=== PATIENT | male | born 1965 | race African-American/Black ===

== ENCOUNTER 2016-09-08 22:04 | Inpatient (IN) | payer MEDICAID ==
[~2016-09-08] VITALS: Ht 180.3 cm; Wt 77.6 kg
[~2016-09-08 22:04] MED LIST: AMLODIPINE BES2.5 MG ORAL; ASPIR 8181 MG ORAL; DOCUSATE SODIU100 M2 ORAL; DOCUSATE SODIU100 MG ORAL; IBUPROFEN600 MG ORAL; NORCO 5-325 TA1 EACH ORAL; NORVASC10 MG ORAL; PANTOPRAZOLE SO20 MG ORAL
[2016-09-08 22:08] VITALS: BP 152/84
[2016-09-08] MEDS ORDERED: Heparin Sod 1000 units/ml 10ml INJ ONE (22:30)
[2016-09-08] MEDS ORDERED: HYDROmorphone 1mg/ml Carpuject IVP ONE ×2 (22:30→23:15)
[2016-09-08] MEDS ORDERED: Heparin 2000 units/Ns 1000ml IV ONE (22:30)
[2016-09-08] MEDS ORDERED: Heparin 5000 units/ml inj IV ONE (22:45)
[2016-09-08] MEDS ORDERED: Heparin 25,000u/D5W 500ml 500 ML IV SCH (22:45)
[2016-09-08 22:54] LABS: INR 1.1 (0.9-1.1); PROTHROMBIN TIME 11.1 SEC (9.30-11.50)
[2016-09-08 22:56] LABS: ANION GAP 19 (5-15); CALCIUM 9.4 mg/dL (8.6-10.2); CARBON DIOXIDE 21 mEQ/L (20-30); CHLORIDE 99 mEQ/L (98-107); CREATININE 1.1 mg/dL (0.7-1.2); GLOMERULAR FILTRATION RATE > 60 mL/min (>60); HEMOLYSIS 3; POTASSIUM 3.5 mEQ/L (3.4-4.9); SODIUM 139 mEQ/L (135-145)
[2016-09-08 22:57] LABS: BASOPHILS % (AUTO) 1.3 % (0.0-2.0); EOSINOPHILS % (AUTO) 1.4 % (0.0-3.0); MEAN CORPUSCULAR HEMOGLOBIN 26.7 PG (27.0-31.0); MEAN CORPUSCULAR HGB CONC 31.1 G/DL (32.0-36.0); MEAN CORPUSCULAR VOLUME 86 FL (80-99); MEAN PLATELET VOLUME 6.3 FL (6.5-10.1); NEUTROPHILS % (AUTO) 48.3 % (45.0-75.0); PLATELET COUNT 210 K/UL (150-450); RED BLOOD COUNT 4.94 M/UL (4.70-6.10); RED CELL DISTRIBUTION WIDTH 13.8 % (11.6-14.8); WHITE BLOOD COUNT 10.7 K/UL (4.8-10.8)
[2016-09-08 23:32] VITALS: BP 165/87
[2016-09-09] VITALS (36 sets, daily range): BP systolic 127–160; BP diastolic 84–120
[2016-09-09] MEDS ORDERED: HYDROmorphone 1mg/ml Carpuject IVP ONE (00:15)
[2016-09-09] MEDS ORDERED: Norco 5mg/325mg tab ORAL PRN (01:15)
[2016-09-09] MEDS ORDERED: Milk of Magnesia 30ml Ud ORAL PRN (01:15)
[2016-09-09] MEDS ORDERED: Mylanta II UD 30ml ORAL PRN (01:15)
[2016-09-09] MEDS ORDERED: HYDROmorphone 1mg/NS 50ml IVPB 50 ML IVPB PRN (01:15)
[2016-09-09] MEDS ORDERED: Miralax 17gm pkt ORAL PRN (01:15)
--- NOTE | 2016-09-09 01:48 | Emergency Room Report ---
History of Present Illness General Chief Complaint: Pain Source: Patient, EMS Present Illness HPI This is a 50-year-old male with a history of bilateral femoral popliteal bypass surgery. This was done in January and February of last year. This is done by Dr. Lincoln at [facility]. He presents with acute onset of left leg pain. This occurred about 30 minutes prior to arrival. He complaining of severe pain 10 out of 10. He felt his leg from the knee down going numb. Denies any trauma. Denies any fever or chills. Still able to walk. No other complaint. Pain is tracking up his thigh. Allergies: Coded Allergies: PENICILLIN G (Unverified Allergy, Unknown, 09/08/16) CODEINE (Unverified Adverse Reaction, Unknown, 05/14/16) MORPHINE (Unverified Adverse Reaction, Unknown, 05/14/16) PENICILLINS (Unverified Adverse Reaction, Unknown, 05/14/16) SHELLFISH DERIVED (Unverified Adverse Reaction, Unknown, Shortness of Breath, 05/14/16) Patient History Past Medical History: see triage record, old chart reviewed Past Surgical History: other Pertinent Family History: none Social History: Denies: drug use Immunizations: other Reviewed Nursing Documentation: PMH: Agreed, PSxH: Agreed Nursing Documentation-PMH Past Medical History: No History, Except For Hx Hypertension: Yes Hx Gastrointestinal Problems: Yes - gerd Review of Systems Eye: Denies: blurred vision, eye pain ENT: Denies: ear pain, nose congestion, throat swelling Respiratory: Denies: cough, shortness of breath Cardiovascular: Denies: chest pain, palpitations Gastrointestinal: Denies: abdominal pain, diarrhea, nausea, vomiting Musculoskeletal: Reports: joint pain, muscle pain, Denies: back pain Skin: Denies: rash Neurological: Denies: headache, numbness Endocrine: Denies: increased thirst, increased urine Hematologic/Lymphatic: Denies: easy bruising All Other Systems: negative except mentioned in HPI Physical Exam Vital Signs Date Time Temp Pulse Resp B/P Pulse Ox O2 Delivery O2 Flow Rate FiO2 09/08/16 21:58 97.7 93 14 148/87 100 Room Air vitals normal Sp02 EP Interpretation: reviewed, normal General Appearance: well appearing, alert, moderate distress Head: normocephalic, atraumatic Eyes: bilateral eye EOMI, bilateral eye PERRL ENT: hearing grossly normal, normal pharynx Neck: full range of motion, supple, no meningismus Respiratory: chest non-tender, lungs clear, normal breath sounds Cardiovascular #1: regular rate, rhythm, no murmur Gastrointestinal: normal bowel sounds, non tender, no mass, no organomegaly, no bruit, non-distended Musculoskeletal: back normal, normal range of motion, other - Left leg: He has normal sensation of the thigh. He has decreased sensation of the lower extremity from the knee to the ankle. He has minimal sensation of the foot. I could not palpate a dorsalis pedis or posterior tibialis pulse. There is slight decrease in warmth compared to the right. Is able to move his knee, ankle, and toes. Neurologic: alert, oriented x3 Psychiatric: mood/affect normal Skin: warm/dry Procedures Critical Care Time Critical Care Time Critical care is mandated in this patient who presented with acute arterial occlusion. Patient require my urgent intervention to attenuate the risks of loss of limb which may lead to cardiovascular collapse and . Critical care time is 35 minutes excluding any reportable procedure. Critical care time included evaluation, multiple reevaluation, looking at old charts, interpreting laboratory and diagnostic data, discussing case with patient and family and consultants, and charting. Medical Decision Making Diagnostic Impression: Primary Impression: Arterial occlusion, lower extremity ER Course Patient presents with acute arterial occlusion of his left leg. I order heparin after my examination. This was done before ultrasound. Ultrasound confirmed arterial occlusion. I tried to transfer the patient to [facility]. Unfortunately, there was no bed. Transfer center unable to contact the vascular surgeon. I tried to transfer the patient to [facility]. This was also unsuccessful. Fortunately, I was able to contact Dr. Rip Kumar, vascular surgeon. He agreed with the treatment plan. Will operate on the patient first thing in the morning. He wanted to get an Aortogram with left leg runoff prior to surgery. I will contact the radiologist at 6 AM. Lab Results Impression labs unremarkable Rhythm Strip Diag. Results EP Interpretation: yes Rate: 88 Rhythm: NSR, no PVC's, no ectopy CT/MRI/US Diagnostic Results CT/MRI/US Diagnostic Results : Imaging Test Ordered: Arterial vascular US of left leg. Impression Read by Video Tape Editor. Flow at CF artery and profundus. No flow past the knee. Last Vital Signs Date Time Temp Pulse Resp B/P Pulse Ox O2 Delivery O2 Flow Rate FiO2 09/09/16 01:16 97.8 66 14 129/92 100 Room Air Status: improved Disposition: ADMITTED INPATIENT Condition: Serious Referrals: NOT CHOSEN ALTAGRACIA/,REFERRING (PCP) MARY SALDIVAR M.D. Sep 09, 2016 01:48
[2016-09-09] MEDS ORDERED: D5 1/2NS 1,000 ML IV SCH (03:00)
[2016-09-09] MEDS: Heparin 25,000u/D5W 500ml 500 ML IV SCH (04:02)
[2016-09-09] MEDS: Norco 10mg/325mg tab ORAL PRN ×2 (04:18→08:26)
[2016-09-09] MEDS: Docusate 100mg cap ORAL SCH ×2 (08:26→21:00)
--- NOTE | 2016-09-09 10:24 | General Progress Note ---
Progress Note Progress Note 50 y/o male with hx bilat LE FPBPG (vein grafts) last year, now with acute onset LLE pain and numbness since last night. Had doppler study which shows occluded graft on the left, patent on the right + hx ND, HTN, smoking Denies DM Denies hx GIB, CVA, CA, hemoptysis Allergies: shellfish, PCN, codeine, morphine On exam has bilat 2+ groin pulses, no pop or distal pulses. LLE is cool to the knee. Decreased motor, equivocally decreased sensation. Diagnostic LLE angiogram requested by referring vascular surgeon Dr. Kumar. Procedure, benefits, alternatives, and risks, including but not limited to hemorrhage, infection, contrast reaction, renal failure discussed with patient and . Due to equipment limitations, we can only offer limited intervention, but possibility of such also discussed. They agree to proceed. ALEX SAINI M.D. Sep 09, 2016 10:24
[2016-09-09] MEDS ORDERED: Sodium Bicarbonate 8.4% 50ml Inj ONE (10:26)
[2016-09-09] MEDS ORDERED: Lidocaine 1% Plain 30 ml INJ ONE ×2 (10:26→13:13)
[2016-09-09] MEDS ORDERED: Heparin 2000 units/Ns 1000ml 2,000 ML ONE (10:26)
--- NOTE | 2016-09-09 10:27 | Pre-Procedure Note/Attestation ---
Pre-Procedure Note/Attestation Complete Prior to Procedure Planned Procedure: bilateral Procedure Narrative: Abd aortogram and LLE runoff arteriogram, possible intervention Indications for Procedure Pre-Operative Diagnosis: Acute LLE ischemia Attestation I attest that I discussed the nature of the procedure; its benefits; risks and complications; and alternatives (and the risks and benefits of such alternatives ), prior to the procedure, with the patient (or the patient's legal electronics parts sales representative). I attest that, if there was a reasonable possibility of needing a blood transfusion, the patient (or the patient's legal electronics parts sales representative) was given the [facility] standardized written summary, pursuant to the Asa Laureano Blood Safety Act ([place] Health and Safety Code # 1645, as amended). I attest that I re-evaluated the patient just prior to the surgery and that there has been no change in the patient's H&P, except as documented below: ALEX SAINI M.D. Sep 09, 2016 10:27
--- NOTE | 2016-09-09 10:28 | Moderate Sedation - Procedural ---
Moderate Sedation HPI Home Medication Active Scripts Hydrocodone Bit/Acetaminophen 5-325* (NORCO 5-325*) 1 Each Tablet, 1 TAB ORAL Q6H Y for For Pain, #10 TAB 0 Refills Prov:PALLAVI DAWN M.D. 05/14/16 Ibuprofen* (MOTRIN*) 600 Mg Tablet, 600 MG ORAL Q8H Y for For Pain, #30 TAB 0 Refills Prov:PALLAVI DAWN M.D. 05/14/16 Reported Medications Docusate Sodium* (DOCUSATE SODIUM*) 100 Mg Capsule, 200 MG ORAL DAILY, CAP 09/08/16 Aspirin* (ASPIR 81*) 81 Mg Tablet.dr, 81 MG ORAL DAILY, TAB 09/08/16 Amlodipine Besylate* (AMLODIPINE BESYLATE*) 2.5 Mg Tablet, 2.5 MG ORAL DAILY, TAB 09/08/16 Pantoprazole (PANTOPRAZOLE) 20 Mg Tablet.dr, 20 MG ORAL DAILY, #10 TAB 0 Refills 05/14/16 Docusate Sodium (DOCUSATE SODIUM) 100 Mg Tablet, 100 MG ORAL TWICE A DAY, #60 TAB 0 Refills 05/14/16 Aspirin* (ASPIR 81*) 81 Mg Tablet.dr, 81 MG ORAL DAILY, TAB 05/14/16 Amlodipine Besylate (Norvasc) 10 Mg Tablet, 10 MG ORAL DAILY, TAB 05/14/16 Patient History Allergies: Coded Allergies: PENICILLIN G (Unverified Allergy, Unknown, 09/08/16) CODEINE (Unverified Adverse Reaction, Unknown, 05/14/16) MORPHINE (Unverified Adverse Reaction, Unknown, 05/14/16) PENICILLINS (Unverified Adverse Reaction, Unknown, 05/14/16) SHELLFISH DERIVED (Unverified Adverse Reaction, Unknown, Shortness of Breath, 05/14/16) PAST MEDICAL HISTORY: Past Surgeries: Social History: Pre-Procedural Mod Sedation Pre-Assessment Time: 10:15 Pre-Sedation Assessment: Eval. Immed. Prior to Sed, Reviewed H&P, Patient Examined, Plan for Sedation Discuss Airway Assessment (Malampati): III Evaluation Hx of untoward rxns to mod sed: No Procedures/Plans: Radiology Plan for Moderate Sedation: Midazolam, Fentanyl ASA Score: II Informed Consent The nature of the procedure/sedation; its benefits; risks and complications; and alternatives (and the risks and benefits of such alternatives) were discussed with the patient (or their legal electroplating sales representative), prior to the procedure. All questions were answered to the patient's (or their legal electroplating sales representative's) satisfaction and the patient (or their legal electroplating sales representative) gave informed consent to the procedure. I attest that I re-evaluated the patient just prior to the surgery and that there has been no change in the patient's H&P, except as documented below: Post Procedure Assessment Communication: No Apparent Limitation Mental Status: Awake Respiration: Unlabored Skin Condition: WNL Adomen: WNL Nausea: NO Vomiting: NO ALEX SAINI M.D. Sep 09, 2016 10:28
[2016-09-09] MEDS ORDERED: DiphenhydrAMINE 50mg/ml Inj ONE (10:47)
[2016-09-09] MEDS ORDERED: fentaNYL 100 mcg/2 mL IV ONE (11:00)
[2016-09-09] MEDS ORDERED: Midazolam 2mg/2ml Inj ONE ×2 (11:00→15:00)
[2016-09-09] MEDS ORDERED: DiphenhydrAMINE 50mg/ml Inj IVP PRN ×2 (11:00→16:00)
[2016-09-09] MEDS ORDERED: Heparin 2000 units/Ns 1000ml 1,000 ML ONE (11:32)
[2016-09-09] MEDS ORDERED: Heparin 5000 units/ml inj ONE (13:12)
[2016-09-09] MEDS ORDERED: Isovue-M 300 INJ ONE (13:12)
[2016-09-09] MEDS ORDERED: Bupivacaine 0.5% Inj 30 ml vial INJ ONE (13:13)
--- NOTE | 2016-09-09 13:55 | History and Physical ---
History of Present Illness General Date patient seen: Sep 09, 2016 Time patient seen: 13:54 Reason for Hospitalization: Pain Present Illness HPI 50-year-old male with a history of bilateral femoral popliteal bypass surgery done in January and February of last year by Dr. Lincoln at [facility]. He presents with acute onset of left leg pain. This occurred about 30 minutes prior to arrival. He was complaining of severe pain 10 out of 10. He felt his leg from the knee down going numb. Denies any trauma. Denies any fever or chills. Still able to walk. No other complaint. Pain is tracking up his thigh. Allergies: Coded Allergies: PENICILLIN G (Unverified Allergy, Unknown, 09/08/16) CODEINE (Unverified Adverse Reaction, Unknown, 05/14/16) MORPHINE (Unverified Adverse Reaction, Unknown, 05/14/16) PENICILLINS (Unverified Adverse Reaction, Unknown, 05/14/16) SHELLFISH DERIVED (Unverified Adverse Reaction, Unknown, Shortness of Breath, 05/14/16) Medication History Scheduled Amlodipine Besylate (Norvasc), 10 MG ORAL DAILY, (Reported) Amlodipine Besylate* (Amlodipine Besylate*), 2.5 MG ORAL DAILY, (Reported) Aspirin* (Aspir 81*), 81 MG ORAL DAILY, (Reported) Aspirin* (Aspir 81*), 81 MG ORAL DAILY, (Reported) Docusate Sodium (Docusate Sodium), 100 MG ORAL TWICE A DAY, (Reported) Docusate Sodium* (Docusate Sodium*), 200 MG ORAL DAILY, (Reported) Pantoprazole (Pantoprazole), 20 MG ORAL DAILY, (Reported) Scheduled PRN Hydrocodone Bit/Acetaminophen 5-325* ([place] 5-325*), 1 TAB ORAL Q6H PRN for For Pain Ibuprofen* (Motrin*), 600 MG ORAL Q8H PRN for For Pain Patient History Healthcare decision maker Resuscitation status Full Code Advanced Directive on File Past Medical/Surgical History Past Medical/Surgical History: (1) PVD (peripheral vascular disease) Family History Family History: Patient reports no known family medical history. Social History Social History: (1) No significant social history Review of Systems All Other Systems: negative except mentioned in HPI Physical Exam General Appearance: no apparent distress, alert HEENT: normocephalic, atraumatic, anicteric, mucous membranes moist, PERRL, EOMI, pharynx normal, no JVD Neck: non-tender, supple Respiratory/Chest: lungs clear, normal breath sounds, no respiratory distress, no accessory muscle use Cardiovascular/Chest: normal peripheral pulses, normal rate, regular rhythm Abdomen: normal bowel sounds, non tender, soft, no mass Extremities: non-tender, normal inspection Skin Exam: warm/dry Neurologic: calender let off operator II-XII grossly normal, no motor/sensory deficits, alert Musculoskeletal: normal muscle bulk Physical Exam Narrative General Appearance: well appearing, alert, moderate distress Head: normocephalic, atraumatic Eyes: bilateral eye EOMI, bilateral eye PERRL ENT: hearing grossly normal, normal pharynx Neck: full range of motion, supple, no meningismus Respiratory: chest non-tender, lungs clear, normal breath sounds Cardiovascular #1: regular rate, rhythm, no murmur Gastrointestinal: normal bowel sounds, non tender, no mass, no organomegaly, no bruit, non-distended Musculoskeletal: back normal, normal range of motion, other - Left leg: He has normal sensation of the thigh. He has decreased sensation of the lower extremity from the knee to the ankle. He has minimal sensation of the foot. I could not palpate a dorsalis pedis or posterior tibialis pulse. There is slight decrease in warmth compared to the right. Is able to move his knee, ankle, and toes. Neurologic: alert, oriented x3 Psychiatric: mood/affect normal Skin: warm/dry Last 24 Hour Vital Signs Date Time Temp Pulse Resp B/P Pulse Ox O2 Delivery O2 Flow Rate FiO2 09/09/16 13:10 65 22 148/94 99 Room Air 09/09/16 13:05 68 20 146/102 100 Room Air 09/09/16 13:00 67 11 148/101 100 Room Air 09/09/16 12:55 71 14 150/101 100 Room Air 09/09/16 12:50 62 14 151/103 100 Simple Mask 4.0 09/09/16 12:45 68 14 152/99 100 Simple Mask 4.0 09/09/16 12:40 65 12 146/101 100 Simple Mask 4.0 09/09/16 12:35 65 12 136/100 100 Simple Mask 4.0 09/09/16 12:30 99.4 69 12 145/103 100 Simple Mask 4.0 09/09/16 12:25 67 17 160/102 100 Simple Mask 4.0 09/09/16 12:20 66 10 152/100 100 Simple Mask 4.0 09/09/16 12:15 98.5 66 10 147/106 100 Simple Mask 09/09/16 12:10 69 10 151/103 100 Simple Mask 09/09/16 12:05 66 19 151/101 100 Simple Mask 4.0 09/09/16 12:00 67 10 143/101 100 Simple Mask 4.0 09/09/16 11:55 69 10 146/97 100 Simple Mask 4.0 09/09/16 11:50 71 16 153/100 100 Simple Mask 4.0 09/09/16 11:45 69 18 157/104 100 Simple Mask 4.0 09/09/16 11:40 57 12 148/99 100 Simple Mask 4.0 09/09/16 11:35 69 11 144/99 100 Simple Mask 4.0 09/09/16 11:30 67 12 141/106 100 Simple Mask 4.0 09/09/16 11:25 68 20 141/102 100 Simple Mask 4.0 09/09/16 11:20 99.0 67 12 135/92 100 Simple Mask 4.0 09/09/16 11:15 64 16 144/100 100 Simple Mask 4.0 09/09/16 11:10 67 16 135/99 100 Room Air 09/09/16 11:05 68 14 144/96 100 Room Air 09/09/16 11:04 99.0 67 16 100 Simple Mask 4.0 70 100 68 100 09/09/16 11:00 69 14 149/111 99 Room Air 09/09/16 10:55 82 17 148/120 100 Room Air 09/09/16 10:50 63 23 149/100 100 Room Air 09/09/16 10:45 62 12 144/101 100 Room Air 09/09/16 10:40 63 22 148/101 100 Room Air 09/09/16 08:00 96.9 61 20 127/87 100 Room Air 09/09/16 04:12 97.7 67 21 147/97 98 Room Air 09/09/16 04:00 75 09/09/16 03:05 97.8 64 13 131/84 100 Room Air 09/09/16 02:22 97.8 64 13 131/84 100 Room Air 09/09/16 01:16 97.8 66 14 129/92 100 Room Air 09/09/16 00:45 97.8 09/08/16 23:32 97.8 72 16 165/87 100 Room Air 09/08/16 23:20 97.8 09/08/16 23:20 97.8 09/08/16 22:08 97.8 95 15 152/84 100 Room Air 09/08/16 21:58 97.7 93 14 148/87 100 Room Air Intake and Output 09/08/16 09/09/16 19:00 07:00 Intake Total 205.8 ml Balance 205.8 ml Intake IV Total 205.8 ml # Voids 2 Laboratory Tests Test 09/08/16 22:24 09/09/16 05:20 White Blood Count 10.7 K/UL (4.8-10.8) Red Blood Count 4.94 M/UL (4.70-6.10) Hemoglobin 13.2 G/DL (14.2-18.0) L Hematocrit 42.4 % (42.0-52.0) Mean Corpuscular Volume 86 FL (80-99) Mean Corpuscular Hemoglobin 26.7 PG (27.0-31.0) L Mean Corpuscular Hemoglobin Concent 31.1 G/DL (32.0-36.0) L Red Cell Distribution Width 13.8 % (11.6-14.8) Platelet Count 210 K/UL (150-450) Mean Platelet Volume 6.3 FL (6.5-10.1) L Neutrophils (%) (Auto) 48.3 % (45.0-75.0) Lymphocytes (%) (Auto) 41.0 % (20.0-45.0) Monocytes (%) (Auto) 8.0 % (1.0-10.0) Eosinophils (%) (Auto) 1.4 % (0.0-3.0) Basophils (%) (Auto) 1.3 % (0.0-2.0) Prothrombin Time 11.1 SEC (9.30-11.50) Prothromb Time International Ratio 1.1 (0.9-1.1) Activated Partial Thromboplast Time 28 SEC (23-33) 78 SEC (23-33) H Sodium Level 139 mEQ/L (135-145) Potassium Level 3.5 mEQ/L (3.4-4.9) Chloride Level 99 mEQ/L (98-107) Carbon Dioxide Level 21 mEQ/L (20-30) Anion Gap 19 (5-15) H Blood Urea Nitrogen 14 mg/dL (7-23) Creatinine 1.1 mg/dL (0.7-1.2) Estimat Glomerular Filtration Rate > 60 mL/min (>60) Glucose Level 123 mg/dL (74-106) H Calcium Level 9.4 mg/dL (8.6-10.2) Height (Feet): 5 Height (Inches): 11.00 Weight (Pounds): 171 Medications Current Medications Medications (Trade) Dose Ordered Sig/Leidy Route PRN Reason Start Time Stop Time Status Last Admin Dose Admin Acetaminophen (Tylenol) 650 mg Q4H PRN ORAL Mild Pain (Pain Scale 1-3) 09/09/16 01:15 10/09/16 01:14 Acetaminophen/ Hydrocodone Bitart 1 tab 1 tab Q4H PRN ORAL mod pain 09/09/16 01:15 09/16/16 01:14 Acetaminophen/ Hydrocodone Bitart ([place] 10/325) 1 ea Q4H PRN ORAL Severe Pain (Pain Scale 7-10) 09/09/16 01:15 09/16/16 01:14 09/09/16 08:26 Al Hydroxide/Mg Hydroxide (Mylanta II) 30 ml Q6H PRN ORAL dyspepsia 09/09/16 01:15 10/09/16 01:14 Bisacodyl (Dulcolax) 10 mg DAILYPRN PRN RECTAL Constipation 09/09/16 01:15 10/09/16 01:14 Dextrose (Dextrose 50%) STAT PRN IV Hypoglycemia 09/09/16 01:15 10/09/16 01:14 Dextrose/Sodium Chloride (D5 0.45% NS) 1,000 ml @ 75 mls/hr [id number] IV 09/09/16 03:00 10/09/16 02:59 09/09/16 04:02 Diphenhydramine HCl (Benadryl) 25 mg Q6H PRN ORAL Itching/Pruritis 09/09/16 01:15 10/09/16 01:14 Diphenhydramine HCl (Benadryl) 50 mg ONCE PRN IVP PRIOR TO PROCEDURE FOR ITCHING 09/09/16 11:00 09/10/16 23:59 Docusate Sodium (Colace) 100 mg EVERY 12 HOURS ORAL 09/09/16 09:00 10/09/16 08:59 09/09/16 08:26 Heparin Sodium/ Dextrose (Heparin) 500 ml @ 27.923 mls/ hr adjust per protocol IV 09/09/16 03:45 10/09/16 03:44 09/09/16 04:02 Hydromorphone HCl 50 ml @ 200 mls/hr Q4H PRN IVPB Pain Scale (6-10) 09/09/16 01:15 10/09/16 01:14 Magnesium Hydroxide (Mom) 30 ml HSPRN PRN ORAL Constipation 09/09/16 01:15 10/09/16 01:14 Ondansetron HCl (Zofran) 4 mg Q6H PRN IVP Nausea & Vomiting 09/09/16 01:15 10/09/16 01:14 Polyethylene Glycol (Miralax) 17 gm DAILYPRN PRN ORAL Constipation 09/09/16 01:15 10/09/16 01:14 Assessment/Plan Problem List: (1) Arterial occlusion, lower extremity ICD Codes: I74.3 - Embolism and thrombosis of arteries of the lower extremities SNOMED: 982477191 (2) PVD (peripheral vascular disease) ICD Codes: I73.9 - Peripheral vascular disease, unspecified SNOMED: 449582548 Status: progressing Assessment/Plan angiogram reveals occlusion of L leg graft f/u with Vascular surgery; plan for procedure today BP control pain control Daron Hassan M.D. Sep 09, 2016 13:55
[2016-09-09] MEDS ORDERED: Clindamycin 600mg 50 ML IV ONE (14:46)
[2016-09-09] MEDS ORDERED: Clindamycin 2 ML ONE (14:46)
--- NOTE | 2016-09-09 14:52 | Brief Operative Note ---
Immediate Post Operative Note Operative Note Pre-op Diagnosis: Acute LLE ischemia Procedure: LLE angiogram Post-op Diagnosis: same Post-op Diagnosis: same as pre-op Findings: other - Occluded L FPBPG. Minimal distal reconstitution Surgeon: Joseph Leal Anesthesia: moderate sedation Specimen: none Complications: none Estimated Blood Loss: minimal Drains: none Implant(s) used?: No ALEX LEAL M.D. Sep 09, 2016 14:52
[2016-09-09] MEDS ORDERED: NS Irrig 1000ml ONE (15:00)
[2016-09-09] MEDS ORDERED: Lidocaine 1% MPF 10mg/ml 5ml ONE (15:00)
[2016-09-09] MEDS ORDERED: LR 1000ml ONE (15:00)
[2016-09-09] MEDS ORDERED: Dexamethasone 4mg/ml vial ONE (15:00)
[2016-09-09] MEDS ORDERED: Etomidate 40mg/20ml Inj IV ONE (15:00)
[2016-09-09] MEDS ORDERED: fentaNYL 250mcg/5ml ONE (15:00)
[2016-09-09] MEDS ORDERED: Metoclopramide 10mg/2ml Inj ONE (15:00)
[2016-09-09] MEDS ORDERED: Zemuron 50mg/5ml Inj IV ONE (15:00)
[2016-09-09] MEDS ORDERED: Sterile Water Irrig 1000ml IRRIG ONE (15:00)
--- NOTE | 2016-09-09 15:35 | Cardiology Report ---
APPROVED REPORT EKG Measurement Heart [id number] Normal sinus rhythm Normal ECG
[2016-09-09] MEDS ORDERED: NS Irrig 1000ml IRRIG ONE (15:50)
[2016-09-09] MEDS ORDERED: Lidocaine 2% MPF 5ml Vial INJ ONE (15:56)
--- NOTE | 2016-09-09 15:56 | Anethesia Preoperative Eval ---
Anesthesia Pre-op PMH/ROS General Date of Evaluation: Sep 09, 2016 Anesthesiologist: Keith ASA Score: ASA 3 Mallampati Score Class I : Soft palate, uvula, fauces, pillars visible Class II: Soft palate, uvula, fauces visible Class III: Soft palate, base of uvula visible Class IV: Only hard plate visible Mallampati Classification: Class II Surgeon: José Diagnosis: Left leg graft occlusion Surgical Procedure: Left leg femoral-tibial bypass Anesthesia History: none Family History: no anesthesia problems Allergies: Coded Allergies: PENICILLIN G (Unverified Allergy, Unknown, 09/08/16) CODEINE (Unverified Adverse Reaction, Unknown, 05/14/16) MORPHINE (Unverified Adverse Reaction, Unknown, 05/14/16) PENICILLINS (Unverified Adverse Reaction, Unknown, 05/14/16) SHELLFISH DERIVED (Unverified Adverse Reaction, Unknown, Shortness of Breath, 05/14/16) Medications: see eMAR Past Medical History Cardiovascular: Reports: HTN, other - PVD-severe, uncontrolled. S/p bialteral fem-pop bypasses, HLD, Denies: CAD, VA, arrhythmia, valve dz Pulmonary: Denies: COPD, DIANE, asthma, other Gastrointestinal/Genitourinary: Reports: GERD, Denies: CRI, ESRD, other Neurologic/Psychiatric: Denies: CVA, TIA, dementia, depression/anxiety, other Endocrine: Denies: DM, hypothyroidism, other, steroids HEENT: Denies: CHICKEN RANCH (L), CHICK[place] RANCH (R), cataract (L), cataract (R), glaucoma, other Hematology/Immune: Denies: DVT, anemia, bleeding disorder, other Musculoskeletal/Integumentary: Denies: DDD, DJD, OA, RA, edema, other PSxH Narrative: bilateral lower extremity, fem-pop bypasses Anesthesia Pre-op Phys. Exam Physician Exam Last Vital Signs Date Time Temp Pulse Resp B/P Pulse Ox O2 Delivery O2 Flow Rate FiO2 09/09/16 13:10 65 22 148/94 99 Room Air 09/09/16 12:50 4.0 09/09/16 12:30 99.4 Constitutional: NAD Cardiovascular: RRR Respiratory: CTA Airway Exam Mallampati Score: Class II MO: full ROM: full Teeth: missing, broken Anesthesia Pre-op A/P Labs Hematology Test 09/08/16 22:24 White Blood Count 10.7 K/UL (4.8-10.8) Red Blood Count 4.94 M/UL (4.70-6.10) Hemoglobin 13.2 G/DL (14.2-18.0) L Hematocrit 42.4 % (42.0-52.0) Mean Corpuscular Volume 86 FL (80-99) Mean Corpuscular Hemoglobin 26.7 PG (27.0-31.0) L Mean Corpuscular Hemoglobin Concent 31.1 G/DL (32.0-36.0) L Red Cell Distribution Width 13.8 % (11.6-14.8) Platelet Count 210 K/UL (150-450) Mean Platelet Volume 6.3 FL (6.5-10.1) L Neutrophils (%) (Auto) 48.3 % (45.0-75.0) Lymphocytes (%) (Auto) 41.0 % (20.0-45.0) Monocytes (%) (Auto) 8.0 % (1.0-10.0) Eosinophils (%) (Auto) 1.4 % (0.0-3.0) Basophils (%) (Auto) 1.3 % (0.0-2.0) Coagulation Test 09/08/16 22:24 09/09/16 05:20 Prothrombin Time 11.1 SEC (9.30-11.50) Prothromb Time International Ratio 1.1 (0.9-1.1) Activated Partial Thromboplast Time 28 SEC (23-33) 78 SEC (23-33) H Chemistry Test 09/08/16 22:24 Sodium Level 139 mEQ/L (135-145) Potassium Level 3.5 mEQ/L (3.4-4.9) Chloride Level 99 mEQ/L (98-107) Carbon Dioxide Level 21 mEQ/L (20-30) Anion Gap 19 (5-15) H Blood Urea Nitrogen 14 mg/dL (7-23) Creatinine 1.1 mg/dL (0.7-1.2) Estimat Glomerular Filtration Rate > 60 mL/min (>60) Glucose Level 123 mg/dL (74-106) H Calcium Level 9.4 mg/dL (8.6-10.2) Studies Pre-op Studies: EKG - ST Risk Assessment & Plan Assessment: ASA IIIE Plan: GA-ETT, a-line Status Change Before Surgery: No Pre-Antibiotics Drug: Clindamycin 900mg Given Within 1 Hr of Incision: Yes Time Given: 15:30 NIK CALLEJAS M.D. Sep 09, 2016 15:55
[2016-09-09] MEDS ORDERED: Bacitracin 50000 Units Vial ONE (15:58)
[2016-09-09] MEDS ORDERED: Metoclopramide 10mg/2ml Inj IVP PRN (16:00)
[2016-09-09] MEDS ORDERED: fentaNYL 100 mcg/2 mL IV PRN (16:00)
[2016-09-09] MEDS ORDERED: Labetalol 5mg/ml 20ml vial IV PRN (16:00)
[2016-09-09] MEDS ORDERED: Midazolam 2mg/2ml Inj IVP PRN (16:00)
[2016-09-09] MEDS ORDERED: LORazepam Inj 2mg/ml 1ml IV PRN (16:00)
--- NOTE | 2016-09-09 16:07 | Immediate Post-Op Evaluation ---
Immediate Post-Op Evalulation Immediate Post-Op Evalulation Procedure: Left femoral-tibial bypass Date of Evaluation: Sep 09, 2016 Time of Evaluation: 12:13 IV Fluids: 3.9L Blood Products: 0 Estimated Blood Loss: 150 Urinary Output: 600 Blood Pressure Systolic: 163 Blood Pressure Diastolic: 108 Pulse Rate: 74 Respiratory Rate: 12 O2 Sat by Pulse Oximetry: 100 Temperature (Fahrenheit): 98.1 Pain Score (1-10): 0 Nausea: No Vomiting: No Complications 0 Patient Status: awake, reacts, patent, none Hydration Status: adequate Drug: Clindamycin 900mg Given Within 1 Hr of Incision: Yes Time Given: 15:30 NIK CALLEJAS M.D. Sep 09, 2016 16:07
[2016-09-09] MEDS ORDERED: D5 1/2NS 1000ml IV ONE (16:58)
[2016-09-10] VITALS (29 sets, daily range): BP systolic 117–170; BP diastolic 69–108
[2016-09-10] MEDS ORDERED: Heparin 2000 units/Ns 1000ml 1,000 ML ONE (00:25)
--- NOTE | 2016-09-10 00:46 | Brief Operative Note ---
Immediate Post Operative Note Operative Note Chief Complaint: graft occlusion Pre-op Diagnosis: graft occlusion Procedure: attempted thrombectomy of fem tib PTFE bypass Profunda common peroneal bypass with composite saphenous vein graft thrombectomy of common peroneal and posterior tibial artery veno-venostomy saphenous Post-op Diagnosis: same Post-op Diagnosis: same as pre-op Surgeon: shiloh Dealer Account Manager: none Anesthesiologist: berta Anesthesia: general Specimen: yes Complications: none Condition: stable Estimated Blood Loss: volume - 250 Drains: FRACISCO Implant(s) used?: No ELIAS VILLEGAS Sep 10, 2016 00:46
[2016-09-10] MEDS: D5 1/2NS 1,000 ML IV SCH ×2 (01:54→10:33)
[2016-09-10] MEDS ORDERED: LR 1000ml 1,000 ML IVLG SCH ×2 (02:00→18:05)
[2016-09-10] MEDS: Heparin 25,000u/D5W 500ml 500 ML IV SCH (02:03)
[2016-09-10] MEDS: Hydromorphone 0.5mg/0.5ml inj IVP PRN ×3 (04:00→09:03)
[2016-09-10] MEDS ORDERED: Cathflo Alteplase 2mg Inj ONE (06:00)
[2016-09-10 08:36] LABS: BASOPHILS % (AUTO) 0.6 % (0.0-2.0); EOSINOPHILS % (AUTO) 0.1 % (0.0-3.0); LYMPHOCYTES % (AUTO) 22.3 % (20.0-45.0); MEAN CORPUSCULAR HEMOGLOBIN 27.4 PG (27.0-31.0); MEAN CORPUSCULAR HGB CONC 32.9 G/DL (32.0-36.0); MEAN CORPUSCULAR VOLUME 83 FL (80-99); MEAN PLATELET VOLUME 7.5 FL (6.5-10.1); MONOCYTES % (AUTO) 9.8 % (1.0-10.0); NEUTROPHILS % (AUTO) 67.3 % (45.0-75.0); PLATELET COUNT 159 K/UL (150-450); RED BLOOD COUNT 3.95 M/UL (4.70-6.10); RED CELL DISTRIBUTION WIDTH 13.8 % (11.6-14.8); WHITE BLOOD COUNT 9.9 K/UL (4.8-10.8)
[2016-09-10 08:42] LABS: INR 1.2 (0.9-1.1); PROTHROMBIN TIME 12.6 SEC (9.30-11.50)
[2016-09-10 08:48] LABS: ANION GAP 15 (5-15); CALCIUM 7.7 mg/dL (8.6-10.2); CARBON DIOXIDE 24 mEQ/L (20-30); CHLORIDE 97 mEQ/L (98-107); CREATININE 1.1 mg/dL (0.7-1.2); GLOMERULAR FILTRATION RATE > 60 mL/min (>60); HEMOLYSIS 2; MAGNESIUM 1.6 mg/dL (1.7-2.5); POTASSIUM 3.8 mEQ/L (3.4-4.9); SODIUM 136 mEQ/L (135-145)
[2016-09-10] MEDS ORDERED: Hydromorphone 0.5mg/0.5ml inj IVP ONE (09:45)
[2016-09-10] MEDS ORDERED: Heparin 5000 units/ml inj IV ONE ×2 (10:00)
[2016-09-10] MEDS ORDERED: Heparin 25,000u/D5W 500ml 500 ML IV SCH (10:00)
[2016-09-10] MEDS ORDERED: HYDROmorphone 1mg/NS 50ml IVPB 50 ML IVPB PRN (13:15)
--- NOTE | 2016-09-10 14:49 | General Progress Note ---
Assessment/Plan Problem List: (1) Arterial occlusion, lower extremity ICD Codes: I74.3 - Embolism and thrombosis of arteries of the lower extremities SNOMED: 129387873 (2) PVD (peripheral vascular disease) ICD Codes: I73.9 - Peripheral vascular disease, unspecified SNOMED: 261732358 Status: progressing Assessment/Plan s/p attempted thrombectomy of fem tib PTFE bypass Profunda common peroneal bypass with composite saphenous vein graft thrombectomy of common peroneal and posterior tibial artery veno-venostomy saphenous; 09/09/16 with vascular surgery BP control resume amlodipine increase pain control with Dil, 2 mg IV q4h breakthrough severe pain Subjective Date patient seen: Sep 10, 2016 Time patient seen: 14:47 Allergies: Coded Allergies: PENICILLIN G (Unverified Allergy, Unknown, 09/08/16) CODEINE (Unverified Adverse Reaction, Unknown, 05/14/16) MORPHINE (Unverified Adverse Reaction, Unknown, 05/14/16) PENICILLINS (Unverified Adverse Reaction, Unknown, 05/14/16) SHELLFISH DERIVED (Unverified Adverse Reaction, Unknown, Shortness of Breath, 05/14/16) Subjective pt c/o uncontrolled pain and LLE numbness Objective Last 24 Hour Vital Signs Date Time Temp Pulse Resp B/P Pulse Ox O2 Delivery O2 Flow Rate FiO2 09/10/16 14:00 66 14 143/83 100 Room Air 09/10/16 13:00 78 14 130/78 100 Room Air 09/10/16 12:00 99.8 80 16 133/93 100 Room Air 09/10/16 12:00 80 09/10/16 11:00 82 16 125/79 99 Nasal Cannula 3.0 09/10/16 10:00 76 20 118/76 99 Nasal Cannula 3.0 09/10/16 09:00 70 14 117/69 100 Nasal Cannula 3.0 09/10/16 08:00 98.7 67 14 156/98 100 Nasal Cannula 3.0 09/10/16 08:00 78 09/10/16 07:00 70 14 129/91 100 Nasal Cannula 3.0 09/10/16 06:00 67 21 136/87 100 Nasal Cannula 3.0 09/10/16 05:00 97.8 67 21 136/87 100 Nasal Cannula 3.0 09/10/16 04:30 97.8 09/10/16 04:01 100 Nasal Cannula 2.0 28 09/10/16 04:01 Nasal Cannula 2.0 28 09/10/16 04:00 70 17 136/84 100 Nasal Cannula 3.0 09/10/16 04:00 70 09/10/16 03:00 69 11 142/97 100 Nasal Cannula 3.0 09/10/16 02:00 69 11 151/87 100 Nasal Cannula 3.0 09/10/16 01:40 65 09/10/16 01:30 97.2 67 12 138/92 100 Nasal Cannula 3.0 09/10/16 01:00 65 15 141/100 100 Nasal Cannula 3.0 09/10/16 00:50 66 16 150/94 100 Nasal Cannula 3.0 09/10/16 00:45 64 14 140/91 100 Simple Mask 6.0 09/10/16 00:40 64 13 144/95 100 Simple Mask 6.0 09/10/16 00:30 63 15 147/92 100 Simple Mask 6.0 09/10/16 00:24 61 18 163/103 100 09/10/16 00:17 65 18 159/105 100 09/10/16 00:12 68 18 163/108 100 09/10/16 00:11 74 12 100 09/10/16 00:07 98.1 73 18 170/107 100 Intake and Output 09/09/16 09/10/16 19:00 07:00 Intake Total 385.7 ml 4666.2 ml Output Total 1550 ml Balance 385.7 ml 3116.2 ml Intake IV Total 385.7 ml 4666.2 ml Output Urine Total 1400 ml Estimated Blood Loss 150 ml Laboratory Tests 09/09/16 17:10: Activated Partial Thromboplast Time 87H 09/09/16 18:40: Activated Partial Thromboplast Time 125H 09/10/16 08:00: Activated Partial Thromboplast Time 53H, White Blood Count 9.9, Red Blood Count 3.95L, Hemoglobin 10.8L, Hematocrit 32.9L, Mean Corpuscular Volume 83, Mean Corpuscular Hemoglobin 27.4, Mean Corpuscular Hemoglobin Concent 32.9, Red Cell Distribution Width 13.8, Platelet Count 159, Mean Platelet Volume 7.5, Neutrophils (%) (Auto) 67.3, Lymphocytes (%) (Auto) 22.3, Monocytes (%) (Auto) 9.8, Eosinophils (%) (Auto) 0.1, Basophils (%) (Auto) 0.6, Prothrombin Time 12.6H, Prothromb Time International Ratio 1.2H, Sodium Level 136, Potassium Level 3.8, Chloride Level 97L, Carbon Dioxide Level 24, Anion Gap 15, Blood Urea Nitrogen 10, Creatinine 1.1, Estimat Glomerular Filtration Rate > 60, Glucose Level 132H, Calcium Level 7.7L, Magnesium Level 1.6L Height (Feet): 5 Height (Inches): 11.00 Weight (Pounds): 171 Objective General Appearance: well appearing, alert, mild distress Head: normocephalic, atraumatic Eyes: bilateral eye EOMI, bilateral eye PERRL ENT: hearing grossly normal, normal pharynx Neck: full range of motion, supple, no meningismus Respiratory: chest non-tender, lungs clear, normal breath sounds Cardiovascular #1: regular rate, rhythm, no murmur Gastrointestinal: normal bowel sounds, non tender, no mass, no organomegaly, no bruit, non-distended Musculoskeletal: back normal, normal range of motion, other - Left leg: He has normal sensation of the thigh. He has decreased sensation of the lower extremity from the knee to the ankle. He has minimal sensation of the foot. pulses equal. Is able to move his knee, ankle, and toes. Neurologic: alert, oriented x3 Psychiatric: mood/affect normal Skin: warm/dry; incision intact Daron Hassan M.D. Sep 10, 2016 14:49
--- NOTE | 2016-09-10 16:17 | 48 Hour Post Anesthesia Eval ---
Post Anesthesia Evaluation Procedure: Left femoral-tibial bypass Date of Evaluation: Sep 10, 2016 Time of Evaluation: 16:15 Blood Pressure Systolic: 148 0: 72 Pulse Rate: 72 Respiratory Rate: 20 Temperature (Fahrenheit): 97.6 O2 Sat by Pulse Oximetry: 98 Airway: patent Nausea: No Vomiting: No Pain Intensity: 2 Hydration Status: adequate Cardiopulmonary Status: stable Mental Status/LOC: patient returned to baseline Follow-up Care/Observations: n/a Post-Anesthesia Complications: none Follow-up care needed: N/A CAMI VILLARREAL M.D. Sep 10, 2016 16:17
[2016-09-10] MEDS ORDERED: Bacitracin 50000 Units Vial ONE (16:34)
[2016-09-10] MEDS ORDERED: Bupivacaine 0.5% Inj 30 ml vial INJ ONE (16:40)
[2016-09-10] MEDS ORDERED: Lidocaine 2% MPF 5ml Vial INJ ONE (16:40)
[2016-09-10] MEDS ORDERED: NS Irrig 1000ml ONE (16:50)
[2016-09-10] MEDS ORDERED: LR 1000ml ONE (16:50)
[2016-09-10] MEDS ORDERED: fentaNYL 100 mcg/2 mL IV ONE (16:50)
[2016-09-10] MEDS ORDERED: Midazolam 2mg/2ml Inj ONE (16:50)
[2016-09-10] MEDS ORDERED: Propofol 10mg/ml 20ml IV ONE (16:50)
[2016-09-10] MEDS ORDERED: Sterile Water Irrig 1000ml IRRIG ONE (16:50)
[2016-09-10] MEDS ORDERED: Lidocaine 1% MPF 10mg/ml 5ml ONE (16:50)
--- NOTE | 2016-09-10 17:57 | Anethesia Preoperative Eval ---
Anesthesia Pre-op PMH/ROS General Date of Evaluation: Sep 10, 2016 Time of Evaluation: 16:49 Anesthesiologist: Elvis ASA Score: ASA 3 - Emergency Mallampati Score Class I : Soft palate, uvula, fauces, pillars visible Class II: Soft palate, uvula, fauces visible Class III: Soft palate, base of uvula visible Class IV: Only hard plate visible Mallampati Classification: Class II Surgeon: José Diagnosis: L Femoral Occlusion Surgical Procedure: Redo L Femoral Tibial Bypass Anesthesia History: none Family History: no anesthesia problems Allergies: Coded Allergies: PENICILLIN G (Unverified Allergy, Unknown, 09/08/16) CODEINE (Unverified Adverse Reaction, Unknown, 05/14/16) MORPHINE (Unverified Adverse Reaction, Unknown, 05/14/16) PENICILLINS (Unverified Adverse Reaction, Unknown, 05/14/16) SHELLFISH DERIVED (Unverified Adverse Reaction, Unknown, Shortness of Breath, 05/14/16) Medications: see eMAR Past Medical History Cardiovascular: Reports: HTN, other - PVD Gastrointestinal/Genitourinary: Reports: GERD Hematology/Immune: Reports: anemia PSxH Narrative: bilateral lower extremity, fem-pop bypasses Anesthesia Pre-op Phys. Exam Physician Exam Last Vital Signs Date Time Temp Pulse Resp B/P Pulse Ox O2 Delivery O2 Flow Rate FiO2 09/10/16 16:17 72 20 98 09/10/16 16:00 97.8 134/76 Room Air 09/10/16 11:00 3.0 09/10/16 04:01 28 Constitutional: NAD Neurologic: CN 2-12 intact Cardiovascular: RRR Respiratory: CTA Gastrointestinal: S/NT/ND Airway Exam Mallampati Score: Class II MO: full ROM: full Teeth: intact Anesthesia Pre-op A/P Labs Hematology Test 09/10/16 08:00 White Blood Count 9.9 K/UL (4.8-10.8) Red Blood Count 3.95 M/UL (4.70-6.10) L Hemoglobin 10.8 G/DL (14.2-18.0) L Hematocrit 32.9 % (42.0-52.0) L Mean Corpuscular Volume 83 FL (80-99) Mean Corpuscular Hemoglobin 27.4 PG (27.0-31.0) Mean Corpuscular Hemoglobin Concent 32.9 G/DL (32.0-36.0) Red Cell Distribution Width 13.8 % (11.6-14.8) Platelet Count 159 K/UL (150-450) Mean Platelet Volume 7.5 FL (6.5-10.1) Neutrophils (%) (Auto) 67.3 % (45.0-75.0) Lymphocytes (%) (Auto) 22.3 % (20.0-45.0) Monocytes (%) (Auto) 9.8 % (1.0-10.0) Eosinophils (%) (Auto) 0.1 % (0.0-3.0) Basophils (%) (Auto) 0.6 % (0.0-2.0) Coagulation Test 09/09/16 18:40 09/10/16 08:00 09/10/16 16:10 Activated Partial Thromboplast Time 125 SEC (23-33) H 53 SEC (23-33) H 95 SEC (23-33) H Prothrombin Time 12.6 SEC (9.30-11.50) H Prothromb Time International Ratio 1.2 (0.9-1.1) H Chemistry Test 09/10/16 08:00 Sodium Level 136 mEQ/L (135-145) Potassium Level 3.8 mEQ/L (3.4-4.9) Chloride Level 97 mEQ/L (98-107) L Carbon Dioxide Level 24 mEQ/L (20-30) Anion Gap 15 (5-15) Blood Urea Nitrogen 10 mg/dL (7-23) Creatinine 1.1 mg/dL (0.7-1.2) Estimat Glomerular Filtration Rate > 60 mL/min (>60) Glucose Level 132 mg/dL (74-106) H Calcium Level 7.7 mg/dL (8.6-10.2) L Magnesium Level 1.6 mg/dL (1.7-2.5) L Risk Assessment & Plan Assessment: ASA 3E Plan: GA, BIS Status Change Before Surgery: No Pre-Antibiotics Dru Gram Ancef IV Given Within 1 Hr of Incision: Yes Time Given: 17:16 Herber Leal MD Sep 10, 2016 17:56
--- NOTE | 2016-09-10 18:07 | 48 Hour Post Anesthesia Eval ---
Post Anesthesia Evaluation Procedure: Left femoral-tibial bypass Date of Evaluation: Sep 10, 2016 Time of Evaluation: 23:47 Blood Pressure Systolic: 131 0: 82 Pulse Rate: 79 Respiratory Rate: 18 Temperature (Fahrenheit): 97.4 O2 Sat by Pulse Oximetry: 100 Airway: patent Nausea: No Vomiting: No Pain Intensity: 2 Hydration Status: adequate Cardiopulmonary Status: Stable Mental Status/LOC: patient returned to baseline Follow-up Care/Observations: 0 Post-Anesthesia Complications: 0 Follow-up care needed: N/A Herber Leal MD Sep 10, 2016 18:07
--- NOTE | 2016-09-10 18:07 | Immediate Post-Op Evaluation ---
Immediate Post-Op Evalulation Immediate Post-Op Evalulation Procedure: Left femoral-tibial bypass Date of Evaluation: Sep 10, 2016 Time of Evaluation: 23:23 IV Fluids: 1200 LR Blood Products: 2 u PRBC, 500 Alb Estimated Blood Loss: 1 liter Urinary Output: 300 Blood Pressure Systolic: 123 Blood Pressure Diastolic: 78 Pulse Rate: 77 Respiratory Rate: 18 O2 Sat by Pulse Oximetry: 100 Temperature (Fahrenheit): 97.3 Pain Score (1-10): 2 Nausea: No Vomiting: No Complications 0 Patient Status: awake, reacts, patent, extubated, none Hydration Status: adequate Dru Gram Ancef IV Given Within 1 Hr of Incision: Yes Time Given: 17:16 Herber Leal MD Sep 10, 2016 18:07
[2016-09-10] MEDS ORDERED: Labetalol 5mg/ml 20ml vial IV PRN (18:15)
[2016-09-10] MEDS ORDERED: Midazolam 2mg/2ml Inj IVP PRN (18:15)
[2016-09-10] MEDS ORDERED: Meperidine 25mg/ml Inj IV PRN (18:15)
[2016-09-10] MEDS ORDERED: Norco 7.5mg/325mg tab ORAL PRN (18:15)
[2016-09-10] MEDS ORDERED: Ketorolac 30mg Inj IV PRN (18:15)
[2016-09-10] MEDS ORDERED: Hydromorphone 0.5mg/0.5ml inj IVP PRN (18:15)
[2016-09-10] MEDS ORDERED: Metoclopramide 10mg/2ml Inj IVP PRN (18:15)
[2016-09-10] MEDS ORDERED: Norco 5mg/325mg tab ORAL PRN (18:15)
[2016-09-10] MEDS ORDERED: Atropine Inj 1mg/10ml Syr IV PRN (18:15)
[2016-09-10] MEDS ORDERED: Ketorolac 60mg Inj IV PRN (18:15)
[2016-09-10] MEDS ORDERED: LORazepam Inj 2mg/ml 1ml IV PRN (18:15)
[2016-09-10] MEDS ORDERED: DiphenhydrAMINE 50mg/ml Inj IVP PRN (18:15)
[2016-09-10] MEDS ORDERED: Oxycodone/Acetaminophen 5-325 ORAL PRN (18:15)
[2016-09-10] MEDS ORDERED: fentaNYL 100 mcg/2 mL IV PRN (18:15)
[2016-09-10] MEDS ORDERED: Cathflo Alteplase 2mg Inj INJ ONE ×2 (18:45→20:30)
[2016-09-10] MEDS ORDERED: NS 275ml IRRIG ONE (19:34)
[2016-09-10] MEDS ORDERED: NS Irrig 1000ml IRRIG ONE (19:34)
[2016-09-10] MEDS ORDERED: Surgicel 4in x 8in TOPIC ONE ×2 (19:46→23:26)
[2016-09-10] MEDS ORDERED: Thrombin 5000 units TOPIC ONE (21:30)
[2016-09-10] MEDS ORDERED: Bacitracin Oint 15gm Tube TOPIC ONE (23:26)
--- NOTE | 2016-09-10 23:48 | Brief Operative Note ---
Immediate Post Operative Note Operative Note Pre-op Diagnosis: graft occlusion Procedure: attempted thrombectomy of fem tib PTFE bypass Profunda common peroneal bypass with composite saphenous vein graft thrombectomy of common peroneal and posterior tibial artery veno-venostomy saphenous Post-op Diagnosis: same Post-op Diagnosis: same as pre-op Surgeon: shiloh Anesthesiologist: berta Anesthesia: general Specimen: yes Complications: none Condition: stable Estimated Blood Loss: volume Drains: FRACISCO Implant(s) used?: No ELIAS VILLEGAS Sep 10, 2016 23:48
--- NOTE | 2016-09-10 23:59 | Brief Operative Note ---
Immediate Post Operative Note Operative Note Pre-op Diagnosis: graft occlusion Procedure: brief op note 09/10 procedure left femoral popliteal by pass with greater saphenous vein popliteal and tibial thrombectomy Post-op Diagnosis: same Anesthesia: general Specimen: yes Complications: none Condition: stable Drains: none ELIAS VILLEGAS Sep 10, 2016 23:59
[2016-09-11] VITALS (24 sets, daily range): BP systolic 81–137; BP diastolic 67–87
[2016-09-11] MEDS: D5 1/2NS 1,000 ML IV SCH ×4 (00:23→21:46)
[2016-09-11] MEDS ORDERED: Norco 5mg/325mg tab ORAL PRN (01:35)
[2016-09-11] MEDS ORDERED: HYDROmorphone 1mg/NS 50ml IVPB 50 ML IVPB PRN (01:36)
[2016-09-11 05:32] LABS: BASOPHILS % (AUTO) 0.5 % (0.0-2.0); LYMPHOCYTES % (AUTO) 9.3 % (20.0-45.0); MEAN CORPUSCULAR HGB CONC 34.2 G/DL (32.0-36.0); MEAN CORPUSCULAR VOLUME 85 FL (80-99); MONOCYTES % (AUTO) 10.2 % (1.0-10.0); PLATELET COUNT 116 K/UL (150-450); RED BLOOD COUNT 3.25 M/UL (4.70-6.10); RED CELL DISTRIBUTION WIDTH 13.7 % (11.6-14.8); WHITE BLOOD COUNT 15.2 K/UL (4.8-10.8)
[2016-09-11 05:47] LABS: INR 1.2 (0.9-1.1); PROTHROMBIN TIME 12.3 SEC (9.30-11.50)
[2016-09-11 06:00] LABS: ALANINE AMINOTRANSFERASE 39 U/L (3-41); ALBUMIN/GLOBULIN RATIO 1.3 (1.0-2.7); ANION GAP 9 (5-15); ASPARTATE AMINO TRANSFERASE 109 U/L (5-40); CALCIUM 7.1 mg/dL (8.6-10.2); CARBON DIOXIDE 25 mEQ/L (20-30); CHLORIDE 103 mEQ/L (98-107); CREATININE 0.9 mg/dL (0.7-1.2); GLOMERULAR FILTRATION RATE > 60 mL/min (>60); HEMOLYSIS 4; POTASSIUM 4.3 mEQ/L (3.4-4.9); SODIUM 137 mEQ/L (135-145); TOTAL PROTEIN 5.2 g/dL (6.6-8.7)
[2016-09-11 06:44] LABS: BILIRUBIN,DIRECT 0.2 mg/dL (0.1-0.3)
[2016-09-11] MEDS ORDERED: Heparin 25,000u/D5W 500ml 500 ML IV SCH ×4 (09:08→21:30)
[2016-09-11] MEDS: Pantoprazole Inj IVP SCH (09:35)
[2016-09-11] MEDS: Clindamycin 600mg 50 ML IV SCH ×2 (10:00→18:36)
[2016-09-11] MEDS: Norco 10mg/325mg tab ORAL PRN ×2 (10:18→16:18)
[2016-09-11] MEDS ORDERED: D5 1/2NS 1000ml IV ONE ×3 (13:34→17:22)
[2016-09-11] MEDS ORDERED: D5NS 1000ml IV ONE (13:34)
[2016-09-11] MEDS ORDERED: Tubing IV Secondary IV ONE ×2 (13:46→17:22)
[2016-09-12] VITALS (17 sets, daily range): BP systolic 101–148; BP diastolic 61–85
[2016-09-12] MEDS: Clindamycin 600mg 50 ML IV SCH ×3 (01:46→18:00)
[2016-09-12 05:29] LABS: BASOPHILS % (AUTO) 0.4 % (0.0-2.0); LYMPHOCYTES % (AUTO) 16.1 % (20.0-45.0); MEAN CORPUSCULAR HGB CONC 34.1 G/DL (32.0-36.0); MEAN CORPUSCULAR VOLUME 85 FL (80-99); MEAN PLATELET VOLUME 8.6 FL (6.5-10.1); MONOCYTES % (AUTO) 12.9 % (1.0-10.0); NEUTROPHILS % (AUTO) 70.6 % (45.0-75.0); PLATELET COUNT 110 K/UL (150-450); RED BLOOD COUNT 2.89 M/UL (4.70-6.10); RED CELL DISTRIBUTION WIDTH 14.2 % (11.6-14.8); WHITE BLOOD COUNT 12.3 K/UL (4.8-10.8)
[2016-09-12 06:12] LABS: ALANINE AMINOTRANSFERASE 55 U/L (3-41); ALBUMIN/GLOBULIN RATIO 1.3 (1.0-2.7); ANION GAP 9 (5-15); ASPARTATE AMINO TRANSFERASE 105 U/L (5-40); CALCIUM 7.8 mg/dL (8.6-10.2); CARBON DIOXIDE 26 mEQ/L (20-30); CHLORIDE 100 mEQ/L (98-107); CREATININE 0.9 mg/dL (0.7-1.2); GLOMERULAR FILTRATION RATE > 60 mL/min (>60); HEMOLYSIS 2; SODIUM 135 mEQ/L (135-145); TOTAL PROTEIN 5.3 g/dL (6.6-8.7)
[2016-09-12] MEDS: D5 1/2NS 1,000 ML IV SCH (08:10)
[2016-09-12] MEDS: Pantoprazole Inj IVP SCH (08:11)
[2016-09-12] MEDS ORDERED: Heparin 25,000u/D5W 500ml 500 ML IV SCH ×2 (10:00→14:00)
--- NOTE | 2016-09-12 12:00 | General Surgery Progress Note ---
General Surgery-Progress Note Subjective Procedure Performed brief op note 09/10 procedure left femoral popliteal by pass with greater saphenous vein popliteal and tibial thrombectomy Symptoms: improved Objective Last 24 Hour Vital Signs Date Time Temp Pulse Resp B/P Pulse Ox O2 Delivery O2 Flow Rate FiO2 09/12/16 11:00 92 15 119/63 100 Room Air 09/12/16 10:00 95 15 120/64 100 Room Air 09/12/16 09:00 98.8 91 16 130/71 100 Room Air 09/12/16 08:11 89 127/85 09/12/16 08:00 85 15 127/85 100 Room Air 09/12/16 08:00 88 09/12/16 07:00 85 15 118/72 100 Room Air 09/12/16 06:00 88 15 126/78 100 Room Air 09/12/16 05:00 88 15 125/78 100 Room Air 09/12/16 04:00 83 09/12/16 04:00 98.8 89 15 109/66 100 Room Air 09/12/16 03:00 90 15 130/77 100 Room Air 09/12/16 02:00 82 15 131/77 100 Room Air 09/12/16 01:00 79 15 101/61 100 Room Air 09/12/16 00:00 81 09/12/16 00:00 97.6 81 15 112/70 100 Room Air 09/11/16 23:00 90 15 120/67 100 Room Air 09/11/16 22:00 100 15 132/79 100 Room Air 09/11/16 21:00 83 15 128/81 100 Room Air 09/11/16 20:00 86 09/11/16 20:00 97.5 80 15 128/73 100 Room Air 09/11/16 19:05 Room Air 09/11/16 19:05 100 Room Air 09/11/16 19:00 73 15 128/73 100 Room Air 09/11/16 18:36 97.7 09/11/16 18:00 89 18 132/74 100 Room Air 09/11/16 17:30 97.7 09/11/16 17:00 88 18 125/74 100 Room Air 09/11/16 16:00 85 09/11/16 16:00 97.6 85 15 126/70 100 Room Air 09/11/16 15:00 74 13 124/77 100 Room Air 09/11/16 14:00 82 15 122/76 100 Room Air 09/11/16 13:00 98.0 76 12 127/71 100 Room Air 09/11/16 12:00 82 09/11/16 12:00 82 12 115/85 100 Room Air I&O Intake and Output 09/11/16 09/12/16 19:00 07:00 Intake Total 2284 ml 1966 ml Output Total 980 ml 1420 ml Balance 1304 ml 546 ml Intake Oral 960 ml 500 ml IV Total 1324 ml 1466 ml Output Urine Total 980 ml 1420 ml Dressing: dry Wound: clean Drains: none Cardiovascular: RSR Respiratory: clear Abdomen: soft Extremities: no edema, no tenderness, no cyanosis, pulses Laboratory Tests Test 09/11/16 20:05 09/12/16 04:35 Activated Partial Thromboplast Time 43 SEC (23-33) H 50 SEC (23-33) H White Blood Count 12.3 K/UL (4.8-10.8) H Red Blood Count 2.89 M/UL (4.70-6.10) L Hemoglobin 8.4 G/DL (14.2-18.0) L Hematocrit 24.6 % (42.0-52.0) L Mean Corpuscular Volume 85 FL (80-99) Mean Corpuscular Hemoglobin 29.0 PG (27.0-31.0) Mean Corpuscular Hemoglobin Concent 34.1 G/DL (32.0-36.0) Red Cell Distribution Width 14.2 % (11.6-14.8) Platelet Count 110 K/UL (150-450) L Mean Platelet Volume 8.6 FL (6.5-10.1) Neutrophils (%) (Auto) 70.6 % (45.0-75.0) Lymphocytes (%) (Auto) 16.1 % (20.0-45.0) L Monocytes (%) (Auto) 12.9 % (1.0-10.0) H Eosinophils (%) (Auto) 0.0 % (0.0-3.0) Basophils (%) (Auto) 0.4 % (0.0-2.0) Sodium Level 135 mEQ/L (135-145) Potassium Level 4.0 mEQ/L (3.4-4.9) Chloride Level 100 mEQ/L (98-107) Carbon Dioxide Level 26 mEQ/L (20-30) Anion Gap 9 (5-15) Blood Urea Nitrogen 8 mg/dL (7-23) Creatinine 0.9 mg/dL (0.7-1.2) Estimat Glomerular Filtration Rate > 60 mL/min (>60) Glucose Level 130 mg/dL (74-106) H Calcium Level 7.8 mg/dL (8.6-10.2) L Total Bilirubin 0.5 mg/dL (0.0-1.2) Aspartate Amino Transf (AST/SGOT) 105 U/L (5-40) H Alanine Aminotransferase (ALT/SGPT) 55 U/L (3-41) H Alkaline Phosphatase 50 U/L (40-129) Total Protein 5.3 g/dL (6.6-8.7) L Albumin 3.0 g/dL (3.5-5.2) L Globulin 2.3 g/dL Albumin/Globulin Ratio 1.3 (1.0-2.7) Imaging pt has platelet count of 110. I think is is commensurate with blood loss will get hematology consult. Additional Comments pt has platelet count of 110K. I think this is commensurate with blood loss Assessment Post-op Diagnosis same ELIAS VILLEGAS Sep 12, 2016 12:00
--- NOTE | 2016-09-12 12:36 | General Progress Note ---
Assessment/Plan Problem List: (1) Arterial occlusion, lower extremity ICD Codes: I74.3 - Embolism and thrombosis of arteries of the lower extremities SNOMED: 168181944 (2) PVD (peripheral vascular disease) ICD Codes: I73.9 - Peripheral vascular disease, unspecified SNOMED: 361576245 (3) Acute blood loss anemia ICD Codes: D62 - Acute posthemorrhagic anemia SNOMED: 324322828 Assessment/Plan s/p thrombectomy of fem tib PTFE bypass Profunda common peroneal bypass with composite saphenous vein graft thrombectomy of common peroneal and posterior tibial artery veno-venostomy saphenous; 09/09/16 with vascular surgery BP control--stable and controlled with resumed amlodipine increased pain control with Dil, 2 mg IV q4h breakthrough severe pain--now controlled ctm h and h Subjective Date patient seen: Sep 11, 2016 Time patient seen: 12:34 Allergies: Coded Allergies: PENICILLIN G (Unverified Allergy, Unknown, 09/08/16) CODEINE (Unverified Adverse Reaction, Unknown, 05/14/16) MORPHINE (Unverified Adverse Reaction, Unknown, 05/14/16) PENICILLINS (Unverified Adverse Reaction, Unknown, 05/14/16) SHELLFISH DERIVED (Unverified Adverse Reaction, Unknown, Shortness of Breath, 05/14/16) Subjective pain now controlled; numbness improved Objective Last 24 Hour Vital Signs Date Time Temp Pulse Resp B/P Pulse Ox O2 Delivery O2 Flow Rate FiO2 09/12/16 12:00 98.6 89 16 124/80 100 Room Air 09/12/16 12:00 92 09/12/16 11:00 92 15 119/63 100 Room Air 09/12/16 10:00 95 15 120/64 100 Room Air 09/12/16 09:00 98.8 91 16 130/71 100 Room Air 09/12/16 08:11 89 127/85 09/12/16 08:00 85 15 127/85 100 Room Air 09/12/16 08:00 88 09/12/16 07:00 85 15 118/72 100 Room Air 09/12/16 06:00 88 15 126/78 100 Room Air 09/12/16 05:00 88 15 125/78 100 Room Air 09/12/16 04:00 83 09/12/16 04:00 98.8 89 15 109/66 100 Room Air 09/12/16 03:00 90 15 130/77 100 Room Air 09/12/16 02:00 82 15 131/77 100 Room Air 09/12/16 01:00 79 15 101/61 100 Room Air 09/12/16 00:00 81 09/12/16 00:00 97.6 81 15 112/70 100 Room Air 09/11/16 23:00 90 15 120/67 100 Room Air 09/11/16 22:00 100 15 132/79 100 Room Air 09/11/16 21:00 83 15 128/81 100 Room Air 09/11/16 20:00 86 09/11/16 20:00 97.5 80 15 128/73 100 Room Air 09/11/16 19:05 Room Air 09/11/16 19:05 100 Room Air 09/11/16 19:00 73 15 128/73 100 Room Air 09/11/16 18:36 97.7 09/11/16 18:00 89 18 132/74 100 Room Air 09/11/16 17:30 97.7 09/11/16 17:00 88 18 125/74 100 Room Air 09/11/16 16:00 85 09/11/16 16:00 97.6 85 15 126/70 100 Room Air 09/11/16 15:00 74 13 124/77 100 Room Air 09/11/16 14:00 82 15 122/76 100 Room Air 09/11/16 13:00 98.0 76 12 127/71 100 Room Air Intake and Output 09/11/16 09/12/16 19:00 07:00 Intake Total 2284 ml 1966 ml Output Total 980 ml 1420 ml Balance 1304 ml 546 ml Intake Oral 960 ml 500 ml IV Total 1324 ml 1466 ml Output Urine Total 980 ml 1420 ml Laboratory Tests 09/11/16 20:05: Activated Partial Thromboplast Time 43H 09/12/16 04:35: Activated Partial Thromboplast Time 50H, White Blood Count 12.3H, Red Blood Count 2.89L, Hemoglobin 8.4L, Hematocrit 24.6L, Mean Corpuscular Volume 85, Mean Corpuscular Hemoglobin 29.0, Mean Corpuscular Hemoglobin Concent 34.1, Red Cell Distribution Width 14.2, Platelet Count 110L, Mean Platelet Volume 8.6, Neutrophils (%) (Auto) 70.6, Lymphocytes (%) (Auto) 16.1L, Monocytes (%) (Auto) 12.9H, Eosinophils (%) (Auto) 0.0, Basophils (%) (Auto) 0.4, Sodium Level 135, Potassium Level 4.0, Chloride Level 100, Carbon Dioxide Level 26, Anion Gap 9, Blood Urea Nitrogen 8, Creatinine 0.9, Estimat Glomerular Filtration Rate > 60, Glucose Level 130H, Calcium Level 7.8L, Total Bilirubin 0.5, Aspartate Amino Transf (AST/SGOT) 105H, Alanine Aminotransferase (ALT/SGPT) 55H, Alkaline Phosphatase 50, Total Protein 5.3L, Albumin 3.0L, Globulin 2.3, Albumin/ Globulin Ratio 1.3 09/12/16 12:00: Activated Partial Thromboplast Time [Pending] Height (Feet): 5 Height (Inches): 11.00 Weight (Pounds): 171 Objective General Appearance: well appearing, alert, mild distress Head: normocephalic, atraumatic Eyes: bilateral eye EOMI, bilateral eye PERRL ENT: hearing grossly normal, normal pharynx Neck: full range of motion, supple, no meningismus Respiratory: chest non-tender, lungs clear, normal breath sounds Cardiovascular #1: regular rate, rhythm, no murmur Gastrointestinal: normal bowel sounds, non tender, no mass, no organomegaly, no bruit, non-distended Musculoskeletal: back normal, normal range of motion, other - Left leg: He has normal sensation of the thigh. He has decreased sensation of the lower extremity from the knee to the ankle. He has minimal sensation of the foot. pulses equal. Is able to move his knee, ankle, and toes. Neurologic: alert, oriented x3 Psychiatric: mood/affect normal Skin: warm/dry; incision intact Daron Hassan M.D. Sep 12, 2016 12:36
--- NOTE | 2016-09-12 12:37 | General Progress Note ---
Assessment/Plan Problem List: (1) Arterial occlusion, lower extremity ICD Codes: I74.3 - Embolism and thrombosis of arteries of the lower extremities SNOMED: 510409361 (2) PVD (peripheral vascular disease) ICD Codes: I73.9 - Peripheral vascular disease, unspecified SNOMED: 030556469 (3) Acute blood loss anemia ICD Codes: D62 - Acute posthemorrhagic anemia SNOMED: 358679285 Assessment/Plan s/p thrombectomy of fem tib PTFE bypass Profunda common peroneal bypass with composite saphenous vein graft thrombectomy of common peroneal and posterior tibial artery veno-venostomy saphenous; 09/09/16 with vascular surgery BP control--stable and controlled with resumed amlodipine increased pain control with Dil, 2 mg IV q4h breakthrough severe pain--now controlled ctm h and h Subjective Date patient seen: Sep 12, 2016 Time patient seen: 12:37 Allergies: Coded Allergies: PENICILLIN G (Unverified Allergy, Unknown, 09/08/16) CODEINE (Unverified Adverse Reaction, Unknown, 05/14/16) MORPHINE (Unverified Adverse Reaction, Unknown, 05/14/16) PENICILLINS (Unverified Adverse Reaction, Unknown, 05/14/16) SHELLFISH DERIVED (Unverified Adverse Reaction, Unknown, Shortness of Breath, 05/14/16) Subjective pain now controlled; numbness improved Objective Last 24 Hour Vital Signs Date Time Temp Pulse Resp B/P Pulse Ox O2 Delivery O2 Flow Rate FiO2 09/12/16 12:00 98.6 89 16 124/80 100 Room Air 09/12/16 12:00 92 09/12/16 11:00 92 15 119/63 100 Room Air 09/12/16 10:00 95 15 120/64 100 Room Air 09/12/16 09:00 98.8 91 16 130/71 100 Room Air 09/12/16 08:11 89 127/85 09/12/16 08:00 85 15 127/85 100 Room Air 09/12/16 08:00 88 09/12/16 07:00 85 15 118/72 100 Room Air 09/12/16 06:00 88 15 126/78 100 Room Air 09/12/16 05:00 88 15 125/78 100 Room Air 09/12/16 04:00 83 09/12/16 04:00 98.8 89 15 109/66 100 Room Air 09/12/16 03:00 90 15 130/77 100 Room Air 09/12/16 02:00 82 15 131/77 100 Room Air 09/12/16 01:00 79 15 101/61 100 Room Air 09/12/16 00:00 81 09/12/16 00:00 97.6 81 15 112/70 100 Room Air 09/11/16 23:00 90 15 120/67 100 Room Air 09/11/16 22:00 100 15 132/79 100 Room Air 09/11/16 21:00 83 15 128/81 100 Room Air 09/11/16 20:00 86 09/11/16 20:00 97.5 80 15 128/73 100 Room Air 09/11/16 19:05 Room Air 09/11/16 19:05 100 Room Air 09/11/16 19:00 73 15 128/73 100 Room Air 09/11/16 18:36 97.7 09/11/16 18:00 89 18 132/74 100 Room Air 09/11/16 17:30 97.7 09/11/16 17:00 88 18 125/74 100 Room Air 09/11/16 16:00 85 09/11/16 16:00 97.6 85 15 126/70 100 Room Air 09/11/16 15:00 74 13 124/77 100 Room Air 09/11/16 14:00 82 15 122/76 100 Room Air 09/11/16 13:00 98.0 76 12 127/71 100 Room Air Intake and Output 09/11/16 09/12/16 19:00 07:00 Intake Total 2284 ml 1966 ml Output Total 980 ml 1420 ml Balance 1304 ml 546 ml Intake Oral 960 ml 500 ml IV Total 1324 ml 1466 ml Output Urine Total 980 ml 1420 ml Laboratory Tests 09/11/16 20:05: Activated Partial Thromboplast Time 43H 09/12/16 04:35: Activated Partial Thromboplast Time 50H, White Blood Count 12.3H, Red Blood Count 2.89L, Hemoglobin 8.4L, Hematocrit 24.6L, Mean Corpuscular Volume 85, Mean Corpuscular Hemoglobin 29.0, Mean Corpuscular Hemoglobin Concent 34.1, Red Cell Distribution Width 14.2, Platelet Count 110L, Mean Platelet Volume 8.6, Neutrophils (%) (Auto) 70.6, Lymphocytes (%) (Auto) 16.1L, Monocytes (%) (Auto) 12.9H, Eosinophils (%) (Auto) 0.0, Basophils (%) (Auto) 0.4, Sodium Level 135, Potassium Level 4.0, Chloride Level 100, Carbon Dioxide Level 26, Anion Gap 9, Blood Urea Nitrogen 8, Creatinine 0.9, Estimat Glomerular Filtration Rate > 60, Glucose Level 130H, Calcium Level 7.8L, Total Bilirubin 0.5, Aspartate Amino Transf (AST/SGOT) 105H, Alanine Aminotransferase (ALT/SGPT) 55H, Alkaline Phosphatase 50, Total Protein 5.3L, Albumin 3.0L, Globulin 2.3, Albumin/ Globulin Ratio 1.3 09/12/16 12:00: Activated Partial Thromboplast Time [Pending] Height (Feet): 5 Height (Inches): 11.00 Weight (Pounds): 171 Objective General Appearance: well appearing, alert, mild distress Head: normocephalic, atraumatic Eyes: bilateral eye EOMI, bilateral eye PERRL ENT: hearing grossly normal, normal pharynx Neck: full range of motion, supple, no meningismus Respiratory: chest non-tender, lungs clear, normal breath sounds Cardiovascular #1: regular rate, rhythm, no murmur Gastrointestinal: normal bowel sounds, non tender, no mass, no organomegaly, no bruit, non-distended Musculoskeletal: back normal, normal range of motion, other - Left leg: He has normal sensation of the thigh. He has decreased sensation of the lower extremity from the knee to the ankle. He has minimal sensation of the foot. pulses equal. Is able to move his knee, ankle, and toes. Neurologic: alert, oriented x3 Psychiatric: mood/affect normal Skin: warm/dry; incision intact Daron Hassan M.D. Sep 12, 2016 12:37
[2016-09-12] MEDS: Norco 10mg/325mg tab ORAL PRN (13:18)
[2016-09-12] MEDS ORDERED: Norco 5mg/325mg tab ORAL PRN (13:45)
[2016-09-12] MEDS ORDERED: HYDROmorphone 1mg/NS 50ml IVPB 50 ML IVPB PRN (13:45)
[2016-09-12] MEDS ORDERED: Norco 10mg/325mg tab ORAL PRN (13:45)
[2016-09-12 23:03] LABS: MEAN CORPUSCULAR HEMOGLOBIN 28.6 PG (27.0-31.0); MEAN CORPUSCULAR VOLUME 87 FL (80-99); MEAN PLATELET VOLUME 6.7 FL (6.5-10.1); PLATELET COUNT 133 K/UL (150-450); RED BLOOD COUNT 2.63 M/UL (4.70-6.10); RED CELL DISTRIBUTION WIDTH 13.8 % (11.6-14.8); WHITE BLOOD COUNT 10.6 K/UL (4.8-10.8)
[2016-09-12 23:04] LABS: BASOPHILS % (AUTO) 0.8 % (0.0-2.0); EOSINOPHILS % (AUTO) 0.1 % (0.0-3.0); LYMPHOCYTES % (AUTO) 18.6 % (20.0-45.0); MONOCYTES % (AUTO) 13.7 % (1.0-10.0); NEUTROPHILS % (AUTO) 66.8 % (45.0-75.0)
[2016-09-12] MEDS: Heparin 25,000u/D5W 500ml 500 ML IV SCH (23:36)
[2016-09-13] VITALS: BP 134/81
[2016-09-13] MEDS: Clindamycin 600mg 50 ML IV SCH (00:59)
[2016-09-13 04:00] VITALS: BP 116/66
[2016-09-13 04:31] LABS: MEAN CORPUSCULAR HEMOGLOBIN 28.7 PG (27.0-31.0); MEAN CORPUSCULAR HGB CONC 33.8 G/DL (32.0-36.0); MEAN CORPUSCULAR VOLUME 85 FL (80-99); MEAN PLATELET VOLUME 8.3 FL (6.5-10.1); PLATELET COUNT 147 K/UL (150-450); RED BLOOD COUNT 2.68 M/UL (4.70-6.10); WHITE BLOOD COUNT 10.9 K/UL (4.8-10.8)
[2016-09-13 08:20] LABS: BAND NEUTROPHILS % (MANUAL) 0 % (0-8); BASOPHILS % (MANUAL) 0 % (0-2); EOSINOPHILS % (MANUAL) 0 % (0-3); LYMPHOCYTES % (MANUAL) 17 % (20-45); NEUTROPHILS % (MANUAL) 68 % (45-75); PLATELET ESTIMATE ADEQUATE; PLATELET MORPHOLOGY NORMAL; TOTAL CELLS COUNTED 100
[2016-09-13 08:21] LABS: ANISOCYTOSIS 1+; HYPOCHROMASIA 1+
[2016-09-13 08:23] VITALS: BP 143/96
[2016-09-13] MEDS: Pantoprazole Inj IVP SCH (09:10)
[2016-09-13] MEDS: Heparin 25,000u/D5W 500ml 500 ML IV SCH (10:03)
--- NOTE | 2016-09-13 11:04 | General Progress Note ---
Assessment/Plan Problem List: (1) Arterial occlusion, lower extremity ICD Codes: I74.3 - Embolism and thrombosis of arteries of the lower extremities SNOMED: 542018654 (2) PVD (peripheral vascular disease) ICD Codes: I73.9 - Peripheral vascular disease, unspecified SNOMED: 053424632 (3) Acute blood loss anemia ICD Codes: D62 - Acute posthemorrhagic anemia SNOMED: 191107491 Assessment/Plan s/p thrombectomy of fem tib PTFE bypass Profunda common peroneal bypass with composite saphenous vein graft thrombectomy of common peroneal and posterior tibial artery veno-venostomy saphenous; 09/09/16 with vascular surgery BP control--stable and controlled with resumed amlodipine increased pain control with Dil, 2 mg IV q4h breakthrough severe pain--now controlled ctm h and h Subjective Date patient seen: Sep 13, 2016 Time patient seen: 11:04 Allergies: Coded Allergies: PENICILLIN G (Unverified Allergy, Unknown, 09/08/16) CODEINE (Unverified Adverse Reaction, Unknown, 05/14/16) MORPHINE (Unverified Adverse Reaction, Unknown, 05/14/16) PENICILLINS (Unverified Adverse Reaction, Unknown, 05/14/16) SHELLFISH DERIVED (Unverified Adverse Reaction, Unknown, Shortness of Breath, 05/14/16) Subjective pain now controlled; numbness improved Objective Last 24 Hour Vital Signs Date Time Temp Pulse Resp B/P Pulse Ox O2 Delivery O2 Flow Rate FiO2 09/13/16 08:23 99.7 91 20 143/96 100 Room Air 09/13/16 08:10 92 143/96 09/13/16 04:00 98.6 78 18 116/66 99 Room Air 09/13/16 03:43 98.2 09/13/16 00:00 98.2 81 18 134/81 100 Room Air 09/12/16 20:35 97.9 69 19 148/85 100 Room Air 09/12/16 16:08 98.8 91 18 116/75 99 Room Air 09/12/16 14:47 98.2 91 18 121/79 100 Room Air 09/12/16 13:00 92 15 126/82 100 Room Air 09/12/16 12:00 98.6 89 16 124/80 100 Room Air 09/12/16 12:00 92 Intake and Output 1/29/17 1/30/17 19:00 07:00 Intake Total 1408 ml 677 ml Output Total 750 ml 1275 ml Balance 658 ml -598 ml Intake Oral 500 ml 360 ml IV Total 908 ml 317 ml Output Urine Total 750 ml 1275 ml # Voids 4 Laboratory Tests 09/12/16 12:00: Activated Partial Thromboplast Time 48H, Heparin-PF4 Antibody Screen [Pending] 09/12/16 21:50: Activated Partial Thromboplast Time 48H 09/12/16 22:45: White Blood Count 10.6, Red Blood Count 2.63L, Hemoglobin 7.5L, Hematocrit 22.8L , Mean Corpuscular Volume 87, Mean Corpuscular Hemoglobin 28.6, Mean Corpuscular Hemoglobin Concent 33.0, Red Cell Distribution Width 13.8, Platelet Count 133L, Mean Platelet Volume 6.7, Neutrophils (%) (Auto) 66.8, Lymphocytes ( %) (Auto) 18.6L, Monocytes (%) (Auto) 13.7H, Eosinophils (%) (Auto) 0.1, Basophils (%) (Auto) 0.8 09/13/16 03:55: Activated Partial Thromboplast Time 50H, White Blood Count 10.9H, Red Blood Count 2.68L, Hemoglobin 7.7L, Hematocrit 22.8L, Mean Corpuscular Volume 85, Mean Corpuscular Hemoglobin 28.7, Mean Corpuscular Hemoglobin Concent 33.8, Red Cell Distribution Width 14.0, Platelet Count 147L, Mean Platelet Volume 8.3, Neutrophils (%) (Auto) , Lymphocytes (%) (Auto) , Monocytes (%) (Auto) , Eosinophils (%) (Auto) , Basophils (%) (Auto) , Differential Total Cells Counted 100, Neutrophils % (Manual) 68, Lymphocytes % (Manual) 17L, Monocytes % (Manual) 15H, Eosinophils % (Manual) 0, Basophils % (Manual) 0, Band Neutrophils 0, Platelet Estimate Adequate, Platelet Morphology Normal, Hypochromasia 1+, Anisocytosis 1+ Height (Feet): 5 Height (Inches): 11.00 Weight (Pounds): 171 Objective General Appearance: well appearing, alert, mild distress Head: normocephalic, atraumatic Eyes: bilateral eye EOMI, bilateral eye PERRL ENT: hearing grossly normal, normal pharynx Neck: full range of motion, supple, no meningismus Respiratory: chest non-tender, lungs clear, normal breath sounds Cardiovascular #1: regular rate, rhythm, no murmur Gastrointestinal: normal bowel sounds, non tender, no mass, no organomegaly, no bruit, non-distended Musculoskeletal: back normal, normal range of motion, other - Left leg: He has normal sensation of the thigh. He has decreased sensation of the lower extremity from the knee to the ankle. He has minimal sensation of the foot. pulses equal. Is able to move his knee, ankle, and toes. Neurologic: alert, oriented x3 Psychiatric: mood/affect normal Skin: warm/dry; incision intact Daron Hassan M.D. Sep 13, 2016 11:04
[2016-09-13 12:00] VITALS: BP 125/69
[2016-09-13 16:05] VITALS: BP 142/82
[2016-09-13 20:00] VITALS: BP 144/87
--- NOTE | 2016-09-13 20:47 | Operative Note - Dictated ---
DATE OF OPERATION: 09/09/2016 PROCEDURE: Attempted thrombectomy of left femoral to popliteal bypass, which was done with [place]-Bharathi graft, which was unsuccessful. SURGEON: Rip Kumar M.D. DESCRIPTION OF PROCEDURE: A vertical incision was made in the left groin and extended to the junction of the middle and proximal thirds of the thigh. By means of careful blunt and sharp dissection, the deep femoral artery was identified and isolated from the surrounding tissues. It was doubly encircled with vessel loops. It was of large size. A vertical incision was made in the medial aspect of the leg just below the knee by means of blunt and sharp dissection, which was quite difficult because of previous surgery. The common peroneal artery was identified. It was isolated from the surrounding tissues and dissected in a distal fashion for a distance of 1 inch. That was doubly encircled with vessel loops. A tunnel was created from the profunda to the common peroneal beneath the deep fascia. It was kept patent with Burci[place] catheters. The greater saphenous vein was satisfactory to the knee level, but not beyond that point. Therefore, a smaller piece of accessory saphenous was isolated from the surrounding tissues. A venovenostomy was created so as to elongate the saphenous vein graft. The reverse saphenous vein was anastomosed to the profunda using a running suture of 6-0 Prolene. It was then passed down through the tunnel and the small caliber saphenous was anastomosed to the common peroneal with a running suture of 6-0 Prolene. Prior to doing that, it was obvious that there was thrombus in the lumen. A #3 Megha catheter was passed proximally and then distally to a point near the ankle. A good deal of thrombus was removed and sent to pathology. Prior to completing the anastomosis of the smaller segment of vein, the vessels were flushed in the usual fashion. The line was completed and flow was initiated in the graft. Satisfactory biphasic Doppler signals were noted in the graft and in the posterior tibial artery. The wounds were closed in layers using #3 Vicryl for subcutaneous and connie for the skin. With dressing in place, he left the operating room in satisfactory condition. iRp Kumar M.D. DR: VICKIE JOB#: [id number] CC: GURJIT
--- NOTE | 2016-09-13 23:25 | General Surgery Progress Note ---
General Surgery-Progress Note Subjective Procedure Performed brief op note 09/10 procedure left femoral popliteal by pass with greater saphenous vein popliteal and tibial thrombectomy Symptoms: improved, tolerating diet Objective Last 24 Hour Vital Signs Date Time Temp Pulse Resp B/P Pulse Ox O2 Delivery O2 Flow Rate FiO2 09/13/16 20:00 98.2 83 19 144/87 100 Room Air 09/13/16 16:05 98.6 80 19 142/82 100 Room Air 09/13/16 12:00 98.6 83 20 125/69 100 Room Air 09/13/16 08:23 99.7 91 20 143/96 100 Room Air 09/13/16 08:10 92 143/96 09/13/16 04:00 98.6 78 18 116/66 99 Room Air 09/13/16 03:43 98.2 09/13/16 00:00 98.2 81 18 134/81 100 Room Air I&O Intake and Output 09/12/16 09/13/16 19:00 07:00 Intake Total 1408 ml 677 ml Output Total 750 ml 1275 ml Balance 658 ml -598 ml Intake Oral 500 ml 360 ml IV Total 908 ml 317 ml Output Urine Total 750 ml 1275 ml # Voids 4 Dressing: dry Wound: clean, intact Drains: none Cardiovascular: RSR Respiratory: clear Abdomen: soft, flat Extremities: no edema, no tenderness Laboratory Tests Test 09/13/16 03:55 09/13/16 12:10 09/13/16 20:55 White Blood Count 10.9 K/UL (4.8-10.8) H Red Blood Count 2.68 M/UL (4.70-6.10) L Hemoglobin 7.7 G/DL (14.2-18.0) L Hematocrit 22.8 % (42.0-52.0) L Mean Corpuscular Volume 85 FL (80-99) Mean Corpuscular Hemoglobin 28.7 PG (27.0-31.0) Mean Corpuscular Hemoglobin Concent 33.8 G/DL (32.0-36.0) Red Cell Distribution Width 14.0 % (11.6-14.8) Platelet Count 147 K/UL (150-450) L Mean Platelet Volume 8.3 FL (6.5-10.1) Neutrophils (%) (Auto) % (45.0-75.0) Lymphocytes (%) (Auto) % (20.0-45.0) Monocytes (%) (Auto) % (1.0-10.0) Eosinophils (%) (Auto) % (0.0-3.0) Basophils (%) (Auto) % (0.0-2.0) Differential Total Cells Counted 100 Neutrophils % (Manual) 68 % (45-75) Lymphocytes % (Manual) 17 % (20-45) L Monocytes % (Manual) 15 % (1-10) H Eosinophils % (Manual) 0 % (0-3) Basophils % (Manual) 0 % (0-2) Band Neutrophils 0 % (0-8) Platelet Estimate Adequate Platelet Morphology Normal Hypochromasia 1+ Anisocytosis 1+ Activated Partial Thromboplast Time 50 SEC (23-33) H 42 SEC (23-33) H 41 SEC (23-33) H Assessment Post-op Diagnosis same Additional Comments ELIAS Oscar Sep 13, 2016 23:25
[2016-09-14] VITALS: BP 137/70
[2016-09-14] MEDS: Heparin 25,000u/D5W 500ml 500 ML IV SCH ×3 (01:50→20:28)
[2016-09-14 04:00] VITALS: BP 127/83
[2016-09-14 07:09] LABS: OTHERS PATHOLOGIST COMMENT
[2016-09-14 08:00] VITALS: BP 126/79
[2016-09-14] MEDS: Pantoprazole Inj IVP SCH (08:45)
[2016-09-14 09:08] LABS: BASOPHILS % (AUTO) 1.2 % (0.0-2.0); LYMPHOCYTES % (AUTO) 16.9 % (20.0-45.0); MEAN CORPUSCULAR HEMOGLOBIN 29.8 PG (27.0-31.0); MEAN CORPUSCULAR HGB CONC 34.5 G/DL (32.0-36.0); MEAN CORPUSCULAR VOLUME 86 FL (80-99); MEAN PLATELET VOLUME 7.4 FL (6.5-10.1); MONOCYTES % (AUTO) 13.1 % (1.0-10.0); NEUTROPHILS % (AUTO) 68.8 % (45.0-75.0); PLATELET COUNT 220 K/UL (150-450); RED BLOOD COUNT 3.42 M/UL (4.70-6.10); RED CELL DISTRIBUTION WIDTH 13.7 % (11.6-14.8); WHITE BLOOD COUNT 9.3 K/UL (4.8-10.8)
[2016-09-14 09:37] LABS: ANION GAP 13 (5-15); CALCIUM 8.5 mg/dL (8.6-10.2); CARBON DIOXIDE 25 mEQ/L (20-30); CHLORIDE 99 mEQ/L (98-107); CREATININE 0.7 mg/dL (0.7-1.2); GLOMERULAR FILTRATION RATE > 60 mL/min (>60); HEMOLYSIS 0; POTASSIUM 3.8 mEQ/L (3.4-4.9); SODIUM 137 mEQ/L (135-145)
[2016-09-14] MEDS ORDERED: Milk of Magnesia 30ml Ud ORAL PRN (10:45)
[2016-09-14] MEDS ORDERED: Fleet's Mineral Oil Enema RECTAL ONE (11:00)
[2016-09-14] MEDS ORDERED: Milk of Magnesia 30ml Ud ORAL ONE (11:00)
[2016-09-14] MEDS: Pericolace tab ORAL SCH ×2 (11:02→17:39)
[2016-09-14 12:40] VITALS: BP 132/93
--- NOTE | 2016-09-14 14:09 | General Progress Note ---
Assessment/Plan Problem List: (1) Arterial occlusion, lower extremity ICD Codes: I74.3 - Embolism and thrombosis of arteries of the lower extremities SNOMED: 570257504 (2) PVD (peripheral vascular disease) ICD Codes: I73.9 - Peripheral vascular disease, unspecified SNOMED: 970842266 (3) Acute blood loss anemia ICD Codes: D62 - Acute posthemorrhagic anemia SNOMED: 697589382 Assessment/Plan s/p thrombectomy of fem tib PTFE bypass Profunda common peroneal bypass with composite saphenous vein graft thrombectomy of common peroneal and posterior tibial artery veno-venostomy saphenous; 09/09/16 with vascular surgery BP control--stable and controlled with resumed amlodipine increased pain control with Dil, 2 mg IV q4h breakthrough severe pain--now controlled ctm h and h; Hg improved bowel regimen Subjective Allergies: Coded Allergies: PENICILLIN G (Unverified Allergy, Unknown, 09/08/16) CODEINE (Unverified Adverse Reaction, Unknown, 05/14/16) MORPHINE (Unverified Adverse Reaction, Unknown, 05/14/16) PENICILLINS (Unverified Adverse Reaction, Unknown, 05/14/16) SHELLFISH DERIVED (Unverified Adverse Reaction, Unknown, Shortness of Breath, 05/14/16) Subjective pain now controlled; numbness improved Objective Last 24 Hour Vital Signs Date Time Temp Pulse Resp B/P Pulse Ox O2 Delivery O2 Flow Rate FiO2 09/14/16 13:44 98.0 09/14/16 12:40 98.0 81 18 132/93 100 Room Air 09/14/16 08:45 75 136/79 09/14/16 08:00 98.2 75 18 126/79 99 Room Air 09/14/16 04:00 98.2 76 18 127/83 99 Room Air 09/14/16 00:00 100.0 94 18 137/70 100 Room Air 09/13/16 20:00 98.2 83 19 144/87 100 Room Air 09/13/16 16:05 98.6 80 19 142/82 100 Room Air Intake and Output 09/13/16 09/14/16 19:00 07:00 Intake Total 938 ml 503 ml Output Total 420 ml 600 ml Balance 518 ml -97 ml Intake Oral 600 ml 360 ml IV Total 338 ml 143 ml Output Urine Total 420 ml 600 ml # Voids 2 Laboratory Tests 09/13/16 20:55: Activated Partial Thromboplast Time 41H 09/14/16 08:45: Activated Partial Thromboplast Time 38H, White Blood Count 9.3, Red Blood Count 3.42L, Hemoglobin 10.2#L, Hematocrit 29.6L, Mean Corpuscular Volume 86, Mean Corpuscular Hemoglobin 29.8, Mean Corpuscular Hemoglobin Concent 34.5, Red Cell Distribution Width 13.7, Platelet Count 220, Mean Platelet Volume 7.4, Neutrophils (%) (Auto) 68.8, Lymphocytes (%) (Auto) 16.9L, Monocytes (%) (Auto) 13.1H, Eosinophils (%) (Auto) 0.0, Basophils (%) (Auto) 1.2, Sodium Level 137, Potassium Level 3.8, Chloride Level 99, Carbon Dioxide Level 25, Anion Gap 13, Blood Urea Nitrogen 11, Creatinine 0.7, Estimat Glomerular Filtration Rate > 60 , Glucose Level 128H, Calcium Level 8.5L Height (Feet): 5 Height (Inches): 11.00 Weight (Pounds): 171 Objective General Appearance: well appearing, alert, mild distress Head: normocephalic, atraumatic Eyes: bilateral eye EOMI, bilateral eye PERRL ENT: hearing grossly normal, normal pharynx Neck: full range of motion, supple, no meningismus Respiratory: chest non-tender, lungs clear, normal breath sounds Cardiovascular #1: regular rate, rhythm, no murmur Gastrointestinal: normal bowel sounds, non tender, no mass, no organomegaly, no bruit, non-distended Musculoskeletal: back normal, normal range of motion, other - Left leg: He has normal sensation of the thigh. He has decreased sensation of the lower extremity from the knee to the ankle. He has minimal sensation of the foot. pulses equal. Is able to move his knee, ankle, and toes. Neurologic: alert, oriented x3; 5/5 in RLE; 4/5 in LLE Psychiatric: mood/affect normal Skin: warm/dry; incision intact Daron Hassan M.D. Sep 14, 2016 14:09
--- NOTE | 2016-09-14 14:22 | Diagnostic Imaging Report ---
APPROVED REPORT CPT Code: 35620 Symptoms Comments: Left leg pain Comments Hx of left FPBPG (GRAFT) LEFT LEG: Common femoral artery waveform analysis is abnormal, suggestive of iliac arterial occlusive disease. Color flow duplex sonography reveals occlusion in the superficial femoral to the posterior tibial artery (graft). The color and doppler flow were absent within these segments.
[2016-09-14 16:10] VITALS: BP 140/65
--- NOTE | 2016-09-14 17:07 | Operative Note - Dictated ---
DATE OF OPERATION: 09/10/2016 PROCEDURES: 1. Left femoral-popliteal bypass using reverse saphenous vein. 2. Thrombectomy of saphenous vein bypass. This is a redo surgery, which was quite difficult. 3. Thrombectomy of posterior tibial and peroneal vessels and popliteal artery. 4. Infusion of tPA 6 mg. 5. Anterior and posterior compartment fasciotomies. PREOPERATIVE DIAGNOSIS: Femoral-popliteal graft occlusion due to diminutive segment of saphenous vein. POSTOPERATIVE DIAGNOSIS: Femoral-popliteal graft occlusion due to diminutive segment of saphenous vein. SURGEON: Rip Kumar M.D. DESCRIPTION OF PROCEDURE: In supine position, under general anesthesia, the patient was prepped and draped in the usual fashion. The wound was completely open. The greater saphenous vein was visible and was divided in its small segment below the knee. It was easily thrombectomized of this clot. About 5 mL of tPA was infused using a _#5 pediatric feeding tube. The tPA was allowed to sit in the saphenous vein, which had a very good pulse when the bulldog clamps were removed. The medial incision in the leg was enlarged by means of blunt and sharp dissection which was quite difficult because of previous surgery; the infrageniculate popliteal artery was isolated from the surrounding tissues. It was patent and appeared to be suitable for bypass. The popliteal artery proximally was doubly encircled with a vessel loop. The dissection proceeded distally and encompassed the peroneal artery as well as a more generous segment of posterior tibial artery. These were doubly encircled with vessel loops. He was heparinized with adequate amounts of heparin as it was recorded in the anesthesia record. More dissection was created so as to provide a satisfactory tunnel to the popliteal artery. The popliteal artery was opened vertically for a distance of 125 cm. A #3 Megha catheter was passed down the peroneal and the posterior tibial artery, and thrombus was removed. The thrombus was also removed from the popliteal artery. The tPA was infused down the posterior tibial and the peroneal arteries. An anastomosis was created between the saphenous vein and the arteriotomy in the popliteal with a running suture of 6-0 Prolene. Prior to completing the anastomosis, vessels were flushed in the usual fashion; very satisfactory flow was noted both in the graft and in the runoff arteries. Proof of the effectiveness of the bypass was that the anterior compartment and posterior compartment syndromes appeared very critical. Fasciotomies were performed of the anterior compartment and posterior compartment in the usual fashion using a scalpel. The wounds were irrigated with antibiotic solution and closed in layers using Vicryl for subcutaneous and connie for the skin. The wounds in the leg below the knee were left open and dressed with Xeroform dressing. With dressing in place, he left the operating room in satisfactory condition with good Doppler signals at the posterior tibial and peroneal arteries. Rip Kumar M.D. DR: MAREK JOB#: [id number] CC: GURJIT
[2016-09-14 20:34] VITALS: BP 128/79
[2016-09-15 00:35] VITALS: BP 132/78
[2016-09-15 04:00] VITALS: BP 113/72
[2016-09-15] MEDS: Heparin 25,000u/D5W 500ml 500 ML IV SCH (06:42)
[2016-09-15 08:00] VITALS: BP 133/83
[2016-09-15] MEDS: Pericolace tab ORAL SCH ×2 (08:16→17:35)
[2016-09-15] MEDS: Pantoprazole Inj IVP SCH (08:16)
[2016-09-15 12:00] VITALS: BP 128/77
--- NOTE | 2016-09-15 13:21 | Anethesia Preoperative Eval ---
Anesthesia Pre-op PMH/ROS General Date of Evaluation: Sep 15, 2016 Time of Evaluation: 13:51 Anesthesiologist: Elvis ASA Score: ASA 3 Mallampati Score Class I : Soft palate, uvula, fauces, pillars visible Class II: Soft palate, uvula, fauces visible Class III: Soft palate, base of uvula visible Class IV: Only hard plate visible Mallampati Classification: Class II Surgeon: José Diagnosis: L Leg Compartment Syndrome Surgical Procedure: Split Thickness Skin Graft, L Thigh to Leg Anesthesia History: none Family History: no anesthesia problems Allergies: Coded Allergies: PENICILLIN G (Unverified Allergy, Unknown, 09/08/16) CODEINE (Unverified Adverse Reaction, Unknown, 05/14/16) MORPHINE (Unverified Adverse Reaction, Unknown, 05/14/16) PENICILLINS (Unverified Adverse Reaction, Unknown, 05/14/16) SHELLFISH DERIVED (Unverified Adverse Reaction, Unknown, Shortness of Breath, 05/14/16) Medications: see eMAR Past Medical History Cardiovascular: Reports: HTN, other - PVD Gastrointestinal/Genitourinary: Reports: GERD Hematology/Immune: Reports: anemia PSxH Narrative: bilateral lower extremity, fem-pop bypasses Anesthesia Pre-op Phys. Exam Physician Exam Last Vital Signs Date Time Temp Pulse Resp B/P Pulse Ox O2 Delivery O2 Flow Rate FiO2 09/15/16 12:00 97.7 79 20 128/77 100 Room Air 09/11/16 07:00 6.0 09/10/16 04:01 28 Constitutional: NAD Neurologic: CN 2-12 intact Cardiovascular: RRR Respiratory: CTA Gastrointestinal: S/NT/ND Airway Exam Mallampati Score: Class II MO: full ROM: full Teeth: intact Anesthesia Pre-op A/P Labs Coagulation Test 09/14/16 16:15 09/14/16 23:59 09/15/16 08:15 Activated Partial Thromboplast Time 37 SEC (23-33) H 58 SEC (23-33) H 57 SEC (23-33) H Risk Assessment & Plan Assessment: ASA 3 Plan: GA Status Change Before Surgery: No Pre-Antibiotics Drug: Herber Pool MD Sep 15, 2016 13:21
--- NOTE | 2016-09-15 15:42 | General Progress Note ---
Assessment/Plan Problem List: (1) Arterial occlusion, lower extremity ICD Codes: I74.3 - Embolism and thrombosis of arteries of the lower extremities SNOMED: 994666086 (2) PVD (peripheral vascular disease) ICD Codes: I73.9 - Peripheral vascular disease, unspecified SNOMED: 910370478 (3) Acute blood loss anemia ICD Codes: D62 - Acute posthemorrhagic anemia SNOMED: 107641744 Assessment/Plan s/p thrombectomy of fem tib PTFE bypass Profunda common peroneal bypass with composite saphenous vein graft thrombectomy of common peroneal and posterior tibial artery veno-venostomy saphenous; 09/09/16 with vascular surgery BP control--stable and controlled with resumed amlodipine increased pain control with Dil, 2 mg IV q4h breakthrough severe pain--now controlled ctm h and h; Hg improved bowel regimen Subjective Date patient seen: Sep 15, 2016 Time patient seen: 15:40 Allergies: Coded Allergies: PENICILLIN G (Unverified Allergy, Unknown, 09/08/16) CODEINE (Unverified Adverse Reaction, Unknown, 05/14/16) MORPHINE (Unverified Adverse Reaction, Unknown, 05/14/16) PENICILLINS (Unverified Adverse Reaction, Unknown, 05/14/16) SHELLFISH DERIVED (Unverified Adverse Reaction, Unknown, Shortness of Breath, 05/14/16) Subjective pain now controlled; numbness continues to improve; had bM yesterday Objective Last 24 Hour Vital Signs Date Time Temp Pulse Resp B/P Pulse Ox O2 Delivery O2 Flow Rate FiO2 09/15/16 12:00 97.7 79 20 128/77 100 Room Air 09/15/16 08:14 87 133/83 09/15/16 08:00 97.9 87 20 133/83 100 Room Air 09/15/16 04:00 97.5 69 19 113/72 97 Room Air 09/15/16 03:35 98.2 09/15/16 00:35 98.2 74 21 132/78 94 Room Air 09/14/16 20:34 97.9 82 18 128/79 97 Room Air 09/14/16 16:10 98.8 83 19 140/65 100 Room Air Intake and Output 09/14/16 09/15/16 19:00 07:00 Intake Total 528 ml 632 ml Output Total 1700 ml Balance 528 ml -1068 ml Intake Oral 360 ml 360 ml IV Total 168 ml 272 ml Output Urine Total 1700 ml # Voids 3 2 # Bowel Movements 1 Laboratory Tests 09/14/16 16:15: Activated Partial Thromboplast Time 37H 09/14/16 23:59: Activated Partial Thromboplast Time 58H 09/15/16 08:15: Activated Partial Thromboplast Time 57H Height (Feet): 5 Height (Inches): 11.00 Weight (Pounds): 171 Objective General Appearance: well appearing, alert, mild distress Head: normocephalic, atraumatic Eyes: bilateral eye EOMI, bilateral eye PERRL ENT: hearing grossly normal, normal pharynx Neck: full range of motion, supple, no meningismus Respiratory: chest non-tender, lungs clear, normal breath sounds Cardiovascular #1: regular rate, rhythm, no murmur Gastrointestinal: normal bowel sounds, non tender, no mass, no organomegaly, no bruit, non-distended Musculoskeletal: back normal, normal range of motion, other - Left leg: He has normal sensation of the thigh. He has decreased sensation of the lower extremity from the knee to the ankle. He has minimal sensation of the foot. pulses equal. Is able to move his knee, ankle, and toes. Neurologic: alert, oriented x3; 5/5 in RLE; 4+/5 in LLE Psychiatric: mood/affect normal Skin: warm/dry; incision intact Daron Hassan M.D. Sep 15, 2016 15:42
[2016-09-15 16:26] VITALS: BP 133/84
[2016-09-15 20:32] VITALS: BP 126/62
--- NOTE | 2016-09-15 22:48 | Operative Note - Dictated ---
DATE OF OPERATION: 09/09/2016 This dictation is to replace a previous dictation for surgery, 09/09/2016. PROCEDURE: Attempted thrombectomy of left femoral to popliteal bypass which was done with [place]-Bharathi graft one year ago. This was unsuccessful. Femoral common perineal-posterior tibial bypass with composite vein graft and thrombectomy of popliteal common femoral common peroneal and posterior tibial arteries. PREOPERATIVE DIAGNOSIS: Ischemia left leg secondary to femoral popliteal graft occlusion. POSTOPERATIVE DIAGNOSIS: Ischemia left leg secondary to femoral popliteal graft occlusion with thrombosis of tibial vessels. SURGEON: Rip Kumar M.D. DESCRIPTION OF PROCEDURE: In the supine position, under general anesthesia, a vertical incision was made in the left groin and extended to the junction of the middle and proximal thirds of the thing. By means of careful blunt and sharp dissection, which was made much more difficult by previous surgery, the deep femoral artery was identified and isolated from the surrounding tissues. It was doubly encircled with vessel loops. It was of unusually large size. A vertical incision was made in the medial aspect of the leg just below the knee. By means of blunt and sharp dissection, which was quite difficult because of previous surgery, the common peroneal artery was identified. It was isolated from the surrounding tissues, dissecting the posterior tibial artery for a distance of 1 inch. The artery was doubly encircled with vessel loops. A tunnel was created from the profunda to the common femoral and common peroneal artery beneath the deep fascia. It was kept patent with Burciaga catheters. The greater saphenous vein was satisfactory to the knee level. It was dissected and was isolated through a long vertical incision in the medial thigh. Beyond that point, it was too small for use. Therefore, a smaller piece of the accessory saphenous vein was isolated from the surrounding tissues. A venovenostomy was created so as to elongate the saphenous vein graft. He was heparinized with 5000 units of aqueous heparin and management of heparin levels is recorded by the anesthesiologist. Reverse saphenous vein was anastomosed to the profunda using a running suture of 6-0 Prolene. It was then passed down through the tunnel and the small caliber saphenous vein was anastomosed to the common peroneal artery with a running suture of 6-0 Prolene. Prior to doing that, it was obvious that there was thrombus in the artery. The #3 Megha catheter was passed proximally and then distally to a point near the ankle. A good deal of thrombus was removed and sent to pathology. Because of the dense scar tissue, it was decided not to separately isolates the peroneal artery. The tourniquet technique was used. Prior to completing the anastomosis of the smaller segment of vein, the vessels were flushed in the usual fashion. The line was completed and flow was initiated in the graft. Satisfactory biphasic Doppler signals were noted in the graft and in the posterior tibial artery. The wounds were closed in layers using Vicryl for subcutaneous and connie for the skin. With dressing in place, he left the operating room in satisfactory condition. The #19 Ishan drain had been placed in the thigh wound and brought out through a separate stab wound. Rip Kumar M.D. DR: FREDI JOB#: [id number] CC: GURJIT
[2016-09-16] VITALS (14 sets, daily range): BP systolic 112–146; BP diastolic 72–91
[2016-09-16] MEDS: Heparin 25,000u/D5W 500ml 500 ML IV SCH (01:29)
[2016-09-16 07:10] LABS: BASOPHILS % (AUTO) 0.8 % (0.0-2.0); LYMPHOCYTES % (AUTO) 27.3 % (20.0-45.0); MEAN CORPUSCULAR HEMOGLOBIN 29.2 PG (27.0-31.0); MEAN CORPUSCULAR HGB CONC 34.1 G/DL (32.0-36.0); MEAN CORPUSCULAR VOLUME 86 FL (80-99); MEAN PLATELET VOLUME 5.4 FL (6.5-10.1); MONOCYTES % (AUTO) 9.3 % (1.0-10.0); NEUTROPHILS % (AUTO) 62.6 % (45.0-75.0); PLATELET COUNT 312 K/UL (150-450); RED BLOOD COUNT 3.32 M/UL (4.70-6.10); RED CELL DISTRIBUTION WIDTH 14.1 % (11.6-14.8); WHITE BLOOD COUNT 8.7 K/UL (4.8-10.8)
[2016-09-16 07:35] LABS: INR 1.1 (0.9-1.1); PROTHROMBIN TIME 10.8 SEC (9.30-11.50)
[2016-09-16 07:37] LABS: ANION GAP 15 (5-15); CALCIUM 8.8 mg/dL (8.6-10.2); CARBON DIOXIDE 25 mEQ/L (20-30); CHLORIDE 98 mEQ/L (98-107); CREATININE 0.9 mg/dL (0.7-1.2); GLOMERULAR FILTRATION RATE > 60 mL/min (>60); HEMOLYSIS 1; POTASSIUM 4.2 mEQ/L (3.4-4.9); SODIUM 138 mEQ/L (135-145)
[2016-09-16] MEDS: Pantoprazole Inj IVP SCH (09:00)
[2016-09-16] MEDS: Pericolace tab ORAL SCH ×2 (09:00→17:15)
[2016-09-16] MEDS ORDERED: Muri-Lube ONE (09:17)
[2016-09-16] MEDS ORDERED: Bacitracin 50000 Units Vial ONE (09:17)
[2016-09-16] MEDS ORDERED: Lidocaine 1% 10mg/ml/Epi 0.005mg/ml 30ml vial INJ ONE (09:17)
--- NOTE | 2016-09-16 10:23 | General Progress Note ---
Assessment/Plan Problem List: (1) Arterial occlusion, lower extremity ICD Codes: I74.3 - Embolism and thrombosis of arteries of the lower extremities SNOMED: 906425251 (2) PVD (peripheral vascular disease) ICD Codes: I73.9 - Peripheral vascular disease, unspecified SNOMED: 925572434 (3) Acute blood loss anemia ICD Codes: D62 - Acute posthemorrhagic anemia SNOMED: 734266867 Assessment/Plan s/p thrombectomy of fem tib PTFE bypass Profunda common peroneal bypass with composite saphenous vein graft thrombectomy of common peroneal and posterior tibial artery veno-venostomy saphenous; 09/09/16 with vascular surgery BP control--stable and controlled with resumed amlodipine increased pain control with Dil, 2 mg IV q4h breakthrough severe pain--now controlled ctm h and h; Hg improved bowel regimen PT/OT Subjective Date patient seen: Sep 16, 2016 Time patient seen: 10:22 Allergies: Coded Allergies: PENICILLIN G (Unverified Allergy, Unknown, 09/08/16) CODEINE (Unverified Adverse Reaction, Unknown, 05/14/16) MORPHINE (Unverified Adverse Reaction, Unknown, 05/14/16) PENICILLINS (Unverified Adverse Reaction, Unknown, 05/14/16) SHELLFISH DERIVED (Unverified Adverse Reaction, Unknown, Shortness of Breath, 05/14/16) Subjective pain now controlled; numbness continues to improve; had bM Objective Last 24 Hour Vital Signs Date Time Temp Pulse Resp B/P Pulse Ox O2 Delivery O2 Flow Rate FiO2 09/16/16 09:00 83 124/72 09/16/16 08:44 98.2 83 20 124/72 100 Room Air 09/16/16 04:00 99.0 73 16 127/78 100 Room Air 09/16/16 00:00 98.4 84 16 121/86 100 Room Air 09/15/16 20:32 98.2 77 19 126/62 99 Room Air 09/15/16 16:26 98.6 77 19 133/84 Room Air 09/15/16 12:00 97.7 79 20 128/77 100 Room Air Intake and Output 09/15/16 09/16/16 19:00 07:00 Intake Total 822 ml 240 ml Output Total 500 ml 600 ml Balance 322 ml -360 ml Intake Oral 550 ml 240 ml IV Total 272 ml Output Urine Total 500 ml 600 ml # Voids 2 # Bowel Movements 1 Laboratory Tests 09/16/16 05:10: White Blood Count 8.7, Red Blood Count 3.32L, Hemoglobin 9.7L, Hematocrit 28.4L , Mean Corpuscular Volume 86, Mean Corpuscular Hemoglobin 29.2, Mean Corpuscular Hemoglobin Concent 34.1, Red Cell Distribution Width 14.1, Platelet Count 312, Mean Platelet Volume 5.4L, Neutrophils (%) (Auto) 62.6, Lymphocytes ( %) (Auto) 27.3, Monocytes (%) (Auto) 9.3, Eosinophils (%) (Auto) 0.0, Basophils (%) (Auto) 0.8, Prothrombin Time 10.8, Prothromb Time International Ratio 1.1, Activated Partial Thromboplast Time 53H, Sodium Level 138, Potassium Level 4.2, Chloride Level 98, Carbon Dioxide Level 25, Anion Gap 15, Blood Urea Nitrogen 10 , Creatinine 0.9, Estimat Glomerular Filtration Rate > 60, Glucose Level 101, Calcium Level 8.8 Height (Feet): 5 Height (Inches): 11.00 Weight (Pounds): 171 Objective General Appearance: well appearing, alert, mild distress Head: normocephalic, atraumatic Eyes: bilateral eye EOMI, bilateral eye PERRL ENT: hearing grossly normal, normal pharynx Neck: full range of motion, supple, no meningismus Respiratory: chest non-tender, lungs clear, normal breath sounds Cardiovascular #1: regular rate, rhythm, no murmur Gastrointestinal: normal bowel sounds, non tender, no mass, no organomegaly, no bruit, non-distended Musculoskeletal: back normal, normal range of motion, other - Left leg: He has normal sensation of the thigh. He has decreased sensation of the lower extremity from the knee to the ankle. He has minimal sensation of the foot. pulses equal. Is able to move his knee, ankle, and toes. Neurologic: alert, oriented x3; 5/5 in RLE; 4+/5 in LLE Psychiatric: mood/affect normal Skin: warm/dry; incision intact Daron Hassan M.D. Sep 16, 2016 10:23
[2016-09-16] MEDS ORDERED: LR 1000ml ONE (10:46)
[2016-09-16] MEDS ORDERED: NS Irrig 1000ml ONE (10:46)
[2016-09-16] MEDS ORDERED: Midazolam 2mg/2ml Inj ONE (10:46)
[2016-09-16] MEDS ORDERED: Propofol 10mg/ml 20ml IV ONE (10:46)
[2016-09-16] MEDS ORDERED: Sterile Water Irrig 1000ml IRRIG ONE (10:46)
[2016-09-16] MEDS ORDERED: fentaNYL 100 mcg/2 mL IV ONE (10:46)
[2016-09-16] MEDS ORDERED: Lidocaine 1% MPF 10mg/ml 5ml ONE (10:46)
--- NOTE | 2016-09-16 10:53 | Pre-Procedure Note/Attestation ---
Pre-Procedure Note/Attestation Complete Prior to Procedure Planned Procedure: left Procedure Narrative: split thickness skin graft left and right thigh to left leg fasciotomy sites Indications for Procedure Pre-Operative Diagnosis: granulating fasciotomy sites Attestation I attest that I discussed the nature of the procedure; its benefits; risks and complications; and alternatives (and the risks and benefits of such alternatives ), prior to the procedure, with the patient (or the patient's legal provider service representative). I attest that, if there was a reasonable possibility of needing a blood transfusion, the patient (or the patient's legal provider service representative) was given the [facility] standardized written summary, pursuant to the [place] Blood Safety Act ([place] Health and Safety Code # 1645, as amended). I attest that I re-evaluated the patient just prior to the surgery and that there has been no change in the patient's H&P, except as documented below:none ELIAS VILLEGAS Sep 16, 2016 10:53
[2016-09-16] MEDS ORDERED: LR 1000ml 1,000 ML IVLG SCH (11:32)
--- NOTE | 2016-09-16 11:32 | Immediate Post-Op Evaluation ---
Immediate Post-Op Evalulation Immediate Post-Op Evalulation Procedure: Left femoral-tibial bypass Date of Evaluation: Sep 16, 2016 Time of Evaluation: 13:36 IV Fluids: 1.1L Blood Products: 0 Estimated Blood Loss: min Urinary Output: 0 Blood Pressure Systolic: 112 Blood Pressure Diastolic: 88 Pulse Rate: 77 Respiratory Rate: 18 O2 Sat by Pulse Oximetry: 100 Temperature (Fahrenheit): 97.6 Pain Score (1-10): 0 Nausea: No Vomiting: No Complications 0 Patient Status: awake, reacts, patent, none Hydration Status: adequate Drug: Clindamycin 900mg Given Within 1 Hr of Incision: Yes Time Given: 11:00 NIK CALLEJAS M.D. Sep 16, 2016 11:32
[2016-09-16] MEDS ORDERED: Labetalol 5mg/ml 20ml vial IV PRN (11:45)
[2016-09-16] MEDS ORDERED: DiphenhydrAMINE 50mg/ml Inj IVP PRN (11:45)
[2016-09-16] MEDS ORDERED: fentaNYL 100 mcg/2 mL IV PRN (11:45)
[2016-09-16] MEDS ORDERED: Clindamycin 6 ML ONE (11:58)
[2016-09-16] MEDS ORDERED: Surgicel 4in x 8in TOPIC ONE (12:25)
--- NOTE | 2016-09-16 14:42 | Brief Operative Note ---
Immediate Post Operative Note Operative Note Pre-op Diagnosis: granulating fasciotomy sites Procedure: brief op note 09/10 procedure left femoral popliteal by pass with greater saphenous vein popliteal and tibial thrombectomy Post-op Diagnosis: same Post-op Diagnosis: same as pre-op Surgeon: shiloh Anesthesia: general Specimen: none Complications: none Condition: stable Estimated Blood Loss: none Drains: none Implant(s) used?: No ELIAS VILLEGAS Sep 16, 2016 14:42
[2016-09-16] MEDS ORDERED: Heparin 25,000u/D5W 500ml 500 ML IV SCH ×2 (15:30→18:15)
[2016-09-16] MEDS ORDERED: Heparin 2000 units/Ns 1000ml IV SCH (16:00)
[2016-09-16] MEDS ORDERED: Warfarin Sodium 5mg ORAL ONE (22:00)
[2016-09-17] VITALS: BP 116/73
[2016-09-17] MEDS ORDERED: Heparin 25,000u/D5W 500ml 500 ML IV SCH (02:00)
[2016-09-17] MEDS: Heparin 25,000u/D5W 500ml 500 ML IV SCH ×4 (02:03→23:59)
[2016-09-17 04:00] VITALS: BP 123/73
--- NOTE | 2016-09-17 05:57 | Consultation ---
DATE OF CONSULTATION: 09/16/2016 HEMATOLOGY/ONCOLOGY CONSULTATION CONSULTING PHYSICIAN: Omar Alford M.D. REQUESTING PHYSICIAN: Rip Kumar M.D. REASON FOR CONSULTATION: Evaluation of hypercoagulable disorder. IDENTIFICATION DATA: Dear Dr. Rip Kumar, The patient is a pleasant 50-year-old male with a past medical history, which is significant for bilateral femoral bypass surgery completed in January and February of [address] Warren at [facility]. He, at this time, presents with left leg weakness as well as acute pain occurred 30 minutes prior to evaluation in the ER. He had an angiogram completed, which showed occlusion with tracking of pain up to the thigh. Dr. Rip Kumar evaluated the patient and the patient currently is status post thrombectomy with femoral tibial bypass with composite saphenous vein graft and common peroneal bypass with Vascular Surgery. Blood pressure is currently controlled. The patient's pain is controlled as well on p.r.n. doses of Dilaudid. Hematology service was consulted given the recurrence of skin occlusion for evaluation of hypercoagulable disorder and anticoagulation. PAST MEDICAL HISTORY: As noted above. Peripheral vascular disease. PAST SURGICAL HISTORY: Femoropopliteal bypass. MEDICATIONS: Amlodipine, aspirin, Colace, . ALLERGIES: Penicillin, Codeine, morphine, and shell fish. SOCIAL HISTORY: No alcohol, tobacco, or illicit drug use. FAMILY HISTORY: . REVIEW OF SYSTEMS: Constitutional: No fever, chills, or night sweats. Skin: No rashes, lumps, or itching. HEENT: No headache, hearing or vision changes. Breasts: No lumps, pain, or discharge. Pulmonary: No cough, sputum, or shortness of breath. Cardiovascular: No chest pain, tightness, or palpitations. Gastrointestinal: No nausea, vomiting, or diarrhea. Genitourinary: No dysuria, frequency, or urgency. Musculoskeletal: No joint swelling, muscle pain, or trauma. Extremities: Left leg, decreased sensation at the knees and ankles. PHYSICAL EXAMINATION: GENERAL: The patient is in no acute distress. VITAL SIGNS: Temperature is 98.3 degrees Fahrenheit, pulse 96, respiratory rate 18, blood pressure 126/72, and pulse oximetry 100% on room air. PULMONARY: Decreased breath sounds. CARDIOVASCULAR: Regular rate and rhythm. No S3 or S4. GASTROINTESTINAL: Abdomen is soft, nontender, and nondistended. EXTREMITIES: A 1+ edema. LABORATORY DATA: WBC 8.7, hemoglobin 9.7, hematocrit 28, and platelet count 312,000. Chemistry shows a BUN of 10, creatinine 0.1, INR of 1.1, and has HIV antibody test pending. ASSESSMENT: 1. Status post thrombectomy and femorotibial and femoropopliteal bypass with composite saphenous vein graft. Agree with the use of heparin drip in this patient as well as potentially aspirin once he stabilizes. I have reviewed the literature in regards to use of anticoagulation versus no anticoagulation. The patient received anticoagulation per a [place] database review. He did better, trending better vein bypass graft compared to no anticoagulation and to aspirin alone. On the other hand, aspirin is better with anticoagulation for some better graphs. So, in another words, this patient would benefit from the use of Coumadin anticoagulation with INR above 2 and less than 3. Compliance is crucial importance. 2. Hypercoagulable disorder with recurrence of arterial clots. Currently, he is on heparin drip. 3. Anemia secondary to chronic disease. 4. Decreased hemoglobin and hematocrit, rule out gastrointestinal bleed. 5. Leukocytosis, potentially secondary to underlying infection. 6. Thrombocytopenia, potentially secondary to medications versus infection that is now improved. 7. Weakness and pain status post surgery, better controlled. 8. Blood pressure elevation, now is on amlodipine. RECOMMENDATIONS: 1. Continue heparin drip. 2. Reviewed the literature per [place] database review and the patient will benefit from Coumadin, which has been started. 3. Maintain INR between 2 and 3. 4. Continue supportive care. 5. GI prophylaxis with PPI. 6. Pain control with Dilaudid. 7. ischemia. 8. Maintain hemoglobin above 7. 9. Maintain platelets above 10,000. 10. PT/OT as an outpatient. 11. Potential placement 12. Discussed with staff. Thank you, Dr. Rip Kumar, for this kind referral. Please do not hesitate to contact me with any further questions. Omar Alford M.D. DR: SARINA JOB#: [id number] CC:
[2016-09-17 08:00] VITALS: BP 112/69
[2016-09-17 08:03] LABS: INR 1.1 (0.9-1.1); PROTHROMBIN TIME 11.4 SEC (9.30-11.50)
[2016-09-17] MEDS: Pericolace tab ORAL SCH ×2 (08:54→17:30)
[2016-09-17] MEDS: Pantoprazole Inj IVP SCH (08:54)
--- NOTE | 2016-09-17 09:09 | 48 Hour Post Anesthesia Eval ---
Post Anesthesia Evaluation Procedure: Left femoral-tibial bypass Date of Evaluation: Sep 17, 2016 Time of Evaluation: 07:00 Blood Pressure Systolic: 123 0: 73 Pulse Rate: 73 Respiratory Rate: 18 Temperature (Fahrenheit): 98.8 O2 Sat by Pulse Oximetry: 100 Airway: patent Nausea: No Vomiting: No Pain Intensity: 1 Hydration Status: adequate Cardiopulmonary Status: at baseline Mental Status/LOC: patient returned to baseline Post-Anesthesia Complications: 0 Follow-up care needed: N/A - further care as per primary team NIK CALLEJAS M.D. Sep 17, 2016 09:09
--- NOTE | 2016-09-17 10:12 | General Progress Note ---
Assessment/Plan Problem List: (1) Arterial occlusion, lower extremity ICD Codes: I74.3 - Embolism and thrombosis of arteries of the lower extremities SNOMED: 203426431 (2) PVD (peripheral vascular disease) ICD Codes: I73.9 - Peripheral vascular disease, unspecified SNOMED: 119788103 (3) Acute blood loss anemia ICD Codes: D62 - Acute posthemorrhagic anemia SNOMED: 925995205 Assessment/Plan s/p thrombectomy of fem tib PTFE bypass Profunda common peroneal bypass with composite saphenous vein graft thrombectomy of common peroneal and posterior tibial artery veno-venostomy saphenous; 09/09/16 with vascular surgery left femoral popliteal by pass with greater saphenous vein popliteal and tibial thrombectomy BP control--stable and controlled with resumed amlodipine increased pain control with Dil, 2 mg IV q4h breakthrough severe pain--now controlled ctm h and h; Hg improved heparin gtt started on coumadin per heme bowel regimen PT/OT Subjective Date patient seen: Sep 17, 2016 Time patient seen: 10:10 Allergies: Coded Allergies: PENICILLIN G (Unverified Allergy, Unknown, 09/08/16) CODEINE (Unverified Adverse Reaction, Unknown, 05/14/16) MORPHINE (Unverified Adverse Reaction, Unknown, 05/14/16) PENICILLINS (Unverified Adverse Reaction, Unknown, 05/14/16) SHELLFISH DERIVED (Unverified Adverse Reaction, Unknown, Shortness of Breath, 05/14/16) Subjective pain now controlled; numbness continues to improve; had bM Objective Last 24 Hour Vital Signs Date Time Temp Pulse Resp B/P Pulse Ox O2 Delivery O2 Flow Rate FiO2 09/17/16 09:09 73 18 100 09/17/16 08:54 71 112/69 09/17/16 08:00 99.1 71 20 112/69 100 Room Air 09/17/16 04:00 98.8 73 18 123/73 100 Room Air 09/17/16 00:00 99.5 87 18 116/73 100 Room Air 09/16/16 19:30 98.2 96 18 126/72 100 Room Air 09/16/16 17:30 98.6 86 19 126/87 100 Room Air 09/16/16 15:30 97.7 70 18 130/74 96 Room Air 09/16/16 14:30 97.9 73 18 138/85 100 Room Air 09/16/16 14:25 97.8 72 23 141/90 100 Room Air 09/16/16 14:10 69 16 146/82 100 Room Air 09/16/16 13:55 82 13 144/86 100 Room Air 09/16/16 13:40 78 13 138/80 99 Room Air 09/16/16 13:36 97.6 86 18 135/91 99 Simple Mask 6.0 09/16/16 13:35 77 18 100 09/16/16 13:31 97.6 79 13 112/80 100 Simple Mask 6.0 Intake and Output 09/16/16 09/17/16 19:00 07:00 Intake Total 1156 ml 1100 ml Output Total 20 ml 1600 ml Balance 1136 ml -500 ml Intake Oral 740 ml IV Total 1156 ml 360 ml Output Urine Total 1600 ml Estimated Blood Loss 20 ml # Bowel Movements 4 Laboratory Tests 09/16/16 16:05: Activated Partial Thromboplast Time 37H 09/17/16 00:25: Activated Partial Thromboplast Time 41H 09/17/16 07:45: Activated Partial Thromboplast Time 52H, Prothrombin Time 11.4, Prothromb Time International Ratio 1.1 Height (Feet): 5 Height (Inches): 11.00 Weight (Pounds): 171 Objective General Appearance: well appearing, alert, mild distress Head: normocephalic, atraumatic Eyes: bilateral eye EOMI, bilateral eye PERRL ENT: hearing grossly normal, normal pharynx Neck: full range of motion, supple, no meningismus Respiratory: chest non-tender, lungs clear, normal breath sounds Cardiovascular #1: regular rate, rhythm, no murmur Gastrointestinal: normal bowel sounds, non tender, no mass, no organomegaly, no bruit, non-distended Musculoskeletal: back normal, normal range of motion, other - Left leg: He has normal sensation of the thigh. He has decreased sensation of the lower extremity from the knee to the ankle. He has minimal sensation of the foot. pulses equal. Is able to move his knee, ankle, and toes. Neurologic: alert, oriented x3; 5/5 in RLE; 4+/5 in LLE Psychiatric: mood/affect normal Skin: warm/dry; incision intact Daron Hassan M.D. Sep 17, 2016 10:12
[2016-09-17 12:00] VITALS: BP 122/76
--- NOTE | 2016-09-17 15:23 | General Progress Note ---
Assessment/Plan Assessment/Plan ASSESSMENT: 1. Status post thrombectomy and femorotibial and femoropopliteal bypass with composite saphenous vein graft. Agree with the use of heparin drip in this patient as well as potentially aspirin once he stabilizes. Would benefit from the use of Coumadin anticoagulation with INR above 2 and less than 3. Compliance is crucial importance. 2. Hypercoagulable disorder with recurrence of arterial clots. Currently, he is on heparin drip. 3. Anemia secondary to chronic disease. 4. Decreased hemoglobin and hematocrit, rule out gastrointestinal bleed. 5. Leukocytosis, potentially secondary to underlying infection. 6. Thrombocytopenia, potentially secondary to medications versus infection, now better 7. Weakness and pain status post surgery, better controlled. 8. Blood pressure elevation, now is on amlodipine. RECOMMENDATIONS: 1. Continue heparin drip. 2. Continue coumadin 3. Maintain INR between 2 and 3. 4. Continue ASA 81mg po daily 5. GI prophylaxis with PPI. 6. Pain control with Dilaudid. 7. Maintain hemoglobin above 7. 8. Maintain platelets above 10,000. 9. PT/OT as an outpatient. 10. Potential placement 11. Discussed with staff. Thank you, Omar Alford MD Subjective Constitutional: Reports: no symptoms HEENT: Reports: no symptoms Cardiovascular: Reports: no symptoms Respiratory: Reports: cough Gastrointestinal/Abdominal: Reports: no symptoms Genitourinary: Reports: no symptoms Neurologic/Psychiatric: Reports: anxiety Endocrine: Reports: no symptoms Hematologic/Lymphatic: Reports: anemia Allergies: Coded Allergies: PENICILLIN G (Unverified Allergy, Unknown, 09/08/16) CODEINE (Unverified Adverse Reaction, Unknown, 05/14/16) MORPHINE (Unverified Adverse Reaction, Unknown, 05/14/16) PENICILLINS (Unverified Adverse Reaction, Unknown, 05/14/16) SHELLFISH DERIVED (Unverified Adverse Reaction, Unknown, Shortness of Breath, 05/14/16) Subjective stable, no fevers or chills, no night sweats, no bleeding Objective Last 24 Hour Vital Signs Date Time Temp Pulse Resp B/P Pulse Ox O2 Delivery O2 Flow Rate FiO2 09/17/16 12:00 98.8 83 20 122/76 99 Room Air 09/17/16 09:09 73 18 100 09/17/16 08:54 71 112/69 09/17/16 08:00 99.1 71 20 112/69 100 Room Air 09/17/16 04:00 98.8 73 18 123/73 100 Room Air 09/17/16 00:00 99.5 87 18 116/73 100 Room Air 09/16/16 19:30 98.2 96 18 126/72 100 Room Air 09/16/16 17:30 98.6 86 19 126/87 100 Room Air 09/16/16 15:30 97.7 70 18 130/74 96 Room Air Intake and Output 09/16/16 09/17/16 19:00 07:00 Intake Total 1156 ml 1100 ml Output Total 20 ml 1600 ml Balance 1136 ml -500 ml Intake Oral 740 ml IV Total 1156 ml 360 ml Output Urine Total 1600 ml Estimated Blood Loss 20 ml # Bowel Movements 4 Laboratory Tests 09/16/16 16:05: Activated Partial Thromboplast Time 37H 09/17/16 00:25: Activated Partial Thromboplast Time 41H 09/17/16 07:45: Activated Partial Thromboplast Time 52H, Prothrombin Time 11.4, Prothromb Time International Ratio 1.1 Height (Feet): 5 Height (Inches): 11.00 Weight (Pounds): 171 General Appearance: alert EENT: normal ENT inspection Neck: normal inspection Cardiovascular: normal rate Respiratory/Chest: normal breath sounds Abdomen: no organomegaly Extremities: non-tender Edema: 1+ Leg (L), 1+ Leg (R) Edema: trace edema Neurologic: alert Skin: normal pigmentation Omar Alford Sep 17, 2016 15:23
[2016-09-17 16:00] VITALS: BP 129/82
[2016-09-17] MEDS ORDERED: Warfarin Sodium 5mg ORAL ONE (17:00)
[2016-09-17 20:00] VITALS: BP 123/77
[2016-09-18] VITALS: BP 113/69
[2016-09-18 04:00] VITALS: BP 107/50
[2016-09-18] MEDS: Pericolace tab ORAL SCH ×2 (07:56→17:31)
[2016-09-18] MEDS: Pantoprazole Inj IVP SCH (07:56)
[2016-09-18 08:08] VITALS: BP 137/75
--- NOTE | 2016-09-18 08:26 | General Surgery Progress Note ---
General Surgery-Progress Note Subjective Procedure Performed brief op note 09/10 procedure left femoral popliteal by pass with greater saphenous vein popliteal and tibial thrombectomy Symptoms: improved, pain same, tolerating diet Objective Last 24 Hour Vital Signs Date Time Temp Pulse Resp B/P Pulse Ox O2 Delivery O2 Flow Rate FiO2 09/18/16 08:08 98.1 76 19 137/75 100 Room Air 09/18/16 07:57 76 137/75 09/18/16 04:00 98.1 67 20 107/50 100 Room Air 09/18/16 00:00 98.4 66 19 113/69 99 Room Air 09/17/16 20:00 99.3 74 18 123/77 Room Air 99.0 09/17/16 16:00 98.2 85 22 129/82 97 Room Air 09/17/16 12:00 98.8 83 20 122/76 99 Room Air 09/17/16 09:09 73 18 100 09/17/16 08:54 71 112/69 I&O Intake and Output 09/17/16 09/18/16 19:00 07:00 Intake Total 804 ml 216 ml Output Total 725 ml 800 ml Balance 79 ml -584 ml Intake Oral 600 ml IV Total 204 ml 216 ml Output Urine Total 725 ml 800 ml # Voids 3 # Bowel Movements 1 Dressing: dry Wound: clean, dry, intact Drains: none Abdomen: soft Extremities: no edema, no tenderness, pulses Laboratory Tests Test 09/17/16 19:34 Activated Partial Thromboplast Time 48 SEC (23-33) H Assessment Post-op Diagnosis same ELIAS VILLEGAS Sep 18, 2016 08:26
[2016-09-18 09:08] LABS: INR 1.2 (0.9-1.1); PROTHROMBIN TIME 11.8 SEC (9.30-11.50)
--- NOTE | 2016-09-18 10:23 | General Progress Note ---
Assessment/Plan Problem List: (1) Arterial occlusion, lower extremity ICD Codes: I74.3 - Embolism and thrombosis of arteries of the lower extremities SNOMED: 637840552 (2) PVD (peripheral vascular disease) ICD Codes: I73.9 - Peripheral vascular disease, unspecified SNOMED: 098456505 (3) Acute blood loss anemia ICD Codes: D62 - Acute posthemorrhagic anemia SNOMED: 069285266 Assessment/Plan s/p thrombectomy of fem tib PTFE bypass Profunda common peroneal bypass with composite saphenous vein graft thrombectomy of common peroneal and posterior tibial artery veno-venostomy saphenous; 09/09/16 with vascular surgery left femoral popliteal by pass with greater saphenous vein popliteal and tibial thrombectomy s/p skin grafting 09/16/16 BP control--stable and controlled with resumed amlodipine increased pain control with Dil, 2 mg IV q4h breakthrough severe pain--now controlled ctm h and h; Hg improved heparin gtt started on coumadin per heme bowel regimen PT/OT Subjective Allergies: Coded Allergies: PENICILLIN G (Unverified Allergy, Unknown, 09/08/16) CODEINE (Unverified Adverse Reaction, Unknown, 05/14/16) MORPHINE (Unverified Adverse Reaction, Unknown, 05/14/16) PENICILLINS (Unverified Adverse Reaction, Unknown, 05/14/16) SHELLFISH DERIVED (Unverified Adverse Reaction, Unknown, Shortness of Breath, 05/14/16) Subjective pain now controlled; numbness continues to improve; had bM Objective Last 24 Hour Vital Signs Date Time Temp Pulse Resp B/P Pulse Ox O2 Delivery O2 Flow Rate FiO2 09/18/16 08:27 98.1 09/18/16 08:08 98.1 76 19 137/75 100 Room Air 09/18/16 07:57 76 137/75 09/18/16 04:00 98.1 67 20 107/50 100 Room Air 09/18/16 00:00 98.4 66 19 113/69 99 Room Air 09/17/16 20:00 99.3 74 18 123/77 Room Air 99.0 09/17/16 16:00 98.2 85 22 129/82 97 Room Air 09/17/16 12:00 98.8 83 20 122/76 99 Room Air Intake and Output 09/17/16 09/18/16 19:00 07:00 Intake Total 804 ml 252 ml Output Total 725 ml 800 ml Balance 79 ml -548 ml Intake Oral 600 ml IV Total 204 ml 252 ml Output Urine Total 725 ml 800 ml # Voids 3 # Bowel Movements 1 Laboratory Tests 09/17/16 19:34: Activated Partial Thromboplast Time 48H 09/18/16 08:15: Activated Partial Thromboplast Time 70H, Prothrombin Time 11.8H, Prothromb Time International Ratio 1.2H Height (Feet): 5 Height (Inches): 11.00 Weight (Pounds): 171 Objective General Appearance: well appearing, alert, mild distress Head: normocephalic, atraumatic Eyes: bilateral eye EOMI, bilateral eye PERRL ENT: hearing grossly normal, normal pharynx Neck: full range of motion, supple, no meningismus Respiratory: chest non-tender, lungs clear, normal breath sounds Cardiovascular #1: regular rate, rhythm, no murmur Gastrointestinal: normal bowel sounds, non tender, no mass, no organomegaly, no bruit, non-distended Musculoskeletal: back normal, normal range of motion, other - Left leg: He has normal sensation of the thigh. He has decreased sensation of the lower extremity from the knee to the ankle. He has minimal sensation of the foot. pulses equal. Is able to move his knee, ankle, and toes. Neurologic: alert, oriented x3; 5/5 in RLE; 4+/5 in LLE Psychiatric: mood/affect normal Skin: warm/dry; incision intact Daron Hassan M.D. Sep 18, 2016 10:23
[2016-09-18] MEDS ORDERED: [UNRECOGNIZED DRUG - OTHER] IVPB ONE ×2 (11:00)
[2016-09-18] MEDS: Heparin 25,000u/D5W 500ml 500 ML IV SCH ×2 (11:08→15:39)
[2016-09-18 12:05] LABS: BASOPHILS % (AUTO) 1.5 % (0.0-2.0); EOSINOPHILS % (AUTO) 0.1 % (0.0-3.0); LYMPHOCYTES % (AUTO) 24.9 % (20.0-45.0); MEAN CORPUSCULAR HEMOGLOBIN 28.6 PG (27.0-31.0); MEAN CORPUSCULAR HGB CONC 32.8 G/DL (32.0-36.0); MEAN CORPUSCULAR VOLUME 87 FL (80-99); MONOCYTES % (AUTO) 13.3 % (1.0-10.0); NEUTROPHILS % (AUTO) 60.3 % (45.0-75.0); PLATELET COUNT 418 K/UL (150-450); RED BLOOD COUNT 3.35 M/UL (4.70-6.10); RED CELL DISTRIBUTION WIDTH 13.6 % (11.6-14.8); WHITE BLOOD COUNT 8.8 K/UL (4.8-10.8)
[2016-09-18 12:09] VITALS: BP 124/72
[2016-09-18 16:00] VITALS: BP 129/74
[2016-09-18] MEDS ORDERED: Warfarin Sodium 5mg ORAL ONE (17:00)
--- NOTE | 2016-09-18 17:21 | Infectious Diseases Prog Note ---
Assessment/Plan Problems: (1) MDR Acinetobacter baumannii infection Assessment & Plan: of the left leg , will start tigecycline pending further sensitivity results for now, will treat for two weeks average, depending on his clinical improvement, patient understand that with this kind of infection due to MDR Acinetobacter he is at high risk for graft failure. all side effects for tigecycline were explained in details to him and he agreed to proceed. (2) Femoral-popliteal bypass graft occlusion, left Assessment & Plan: s/p thrombectomy of fem tib PTFE bypass , Profunda common peroneal bypass with composite saphenous vein graft , thrombectomy of common peroneal and posterior tibial artery veno-venostomy saphenous by vascular surgery (3) Skin graft infection Assessment & Plan: possibly due to MDR Acinetobacter Baumannii , continue tigecycline , with close monitoring of his graft by surgery , he is at high risk for graft failure due to his current infection. Subjective Allergies: Coded Allergies: PENICILLIN G (Unverified Allergy, Unknown, 09/08/16) CODEINE (Unverified Adverse Reaction, Unknown, 05/14/16) MORPHINE (Unverified Adverse Reaction, Unknown, 05/14/16) PENICILLINS (Unverified Adverse Reaction, Unknown, 05/14/16) SHELLFISH DERIVED (Unverified Adverse Reaction, Unknown, Shortness of Breath, 05/14/16) Objective Vital Signs Last 24 Hour Vital Signs Date Time Temp Pulse Resp B/P Pulse Ox O2 Delivery O2 Flow Rate FiO2 09/18/16 16:00 98.1 67 20 129/74 100 Room Air 09/18/16 14:20 97.9 09/18/16 12:09 97.9 66 18 124/72 100 Room Air 09/18/16 08:08 98.1 76 19 137/75 100 Room Air 09/18/16 07:57 76 137/75 09/18/16 04:00 98.1 67 20 107/50 100 Room Air 09/18/16 00:00 98.4 66 19 113/69 99 Room Air 09/17/16 20:00 99.3 74 18 123/77 Room Air 99.0 Height (Feet): 5 Height (Inches): 11.00 Weight (Pounds): 171 Microbiology Date/Time Source Procedure Growth Status 09/16/16 12:00 Leg Left Gram Stain - Final Resulted 09/16/16 12:00 Aerobic Culture - Preliminary A.baumanii Complx - Mdr Resulted 09/16/16 12:00 Leg Left Anaerobic Culture - Preliminary NO GROWTH AFTER 48 HOURS Resulted Laboratory Tests Test 09/17/16 19:34 09/18/16 08:15 09/18/16 11:15 Activated Partial Thromboplast Time 48 SEC (23-33) H 70 SEC (23-33) H Prothrombin Time 11.8 SEC (9.30-11.50) H Prothromb Time International Ratio 1.2 (0.9-1.1) H White Blood Count 8.8 K/UL (4.8-10.8) Red Blood Count 3.35 M/UL (4.70-6.10) L Hemoglobin 9.6 G/DL (14.2-18.0) L Hematocrit 29.3 % (42.0-52.0) L Mean Corpuscular Volume 87 FL (80-99) Mean Corpuscular Hemoglobin 28.6 PG (27.0-31.0) Mean Corpuscular Hemoglobin Concent 32.8 G/DL (32.0-36.0) Red Cell Distribution Width 13.6 % (11.6-14.8) Platelet Count 418 K/UL (150-450) Mean Platelet Volume 6.0 FL (6.5-10.1) L Neutrophils (%) (Auto) 60.3 % (45.0-75.0) Lymphocytes (%) (Auto) 24.9 % (20.0-45.0) Monocytes (%) (Auto) 13.3 % (1.0-10.0) H Eosinophils (%) (Auto) 0.1 % (0.0-3.0) Basophils (%) (Auto) 1.5 % (0.0-2.0) Current Medications Medications (Trade) Dose Ordered Sig/Leidy Route PRN Reason Start Time Stop Time Status Last Admin Dose Admin Acetaminophen/ Hydrocodone Bitart ([place] 10/325) 1 ea Q4H PRN ORAL Severe Pain (Pain Scale 7-10) 09/12/16 13:45 09/19/16 13:44 Acetaminophen/ Hydrocodone Bitart ([place] 5/325) 1 tab Q4H PRN ORAL mod pain 09/12/16 13:45 09/19/16 13:44 Al Hydroxide/Mg Hydroxide (Mylanta) 30 ml Q6H PRN ORAL for heartburn 09/12/16 14:15 10/12/16 14:14 Amlodipine Besylate (Norvasc) 10 mg DAILY ORAL 09/13/16 09:00 10/13/16 08:59 09/18/16 07:57 Bisacodyl (Dulcolax) 10 mg DAILYPRN PRN RECTAL Constipation 09/14/16 10:45 10/14/16 10:44 Heparin Sodium/ Dextrose 500 ml @ 32 mls/hr [id number] IV 09/18/16 11:00 10/18/16 10:59 09/18/16 15:39 Hydromorphone HCl (Dilaudid Premix 1mg/50ml) 50 ml @ 200 mls/hr Q4H PRN IVPB Moderate Pain (Pain Scale 4-6) 09/12/16 13:45 10/12/16 13:44 Hydromorphone HCl (Dilaudid) 2 mg Q4H PRN IVP Severe Pain (Pain Scale 7-10) 09/12/16 13:45 09/19/16 13:44 09/18/16 13:26 Magnesium Hydroxide (Mom) 30 ml DAILYPRN PRN ORAL Constipation 09/14/16 10:45 10/14/16 10:44 Ondansetron HCl (Zofran) 4 mg Q6H PRN IVP Nausea & Vomiting 09/12/16 13:45 10/12/16 13:44 Pantoprazole (Protonix) 40 mg DAILY IVP 09/13/16 09:00 10/13/16 08:59 09/18/16 07:56 Senna/Docusate Sodium (Tosha-Colace) 1 ea TWICE A DAY ORAL 09/14/16 11:00 10/14/16 10:59 09/18/16 07:56 Tigecycline/ Dextrose (Tygacil/D5W) 110 ml @ 220 mls/hr EVERY 12 HOURS IVPB 09/18/16 21:00 09/25/16 20:59 Warfarin Sodium (Coumadin per pharmacy) 1 ea DAILY PRN MISC Per rx protocol 09/16/16 20:45 10/16/16 20:44 Warfarin Sodium 5 mg 5 mg COUMADIN ONCE ORAL 09/18/16 17:00 2/4/17 17:01 Giles Dumas M.D. Sep 18, 2016 17:21
[2016-09-18 20:00] VITALS: BP 121/74
--- NOTE | 2016-09-18 20:10 | General Progress Note ---
Assessment/Plan Assessment/Plan 1. Status post thrombectomy and femorotibial and femoropopliteal bypass with composite saphenous vein graft. Agree with the use of heparin drip in this patient as well as potentially aspirin once he stabilizes. Would benefit from the use of Coumadin anticoagulation with INR above 2 and less than 3. Compliance is crucial importance. 2. Hypercoagulable disorder with recurrence of arterial clots. Currently, he is on heparin drip. 3. Anemia secondary to chronic disease. 4. Decreased hemoglobin and hematocrit, rule out gastrointestinal bleed. 5. Leukocytosis, potentially secondary to underlying infection. 6. Thrombocytopenia, potentially secondary to medications versus infection, now better 7. Weakness and pain status post surgery, better controlled. 8. Blood pressure elevation, now is on amlodipine. RECOMMENDATIONS: 1. Continue heparin drip. 2. Continue coumadin 3. Maintain INR between 2 and 3. 4. Continue ASA 81mg po daily 5. GI prophylaxis with PPI. 6. Pain control with Dilaudid. 7. Maintain hemoglobin above 7. 8. Maintain platelets above 10,000. 9. PT/OT as an outpatient. 10. Potential placement 11. Discussed with staff. Thank you, True Alford MD Subjective Constitutional: Reports: no symptoms HEENT: Reports: no symptoms Cardiovascular: Reports: no symptoms Respiratory: Reports: no symptoms Gastrointestinal/Abdominal: Reports: no symptoms Genitourinary: Reports: no symptoms Neurologic/Psychiatric: Reports: no symptoms Endocrine: Reports: no symptoms Hematologic/Lymphatic: Reports: no symptoms Allergies: Coded Allergies: PENICILLIN G (Unverified Allergy, Unknown, 09/08/16) CODEINE (Unverified Adverse Reaction, Unknown, 05/14/16) MORPHINE (Unverified Adverse Reaction, Unknown, 05/14/16) PENICILLINS (Unverified Adverse Reaction, Unknown, 05/14/16) SHELLFISH DERIVED (Unverified Adverse Reaction, Unknown, Shortness of Breath, 05/14/16) Objective Last 24 Hour Vital Signs Date Time Temp Pulse Resp B/P Pulse Ox O2 Delivery O2 Flow Rate FiO2 09/18/16 18:01 98.1 09/18/16 16:00 98.1 67 20 129/74 100 Room Air 09/18/16 12:09 97.9 66 18 124/72 100 Room Air 09/18/16 08:08 98.1 76 19 137/75 100 Room Air 09/18/16 07:57 76 137/75 09/18/16 04:00 98.1 67 20 107/50 100 Room Air 09/18/16 00:00 98.4 66 19 113/69 99 Room Air Intake and Output 09/17/16 09/18/16 19:00 07:00 Intake Total 804 ml 252 ml Output Total 725 ml 800 ml Balance 79 ml -548 ml Intake Oral 600 ml IV Total 204 ml 252 ml Output Urine Total 725 ml 800 ml # Voids 3 # Bowel Movements 1 Laboratory Tests 09/18/16 08:15: Prothrombin Time 11.8H, Prothromb Time International Ratio 1.2H, Activated Partial Thromboplast Time 70H 09/18/16 11:15: White Blood Count 8.8, Red Blood Count 3.35L, Hemoglobin 9.6L, Hematocrit 29.3L , Mean Corpuscular Volume 87, Mean Corpuscular Hemoglobin 28.6, Mean Corpuscular Hemoglobin Concent 32.8, Red Cell Distribution Width 13.6, Platelet Count 418, Mean Platelet Volume 6.0L, Neutrophils (%) (Auto) 60.3, Lymphocytes ( %) (Auto) 24.9, Monocytes (%) (Auto) 13.3H, Eosinophils (%) (Auto) 0.1, Basophils (%) (Auto) 1.5 Height (Feet): 5 Height (Inches): 11.00 Weight (Pounds): 171 General Appearance: no apparent distress EENT: normal ENT inspection Neck: supple Cardiovascular: regular rhythm Respiratory/Chest: lungs clear Abdomen: soft Pelvis: normal external exam Extremities: normal inspection Edema: no edema noted Arm (L), no edema noted Arm (R), no edema noted Leg (L), no edema noted Leg (R), no edema noted Pedal (L), no edema noted Pedal (R), no edema noted Generalized Edema: mild edema Neurologic: alert Skin: warm/dry Lymphatic: normal anterior cervical (L), normal anterior cervical (R), normal axillary (L), normal axillary (R), normal inguinal (L), normal inguinal (R), normal other, normal posterior cervical (L), normal posterior cervical (R), normal submandibular (L), normal submandibular (R), normal supraclavicular (L), normal supraclavicular (R) TRUE ALFORD Sep 18, 2016 20:10
[2016-09-18] MEDS: Tigecycline 50 MG in D5W 110 ML IVPB SCH (20:41)
[2016-09-18] MEDS ORDERED: Tigecycline 50 MG in D5W 110 ML IVPB SCH (21:00)
[2016-09-19] VITALS: BP 116/64
--- NOTE | 2016-09-19 00:17 | Consultation ---
DATE OF CONSULTATION: 09/18/2016 REASON FOR CONSULTATION: Left leg soft tissue infection with multidrug-resistant Acinetobacter baumannii, recommendation for antibiotic therapy. REQUESTING PHYSICIAN: Rip Kumar M.D. from Vascular Surgery. CONSULTING PHYSICIAN: Giles Dumas M.D. HISTORY OF PRESENT ILLNESS: The patient is a 50-year-old man with extensive vascular history, including bilateral femoral-popliteal bypass surgery that was done last year in January by Dr. Warren at [facility], presented to [facility] on 09/08/2016 with sudden onset of left [id number] leg pain. His pain was 10/10, dull, sharp, no radiation, associated with numbness below the knee. No trauma or wounds in the left leg. No fever or chills. No other associated symptoms. His pain sometimes radiates all the way to his thigh. The patient was seen and evaluated by Dr. Rip Kumar in the emergency room after he had an arterial Doppler that showed no blood flow below the left knee. So, he was taken to the OR and had thrombectomy of the femoral-popliteal bypass. He also had thrombectomy of the common peroneal and posterior tibial arteries and venovenostomy, saphenous, by Dr. Kumar. Later on, on 09/16/2016, the patient had split full-thickness left leg graft was taken from the right thigh due to granulomatous fasciectomy. Culture was obtained from the fascia on 09/16/2016, which grew multidrug-resistant Acinetobacter baumannii, sensitive only to tigecycline, so I was consulted by the vascular surgeon for antibiotic recommendation and management. The patient denied any leg pain or swelling. No fever or chills. No nausea or vomiting. No diarrhea. No blood in the stool. REVIEW OF SYSTEMS: Fourteen point of systems reviewed were all negative apart from the one I mentioned above in my history and physical. PAST MEDICAL HISTORY: Significant for peripheral vascular disease, status post bypass graft in both lower extremities; hypertension; and GERD. PAST SURGICAL HISTORY: He had bilateral femoral-popliteal bypass surgery in January last year. ALLERGIES: Allergic to penicillin, codeine, morphine, and shellfish. FAMILY HISTORY: Negative for recurrent infection or immunocompromised condition. SOCIAL HISTORY: He is unemployed. Denies using any drugs, tobacco, or alcohol. MEDICATIONS: The patient was given one dose of tigecycline by the vascular surgeon. For rest of his meds, please refer to [facility]. LABORATORY DATA: Labs today showed white count of 8.8, hemoglobin of 5.6, and platelet count of 418,000. BUN of 10, and creatinine of 0.9. MICROBIOLOGY: Wound culture on 09/09/2015 of the left leg showed no growth. On 09/14/2015, wound culture was negative for any growth. Left leg wound on 09/16/2016 grew multidrug-resistant Acinetobacter baumannii complex. IMAGING: He had abdominal angiogram, which showed occluded left femoral-popliteal bypass graft and superficial femoral artery, poor distal runoff with only short segment of the popliteal artery reconstituting as well as a short segment of the posterior tibial artery origin. Apparent origin occlusion of right femoral-popliteal bypass graft and right superficial femoral artery despite absence of ischemic symptoms in the right leg. PHYSICAL EXAMINATION: VITAL SIGNS: Temperature 98.1, pulse 67, respirations 20, blood pressure 129/74, and saturation 100% on room air. GENERAL: A middle aged man, lying in bed awake, alert, not in distress. HEENT: Normocephalic and atraumatic. Pupils are reactive to light equally. Moist oral mucosa. No exudate or thrush. NECK: Supple. No lymphadenopathy. CARDIOVASCULAR: Regular rate and rhythm. No murmur. LUNGS: Clear bilaterally. No wheezing or rhonchi. Normal breathing effort. ABDOMEN: Soft, nontender, and nondistended. Positive bowel sounds. No hepatosplenomegaly. EXTREMITIES: He had decreased sensation in the left extremity below the knee. Surgical incision seems to be intact with no dehiscence or bleeding or drainage. Full pulse in both distal pedal areas. SKIN: No rash or hives. ASSESSMENT AND PLAN: 1. Multidrug-resistant Acinetobacter baumannii soft tissue infection of the left leg. We will start tigecycline pending further sensitivity results. For now, we will treat him for two weeks average depending on his clinical improvement. The patient understands with this kind of infection due to multidrug-resistant Acinetobacter, he is at high risk for graft failure. All side effects from tigecycline were explained to the patient in detail. He agreed to proceed with the treatment. 2. Femoral-popliteal bypass graft occlusion on the left, status post thrombectomy of femoral-tibial PTFE bypass, profunda to common peroneal bypass with composite saphenous vein graft, thrombectomy of common peroneal and posterior tibial artery, and venovenostomy of saphenous by Vascular Surgery. They are following. 3. Skin graft possible infection due to multidrug-resistant Acinetobacter baumannii. We will continue tigecycline with close monitor of his graft by surgery. The patient is at high risk for graft failure due to multidrug-resistant Acinetobacter baumannii infection. Infectious Disease will continue to follow with you. Thank you for letting us to participate in the care of this patient. Please feel free to call with any question. Giles Dumas M.D. DR: CARRIE JOB#: [id number] CC:
[2016-09-19 04:00] VITALS: BP 112/64
[2016-09-19 08:00] VITALS: BP 135/78
[2016-09-19 08:09] LABS: INR 1.3 (0.9-1.1)
[2016-09-19] MEDS: Pericolace tab ORAL SCH ×2 (08:22→18:03)
[2016-09-19] MEDS: Pantoprazole Inj IVP SCH (08:23)
[2016-09-19] MEDS: Tigecycline 50 MG in D5W 110 ML IVPB SCH (08:23)
--- NOTE | 2016-09-19 09:27 | Diagnostic Imaging Report ---
History: Pain. Technique: Frontal and lateral views of the left tibia and fibula. Comparison: No prior study is available for comparison. Findings: Numerous cutaneous connie are noted along the visualized left leg. Nonspecific hypertrophy, widening and sclerosis of the proximal and mid left fibula with surrounding soft tissue prominence is identified. No radiographic evidence of cortical disruption. Malignancy is not excluded. Further evaluation with contrast-enhanced MRI is recommended, as clinically warranted. Impression: Nonspecific hypertrophy and sclerosis of the proximal and mid fibula with surrounding soft tissue prominence. Malignancy is not excluded. Further evaluation with contrast-enhanced MRI is recommended, as clinically warranted. Cutaneous connie noted.
[2016-09-19] MEDS ORDERED: Heparin 25,000u/D5W 500ml 500 ML IV SCH (09:45)
[2016-09-19 12:00] VITALS: BP 126/72
--- NOTE | 2016-09-19 12:13 | General Progress Note ---
Assessment/Plan Problem List: (1) Arterial occlusion, lower extremity ICD Codes: I74.3 - Embolism and thrombosis of arteries of the lower extremities SNOMED: 726754151 (2) PVD (peripheral vascular disease) ICD Codes: I73.9 - Peripheral vascular disease, unspecified SNOMED: 075118523 (3) Acute blood loss anemia ICD Codes: D62 - Acute posthemorrhagic anemia SNOMED: 646751373 Assessment/Plan s/p thrombectomy of fem tib PTFE bypass Profunda common peroneal bypass with composite saphenous vein graft thrombectomy of common peroneal and posterior tibial artery veno-venostomy saphenous; 09/09/16 with vascular surgery left femoral popliteal by pass with greater saphenous vein popliteal and tibial thrombectomy s/p skin grafting 09/16/16 BP control--stable and controlled with resumed amlodipine increased pain control with Dil, 2 mg IV q4h breakthrough severe pain--now controlled ctm h and h; Hg improved heparin gtt started on coumadin per heme bowel regimen PT/OT Pt wound cx with MDR Acinetobacter started on Tigecycline per ID (2 w course anticipated) Dispo: eric garber [facility] Subjective Date patient seen: Sep 19, 2016 Time patient seen: 12:12 Allergies: Coded Allergies: PENICILLIN G (Unverified Allergy, Unknown, 09/08/16) CODEINE (Unverified Adverse Reaction, Unknown, 05/14/16) MORPHINE (Unverified Adverse Reaction, Unknown, 05/14/16) PENICILLINS (Unverified Adverse Reaction, Unknown, 05/14/16) SHELLFISH DERIVED (Unverified Adverse Reaction, Unknown, Shortness of Breath, 05/14/16) Subjective pain now controlled; numbness continues to improve; had bM Objective Last 24 Hour Vital Signs Date Time Temp Pulse Resp B/P Pulse Ox O2 Delivery O2 Flow Rate FiO2 09/19/16 08:51 98.1 09/19/16 08:20 76 135/78 09/19/16 08:00 98.2 76 18 135/78 98 Room Air 09/19/16 04:00 98.1 68 20 112/64 98 Room Air 09/19/16 00:00 98.0 68 20 116/64 98 Room Air 09/18/16 20:00 98.1 69 20 121/74 100 Room Air 09/18/16 16:00 98.1 67 20 129/74 100 Room Air Intake and Output 09/18/16 09/19/16 19:00 07:00 Intake Total 1800 ml 430 ml Output Total 400 ml Balance 1800 ml 30 ml Intake Oral 1440 ml IV Total 360 ml 430 ml Output Urine Total 400 ml # Voids 3 Laboratory Tests 09/18/16 20:15: Activated Partial Thromboplast Time 55H 09/19/16 07:45: Activated Partial Thromboplast Time 51H, Prothrombin Time 13.0H, Prothromb Time International Ratio 1.3H Height (Feet): 5 Height (Inches): 11.00 Weight (Pounds): 171 Objective General Appearance: well appearing, alert, mild distress Head: normocephalic, atraumatic Eyes: bilateral eye EOMI, bilateral eye PERRL ENT: hearing grossly normal, normal pharynx Neck: full range of motion, supple, no meningismus Respiratory: chest non-tender, lungs clear, normal breath sounds Cardiovascular #1: regular rate, rhythm, no murmur Gastrointestinal: normal bowel sounds, non tender, no mass, no organomegaly, no bruit, non-distended Musculoskeletal: back normal, normal range of motion, other - Left leg: He has normal sensation of the thigh. He has decreased sensation of the lower extremity from the knee to the ankle. He has minimal sensation of the foot. pulses equal. Is able to move his knee, ankle, and toes. Neurologic: alert, oriented x3; 5/5 in RLE; 4+/5 in LLE Psychiatric: mood/affect normal Skin: warm/dry; incision intact Daron Hassan M.D. Sep 19, 2016 12:13
--- NOTE | 2016-09-19 13:47 | General Progress Note ---
Assessment/Plan Assessment/Plan ASSESSMENT: 1. Status post thrombectomy and femorotibial and femoropopliteal bypass with composite saphenous vein graft. Agree with the use of heparin drip in this patient as well as potentially aspirin once he stabilizes. Would benefit from the use of Coumadin anticoagulation with INR above 2 and less than 3. Compliance is crucial importance. 2. Hypercoagulable disorder with recurrence of arterial clots. Currently, he is on heparin drip. 3. Anemia secondary to chronic disease. 4. Decreased hemoglobin and hematocrit, rule out gastrointestinal bleed. 5. Leukocytosis, potentially secondary to underlying infection. 6. Thrombocytopenia, potentially secondary to medications versus infection, now better 7. Weakness and pain status post surgery, better controlled. 8. Blood pressure elevation, now on amlodipine. RECOMMENDATIONS: 1. Continue heparin drip. 2. Continue coumadin 3. Maintain INR between 2 and 3. 4. Continue ASA 81mg po daily 5. GI prophylaxis with PPI. 6. Pain control with Dilaudid. 7. Maintain hemoglobin > 7. 8. Maintain platelets above 10,000. 9. PT/OT as an outpatient. 10. Potential placement 11. Discussed with staff. Thank you, Omar Alford MD Subjective Constitutional: Reports: no symptoms HEENT: Reports: no symptoms Cardiovascular: Reports: no symptoms Respiratory: Reports: no symptoms Gastrointestinal/Abdominal: Reports: poor appetite Genitourinary: Reports: no symptoms Neurologic/Psychiatric: Reports: no symptoms Endocrine: Reports: no symptoms Hematologic/Lymphatic: Reports: anemia Allergies: Coded Allergies: PENICILLIN G (Unverified Allergy, Unknown, 09/08/16) CODEINE (Unverified Adverse Reaction, Unknown, 05/14/16) MORPHINE (Unverified Adverse Reaction, Unknown, 05/14/16) PENICILLINS (Unverified Adverse Reaction, Unknown, 05/14/16) SHELLFISH DERIVED (Unverified Adverse Reaction, Unknown, Shortness of Breath, 05/14/16) Subjective stable, no fevers or chills, no night sweats, no bleeding reported Objective Last 24 Hour Vital Signs Date Time Temp Pulse Resp B/P Pulse Ox O2 Delivery O2 Flow Rate FiO2 09/19/16 08:51 98.1 09/19/16 08:20 76 135/78 09/19/16 08:00 98.2 76 18 135/78 98 Room Air 09/19/16 04:00 98.1 68 20 112/64 98 Room Air 09/19/16 00:00 98.0 68 20 116/64 98 Room Air 09/18/16 20:00 98.1 69 20 121/74 100 Room Air 09/18/16 16:00 98.1 67 20 129/74 100 Room Air Intake and Output 09/18/16 09/19/16 19:00 07:00 Intake Total 1800 ml 430 ml Output Total 400 ml Balance 1800 ml 30 ml Intake Oral 1440 ml IV Total 360 ml 430 ml Output Urine Total 400 ml # Voids 3 Laboratory Tests 09/18/16 20:15: Activated Partial Thromboplast Time 55H 09/19/16 07:45: Activated Partial Thromboplast Time 51H, Prothrombin Time 13.0H, Prothromb Time International Ratio 1.3H Height (Feet): 5 Height (Inches): 11.00 Weight (Pounds): 171 General Appearance: alert EENT: TMs normal Neck: supple Cardiovascular: regular rhythm Respiratory/Chest: lungs clear Abdomen: normal bowel sounds Extremities: non-tender Edema: mild edema Omar Alford Sep 19, 2016 13:47
[2016-09-19 16:00] VITALS: BP 127/87
[2016-09-19] MEDS ORDERED: Warfarin Sodium 5mg ORAL ONE (17:00)
[2016-09-19 20:00] VITALS: BP 133/80
--- NOTE | 2016-09-19 20:13 | Infectious Diseases Prog Note ---
Assessment/Plan Problems: (1) MDR Acinetobacter baumannii infection Assessment & Plan: of the left leg , will switch tigecycline to colistin since it is sensitive too , will treat for two weeks average, depending on his clinical improvement, patient understand that with this kind of infection due to MDR Acinetobacter he is at high risk for graft failure. (2) Femoral-popliteal bypass graft occlusion, left Assessment & Plan: s/p thrombectomy of fem tib PTFE bypass , Profunda common peroneal bypass with composite saphenous vein graft , thrombectomy of common peroneal and posterior tibial artery veno-venostomy saphenous by vascular surgery (3) Skin graft infection Assessment & Plan: due to MDR Acinetobacter Baumannii and coag negative staph , will switch tigecycline to colistin and add vancomycin to cover for coag negative staph, will treat for two weeks total Subjective Constitutional: Denies: anorexia, chills, drenching sweats, fatigue, fever, no symptoms, other HEENT: Denies: congestion, coryza, dysphagia, hearing change, no symptoms, other, visual change Respiratory: Denies: dry cough, no symptoms, other, productive cough, shortness of breath Cardiovascular: Denies: chest pain, dyspnea on exertion, no symptoms, other, palpitations Gastrointestinal/Abdominal: Denies: bloating, blood in stool, constipation, diarrhea, nausea, no symptoms, other, vomiting Genitourinary: Denies: dysuria, frequency, hematuria, no symptoms, nocturia, other Neurologic: Denies: confusion, headache, no symptoms, numbness, other, weakness Psychiatric: Denies: anxiety, depression, no symptoms, other Skin: Denies: no symptoms, other, rash, ulcer Endocrine: Denies: feels cold, feels warm, no symptoms, other Hematologic: Denies: bleeding, no symptoms, other, swollen lymph nodes Musculoskeletal: Denies: no symptoms, other, pain, stiffness, swelling Allergies: Coded Allergies: PENICILLIN G (Unverified Allergy, Unknown, 09/08/16) CODEINE (Unverified Adverse Reaction, Unknown, 05/14/16) MORPHINE (Unverified Adverse Reaction, Unknown, 05/14/16) PENICILLINS (Unverified Adverse Reaction, Unknown, 05/14/16) SHELLFISH DERIVED (Unverified Adverse Reaction, Unknown, Shortness of Breath, 05/14/16) Objective Vital Signs Last 24 Hour Vital Signs Date Time Temp Pulse Resp B/P Pulse Ox O2 Delivery O2 Flow Rate FiO2 09/19/16 16:00 98.1 74 20 127/87 100 Room Air 09/19/16 15:06 97.8 09/19/16 12:00 97.8 18 126/72 98 Room Air 09/19/16 08:51 98.1 09/19/16 08:20 76 135/78 09/19/16 08:00 98.2 76 18 135/78 98 Room Air 09/19/16 04:00 98.1 68 20 112/64 98 Room Air 09/19/16 00:00 98.0 68 20 116/64 98 Room Air Height (Feet): 5 Height (Inches): 11.00 Weight (Pounds): 171 General Appearance: WD/WN, no acute distress HEENT: normocephalic, atraumatic, anicteric, mucous membranes moist Respiratory/Chest: chest wall non-tender, lungs clear, normal breath sounds, no respiratory distress, no accessory muscle use Cardiovascular: normal peripheral pulses, normal rate, regular rhythm, no gallop/murmur Abdomen: normal bowel sounds, soft, non tender, no organomegaly, non distended , no mass, no scars Extremities: no cyanosis, no clubbing, other - left thigh surgical incision with stables, clean and intact, left leg wound covered with dressing Skin: no rash, no lesions Laboratory Tests Test 09/18/16 20:15 09/19/16 07:45 Activated Partial Thromboplast Time 55 SEC (23-33) H 51 SEC (23-33) H Prothrombin Time 13.0 SEC (9.30-11.50) H Prothromb Time International Ratio 1.3 (0.9-1.1) H Current Medications Medications (Trade) Dose Ordered Sig/Leidy Route PRN Reason Start Time Stop Time Status Last Admin Dose Admin Al Hydroxide/Mg Hydroxide (Mylanta) 30 ml Q6H PRN ORAL for heartburn 09/12/16 14:15 10/12/16 14:14 Amlodipine Besylate (Norvasc) 10 mg DAILY ORAL 09/13/16 09:00 10/13/16 08:59 09/19/16 08:20 Bisacodyl (Dulcolax) 10 mg DAILYPRN PRN RECTAL Constipation 09/14/16 10:45 10/14/16 10:44 Heparin Sodium/ Dextrose (Heparin) 500 ml @ 34 mls/hr [id number] IV 09/19/16 09:45 10/19/16 09:44 09/19/16 10:06 Hydromorphone HCl (Dilaudid Premix 1mg/50ml) 50 ml @ 200 mls/hr Q4H PRN IVPB Moderate Pain (Pain Scale 4-6) 09/12/16 13:45 10/12/16 13:44 Hydromorphone HCl (Dilaudid) 2 mg Q4H PRN IVP Severe Pain (Pain Scale 7-10) 09/19/16 14:30 09/26/16 14:29 09/19/16 14:36 Magnesium Hydroxide (Mom) 30 ml DAILYPRN PRN ORAL Constipation 09/14/16 10:45 10/14/16 10:44 Ondansetron HCl (Zofran) 4 mg Q6H PRN IVP Nausea & Vomiting 09/12/16 13:45 10/12/16 13:44 Pantoprazole (Protonix) 40 mg DAILY IVP 09/13/16 09:00 10/13/16 08:59 09/19/16 08:23 Senna/Docusate Sodium (Tosha-Colace) 1 ea TWICE A DAY ORAL 09/14/16 11:00 10/14/16 10:59 09/19/16 18:03 Tigecycline 50 mg/ Dextrose 110 ml @ 220 mls/hr EVERY 12 HOURS IVPB 09/18/16 21:00 09/25/16 20:59 09/19/16 08:23 Warfarin Sodium 1 ea 1 ea DAILY PRN MISC Per rx protocol 09/16/16 20:45 10/16/16 20:44 Giles Dumas M.D. Sep 19, 2016 20:13
[2016-09-19] MEDS: Heparin 25,000u/D5W 500ml 500 ML IV SCH (21:41)
[2016-09-19] MEDS: Colistin 150mg vial IVP SCH (21:41)
[2016-09-19] MEDS ORDERED: Vancomycin 1.5 GM in D5W 325 ML IVPB ONE (22:00)
[2016-09-20] MEDS: Heparin 25,000u/D5W 500ml 500 ML IV SCH ×2 (01:52→18:11)
[2016-09-20 04:00] VITALS: BP 112/72
[2016-09-20 08:00] VITALS: BP 122/80
[2016-09-20 10:05] LABS: INR 1.6 (0.9-1.1); PROTHROMBIN TIME 16.2 SEC (9.30-11.50)
[2016-09-20] MEDS: Pericolace tab ORAL SCH ×2 (10:30→18:06)
[2016-09-20] MEDS: Pantoprazole Inj IVP SCH (10:31)
[2016-09-20] MEDS: Colistin 150mg vial IVP SCH ×2 (10:36→21:13)
[2016-09-20] MEDS: Vancomycin 1250mg/D5W 275ml IVPB SCH ×4 (10:37→21:13)
[2016-09-20 11:48] VITALS: BP 122/75
[2016-09-20] MEDS ORDERED: Heparin 25,000u/D5W 500ml 500 ML IV SCH (12:30)
--- NOTE | 2016-09-20 12:37 | General Progress Note ---
Assessment/Plan Assessment/Plan ASSESSMENT: 1. Status post thrombectomy and femorotibial and femoropopliteal bypass with composite saphenous vein graft. Continue coumadin 2. Hypercoagulable disorder with recurrence of arterial clots. Currently, he is on heparin drip. 3. Anemia secondary to chronic disease. 4. Decreased hemoglobin and hematocrit, rule out gastrointestinal bleed. 5. Leukocytosis, potentially secondary to underlying infection. 6. Thrombocytopenia, potentially secondary to medications versus infection, now better 7. Weakness and pain status post surgery, better controlled. 8. Blood pressure elevation, now on amlodipine. RECOMMENDATIONS: 1. Continue heparin gtt 2. Continue coumadin 3. Maintain INR between 2 and 3. 4. Continue ASA 81mg po daily 5. GI prophylaxis with PPI. 6. Pain control with Dilaudid. 7. Maintain hemoglobin > 7. 8. Maintain platelets > 10,000. 9. PT/OT as an outpatient. 10. Potential placement 11. Discussed with staff. Thank you, Omar Alford MD Subjective Constitutional: Reports: no symptoms HEENT: Reports: no symptoms Cardiovascular: Reports: no symptoms Respiratory: Reports: no symptoms Gastrointestinal/Abdominal: Reports: no symptoms Genitourinary: Reports: no symptoms Neurologic/Psychiatric: Reports: no symptoms Endocrine: Reports: no symptoms Hematologic/Lymphatic: Reports: anemia Allergies: Coded Allergies: PENICILLIN G (Unverified Allergy, Unknown, 09/08/16) CODEINE (Unverified Adverse Reaction, Unknown, 05/14/16) MORPHINE (Unverified Adverse Reaction, Unknown, 05/14/16) PENICILLINS (Unverified Adverse Reaction, Unknown, 05/14/16) SHELLFISH DERIVED (Unverified Adverse Reaction, Unknown, Shortness of Breath, 05/14/16) Subjective stable, no fevers or chills, no night sweats, no bleeding was noted Objective Last 24 Hour Vital Signs Date Time Temp Pulse Resp B/P Pulse Ox O2 Delivery O2 Flow Rate FiO2 09/20/16 11:48 98.1 65 17 122/75 100 Room Air 09/20/16 10:31 71 120/70 09/20/16 08:00 97.7 69 18 122/80 99 Room Air 09/20/16 06:24 98.2 09/20/16 04:00 98.4 79 18 112/72 100 Room Air 09/19/16 20:00 99.4 85 20 133/80 100 Room Air 09/19/16 16:00 98.1 74 20 127/87 100 Room Air Intake and Output 09/19/16 09/20/16 19:00 07:00 Intake Total 852 ml 1050 ml Output Total 500 ml 2000 ml Balance 352 ml -950 ml Intake Oral 470 ml 640 ml IV Total 382 ml 410 ml Output Urine Total 500 ml 2000 ml # Voids 2 Laboratory Tests 09/19/16 20:15: Activated Partial Thromboplast Time 37H 09/20/16 08:00: Activated Partial Thromboplast Time 120H, Prothrombin Time 16.2H, Prothromb Time International Ratio 1.6H Height (Feet): 5 Height (Inches): 11.00 Weight (Pounds): 171 General Appearance: no apparent distress EENT: TMs normal Neck: supple Cardiovascular: regular rhythm Respiratory/Chest: normal breath sounds Abdomen: soft Extremities: non-tender Edema: 1+ Leg (L), 1+ Leg (R) Edema: mild edema Neurologic: no motor/sensory deficits Skin: warm/dry Omar Alford Sep 20, 2016 12:37
[2016-09-20] MEDS ORDERED: Dakin's 0.5% (Full Strength) 16oz TOPIC SCH ×2 (12:45→14:45)
[2016-09-20 16:00] VITALS: BP 115/71
[2016-09-20] MEDS ORDERED: Tubing IV Secondary IV ONE (16:42)
[2016-09-20] MEDS ORDERED: Warfarin Sodium 5mg ORAL ONE (17:00)
--- NOTE | 2016-09-20 17:36 | General Progress Note ---
Assessment/Plan Problem List: (1) PVD (peripheral vascular disease) ICD Codes: I73.9 - Peripheral vascular disease, unspecified SNOMED: 771230925 (2) Arterial occlusion, lower extremity ICD Codes: I74.3 - Embolism and thrombosis of arteries of the lower extremities SNOMED: 177895023 (3) Acute blood loss anemia ICD Codes: D62 - Acute posthemorrhagic anemia SNOMED: 525010820 (4) Femoral-popliteal bypass graft occlusion, left ICD Codes: T82.392A - Other mechanical complication of femoral arterial graft ( bypass), initial encounter SNOMED: 891583094 (5) MDR Acinetobacter baumannii infection ICD Codes: A49.9 - Bacterial infection, unspecified; Z16.24 - Resistance to multiple antibiotics SNOMED: 476721105 (6) Skin graft infection ICD Codes: T86.822 - Skin graft (allograft) (autograft) infection SNOMED: 439035416 Assessment/Plan s/p thrombectomy of fem tib PTFE bypass Profunda common peroneal bypass with composite saphenous vein graft thrombectomy of common peroneal and posterior tibial artery veno-venostomy saphenous; 09/09/16 with vascular surgery left femoral popliteal by pass with greater saphenous vein popliteal and tibial thrombectomy s/p skin grafting 09/16/16 BP control--stable and controlled with resumed amlodipine increased pain control with Dil, 2 mg IV q4h breakthrough severe pain--now controlled ctm h and h; Hg improved heparin gtt started on coumadin per heme bowel regimen PT/OT Pt wound cx with MDR Acinetobacter started on Tigecycline per ID (2 w course anticipated) Dispo: eric garber [facility] Subjective Date patient seen: Sep 20, 2016 Time patient seen: 17:34 ROS Limited/Unobtainable: No Constitutional: Denies: chills, diaphoresis, fever, malaise, no symptoms, other , weakness HEENT: Denies: blurred vision, double vision, ear discharge, ear pain, eye pain , mouth pain, mouth swelling, no symptoms, nose congestion, nose pain, other, tearing, throat pain, throat swelling Cardiovascular: Denies: chest pain, edema, irregular heart rate, lightheadedness, no symptoms, other, palpitations, syncope Respiratory: Denies: SOB at rest, SOB with excertion, cough, no symptoms, orthopnea, other, shortness of breath, sputum, stridor, wheezing Gastrointestinal/Abdominal: Denies: abdomen distended, abdominal pain, black stools, blood in stool, constipated, diarrhea, difficulty swallowing, nausea, no symptoms, other, poor appetite, poor fluid intake, rectal bleeding, tarry stools, vomiting Genitourinary: Denies: burning, discharge, flank pain, frequency, hematuria, incontinence, no symptoms, other, pain, urgency Neurologic/Psychiatric: Denies: anxiety, depressed, emotional problems, headache, no symptoms, numbness, other, paresthesia, pre-existing deficit, seizure, tingling, tremors, weakness Endocrine: Denies: excessive sweating, flushing, increased hunger, increased thirst, increased urine, intolerance to cold, intolerance to heat, no symptoms, other, unexplained weight gain, unexplained weight loss Hematologic/Lymphatic: Denies: anemia, easy bleeding, easy bruising, no symptoms, other Allergies: Coded Allergies: PENICILLIN G (Unverified Allergy, Unknown, 09/08/16) CODEINE (Unverified Adverse Reaction, Unknown, 05/14/16) MORPHINE (Unverified Adverse Reaction, Unknown, 05/14/16) PENICILLINS (Unverified Adverse Reaction, Unknown, 05/14/16) SHELLFISH DERIVED (Unverified Adverse Reaction, Unknown, Shortness of Breath, 05/14/16) Subjective No acute overnight events, no new complaints today, denied any chest pain or dyspnea. Objective Last 24 Hour Vital Signs Date Time Temp Pulse Resp B/P Pulse Ox O2 Delivery O2 Flow Rate FiO2 09/20/16 11:48 98.1 65 17 122/75 100 Room Air 09/20/16 10:31 71 120/70 09/20/16 08:00 97.7 69 18 122/80 99 Room Air 09/20/16 06:24 98.2 09/20/16 04:00 98.4 79 18 112/72 100 Room Air 09/19/16 20:00 99.4 85 20 133/80 100 Room Air Intake and Output 09/19/16 09/20/16 19:00 07:00 Intake Total 852 ml 1050 ml Output Total 500 ml 2000 ml Balance 352 ml -950 ml Intake Oral 470 ml 640 ml IV Total 382 ml 410 ml Output Urine Total 500 ml 2000 ml # Voids 2 Laboratory Tests 09/19/16 20:15: Activated Partial Thromboplast Time 37H 09/20/16 08:00: Activated Partial Thromboplast Time 120H, Prothrombin Time 16.2H, Prothromb Time International Ratio 1.6H Height (Feet): 5 Height (Inches): 11.00 Weight (Pounds): 171 General Appearance: WD/WN, no apparent distress, alert EENT: PERRL/EOMI, normal ENT inspection Neck: non-tender, normal alignment, supple Cardiovascular: normal peripheral pulses, normal rate, regular rhythm Respiratory/Chest: chest wall non-tender, lungs clear, normal breath sounds, no respiratory distress Abdomen: normal bowel sounds, non tender, soft Extremities: normal range of motion, non-tender, no calf tenderness, other - LLe dressing c/d/i Neurologic: alert, oriented x 3, responsive, normal mood/affect Skin: normal pigmentation, warm/dry JARRELL RIVER Sep 20, 2016 17:36
--- NOTE | 2016-09-20 17:57 | Infectious Diseases Prog Note ---
Assessment/Plan Problems: (1) MDR Acinetobacter baumannii infection Assessment & Plan: of the left leg , on colistin since it is sensitive to , will treat for two weeks average, depending on his clinical improvement, patient understand that with this kind of infection due to MDR Acinetobacter he is at high risk for graft failure. (2) Femoral-popliteal bypass graft occlusion, left Assessment & Plan: s/p thrombectomy of fem tib PTFE bypass , Profunda common peroneal bypass with composite saphenous vein graft , thrombectomy of common peroneal and posterior tibial artery veno-venostomy saphenous by vascular surgery (3) Skin graft infection Assessment & Plan: due to MDR Acinetobacter Baumannii and coag negative staph , will continue colistin and vancomycin to cover for coag negative staph, will treat for two weeks total starting from 09/16/16 Subjective Constitutional: Denies: anorexia, chills, drenching sweats, fatigue, fever, no symptoms, other HEENT: Denies: congestion, coryza, dysphagia, hearing change, no symptoms, other, visual change Respiratory: Denies: dry cough, no symptoms, other, productive cough, shortness of breath Breasts: Denies: discharge, no symptoms, other, swelling, tenderness Cardiovascular: Denies: chest pain, dyspnea on exertion, no symptoms, other, palpitations Gastrointestinal/Abdominal: Denies: bloating, blood in stool, constipation, diarrhea, nausea, no symptoms, other, vomiting Genitourinary: Denies: dysuria, frequency, hematuria, no symptoms, nocturia, other Neurologic: Denies: confusion, headache, no symptoms, numbness, other, weakness Psychiatric: Denies: anxiety, depression, no symptoms, other Skin: Denies: no symptoms, other, rash, ulcer Endocrine: Denies: feels cold, feels warm, no symptoms, other Hematologic: Denies: bleeding, no symptoms, other, swollen lymph nodes Allergies: Coded Allergies: PENICILLIN G (Unverified Allergy, Unknown, 09/08/16) CODEINE (Unverified Adverse Reaction, Unknown, 05/14/16) MORPHINE (Unverified Adverse Reaction, Unknown, 05/14/16) PENICILLINS (Unverified Adverse Reaction, Unknown, 05/14/16) SHELLFISH DERIVED (Unverified Adverse Reaction, Unknown, Shortness of Breath, 05/14/16) Objective Vital Signs Last 24 Hour Vital Signs Date Time Temp Pulse Resp B/P Pulse Ox O2 Delivery O2 Flow Rate FiO2 09/20/16 11:48 98.1 65 17 122/75 100 Room Air 09/20/16 10:31 71 120/70 09/20/16 08:00 97.7 69 18 122/80 99 Room Air 09/20/16 06:24 98.2 09/20/16 04:00 98.4 79 18 112/72 100 Room Air 09/19/16 20:00 99.4 85 20 133/80 100 Room Air Height (Feet): 5 Height (Inches): 11.00 Weight (Pounds): 171 General Appearance: WD/WN, no acute distress HEENT: normocephalic, atraumatic, anicteric, mucous membranes moist Respiratory/Chest: chest wall non-tender, lungs clear, normal breath sounds, no respiratory distress, no accessory muscle use Cardiovascular: normal peripheral pulses, normal rate, regular rhythm, no gallop/murmur, no JVD Abdomen: normal bowel sounds, soft, non tender, no organomegaly, non distended , no mass, no scars Extremities: no cyanosis, no clubbing, other - leg surgical wound covered with dressing , unable to assess well Skin: no rash, no lesions Microbiology Date/Time Source Procedure Growth Status 09/18/16 11:30 Blood Blood Culture - Preliminary NO GROWTH AFTER 24 HOURS Resulted 09/18/16 11:15 Blood Blood Culture - Preliminary NO GROWTH AFTER 24 HOURS Resulted Laboratory Tests Test 09/19/16 20:15 09/20/16 08:00 Activated Partial Thromboplast Time 37 SEC (23-33) H 120 SEC (23-33) H Prothrombin Time 16.2 SEC (9.30-11.50) H Prothromb Time International Ratio 1.6 (0.9-1.1) H Current Medications Medications (Trade) Dose Ordered Sig/Leidy Route PRN Reason Start Time Stop Time Status Last Admin Dose Admin Al Hydroxide/Mg Hydroxide (Mylanta) 30 ml Q6H PRN ORAL for heartburn 09/12/16 14:15 10/12/16 14:14 Amlodipine Besylate (Norvasc) 10 mg DAILY ORAL 09/13/16 09:00 10/13/16 08:59 09/20/16 10:31 Bisacodyl (Dulcolax) 10 mg DAILYPRN PRN RECTAL Constipation 09/14/16 10:45 10/14/16 10:44 Colistimethate Sodium (Colistin) 150 mg EVERY 12 HOURS IVP 09/19/16 21:00 10/03/16 20:59 09/20/16 10:36 Heparin Sodium/ Dextrose (Heparin) 500 ml @ 30 mls/hr [id number] IV 09/21/16 15:30 10/21/16 15:29 Hydromorphone HCl (Dilaudid Premix 1mg/50ml) 50 ml @ 200 mls/hr Q4H PRN IVPB Moderate Pain (Pain Scale 4-6) 09/12/16 13:45 10/12/16 13:44 Hydromorphone HCl (Dilaudid) 2 mg Q4H PRN IVP Severe Pain (Pain Scale 7-10) 09/19/16 14:30 09/26/16 14:29 09/20/16 16:39 Magnesium Hydroxide (Mom) 30 ml DAILYPRN PRN ORAL Constipation 09/14/16 10:45 10/14/16 10:44 Ondansetron HCl (Zofran) 4 mg Q6H PRN IVP Nausea & Vomiting 09/12/16 13:45 10/12/16 13:44 Pantoprazole (Protonix) 40 mg DAILY IVP 09/13/16 09:00 10/13/16 08:59 09/20/16 10:31 Senna/Docusate Sodium (Tosha-Colace) 1 ea TWICE A DAY ORAL 09/14/16 11:00 10/14/16 10:59 09/20/16 10:30 Vancomycin HCl 1.25 gm/Dextrose 275 ml @ 183.333 mls/hr Q12HR@1000,2200 IVPB 09/20/16 10:00 09/25/16 09:59 09/20/16 10:37 Vancomycin HCl 1 ea 1 ea DAILY PRN MISC Per rx protocol 09/19/16 20:15 10/19/16 20:14 Warfarin Sodium (Coumadin per pharmacy) 1 ea DAILY PRN MISC Per rx protocol 09/16/16 20:45 10/16/16 20:44 Giles Dumas M.D. Sep 20, 2016 17:57
[2016-09-20 20:00] VITALS: BP 123/82
[2016-09-20 20:43] LABS: BASOPHILS % (AUTO) 2.6 % (0.0-2.0); EOSINOPHILS % (AUTO) 0.1 % (0.0-3.0); LYMPHOCYTES % (AUTO) 33.3 % (20.0-45.0); MEAN CORPUSCULAR HEMOGLOBIN 29.6 PG (27.0-31.0); MEAN CORPUSCULAR HGB CONC 33.5 G/DL (32.0-36.0); MEAN CORPUSCULAR VOLUME 89 FL (80-99); MEAN PLATELET VOLUME 5.2 FL (6.5-10.1); MONOCYTES % (AUTO) 7.4 % (1.0-10.0); NEUTROPHILS % (AUTO) 56.7 % (45.0-75.0); PLATELET COUNT 480 K/UL (150-450); RED BLOOD COUNT 3.63 M/UL (4.70-6.10); RED CELL DISTRIBUTION WIDTH 13.5 % (11.6-14.8)
[2016-09-20 21:18] LABS: ANION GAP 14 (5-15); CALCIUM 8.1 mg/dL (8.6-10.2); CARBON DIOXIDE 25 mEQ/L (20-30); CHLORIDE 94 mEQ/L (98-107); CREATININE 1.1 mg/dL (0.7-1.2); GLOMERULAR FILTRATION RATE > 60 mL/min (>60); HEMOLYSIS 6; POTASSIUM 4.7 mEQ/L (3.4-4.9); SODIUM 133 mEQ/L (135-145)
[2016-09-21] VITALS: BP 117/65
[2016-09-21 04:00] VITALS: BP 119/73
[2016-09-21] MEDS: Pericolace tab ORAL SCH ×2 (08:16→18:08)
[2016-09-21] MEDS: Pantoprazole Inj IVP SCH (08:16)
[2016-09-21] MEDS: Colistin 150mg vial IVP SCH ×2 (08:17→20:59)
[2016-09-21 08:30] VITALS: BP 121/70
[2016-09-21 09:27] LABS: INR 1.5 (0.9-1.1); PROTHROMBIN TIME 15.4 SEC (9.30-11.50)
--- NOTE | 2016-09-21 10:53 | General Progress Note ---
Assessment/Plan Status: stable Assessment/Plan s/p thrombectomy of fem tib PTFE bypass Profunda common peroneal bypass with composite saphenous vein graft thrombectomy of common peroneal and posterior tibial artery veno-venostomy saphenous; 09/09/16 with vascular surgery left femoral popliteal by pass with greater saphenous vein popliteal and tibial thrombectomy s/p skin grafting 09/16/16 BP control--stable and controlled with resumed amlodipine increased pain control with Dil, 2 mg IV q4h breakthrough severe pain--now controlled ctm h and h; Hg improved heparin gtt cont heparin gtt until INR therapeutic Cont ASA 81mg qd cont on coumadin per heme; INR goal 2-3 bowel regimen PT/OT Time spent: 35min D/w pt, RN, CM Subjective Date patient seen: Sep 21, 2016 Time patient seen: 10:52 ROS Limited/Unobtainable: No Constitutional: Reports: no symptoms HEENT: Reports: no symptoms Cardiovascular: Reports: no symptoms Respiratory: Reports: no symptoms Gastrointestinal/Abdominal: Reports: no symptoms Genitourinary: Reports: no symptoms Neurologic/Psychiatric: Reports: no symptoms Endocrine: Reports: no symptoms Hematologic/Lymphatic: Reports: no symptoms Allergies: Coded Allergies: PENICILLIN G (Unverified Allergy, Unknown, 09/08/16) CODEINE (Unverified Adverse Reaction, Unknown, 05/14/16) MORPHINE (Unverified Adverse Reaction, Unknown, 05/14/16) PENICILLINS (Unverified Adverse Reaction, Unknown, 05/14/16) SHELLFISH DERIVED (Unverified Adverse Reaction, Unknown, Shortness of Breath, 05/14/16) All Systems: reviewed and negative except above Subjective Pt doing well Denies f/c, n/v, d/c, chest pain, SOB Able to ambulate Does not want to go to SNF. States will go home w/ who will help him Per ID, needs 2 weeks of antibiotics, so PICC line ordered Objective Last 24 Hour Vital Signs Date Time Temp Pulse Resp B/P Pulse Ox O2 Delivery O2 Flow Rate FiO2 09/21/16 08:30 98.1 69 20 121/70 98 Room Air 09/21/16 08:06 85 124/76 09/21/16 04:00 98.4 76 18 119/73 96 Room Air 09/21/16 02:26 98.6 09/21/16 00:00 98.6 78 18 117/65 97 Room Air 09/20/16 20:00 98.6 81 18 123/82 100 Room Air 09/20/16 16:00 98.1 76 19 115/71 100 Room Air 09/20/16 11:48 98.1 65 17 122/75 100 Room Air Intake and Output 09/20/16 09/21/16 19:00 07:00 Intake Total 1174.000 ml 1565.000 ml Output Total 1675 ml Balance 1174.000 ml -110.000 ml Intake Oral 600 ml 900 ml IV Total 574.000 ml 665.000 ml Output Urine Total 1675 ml # Voids 4 2 # Bowel Movements 1 Laboratory Tests 09/20/16 20:10: White Blood Count 10.0, Red Blood Count 3.63L, Hemoglobin 10.8L, Hematocrit 32.2L, Mean Corpuscular Volume 89, Mean Corpuscular Hemoglobin 29.6, Mean Corpuscular Hemoglobin Concent 33.5, Red Cell Distribution Width 13.5, Platelet Count 480H, Mean Platelet Volume 5.2L, Neutrophils (%) (Auto) 56.7, Lymphocytes (%) (Auto) 33.3, Monocytes (%) (Auto) 7.4, Eosinophils (%) (Auto) 0.1, Basophils (%) (Auto) 2.6H, Activated Partial Thromboplast Time 86H, Sodium Level 133L, Potassium Level 4.7, Chloride Level 94L, Carbon Dioxide Level 25, Anion Gap 14, Blood Urea Nitrogen 18, Creatinine 1.1, Estimat Glomerular Filtration Rate > 60, Glucose Level 100, Calcium Level 8.1L 09/21/16 08:55: Activated Partial Thromboplast Time 119H, Prothrombin Time 15.4H, Prothromb Time International Ratio 1.5H, Vancomycin Level Trough 11.8 Height (Feet): 5 Height (Inches): 11.00 Weight (Pounds): 171 Objective General Appearance: well appearing, alert, mild distress Head: normocephalic, atraumatic Eyes: bilateral eye EOMI, bilateral eye PERRL ENT: hearing grossly normal, normal pharynx Neck: full range of motion, supple, no meningismus Respiratory: chest non-tender, lungs clear, normal breath sounds Cardiovascular #1: regular rate, rhythm, no murmur Gastrointestinal: normal bowel sounds, non tender, no mass, no organomegaly, no bruit, non-distended Musculoskeletal: back normal, normal range of motion, other - Left leg: He has normal sensation of the thigh. He has decreased sensation of the lower extremity from the knee to the ankle. He has minimal sensation of the foot. pulses equal. Is able to move his knee, ankle, and toes. Neurologic: alert, oriented x3; 5/5 in RLE; 4+/5 in LLE Psychiatric: mood/affect normal Skin: warm/dry; incision intact Jose Alejandro Fisher M.D. Sep 21, 2016 10:53
[2016-09-21] MEDS: Vancomycin 1250mg/D5W 275ml IVPB SCH ×4 (11:36→22:02)
[2016-09-21] MEDS: Heparin 25,000u/D5W 500ml 500 ML IV SCH ×2 (11:47→13:41)
[2016-09-21 12:00] VITALS: BP 116/69
--- NOTE | 2016-09-21 13:53 | General Progress Note ---
Assessment/Plan Assessment/Plan ASSESSMENT: 1. Status post thrombectomy and femorotibial and femoropopliteal bypass with composite saphenous vein graft. Continue coumadin 2. Hypercoagulable disorder with recurrence of arterial clots. Currently, he is on heparin drip. 3. Anemia secondary to chronic disease. 4. Decreased hemoglobin and hematocrit, rule out gastrointestinal bleed. 5. Leukocytosis, potentially secondary to underlying infection. 6. Thrombocytopenia, potentially secondary to medications versus infection, now better 7. Weakness and pain status post surgery, better controlled. 8. Blood pressure elevation, now on amlodipine. RECOMMENDATIONS: 1. Continue heparin gtt 2. Continue coumadin 3. Maintain INR between 2 and 3. 4. Continue ASA 81mg po daily 5. GI prophylaxis with PPI. 6. Pain control with Dilaudid. 7. Maintain hemoglobin > 7. 8. Maintain platelets > 10k 9. PT/OT as an outpatient. 10. Potential placement 11. staff. Thank you, Omar Alford MD Subjective Constitutional: Reports: no symptoms HEENT: Reports: no symptoms Cardiovascular: Reports: no symptoms Respiratory: Reports: no symptoms Gastrointestinal/Abdominal: Reports: poor appetite Genitourinary: Reports: no symptoms Neurologic/Psychiatric: Reports: no symptoms Endocrine: Reports: no symptoms Hematologic/Lymphatic: Reports: anemia Allergies: Coded Allergies: PENICILLIN G (Unverified Allergy, Unknown, 09/08/16) CODEINE (Unverified Adverse Reaction, Unknown, 05/14/16) MORPHINE (Unverified Adverse Reaction, Unknown, 05/14/16) PENICILLINS (Unverified Adverse Reaction, Unknown, 05/14/16) SHELLFISH DERIVED (Unverified Adverse Reaction, Unknown, Shortness of Breath, 05/14/16) Subjective stable, no fevers or chills, no night sweats, on coumadin Objective Last 24 Hour Vital Signs Date Time Temp Pulse Resp B/P Pulse Ox O2 Delivery O2 Flow Rate FiO2 09/21/16 12:00 97.9 66 20 116/69 99 Room Air 09/21/16 08:30 98.1 69 20 121/70 98 Room Air 09/21/16 08:06 85 124/76 09/21/16 04:00 98.4 76 18 119/73 96 Room Air 09/21/16 02:26 98.6 09/21/16 00:00 98.6 78 18 117/65 97 Room Air 09/20/16 20:00 98.6 81 18 123/82 100 Room Air 09/20/16 16:00 98.1 76 19 115/71 100 Room Air Intake and Output 09/20/16 09/21/16 19:00 07:00 Intake Total 1174.000 ml 1565.000 ml Output Total 1675 ml Balance 1174.000 ml -110.000 ml Intake Oral 600 ml 900 ml IV Total 574.000 ml 665.000 ml Output Urine Total 1675 ml # Voids 4 2 # Bowel Movements 1 Laboratory Tests 09/20/16 20:10: White Blood Count 10.0, Red Blood Count 3.63L, Hemoglobin 10.8L, Hematocrit 32.2L, Mean Corpuscular Volume 89, Mean Corpuscular Hemoglobin 29.6, Mean Corpuscular Hemoglobin Concent 33.5, Red Cell Distribution Width 13.5, Platelet Count 480H, Mean Platelet Volume 5.2L, Neutrophils (%) (Auto) 56.7, Lymphocytes (%) (Auto) 33.3, Monocytes (%) (Auto) 7.4, Eosinophils (%) (Auto) 0.1, Basophils (%) (Auto) 2.6H, Activated Partial Thromboplast Time 86H, Sodium Level 133L, Potassium Level 4.7, Chloride Level 94L, Carbon Dioxide Level 25, Anion Gap 14, Blood Urea Nitrogen 18, Creatinine 1.1, Estimat Glomerular Filtration Rate > 60, Glucose Level 100, Calcium Level 8.1L 09/21/16 08:55: Activated Partial Thromboplast Time 119H, Prothrombin Time 15.4H, Prothromb Time International Ratio 1.5H, Vancomycin Level Trough 11.8 Height (Feet): 5 Height (Inches): 11.00 Weight (Pounds): 171 General Appearance: alert EENT: TMs normal Neck: supple Cardiovascular: regular rhythm Respiratory/Chest: lungs clear Abdomen: soft Extremities: non-tender Edema: 1+ Leg (L), 1+ Leg (R) Edema: mild edema Neurologic: oriented x 3 Skin: warm/dry Omar Alford Sep 21, 2016 13:52
[2016-09-21] MEDS: Aspirin Baby 81mg ORAL SCH (14:44)
[2016-09-21 16:00] VITALS: BP 135/87
[2016-09-21] MEDS ORDERED: WARFARIN SOD ORAL ONE ×2 (17:00)
--- NOTE | 2016-09-21 17:18 | Infectious Diseases Prog Note ---
Assessment/Plan Problems: (1) MDR Acinetobacter baumannii infection Assessment & Plan: of the left leg , on iv colistin , will treat for two weeks starting from 09/16/16 , depending on his clinical improvement, patient understand that with this kind of infection due to MDR Acinetobacter he is at high risk for graft failure. EOT 09/30/16 (2) Femoral-popliteal bypass graft occlusion, left Assessment & Plan: s/p thrombectomy of fem tib PTFE bypass , Profunda common peroneal bypass with composite saphenous vein graft , thrombectomy of common peroneal and posterior tibial artery veno-venostomy saphenous by vascular surgery (3) Skin graft infection Assessment & Plan: due to MDR Acinetobacter Baumannii and coag negative staph , will continue colistin and vancomycin to cover for coag negative staph, will treat for two weeks total starting from 09/16/16 Subjective Constitutional: Reports: no symptoms HEENT: Reports: no symptoms Respiratory: Reports: no symptoms Cardiovascular: Reports: no symptoms Gastrointestinal/Abdominal: Reports: no symptoms Neurologic: Reports: numbness, weakness Skin: Reports: other - left leg wound Hematologic: Reports: no symptoms Musculoskeletal: Reports: no symptoms Allergies: Coded Allergies: PENICILLIN G (Unverified Allergy, Unknown, 09/08/16) CODEINE (Unverified Adverse Reaction, Unknown, 05/14/16) MORPHINE (Unverified Adverse Reaction, Unknown, 05/14/16) PENICILLINS (Unverified Adverse Reaction, Unknown, 05/14/16) SHELLFISH DERIVED (Unverified Adverse Reaction, Unknown, Shortness of Breath, 05/14/16) Objective Vital Signs Last 24 Hour Vital Signs Date Time Temp Pulse Resp B/P Pulse Ox O2 Delivery O2 Flow Rate FiO2 09/21/16 12:00 97.9 66 20 116/69 99 Room Air 09/21/16 08:30 98.1 69 20 121/70 98 Room Air 09/21/16 08:06 85 124/76 09/21/16 04:00 98.4 76 18 119/73 96 Room Air 09/21/16 02:26 98.6 09/21/16 00:00 98.6 78 18 117/65 97 Room Air 09/20/16 20:00 98.6 81 18 123/82 100 Room Air Height (Feet): 5 Height (Inches): 11.00 Weight (Pounds): 171 General Appearance: WD/WN, no acute distress HEENT: normocephalic, atraumatic, anicteric, mucous membranes moist Respiratory/Chest: chest wall non-tender, lungs clear, normal breath sounds, no respiratory distress, no accessory muscle use Cardiovascular: normal peripheral pulses, normal rate, regular rhythm, no gallop/murmur, no JVD Abdomen: normal bowel sounds, soft, non tender, no organomegaly, non distended , no mass, no scars Extremities: no cyanosis, no clubbing Skin: no rash, no lesions, other - large left leg wsurgical wound, covered with dressing Laboratory Tests Test 09/20/16 20:10 09/21/16 08:55 White Blood Count 10.0 K/UL (4.8-10.8) Red Blood Count 3.63 M/UL (4.70-6.10) L Hemoglobin 10.8 G/DL (14.2-18.0) L Hematocrit 32.2 % (42.0-52.0) L Mean Corpuscular Volume 89 FL (80-99) Mean Corpuscular Hemoglobin 29.6 PG (27.0-31.0) Mean Corpuscular Hemoglobin Concent 33.5 G/DL (32.0-36.0) Red Cell Distribution Width 13.5 % (11.6-14.8) Platelet Count 480 K/UL (150-450) H Mean Platelet Volume 5.2 FL (6.5-10.1) L Neutrophils (%) (Auto) 56.7 % (45.0-75.0) Lymphocytes (%) (Auto) 33.3 % (20.0-45.0) Monocytes (%) (Auto) 7.4 % (1.0-10.0) Eosinophils (%) (Auto) 0.1 % (0.0-3.0) Basophils (%) (Auto) 2.6 % (0.0-2.0) H Activated Partial Thromboplast Time 86 SEC (23-33) H 119 SEC (23-33) H Sodium Level 133 mEQ/L (135-145) L Potassium Level 4.7 mEQ/L (3.4-4.9) Chloride Level 94 mEQ/L (98-107) L Carbon Dioxide Level 25 mEQ/L (20-30) Anion Gap 14 (5-15) Blood Urea Nitrogen 18 mg/dL (7-23) Creatinine 1.1 mg/dL (0.7-1.2) Estimat Glomerular Filtration Rate > 60 mL/min (>60) Glucose Level 100 mg/dL (74-106) Calcium Level 8.1 mg/dL (8.6-10.2) L Prothrombin Time 15.4 SEC (9.30-11.50) H Prothromb Time International Ratio 1.5 (0.9-1.1) H Vancomycin Level Trough 11.8 ug/mL (5.0-12.0) Current Medications Medications (Trade) Dose Ordered Sig/Leidy Route PRN Reason Start Time Stop Time Status Last Admin Dose Admin Al Hydroxide/Mg Hydroxide (Mylanta) 30 ml Q6H PRN ORAL for heartburn 09/12/16 14:15 10/12/16 14:14 Amlodipine Besylate (Norvasc) 10 mg DAILY ORAL 09/13/16 09:00 10/13/16 08:59 09/21/16 08:06 Aspirin (ASA) 81 mg DAILY ORAL 09/21/16 14:00 10/21/16 13:59 09/21/16 14:44 Bisacodyl (Dulcolax) 10 mg DAILYPRN PRN RECTAL Constipation 09/14/16 10:45 10/14/16 10:44 Colistimethate Sodium (Colistin) 150 mg EVERY 12 HOURS IVP 09/19/16 21:00 10/03/16 20:59 09/21/16 08:17 Heparin Sodium/ Dextrose (Heparin) 500 ml @ 15 mls/hr Q24H IV 09/21/16 13:30 10/21/16 13:29 09/21/16 13:41 Hydromorphone HCl (Dilaudid Premix 1mg/50ml) 50 ml @ 200 mls/hr Q4H PRN IVPB Moderate Pain (Pain Scale 4-6) 09/12/16 13:45 10/12/16 13:44 Hydromorphone HCl (Dilaudid) 2 mg Q4H PRN IVP Severe Pain (Pain Scale 7-10) 09/19/16 14:30 09/26/16 14:29 09/21/16 14:46 Magnesium Hydroxide (Mom) 30 ml DAILYPRN PRN ORAL Constipation 09/14/16 10:45 10/14/16 10:44 Ondansetron HCl (Zofran) 4 mg Q6H PRN IVP Nausea & Vomiting 09/12/16 13:45 10/12/16 13:44 Pantoprazole (Protonix) 40 mg DAILY IVP 09/13/16 09:00 10/13/16 08:59 09/21/16 08:16 Senna/Docusate Sodium (Tosha-Colace) 1 ea TWICE A DAY ORAL 09/14/16 11:00 10/14/16 10:59 09/21/16 08:16 Vancomycin HCl 1.25 gm/Dextrose 275 ml @ 183.333 mls/hr Q12HR@1000,2200 IVPB 09/20/16 10:00 09/25/16 09:59 09/21/16 11:36 Vancomycin HCl 1 ea 1 ea DAILY PRN MISC Per rx protocol 09/19/16 20:15 10/19/16 20:14 Warfarin Sodium (Coumadin per pharmacy) 1 ea DAILY PRN MISC Per rx protocol 09/16/16 20:45 10/16/16 20:44 Giles Dumas M.D. Sep 21, 2016 17:18
[2016-09-21 20:00] VITALS: BP 132/75
[2016-09-22] VITALS (7 sets, daily range): BP systolic 115–132; BP diastolic 66–85
[2016-09-22 08:42] LABS: INR 1.5 (0.9-1.1); PROTHROMBIN TIME 15.8 SEC (9.30-11.50)
--- NOTE | 2016-09-22 09:12 | General Progress Note ---
Assessment/Plan Assessment/Plan ASSESSMENT: 1. Status post thrombectomy and femorotibial and femoropopliteal bypass with composite saphenous vein graft. Continue coumadin 2. Hypercoagulable disorder with recurrence of arterial clots. Currently, he is on heparin drip. 3. Anemia secondary to chronic disease. 4. Decreased hemoglobin and hematocrit, rule out gastrointestinal bleed. 5. Leukocytosis, potentially secondary to underlying infection. 6. Thrombocytopenia, potentially secondary to medications versus infection, now better 7. Weakness and pain status post surgery, better controlled. 8. Blood pressure elevation, now on amlodipine. RECOMMENDATIONS: 1. Continue heparin gtt 2. Continue coumadin 3. Maintain INR between 2 and 3. 4. Continue ASA 81mg po daily 5. GI prophylaxis with PPI. 6. Pain control with Dilaudid. 7. Maintain hemoglobin > 7. 8. Maintain platelets > 10k 9. Potential placement 10. staff. Thank you, Omar Alford MD Subjective Constitutional: Reports: no symptoms HEENT: Reports: no symptoms Cardiovascular: Reports: no symptoms Respiratory: Reports: no symptoms Gastrointestinal/Abdominal: Reports: no symptoms Genitourinary: Reports: no symptoms Neurologic/Psychiatric: Reports: no symptoms Endocrine: Reports: no symptoms Hematologic/Lymphatic: Reports: anemia Allergies: Coded Allergies: PENICILLIN G (Unverified Allergy, Unknown, 09/08/16) CODEINE (Unverified Adverse Reaction, Unknown, 05/14/16) MORPHINE (Unverified Adverse Reaction, Unknown, 05/14/16) PENICILLINS (Unverified Adverse Reaction, Unknown, 05/14/16) SHELLFISH DERIVED (Unverified Adverse Reaction, Unknown, Shortness of Breath, 05/14/16) Subjective stable, no fevers or chills, no night sweats, remains on coumadin Objective Last 24 Hour Vital Signs Date Time Temp Pulse Resp B/P Pulse Ox O2 Delivery O2 Flow Rate FiO2 09/22/16 08:32 97.9 78 20 127/78 100 Room Air 09/22/16 06:08 98.4 09/22/16 04:00 98.4 80 18 124/76 100 Room Air 09/22/16 00:00 100.0 87 18 132/85 100 Room Air 09/21/16 20:00 98.2 67 20 132/75 99 Room Air 09/21/16 16:00 98.2 68 20 135/87 100 Room Air 09/21/16 12:00 97.9 66 20 116/69 99 Room Air Intake and Output 09/21/16 09/22/16 19:00 07:00 Intake Total 1195 ml 1230.000 ml Output Total 800 ml 1300 ml Balance 395 ml -70.000 ml Intake Oral 940 ml 760 ml IV Total 255 ml 470.000 ml Output Urine Total 800 ml 1300 ml # Voids 5 Laboratory Tests 09/21/16 20:15: Activated Partial Thromboplast Time 56H 09/22/16 07:50: Activated Partial Thromboplast Time 47H, Prothrombin Time 15.8H, Prothromb Time International Ratio 1.5H Height (Feet): 5 Height (Inches): 11.00 Weight (Pounds): 171 General Appearance: no apparent distress EENT: TMs normal Neck: supple Cardiovascular: regular rhythm Respiratory/Chest: lungs clear Abdomen: non tender Extremities: non-tender Edema: 1+ Leg (L), 1+ Leg (R) Edema: mild edema Neurologic: alert Skin: warm/dry Omar Alford Sep 22, 2016 09:12
[2016-09-22] MEDS: Vancomycin 1250mg/D5W 275ml IVPB SCH ×4 (10:00→13:40)
[2016-09-22] MEDS: Aspirin Baby 81mg ORAL SCH (10:42)
[2016-09-22] MEDS: Pericolace tab ORAL SCH ×2 (10:44→17:58)
[2016-09-22] MEDS ORDERED: NS 550ML IV ONE (11:15)
--- NOTE | 2016-09-22 11:25 | General Progress Note ---
Assessment/Plan Status: stable Assessment/Plan s/p thrombectomy of fem tib PTFE bypass Profunda common peroneal bypass with composite saphenous vein graft thrombectomy of common peroneal and posterior tibial artery veno-venostomy saphenous; 09/09/16 with vascular surgery left femoral popliteal by pass with greater saphenous vein popliteal and tibial thrombectomy s/p skin grafting 09/16/16 w/ infection due to MDR Acinetobacter Baumannii and coag negative staph , will continue colistin and vancomycin to cover for coag negative staph, will treat for two weeks total starting from 09/16/16 BP control--stable and controlled with resumed amlodipine increased pain control with Dil, 2 mg IV q4h breakthrough severe pain--now controlled ctm h and h; Hg improved heparin gtt cont heparin gtt until INR therapeutic Cont ASA 81mg qd cont on coumadin per heme; INR goal 2-3 bowel regimen PT/OT PICC line ordered as pt will need 2 weeks of antibiotics starting from 09/16/16 Time spent: 35min D/w pt, RN, CM Subjective Date patient seen: Sep 22, 2016 Time patient seen: 11:22 ROS Limited/Unobtainable: No Constitutional: Reports: no symptoms HEENT: Reports: no symptoms Cardiovascular: Reports: no symptoms Respiratory: Reports: no symptoms Gastrointestinal/Abdominal: Reports: no symptoms Genitourinary: Reports: no symptoms Neurologic/Psychiatric: Reports: no symptoms Endocrine: Reports: no symptoms Hematologic/Lymphatic: Reports: no symptoms Allergies: Coded Allergies: PENICILLIN G (Unverified Allergy, Unknown, 09/08/16) CODEINE (Unverified Adverse Reaction, Unknown, 05/14/16) MORPHINE (Unverified Adverse Reaction, Unknown, 05/14/16) PENICILLINS (Unverified Adverse Reaction, Unknown, 05/14/16) SHELLFISH DERIVED (Unverified Adverse Reaction, Unknown, Shortness of Breath, 05/14/16) All Systems: reviewed and negative except above Subjective Pt doing well Denies f/c, n/v, d/c, chest pain, SOB Able to ambulate Does not want to go to SNF. States will go home w/ who will help him Per ID, needs 2 weeks of antibiotics, so PICC line ordered Objective Last 24 Hour Vital Signs Date Time Temp Pulse Resp B/P Pulse Ox O2 Delivery O2 Flow Rate FiO2 09/22/16 10:34 72 118/72 09/22/16 09:00 72 118/76 09/22/16 08:32 97.9 78 20 127/78 100 Room Air 09/22/16 06:08 98.4 09/22/16 04:00 98.4 80 18 124/76 100 Room Air 09/22/16 00:00 100.0 87 18 132/85 100 Room Air 09/21/16 20:00 98.2 67 20 132/75 99 Room Air 09/21/16 16:00 98.2 68 20 135/87 100 Room Air 09/21/16 12:00 97.9 66 20 116/69 99 Room Air Intake and Output 09/21/16 09/22/16 19:00 07:00 Intake Total 1195 ml 1230.000 ml Output Total 800 ml 1300 ml Balance 395 ml -70.000 ml Intake Oral 940 ml 760 ml IV Total 255 ml 470.000 ml Output Urine Total 800 ml 1300 ml # Voids 5 Laboratory Tests 09/21/16 20:15: Activated Partial Thromboplast Time 56H 09/22/16 07:50: Activated Partial Thromboplast Time 47H, Prothrombin Time 15.8H, Prothromb Time International Ratio 1.5H Height (Feet): 5 Height (Inches): 11.00 Weight (Pounds): 171 Objective General Appearance: well appearing, alert, mild distress Head: normocephalic, atraumatic Eyes: bilateral eye EOMI, bilateral eye PERRL ENT: hearing grossly normal, normal pharynx Neck: full range of motion, supple, no meningismus Respiratory: chest non-tender, lungs clear, normal breath sounds Cardiovascular #1: regular rate, rhythm, no murmur Gastrointestinal: normal bowel sounds, non tender, no mass, no organomegaly, no bruit, non-distended Musculoskeletal: back normal, normal range of motion, other - Left leg: He has normal sensation of the thigh. He has decreased sensation of the lower extremity from the knee to the ankle. He has minimal sensation of the foot. pulses equal. Is able to move his knee, ankle, and toes. Neurologic: alert, oriented x3; 5/5 in RLE; 4+/5 in LLE Psychiatric: mood/affect normal Skin: warm/dry; incision intact Jose Alejandro Fisher M.D. Sep 22, 2016 11:25
[2016-09-22] MEDS: Colistin 150mg vial IVP SCH ×2 (13:12→21:50)
[2016-09-22] MEDS: Pantoprazole Inj IVP SCH (13:20)
[2016-09-22] MEDS ORDERED: Sodium Bicarbonate 8.4% 50ml Inj IV ONE (14:00)
[2016-09-22 15:47] LABS: ANION GAP 13 (5-15); CARBON DIOXIDE 26 mEQ/L (20-30); CHLORIDE 97 mEQ/L (98-107); GLOMERULAR FILTRATION RATE > 60 mL/min (>60); HEMOLYSIS 1; POTASSIUM 4.5 mEQ/L (3.4-4.9); SODIUM 136 mEQ/L (135-145)
[2016-09-22] MEDS ORDERED: Lidocaine 1% Plain 30 ml INJ ONE (16:00)
[2016-09-22] MEDS ORDERED: Heparin 2000 units/Ns 1000ml INJ ONE (16:00)
[2016-09-22] MEDS ORDERED: WARFARIN SOD ORAL ONE ×2 (17:00)
--- NOTE | 2016-09-22 17:57 | Infectious Diseases Prog Note ---
Assessment/Plan Problems: (1) MDR Acinetobacter baumannii infection Assessment & Plan: of the left leg , on iv colistin , will treat for two weeks starting from 09/16/16 , depending on his clinical improvement, patient understand that with this kind of infection due to MDR Acinetobacter he is at high risk for graft failure. EOT 09/30/16 (2) Femoral-popliteal bypass graft occlusion, left Assessment & Plan: s/p thrombectomy of fem tib PTFE bypass , Profunda common peroneal bypass with composite saphenous vein graft , thrombectomy of common peroneal and posterior tibial artery veno-venostomy saphenous by vascular surgery (3) Skin graft infection Assessment & Plan: due to MDR Acinetobacter Baumannii and coag negative staph , will continue colistin and vancomycin to cover for coag negative staph, will treat for two weeks total starting from 09/16/16. continue to monitor trough for vancomycin as per pharmacy Subjective Constitutional: Denies: anorexia, chills, drenching sweats, fatigue, fever, no symptoms, other HEENT: Denies: congestion, coryza, dysphagia, hearing change, no symptoms, other, visual change Respiratory: Denies: dry cough, no symptoms, other, productive cough, shortness of breath Breasts: Denies: discharge, no symptoms, other, swelling, tenderness Cardiovascular: Denies: chest pain, dyspnea on exertion, no symptoms, other, palpitations Gastrointestinal/Abdominal: Denies: bloating, blood in stool, constipation, diarrhea, nausea, no symptoms, other, vomiting Genitourinary: Denies: dysuria, frequency, hematuria, no symptoms, nocturia, other Neurologic: Reports: numbness Skin: Reports: other - wound, with no draiange Endocrine: Denies: feels cold, feels warm, no symptoms, other Hematologic: Denies: bleeding, no symptoms, other, swollen lymph nodes Musculoskeletal: Reports: pain, swelling Allergies: Coded Allergies: PENICILLIN G (Unverified Allergy, Unknown, 09/08/16) CODEINE (Unverified Adverse Reaction, Unknown, 05/14/16) MORPHINE (Unverified Adverse Reaction, Unknown, 05/14/16) PENICILLINS (Unverified Adverse Reaction, Unknown, 05/14/16) SHELLFISH DERIVED (Unverified Adverse Reaction, Unknown, Shortness of Breath, 05/14/16) Objective Vital Signs Last 24 Hour Vital Signs Date Time Temp Pulse Resp B/P Pulse Ox O2 Delivery O2 Flow Rate FiO2 09/22/16 16:00 97.0 80 19 121/68 100 Room Air 09/22/16 12:13 98.2 75 20 115/66 100 Room Air 09/22/16 10:34 72 118/72 09/22/16 09:00 72 118/76 09/22/16 08:32 97.9 78 20 127/78 100 Room Air 09/22/16 06:08 98.4 09/22/16 04:00 98.4 80 18 124/76 100 Room Air 09/22/16 00:00 100.0 87 18 132/85 100 Room Air 09/21/16 20:00 98.2 67 20 132/75 99 Room Air Height (Feet): 5 Height (Inches): 11.00 Weight (Pounds): 171 General Appearance: WD/WN, no acute distress HEENT: normocephalic, atraumatic, anicteric, mucous membranes moist Respiratory/Chest: chest wall non-tender, lungs clear, normal breath sounds, no respiratory distress, no accessory muscle use Cardiovascular: normal peripheral pulses, normal rate, regular rhythm, no gallop/murmur Abdomen: normal bowel sounds, soft, non tender, no organomegaly, non distended , no mass Extremities: no cyanosis, no clubbing Skin: no rash, no lesions, other - left leg surgical wound covered with dressing, unable to assess Laboratory Tests Test 09/21/16 20:15 09/22/16 07:50 09/22/16 07:55 Activated Partial Thromboplast Time 56 SEC (23-33) H 47 SEC (23-33) H Prothrombin Time 15.8 SEC (9.30-11.50) H Prothromb Time International Ratio 1.5 (0.9-1.1) H Sodium Level 136 mEQ/L (135-145) Potassium Level 4.5 mEQ/L (3.4-4.9) Chloride Level 97 mEQ/L (98-107) L Carbon Dioxide Level 26 mEQ/L (20-30) Anion Gap 13 (5-15) Blood Urea Nitrogen 10 mg/dL (7-23) Creatinine 1.0 mg/dL (0.7-1.2) Estimat Glomerular Filtration Rate > 60 mL/min (>60) Glucose Level 107 mg/dL (74-106) H Calcium Level 9.0 mg/dL (8.6-10.2) Current Medications Medications (Trade) Dose Ordered Sig/Leidy Route PRN Reason Start Time Stop Time Status Last Admin Dose Admin Al Hydroxide/Mg Hydroxide (Mylanta) 30 ml Q6H PRN ORAL for heartburn 09/12/16 14:15 10/12/16 14:14 Amlodipine Besylate (Norvasc) 10 mg DAILY ORAL 09/13/16 09:00 10/13/16 08:59 09/21/16 08:06 Aspirin 81 mg 81 mg DAILY ORAL 09/21/16 14:00 10/21/16 13:59 09/22/16 10:42 Bisacodyl (Dulcolax) 10 mg DAILYPRN PRN RECTAL Constipation 09/14/16 10:45 10/14/16 10:44 Colistimethate Sodium (Colistin) 150 mg EVERY 12 HOURS IVP 09/19/16 21:00 10/03/16 20:59 09/22/16 13:12 Heparin Sodium/ Dextrose (Heparin) 500 ml @ 15 mls/hr Q24H IV 09/21/16 13:30 10/21/16 13:29 09/21/16 13:41 Hydromorphone HCl (Dilaudid Premix 1mg/50ml) 50 ml @ 200 mls/hr Q4H PRN IVPB Moderate Pain (Pain Scale 4-6) 09/12/16 13:45 10/12/16 13:44 Hydromorphone HCl (Dilaudid) 2 mg Q4H PRN IVP Severe Pain (Pain Scale 7-10) 09/19/16 14:30 09/26/16 14:29 09/22/16 12:50 Magnesium Hydroxide (Mom) 30 ml DAILYPRN PRN ORAL Constipation 09/14/16 10:45 10/14/16 10:44 Ondansetron HCl (Zofran) 4 mg Q6H PRN IVP Nausea & Vomiting 09/12/16 13:45 10/12/16 13:44 Pantoprazole (Protonix) 40 mg DAILY IVP 09/13/16 09:00 10/13/16 08:59 09/22/16 13:20 Senna/Docusate Sodium (Tosha-Colace) 1 ea TWICE A DAY ORAL 09/14/16 11:00 10/14/16 10:59 09/22/16 10:44 Vancomycin HCl 1 ea 1 ea DAILY PRN MISC Per rx protocol 09/19/16 20:15 10/19/16 20:14 Vancomycin HCl/ Dextrose (Vancomycin/D5W) 275 ml @ 183.333 mls/hr Q12HR@0100,1300 IVPB 09/22/16 13:00 09/27/16 12:59 09/22/16 13:40 Warfarin Sodium (Coumadin per pharmacy) 1 ea DAILY PRN MISC Per rx protocol 09/16/16 20:45 10/16/16 20:44 Giles Dumas M.D. Sep 22, 2016 17:57
[2016-09-22] MEDS: Heparin 25,000u/D5W 500ml 500 ML IV SCH (21:52)
[2016-09-23] VITALS: BP 118/70
[2016-09-23] MEDS: Vancomycin 1250mg/D5W 275ml IVPB SCH ×4 (00:52→13:51)
[2016-09-23 03:49] VITALS: BP 118/70
[2016-09-23 06:22] LABS: INR 1.7 (0.9-1.1); PROTHROMBIN TIME 17.9 SEC (9.30-11.50)
[2016-09-23 08:00] VITALS: BP 136/88
[2016-09-23] MEDS: Aspirin Baby 81mg ORAL SCH (09:01)
[2016-09-23] MEDS: Colistin 150mg vial IVP SCH ×2 (09:01→21:39)
[2016-09-23] MEDS: Pericolace tab ORAL SCH ×2 (09:12→19:13)
[2016-09-23] MEDS: Pantoprazole Inj IVP SCH (09:17)
--- NOTE | 2016-09-23 11:54 | General Progress Note ---
Assessment/Plan Status: stable Assessment/Plan s/p thrombectomy of fem tib PTFE bypass Profunda common peroneal bypass with composite saphenous vein graft thrombectomy of common peroneal and posterior tibial artery veno-venostomy saphenous; 09/09/16 with vascular surgery left femoral popliteal by pass with greater saphenous vein popliteal and tibial thrombectomy s/p skin grafting 09/16/16 w/ infection due to MDR Acinetobacter Baumannii and coag negative staph , will continue colistin and vancomycin to cover for coag negative staph, will treat for two weeks total starting from 09/16/16 BP control--stable and controlled with resumed amlodipine increased pain control with Dil, 2 mg IV q4h breakthrough severe pain--now controlled ctm h and h; Hg improved heparin gtt cont heparin gtt until INR therapeutic Cont ASA 81mg qd cont on coumadin per heme; INR goal 2-3 bowel regimen PT/OT PICC line ordered as pt will need 2 weeks of antibiotics starting from 09/16/16 Awaiting surgery re-evaluation Time spent: 35min D/w pt, RN, CM Subjective Date patient seen: Sep 23, 2016 Time patient seen: 11:54 ROS Limited/Unobtainable: No Constitutional: Reports: no symptoms HEENT: Reports: no symptoms Respiratory: Reports: no symptoms Gastrointestinal/Abdominal: Reports: no symptoms Genitourinary: Reports: no symptoms Neurologic/Psychiatric: Reports: no symptoms Endocrine: Reports: no symptoms Hematologic/Lymphatic: Reports: no symptoms Allergies: Coded Allergies: PENICILLIN G (Unverified Allergy, Unknown, 09/08/16) CODEINE (Unverified Adverse Reaction, Unknown, 05/14/16) MORPHINE (Unverified Adverse Reaction, Unknown, 05/14/16) PENICILLINS (Unverified Adverse Reaction, Unknown, 05/14/16) SHELLFISH DERIVED (Unverified Adverse Reaction, Unknown, Shortness of Breath, 05/14/16) Subjective Pt doing well Denies f/c, n/v, d/c, chest pain, SOB Able to ambulate Does not want to go to SNF. States will go home w/ who will help him Per ID, needs 2 weeks of antibiotics, so PICC line ordered Objective Last 24 Hour Vital Signs Date Time Temp Pulse Resp B/P Pulse Ox O2 Delivery O2 Flow Rate FiO2 09/23/16 09:13 85 128/83 09/23/16 08:00 97.7 96 20 136/88 98 Room Air 09/23/16 03:49 98.1 72 18 118/70 100 Room Air 09/23/16 03:21 98.2 09/23/16 00:00 98.2 75 20 118/70 99 Room Air 09/22/16 20:00 97.9 69 19 126/83 100 Room Air 09/22/16 16:00 97.0 80 19 121/68 100 Room Air 09/22/16 12:13 98.2 75 20 115/66 100 Room Air Intake and Output 09/22/16 09/23/16 19:00 07:00 Intake Total 540 ml 1251.666 ml Output Total 1100 ml 1500 ml Balance -560 ml -248.334 ml Intake Oral 360 ml 720 ml IV Total 180 ml 531.666 ml Output Urine Total 1100 ml 1500 ml # Voids 3 # Bowel Movements 1 Laboratory Tests 09/23/16 05:00: Prothrombin Time 17.9H, Prothromb Time International Ratio 1.7H, Activated Partial Thromboplast Time 41H Height (Feet): 5 Height (Inches): 11.00 Weight (Pounds): 171 Objective General Appearance: well appearing, alert, mild distress Head: normocephalic, atraumatic Eyes: bilateral eye EOMI, bilateral eye PERRL ENT: hearing grossly normal, normal pharynx Neck: full range of motion, supple, no meningismus Respiratory: chest non-tender, lungs clear, normal breath sounds Cardiovascular #1: regular rate, rhythm, no murmur Gastrointestinal: normal bowel sounds, non tender, no mass, no organomegaly, no bruit, non-distended Musculoskeletal: back normal, normal range of motion, other - Left leg: He has normal sensation of the thigh. He has decreased sensation of the lower extremity from the knee to the ankle. He has minimal sensation of the foot. pulses equal. Is able to move his knee, ankle, and toes. Neurologic: alert, oriented x3; 5/5 in RLE; 4+/5 in LLE Psychiatric: mood/affect normal Skin: warm/dry; incision intact Jose Alejandro Fisher M.D. Sep 23, 2016 11:54
[2016-09-23 12:02] VITALS: BP 116/68
[2016-09-23 12:05] LABS: BASOPHILS % (AUTO) 1.4 % (0.0-2.0); LYMPHOCYTES % (AUTO) 34.7 % (20.0-45.0); MEAN CORPUSCULAR HEMOGLOBIN 27.8 PG (27.0-31.0); MEAN CORPUSCULAR HGB CONC 31.7 G/DL (32.0-36.0); MEAN CORPUSCULAR VOLUME 88 FL (80-99); MEAN PLATELET VOLUME 4.5 FL (6.5-10.1); MONOCYTES % (AUTO) 7.7 % (1.0-10.0); NEUTROPHILS % (AUTO) 56.1 % (45.0-75.0); PLATELET COUNT 480 K/UL (150-450); WHITE BLOOD COUNT 8.4 K/UL (4.8-10.8)
[2016-09-23 12:12] LABS: ANION GAP 12 (5-15); CALCIUM 8.5 mg/dL (8.6-10.2); CARBON DIOXIDE 25 mEQ/L (20-30); CHLORIDE 100 mEQ/L (98-107); GLOMERULAR FILTRATION RATE > 60 mL/min (>60); HEMOLYSIS 2; POTASSIUM 4.9 mEQ/L (3.4-4.9); SODIUM 137 mEQ/L (135-145)
[2016-09-23] MEDS: Heparin 25,000u/D5W 500ml 500 ML IV SCH (14:08)
--- NOTE | 2016-09-23 15:28 | General Progress Note ---
Assessment/Plan Assessment/Plan ASSESSMENT: 1. Status post thrombectomy and femorotibial and femoropopliteal bypass with composite saphenous vein graft. Continue coumadin 2. Hypercoagulable disorder with recurrence of arterial clots. Currently, he is on heparin drip. 3. Anemia secondary to chronic disease. 4. Decreased hemoglobin and hematocrit, rule out gastrointestinal bleed. 5. Leukocytosis, potentially secondary to underlying infection. 6. Thrombocytopenia, potentially secondary to medications versus infection, now better 7. Weakness and pain status post surgery, better controlled. 8. Blood pressure elevation, now on amlodipine. RECOMMENDATIONS: 1. Continue heparin gtt 2. Continue coumadin 3. Maintain INR between 2 - 3. 4. Continue ASA 81mg po daily 5. GI prophylaxis with PPI. 6. Pain control with Dilaudid. 7. Maintain hemoglobin > 7. 8. Maintain platelets > 10k 9. Potential placement 10. staff. Thank you, Omar Alford MD Subjective Constitutional: Reports: no symptoms HEENT: Reports: no symptoms Cardiovascular: Reports: no symptoms Respiratory: Reports: no symptoms Gastrointestinal/Abdominal: Reports: poor appetite, poor fluid intake Genitourinary: Reports: no symptoms Neurologic/Psychiatric: Reports: no symptoms Endocrine: Reports: no symptoms Hematologic/Lymphatic: Reports: anemia Allergies: Coded Allergies: PENICILLIN G (Unverified Allergy, Unknown, 09/08/16) CODEINE (Unverified Adverse Reaction, Unknown, 05/14/16) MORPHINE (Unverified Adverse Reaction, Unknown, 05/14/16) PENICILLINS (Unverified Adverse Reaction, Unknown, 05/14/16) SHELLFISH DERIVED (Unverified Adverse Reaction, Unknown, Shortness of Breath, 05/14/16) Subjective stable, no fevers or chills, no night sweats, is on coumadin Objective Last 24 Hour Vital Signs Date Time Temp Pulse Resp B/P Pulse Ox O2 Delivery O2 Flow Rate FiO2 09/23/16 12:02 97.7 68 20 116/68 100 Room Air 09/23/16 09:13 85 128/83 09/23/16 08:00 97.7 96 20 136/88 98 Room Air 09/23/16 03:49 98.1 72 18 118/70 100 Room Air 09/23/16 03:21 98.2 09/23/16 00:00 98.2 75 20 118/70 99 Room Air 09/22/16 20:00 97.9 69 19 126/83 100 Room Air 09/22/16 16:00 97.0 80 19 121/68 100 Room Air Intake and Output 09/22/16 09/23/16 19:00 07:00 Intake Total 540 ml 1251.666 ml Output Total 1100 ml 1500 ml Balance -560 ml -248.334 ml Intake Oral 360 ml 720 ml IV Total 180 ml 531.666 ml Output Urine Total 1100 ml 1500 ml # Voids 3 # Bowel Movements 1 Laboratory Tests 09/23/16 05:00: Prothrombin Time 17.9H, Prothromb Time International Ratio 1.7H, Activated Partial Thromboplast Time 41H 09/23/16 08:35: White Blood Count 8.4, Red Blood Count 3.70L, Hemoglobin 10.3L, Hematocrit 32.4L , Mean Corpuscular Volume 88, Mean Corpuscular Hemoglobin 27.8, Mean Corpuscular Hemoglobin Concent 31.7L, Red Cell Distribution Width 14.0, Platelet Count 480H, Mean Platelet Volume 4.5L, Neutrophils (%) (Auto) 56.1, Lymphocytes (%) (Auto) 34.7, Monocytes (%) (Auto) 7.7, Eosinophils (%) (Auto) 0.0, Basophils (%) (Auto) 1.4, Sodium Level 137, Potassium Level 4.9, Chloride Level 100, Carbon Dioxide Level 25, Anion Gap 12, Blood Urea Nitrogen 10, Creatinine 1.0, Estimat Glomerular Filtration Rate > 60, Glucose Level 102, Calcium Level 8.5L Height (Feet): 5 Height (Inches): 11.00 Weight (Pounds): 171 General Appearance: no apparent distress EENT: TMs normal Neck: supple Cardiovascular: regular rhythm Respiratory/Chest: no respiratory distress Abdomen: no organomegaly Extremities: non-tender Edema: 1+ Leg (L), 1+ Leg (R) Edema: mild edema Neurologic: alert Skin: warm/dry Omar Alford Sep 23, 2016 15:28
[2016-09-23 16:00] VITALS: BP 117/64
[2016-09-23] MEDS ORDERED: Warfarin Sodium 7.5mg ORAL ONE (17:00)
--- NOTE | 2016-09-23 17:17 | Infectious Diseases Prog Note ---
Assessment/Plan Problems: (1) MDR Acinetobacter baumannii infection Assessment & Plan: of the left leg , on iv colistin , will treat for two weeks starting from 09/16/16 , depending on his clinical improvement, patient understand that with this kind of infection due to MDR Acinetobacter he is at high risk for graft failure. EOT 09/30/16 (2) Femoral-popliteal bypass graft occlusion, left Assessment & Plan: s/p thrombectomy of fem tib PTFE bypass , Profunda common peroneal bypass with composite saphenous vein graft , thrombectomy of common peroneal and posterior tibial artery veno-venostomy saphenous by vascular surgery (3) Skin graft infection Assessment & Plan: due to MDR Acinetobacter Baumannii and coag negative staph , will continue colistin and vancomycin to cover for coag negative staph, will treat for two weeks total starting from 09/16/16. continue to monitor trough for vancomycin as per pharmacy Subjective Skin: Reports: other - WOUNDS Musculoskeletal: Reports: pain, stiffness Allergies: Coded Allergies: PENICILLIN G (Unverified Allergy, Unknown, 09/08/16) CODEINE (Unverified Adverse Reaction, Unknown, 05/14/16) MORPHINE (Unverified Adverse Reaction, Unknown, 05/14/16) PENICILLINS (Unverified Adverse Reaction, Unknown, 05/14/16) SHELLFISH DERIVED (Unverified Adverse Reaction, Unknown, Shortness of Breath, 05/14/16) All Systems: reviewed and negative except above Objective Vital Signs Last 24 Hour Vital Signs Date Time Temp Pulse Resp B/P Pulse Ox O2 Delivery O2 Flow Rate FiO2 09/23/16 16:00 97.5 67 18 117/64 100 Room Air 09/23/16 12:02 97.7 68 20 116/68 100 Room Air 09/23/16 09:13 85 128/83 09/23/16 08:00 97.7 96 20 136/88 98 Room Air 09/23/16 03:49 98.1 72 18 118/70 100 Room Air 09/23/16 03:21 98.2 09/23/16 00:00 98.2 75 20 118/70 99 Room Air 09/22/16 20:00 97.9 69 19 126/83 100 Room Air Height (Feet): 5 Height (Inches): 11.00 Weight (Pounds): 171 General Appearance: WD/WN, no acute distress HEENT: normocephalic, atraumatic, anicteric, mucous membranes moist Respiratory/Chest: chest wall non-tender, lungs clear, normal breath sounds, no respiratory distress Cardiovascular: normal peripheral pulses, normal rate, regular rhythm, no gallop/murmur Abdomen: normal bowel sounds, soft, non tender, no organomegaly, non distended , no mass Extremities: no cyanosis, no clubbing, other - left leg surgical wound covered with dressing. Skin: no rash, no lesions Laboratory Tests Test 09/23/16 05:00 09/23/16 08:35 Prothrombin Time 17.9 SEC (9.30-11.50) H Prothromb Time International Ratio 1.7 (0.9-1.1) H Activated Partial Thromboplast Time 41 SEC (23-33) H White Blood Count 8.4 K/UL (4.8-10.8) Red Blood Count 3.70 M/UL (4.70-6.10) L Hemoglobin 10.3 G/DL (14.2-18.0) L Hematocrit 32.4 % (42.0-52.0) L Mean Corpuscular Volume 88 FL (80-99) Mean Corpuscular Hemoglobin 27.8 PG (27.0-31.0) Mean Corpuscular Hemoglobin Concent 31.7 G/DL (32.0-36.0) L Red Cell Distribution Width 14.0 % (11.6-14.8) Platelet Count 480 K/UL (150-450) H Mean Platelet Volume 4.5 FL (6.5-10.1) L Neutrophils (%) (Auto) 56.1 % (45.0-75.0) Lymphocytes (%) (Auto) 34.7 % (20.0-45.0) Monocytes (%) (Auto) 7.7 % (1.0-10.0) Eosinophils (%) (Auto) 0.0 % (0.0-3.0) Basophils (%) (Auto) 1.4 % (0.0-2.0) Sodium Level 137 mEQ/L (135-145) Potassium Level 4.9 mEQ/L (3.4-4.9) Chloride Level 100 mEQ/L (98-107) Carbon Dioxide Level 25 mEQ/L (20-30) Anion Gap 12 (5-15) Blood Urea Nitrogen 10 mg/dL (7-23) Creatinine 1.0 mg/dL (0.7-1.2) Estimat Glomerular Filtration Rate > 60 mL/min (>60) Glucose Level 102 mg/dL (74-106) Calcium Level 8.5 mg/dL (8.6-10.2) L Current Medications Medications (Trade) Dose Ordered Sig/Leidy Route PRN Reason Start Time Stop Time Status Last Admin Dose Admin Al Hydroxide/Mg Hydroxide (Mylanta) 30 ml Q6H PRN ORAL for heartburn 09/12/16 14:15 10/12/16 14:14 Amlodipine Besylate (Norvasc) 10 mg DAILY ORAL 09/13/16 09:00 10/13/16 08:59 09/23/16 09:13 Aspirin 81 mg 81 mg DAILY ORAL 09/21/16 14:00 10/21/16 13:59 09/23/16 09:01 Bisacodyl (Dulcolax) 10 mg DAILYPRN PRN RECTAL Constipation 09/14/16 10:45 10/14/16 10:44 Colistimethate Sodium (Colistin) 150 mg EVERY 12 HOURS IVP 09/19/16 21:00 10/03/16 20:59 09/23/16 09:01 Heparin Sodium/ Dextrose (Heparin) 500 ml @ 16 mls/hr Q24H IV 09/21/16 13:30 10/21/16 13:29 09/23/16 14:08 Hydromorphone HCl (Dilaudid Premix 1mg/50ml) 50 ml @ 200 mls/hr Q4H PRN IVPB Moderate Pain (Pain Scale 4-6) 09/12/16 13:45 10/12/16 13:44 Hydromorphone HCl (Dilaudid) 2 mg Q4H PRN IVP Severe Pain (Pain Scale 7-10) 09/19/16 14:30 09/26/16 14:29 09/23/16 13:56 Magnesium Hydroxide (Mom) 30 ml DAILYPRN PRN ORAL Constipation 09/14/16 10:45 10/14/16 10:44 Ondansetron HCl (Zofran) 4 mg Q6H PRN IVP Nausea & Vomiting 09/12/16 13:45 10/12/16 13:44 Pantoprazole (Protonix) 40 mg DAILY IVP 09/13/16 09:00 10/13/16 08:59 09/23/16 09:17 Senna/Docusate Sodium (Tosha-Colace) 1 ea TWICE A DAY ORAL 09/14/16 11:00 10/14/16 10:59 09/23/16 09:12 Vancomycin HCl 1 ea 1 ea DAILY PRN MISC Per rx protocol 09/19/16 20:15 10/19/16 20:14 Vancomycin HCl/ Dextrose (Vancomycin/D5W) 275 ml @ 183.333 mls/hr Q12HR@0100,1300 IVPB 09/22/16 13:00 09/27/16 12:59 09/23/16 13:51 Warfarin Sodium (Coumadin per pharmacy) 1 ea DAILY PRN MISC Per rx protocol 09/16/16 20:45 10/16/16 20:44 Giles Dumas M.D. Sep 23, 2016 17:17
--- NOTE | 2016-09-23 18:40 | General Surgery Progress Note ---
General Surgery-Progress Note Subjective Procedure Performed brief op note 09/10 procedure left femoral popliteal by pass with greater saphenous vein popliteal and tibial thrombectomy Symptoms: improved, tolerating diet, voiding well Objective Last 24 Hour Vital Signs Date Time Temp Pulse Resp B/P Pulse Ox O2 Delivery O2 Flow Rate FiO2 09/23/16 16:00 97.5 67 18 117/64 100 Room Air 09/23/16 12:02 97.7 68 20 116/68 100 Room Air 09/23/16 09:13 85 128/83 09/23/16 08:00 97.7 96 20 136/88 98 Room Air 09/23/16 03:49 98.1 72 18 118/70 100 Room Air 09/23/16 03:21 98.2 09/23/16 00:00 98.2 75 20 118/70 99 Room Air 09/22/16 20:00 97.9 69 19 126/83 100 Room Air I&O Intake and Output 09/22/16 09/23/16 19:00 07:00 Intake Total 540 ml 1251.666 ml Output Total 1100 ml 1500 ml Balance -560 ml -248.334 ml Intake Oral 360 ml 720 ml IV Total 180 ml 531.666 ml Output Urine Total 1100 ml 1500 ml # Voids 3 # Bowel Movements 1 Dressing: dry Drains: none Cardiovascular: RSR Abdomen: soft Extremities: no edema, no tenderness, no cyanosis, pulses Laboratory Tests Test 09/23/16 05:00 09/23/16 08:35 Prothrombin Time 17.9 SEC (9.30-11.50) H Prothromb Time International Ratio 1.7 (0.9-1.1) H Activated Partial Thromboplast Time 41 SEC (23-33) H White Blood Count 8.4 K/UL (4.8-10.8) Red Blood Count 3.70 M/UL (4.70-6.10) L Hemoglobin 10.3 G/DL (14.2-18.0) L Hematocrit 32.4 % (42.0-52.0) L Mean Corpuscular Volume 88 FL (80-99) Mean Corpuscular Hemoglobin 27.8 PG (27.0-31.0) Mean Corpuscular Hemoglobin Concent 31.7 G/DL (32.0-36.0) L Red Cell Distribution Width 14.0 % (11.6-14.8) Platelet Count 480 K/UL (150-450) H Mean Platelet Volume 4.5 FL (6.5-10.1) L Neutrophils (%) (Auto) 56.1 % (45.0-75.0) Lymphocytes (%) (Auto) 34.7 % (20.0-45.0) Monocytes (%) (Auto) 7.7 % (1.0-10.0) Eosinophils (%) (Auto) 0.0 % (0.0-3.0) Basophils (%) (Auto) 1.4 % (0.0-2.0) Sodium Level 137 mEQ/L (135-145) Potassium Level 4.9 mEQ/L (3.4-4.9) Chloride Level 100 mEQ/L (98-107) Carbon Dioxide Level 25 mEQ/L (20-30) Anion Gap 12 (5-15) Blood Urea Nitrogen 10 mg/dL (7-23) Creatinine 1.0 mg/dL (0.7-1.2) Estimat Glomerular Filtration Rate > 60 mL/min (>60) Glucose Level 102 mg/dL (74-106) Calcium Level 8.5 mg/dL (8.6-10.2) L Assessment Post-op Diagnosis same Plan Additional Comments home tomorrow ELIAS VILLEGAS Sep 23, 2016 18:40
[2016-09-23 20:10] VITALS: BP 139/75
[2016-09-24] VITALS: BP 130/67
[2016-09-24] MEDS: Vancomycin 1250mg/D5W 275ml IVPB SCH ×4 (00:21→13:21)
[2016-09-24] MEDS: Heparin 25,000u/D5W 500ml 500 ML IV SCH (00:32)
[2016-09-24 04:00] VITALS: BP 116/77
[2016-09-24 08:00] VITALS: BP 135/86
[2016-09-24 08:59] LABS: INR 1.6 (0.9-1.1); PROTHROMBIN TIME 16.3 SEC (9.30-11.50)
[2016-09-24] MEDS: Colistin 150mg vial IVP SCH ×2 (09:47→22:27)
[2016-09-24] MEDS: Aspirin Baby 81mg ORAL SCH (09:48)
[2016-09-24] MEDS: Pericolace tab ORAL SCH ×2 (09:48→18:21)
[2016-09-24] MEDS: Pantoprazole Inj IVP SCH (09:48)
[2016-09-24] MEDS ORDERED: Enoxaparin 120 mg inj SUBQ SCH (11:00)
--- NOTE | 2016-09-24 11:15 | General Progress Note ---
Assessment/Plan Assessment/Plan ASSESSMENT: 1. Status post thrombectomy and femorotibial and femoropopliteal bypass with composite saphenous vein graft. Continue coumadin 2. Hypercoagulable disorder with recurrence of arterial clots. Currently, he is on heparin drip. 3. Anemia secondary to chronic disease. 4. Decreased hemoglobin and hematocrit, rule out gastrointestinal bleed. 5. Leukocytosis, potentially secondary to underlying infection. 6. Thrombocytopenia, potentially secondary to medications versus infection, now better 7. Weakness and pain status post surgery, better controlled. 8. Blood pressure elevation, now on amlodipine. RECOMMENDATIONS: 1. Stable for discharge 2. Continue coumadin 3. Maintain INR between 2 - 3. 4. Continue ASA 81mg po daily 5. GI prophylaxis with PPI. 6. Pain control with Dilaudid. 7. Maintain hemoglobin > 7. 8. Maintain platelets > 10k 9. Potential placement 10. staff. Thank you, Omar Alford MD Subjective Constitutional: Reports: no symptoms HEENT: Reports: no symptoms Cardiovascular: Reports: no symptoms Respiratory: Reports: no symptoms Gastrointestinal/Abdominal: Reports: no symptoms Genitourinary: Reports: no symptoms Neurologic/Psychiatric: Reports: anxiety Endocrine: Reports: no symptoms Hematologic/Lymphatic: Reports: anemia Allergies: Coded Allergies: PENICILLIN G (Unverified Allergy, Unknown, 09/08/16) CODEINE (Unverified Adverse Reaction, Unknown, 05/14/16) MORPHINE (Unverified Adverse Reaction, Unknown, 05/14/16) PENICILLINS (Unverified Adverse Reaction, Unknown, 05/14/16) SHELLFISH DERIVED (Unverified Adverse Reaction, Unknown, Shortness of Breath, 05/14/16) Subjective stable, no fevers or chills, no night sweats, is on coumadin and may be discharged soon (script given) Objective Last 24 Hour Vital Signs Date Time Temp Pulse Resp B/P Pulse Ox O2 Delivery O2 Flow Rate FiO2 09/24/16 10:27 97.3 09/24/16 09:48 77 135/86 09/24/16 08:00 97.3 77 20 135/86 99 Room Air 09/24/16 04:00 98.1 80 18 116/77 99 Room Air 09/24/16 00:00 98.4 84 18 130/67 100 Room Air 09/23/16 20:10 98.1 75 18 139/75 100 Room Air 09/23/16 16:00 97.5 67 18 117/64 100 Room Air 09/23/16 12:02 97.7 68 20 116/68 100 Room Air Intake and Output 09/23/16 09/24/16 19:00 07:00 Intake Total 1030.003 ml 1367 ml Output Total 300 ml 2000 ml Balance 730.003 ml -633 ml Intake Oral 600 ml 900 ml IV Total 430.003 ml 467 ml Output Urine Total 300 ml 2000 ml # Bowel Movements 1 Laboratory Tests 09/24/16 07:50: Prothrombin Time 16.3H, Prothromb Time International Ratio 1.6H, Activated Partial Thromboplast Time 46H Height (Feet): 5 Height (Inches): 11.00 Weight (Pounds): 171 General Appearance: alert EENT: normal ENT inspection, TMs normal Neck: supple Cardiovascular: normal rate Respiratory/Chest: normal breath sounds Abdomen: non tender Extremities: normal range of motion Edema: 1+ Leg (L), 1+ Leg (R) Edema: mild edema Neurologic: alert Skin: warm/dry Omar Alford Sep 24, 2016 11:15
[2016-09-24 12:00] VITALS: BP 115/71
--- NOTE | 2016-09-24 12:01 | General Progress Note ---
Assessment/Plan Status: stable Assessment/Plan s/p thrombectomy of fem tib PTFE bypass Profunda common peroneal bypass with composite saphenous vein graft thrombectomy of common peroneal and posterior tibial artery veno-venostomy saphenous; 09/09/16 with vascular surgery left femoral popliteal by pass with greater saphenous vein popliteal and tibial thrombectomy s/p skin grafting 09/16/16 w/ infection due to MDR Acinetobacter Baumannii and coag negative staph , will continue colistin and vancomycin to cover for coag negative staph, will treat for two weeks total starting from 09/16/16 BP control--stable and controlled with resumed amlodipine increased pain control with Dil, 2 mg IV q4h breakthrough severe pain--now controlled ctm h and h; Hg improved heparin gtt cont heparin gtt until INR therapeutic Cont ASA 81mg qd cont on coumadin per heme; INR goal 2-3 bowel regimen PT/OT PICC line ordered as pt will need 2 weeks of antibiotics starting from 09/16/16 Awaiting surgery re-eval Needs INR>2 prior to d/c Time spent: 35min D/w pt, RN, CM Subjective Date patient seen: Sep 24, 2016 Time patient seen: 11:57 ROS Limited/Unobtainable: No Constitutional: Reports: no symptoms HEENT: Reports: no symptoms Cardiovascular: Reports: no symptoms Respiratory: Reports: no symptoms Gastrointestinal/Abdominal: Reports: no symptoms Genitourinary: Reports: no symptoms Neurologic/Psychiatric: Reports: no symptoms Endocrine: Reports: no symptoms Hematologic/Lymphatic: Reports: no symptoms Allergies: Coded Allergies: PENICILLIN G (Unverified Allergy, Unknown, 09/08/16) CODEINE (Unverified Adverse Reaction, Unknown, 05/14/16) MORPHINE (Unverified Adverse Reaction, Unknown, 05/14/16) PENICILLINS (Unverified Adverse Reaction, Unknown, 05/14/16) SHELLFISH DERIVED (Unverified Adverse Reaction, Unknown, Shortness of Breath, 05/14/16) Subjective Pt doing well Denies f/c, n/v, d/c, chest pain, SOB Able to ambulate Does not want to go to SNF. States will go home w/ who will help him Per ID, needs 2 weeks of antibiotics, so PICC line ordered Objective Last 24 Hour Vital Signs Date Time Temp Pulse Resp B/P Pulse Ox O2 Delivery O2 Flow Rate FiO2 09/24/16 10:27 97.3 09/24/16 09:48 77 135/86 09/24/16 08:00 97.3 77 20 135/86 99 Room Air 09/24/16 04:00 98.1 80 18 116/77 99 Room Air 09/24/16 00:00 98.4 84 18 130/67 100 Room Air 09/23/16 20:10 98.1 75 18 139/75 100 Room Air 09/23/16 16:00 97.5 67 18 117/64 100 Room Air 09/23/16 12:02 97.7 68 20 116/68 100 Room Air Intake and Output 09/23/16 09/24/16 19:00 07:00 Intake Total 1030.003 ml 1367 ml Output Total 300 ml 2000 ml Balance 730.003 ml -633 ml Intake Oral 600 ml 900 ml IV Total 430.003 ml 467 ml Output Urine Total 300 ml 2000 ml # Bowel Movements 1 Laboratory Tests 09/24/16 07:50: Prothrombin Time 16.3H, Prothromb Time International Ratio 1.6H, Activated Partial Thromboplast Time 46H Height (Feet): 5 Height (Inches): 11.00 Weight (Pounds): 171 Objective General Appearance: well appearing, alert, mild distress Head: normocephalic, atraumatic Eyes: bilateral eye EOMI, bilateral eye PERRL ENT: hearing grossly normal, normal pharynx Neck: full range of motion, supple, no meningismus Respiratory: chest non-tender, lungs clear, normal breath sounds Cardiovascular #1: regular rate, rhythm, no murmur Gastrointestinal: normal bowel sounds, non tender, no mass, no organomegaly, no bruit, non-distended Musculoskeletal: back normal, normal range of motion, other - Left leg: He has normal sensation of the thigh. He has decreased sensation of the lower extremity from the knee to the ankle. He has minimal sensation of the foot. pulses equal. Is able to move his knee, ankle, and toes. Neurologic: alert, oriented x3; 5/5 in RLE; 4+/5 in LLE Psychiatric: mood/affect normal Skin: warm/dry; incision intact Jose Alejandro Fisher M.D. Sep 24, 2016 12:01
[2016-09-24] MEDS ORDERED: Heparin 25,000u/D5W 500ml 500 ML IV SCH ×2 (14:00)
[2016-09-24] MEDS ORDERED: Warfarin Sodium 10mg ORAL ONE (15:00)
[2016-09-24 16:00] VITALS: BP 129/81
[2016-09-24] MEDS ORDERED: Warfarin Sod 4 MG, Warfarin Sod 5 MG PO ONE ×2 (17:00)
--- NOTE | 2016-09-24 17:57 | Infectious Diseases Prog Note ---
Assessment/Plan Problems: (1) MDR Acinetobacter baumannii infection Assessment & Plan: of the left leg , surgical wound looked ok as per Dr Kumar, continue iv colistin , will treat for two weeks , continue local wound care and dressing changes as per vascular. EOT 09/30/16 (2) Femoral-popliteal bypass graft occlusion, left Assessment & Plan: s/p thrombectomy of fem tib PTFE bypass , Profunda common peroneal bypass with composite saphenous vein graft , thrombectomy of common peroneal and posterior tibial artery veno-venostomy saphenous by vascular surgery (3) Skin graft infection Assessment & Plan: due to MDR Acinetobacter Baumannii and coag negative staph , improving on colistin and vancomycin , will treat for two weeks total starting from 09/16/16. continue to monitor trough for vancomycin as per pharmacy Subjective Neurologic: Reports: numbness Skin: Reports: other - wound Musculoskeletal: Reports: pain Allergies: Coded Allergies: PENICILLIN G (Unverified Allergy, Unknown, 09/08/16) CODEINE (Unverified Adverse Reaction, Unknown, 05/14/16) MORPHINE (Unverified Adverse Reaction, Unknown, 05/14/16) PENICILLINS (Unverified Adverse Reaction, Unknown, 05/14/16) SHELLFISH DERIVED (Unverified Adverse Reaction, Unknown, Shortness of Breath, 05/14/16) All Systems: reviewed and negative except above Objective Vital Signs Last 24 Hour Vital Signs Date Time Temp Pulse Resp B/P Pulse Ox O2 Delivery O2 Flow Rate FiO2 09/24/16 16:00 97.7 65 20 129/81 100 Room Air 09/24/16 14:24 97.5 09/24/16 12:00 97.5 72 19 115/71 100 Room Air 09/24/16 09:48 77 135/86 09/24/16 08:00 97.3 77 20 135/86 99 Room Air 09/24/16 04:00 98.1 80 18 116/77 99 Room Air 09/24/16 00:00 98.4 84 18 130/67 100 Room Air 09/23/16 20:10 98.1 75 18 139/75 100 Room Air Height (Feet): 5 Height (Inches): 11.00 Weight (Pounds): 171 General Appearance: WD/WN, no acute distress HEENT: normocephalic, atraumatic, anicteric, mucous membranes moist Respiratory/Chest: chest wall non-tender, lungs clear, normal breath sounds, no respiratory distress Cardiovascular: normal peripheral pulses, normal rate, regular rhythm, no gallop/murmur, no JVD Abdomen: normal bowel sounds, soft, non tender, no organomegaly, non distended , no mass, no scars Extremities: no cyanosis, no clubbing Skin: no rash, no lesions, no ulcers Neurologic/Psychiatric: alert, oriented x 3 Microbiology Date/Time Source Procedure Growth Status 09/23/16 20:55 Wound Gram Stain - Final Resulted 09/23/16 20:55 Wound Wound Culture Pending Resulted Laboratory Tests Test 09/24/16 07:50 Prothrombin Time 16.3 SEC (9.30-11.50) H Prothromb Time International Ratio 1.6 (0.9-1.1) H Activated Partial Thromboplast Time 46 SEC (23-33) H Current Medications Medications (Trade) Dose Ordered Sig/Leidy Route PRN Reason Start Time Stop Time Status Last Admin Dose Admin Al Hydroxide/Mg Hydroxide (Mylanta) 30 ml Q6H PRN ORAL for heartburn 09/12/16 14:15 10/12/16 14:14 Amlodipine Besylate (Norvasc) 10 mg DAILY ORAL 09/13/16 09:00 10/13/16 08:59 09/24/16 09:48 Aspirin 81 mg 81 mg DAILY ORAL 09/21/16 14:00 10/21/16 13:59 09/24/16 09:48 Bisacodyl (Dulcolax) 10 mg DAILYPRN PRN RECTAL Constipation 09/14/16 10:45 10/14/16 10:44 Colistimethate Sodium (Colistin) 150 mg EVERY 12 HOURS IVP 09/19/16 21:00 10/03/16 20:59 09/24/16 09:47 Heparin Sodium/ Dextrose (Heparin) 500 ml @ 16 mls/hr Q24H IV 09/24/16 14:00 10/24/16 13:59 09/24/16 13:57 Hydromorphone HCl (Dilaudid Premix 1mg/50ml) 50 ml @ 200 mls/hr Q4H PRN IVPB Moderate Pain (Pain Scale 4-6) 09/12/16 13:45 10/12/16 13:44 Hydromorphone HCl (Dilaudid) 2 mg Q4H PRN IVP Severe Pain (Pain Scale 7-10) 09/19/16 14:30 09/26/16 14:29 09/24/16 13:54 Magnesium Hydroxide (Mom) 30 ml DAILYPRN PRN ORAL Constipation 09/14/16 10:45 10/14/16 10:44 Ondansetron HCl (Zofran) 4 mg Q6H PRN IVP Nausea & Vomiting 09/12/16 13:45 10/12/16 13:44 Pantoprazole (Protonix) 40 mg DAILY IVP 09/13/16 09:00 10/13/16 08:59 09/24/16 09:48 Senna/Docusate Sodium (Tosha-Colace) 1 ea TWICE A DAY ORAL 09/14/16 11:00 10/14/16 10:59 09/24/16 09:48 Vancomycin HCl (Vanco rx to dose) 1 ea DAILY PRN MISC Per rx protocol 09/19/16 20:15 10/19/16 20:14 Vancomycin HCl 1.25 gm/Dextrose 275 ml @ 183.333 mls/hr Q12HR@0100,1300 IVPB 09/22/16 13:00 09/27/16 12:59 09/24/16 13:21 Warfarin Sodium (Coumadin per pharmacy) 1 ea DAILY PRN MISC Per rx protocol 09/16/16 20:45 10/16/16 20:44 Giles Dumas M.D. Sep 24, 2016 17:57
[2016-09-24 19:00] VITALS: BP 112/66
[2016-09-24] MEDS ORDERED: NS 275ml ONE (19:34)
[2016-09-25 00:19] VITALS: BP 146/93
[2016-09-25] MEDS: Vancomycin 1250mg/D5W 275ml IVPB SCH ×4 (00:31→13:40)
[2016-09-25] MEDS: Heparin 25,000u/D5W 500ml 500 ML IV SCH ×2 (00:53→07:36)
[2016-09-25 04:10] VITALS: BP 121/74
[2016-09-25 07:56] LABS: INR 1.9 (0.9-1.1); PROTHROMBIN TIME 19.3 SEC (9.30-11.50)
[2016-09-25 08:08] VITALS: BP 141/85
[2016-09-25] MEDS: Aspirin Baby 81mg ORAL SCH (10:09)
[2016-09-25] MEDS: Pericolace tab ORAL SCH ×2 (10:09→18:13)
[2016-09-25] MEDS: Colistin 150mg vial IVP SCH ×2 (10:10→20:36)
[2016-09-25] MEDS: Pantoprazole Inj IVP SCH (10:18)
[2016-09-25 11:23] VITALS: BP 123/76
--- NOTE | 2016-09-25 15:59 | Infectious Diseases Prog Note ---
Assessment/Plan Problems: (1) MDR Acinetobacter baumannii infection Assessment & Plan: of the left leg , surgical wound looked ok as per Dr Kumar, continue iv colistin , will treat for two weeks , continue local wound care and dressing changes as per vascular. EOT 09/30/16 (2) Femoral-popliteal bypass graft occlusion, left Assessment & Plan: s/p thrombectomy of fem tib PTFE bypass , Profunda common peroneal bypass with composite saphenous vein graft , thrombectomy of common peroneal and posterior tibial artery veno-venostomy saphenous by vascular surgery (3) Skin graft infection Assessment & Plan: due to MDR Acinetobacter Baumannii and coag negative staph , improving on colistin and vancomycin , will treat for two weeks total starting from 09/16/16. continue to monitor trough for vancomycin as per pharmacy Subjective Constitutional: Denies: anorexia, chills, drenching sweats, fatigue, fever, no symptoms, other HEENT: Denies: congestion, coryza, dysphagia, hearing change, no symptoms, other, visual change Respiratory: Denies: dry cough, no symptoms, other, productive cough, shortness of breath Breasts: Denies: discharge, no symptoms, other, swelling, tenderness Cardiovascular: Denies: chest pain, dyspnea on exertion, no symptoms, other, palpitations Gastrointestinal/Abdominal: Denies: bloating, blood in stool, constipation, diarrhea, nausea, no symptoms, other, vomiting Genitourinary: Denies: dysuria, frequency, hematuria, no symptoms, nocturia, other Neurologic: Denies: confusion, headache, no symptoms, numbness, other, weakness Psychiatric: Denies: anxiety, depression, no symptoms, other Skin: Denies: no symptoms, other, rash, ulcer Endocrine: Denies: feels cold, feels warm, no symptoms, other Musculoskeletal: Reports: pain, stiffness Allergies: Coded Allergies: PENICILLIN G (Unverified Allergy, Unknown, 09/08/16) CODEINE (Unverified Adverse Reaction, Unknown, 05/14/16) MORPHINE (Unverified Adverse Reaction, Unknown, 05/14/16) PENICILLINS (Unverified Adverse Reaction, Unknown, 05/14/16) SHELLFISH DERIVED (Unverified Adverse Reaction, Unknown, Shortness of Breath, 05/14/16) Objective Vital Signs Last 24 Hour Vital Signs Date Time Temp Pulse Resp B/P Pulse Ox O2 Delivery O2 Flow Rate FiO2 09/25/16 11:23 97.9 76 20 123/76 99 Room Air 09/25/16 10:08 81 121/86 09/25/16 08:08 98.2 75 20 141/85 100 Room Air 09/25/16 04:10 98.1 58 20 121/74 94 Room Air 09/25/16 00:19 97.3 75 20 146/93 99 Room Air 09/24/16 23:02 98.1 09/24/16 19:00 98.1 75 20 112/66 100 Room Air 09/24/16 16:00 97.7 65 20 129/81 100 Room Air Height (Feet): 5 Height (Inches): 11.00 Weight (Pounds): 171 General Appearance: WD/WN, no acute distress HEENT: normocephalic, atraumatic, anicteric, mucous membranes moist Respiratory/Chest: chest wall non-tender, lungs clear, normal breath sounds, no respiratory distress Cardiovascular: normal peripheral pulses, normal rate, regular rhythm Abdomen: normal bowel sounds, soft, non tender, no organomegaly, non distended Extremities: no cyanosis, no clubbing Skin: no rash, no lesions, other - left leg wound Microbiology Date/Time Source Procedure Growth Status 09/23/16 20:55 Wound Gram Stain - Final Resulted 09/23/16 20:55 Wound Culture - Preliminary Gram Negative Bacillus 1 Resulted Laboratory Tests Test 09/24/16 18:30 09/25/16 07:00 Activated Partial Thromboplast Time 42 SEC (23-33) H 91 SEC (23-33) H Prothrombin Time 19.3 SEC (9.30-11.50) H Prothromb Time International Ratio 1.9 (0.9-1.1) H Current Medications Medications (Trade) Dose Ordered Sig/Leidy Route PRN Reason Start Time Stop Time Status Last Admin Dose Admin Al Hydroxide/Mg Hydroxide (Mylanta) 30 ml Q6H PRN ORAL for heartburn 09/12/16 14:15 10/12/16 14:14 Amlodipine Besylate (Norvasc) 10 mg DAILY ORAL 09/13/16 09:00 10/13/16 08:59 09/25/16 10:08 Aspirin 81 mg 81 mg DAILY ORAL 09/21/16 14:00 10/21/16 13:59 09/25/16 10:09 Bisacodyl (Dulcolax) 10 mg DAILYPRN PRN RECTAL Constipation 09/14/16 10:45 10/14/16 10:44 Colistimethate Sodium (Colistin) 150 mg EVERY 12 HOURS IVP 09/19/16 21:00 10/03/16 20:59 09/25/16 10:10 Heparin Sodium/ Dextrose (Heparin) 500 ml @ 27.923 mls/ hr adjust per protocol IV 09/25/16 00:00 10/25/16 00:00 09/25/16 07:36 Hydromorphone HCl (Dilaudid Premix 1mg/50ml) 50 ml @ 200 mls/hr Q4H PRN IVPB Moderate Pain (Pain Scale 4-6) 09/12/16 13:45 10/12/16 13:44 Hydromorphone HCl (Dilaudid) 2 mg Q4H PRN IVP Severe Pain (Pain Scale 7-10) 09/19/16 14:30 09/26/16 14:29 09/25/16 14:59 Magnesium Hydroxide (Mom) 30 ml DAILYPRN PRN ORAL Constipation 09/14/16 10:45 10/14/16 10:44 Ondansetron HCl (Zofran) 4 mg Q6H PRN IVP Nausea & Vomiting 09/12/16 13:45 10/12/16 13:44 Pantoprazole (Protonix) 40 mg DAILY IVP 09/13/16 09:00 10/13/16 08:59 09/25/16 10:18 Senna/Docusate Sodium (Tosha-Colace) 1 ea TWICE A DAY ORAL 09/14/16 11:00 10/14/16 10:59 09/25/16 10:09 Vancomycin HCl (Vanco rx to dose) 1 ea DAILY PRN MISC Per rx protocol 09/19/16 20:15 10/19/16 20:14 Vancomycin HCl 1.25 gm/Dextrose 275 ml @ 183.333 mls/hr Q12HR@0100,1300 IVPB 09/22/16 13:00 09/27/16 12:59 09/25/16 13:40 Warfarin Sodium (Coumadin per pharmacy) 1 ea DAILY PRN MISC Per rx protocol 09/16/16 20:45 10/16/16 20:44 Warfarin Sodium (Coumadin) 4 mg COUMADIN PO 09/25/16 17:00 09/25/16 17:01 Warfarin Sodium (Coumadin) 5 mg COUMADIN ORAL 09/25/16 17:00 09/25/16 17:01 Giles Dumas M.D. Sep 25, 2016 15:59
[2016-09-25 16:00] VITALS: BP 129/86
--- NOTE | 2016-09-25 16:40 | General Progress Note ---
Assessment/Plan Assessment/Plan 1. Status post thrombectomy and femorotibial and femoropopliteal bypass with composite saphenous vein graft. Agree with the use of heparin drip in this patient as well as potentially aspirin once he stabilizes. Would benefit from the use of Coumadin anticoagulation with INR above 2 and less than 3. Compliance is crucial importance. 2. Hypercoagulable disorder with recurrence of arterial clots. Currently, he is on heparin drip. 3. Anemia secondary to chronic disease. 4. Decreased hemoglobin and hematocrit, rule out gastrointestinal bleed. 5. Leukocytosis, potentially secondary to underlying infection. 6. Thrombocytopenia, potentially secondary to medications versus infection, now better 7. Weakness and pain status post surgery, better controlled. 8. Blood pressure elevation, now is on amlodipine. RECOMMENDATIONS: 1. Continue heparin drip. 2. Continue coumadin 3. Maintain INR between 2 and 3. 4. Continue ASA 81mg po daily 5. GI prophylaxis with PPI. 6. Pain control with Dilaudid. 7. Maintain hemoglobin above 7. 8. Maintain platelets above 10,000. 9. PT/OT as an outpatient. 10. Potential placement 11. Discussed with staff. Thank you, True Alford MD Subjective Constitutional: Reports: no symptoms HEENT: Reports: no symptoms Cardiovascular: Reports: no symptoms Respiratory: Reports: no symptoms Gastrointestinal/Abdominal: Reports: no symptoms Genitourinary: Reports: no symptoms Neurologic/Psychiatric: Reports: no symptoms Endocrine: Reports: no symptoms Hematologic/Lymphatic: Reports: no symptoms Allergies: Coded Allergies: PENICILLIN G (Unverified Allergy, Unknown, 09/08/16) CODEINE (Unverified Adverse Reaction, Unknown, 05/14/16) MORPHINE (Unverified Adverse Reaction, Unknown, 05/14/16) PENICILLINS (Unverified Adverse Reaction, Unknown, 05/14/16) SHELLFISH DERIVED (Unverified Adverse Reaction, Unknown, Shortness of Breath, 05/14/16) Objective Last 24 Hour Vital Signs Date Time Temp Pulse Resp B/P Pulse Ox O2 Delivery O2 Flow Rate FiO2 09/25/16 11:23 97.9 76 20 123/76 99 Room Air 09/25/16 10:08 81 121/86 09/25/16 08:08 98.2 75 20 141/85 100 Room Air 09/25/16 04:10 98.1 58 20 121/74 94 Room Air 09/25/16 00:19 97.3 75 20 146/93 99 Room Air 09/24/16 23:02 98.1 09/24/16 19:00 98.1 75 20 112/66 100 Room Air Intake and Output 09/24/16 09/25/16 19:00 07:00 Intake Total 700 ml 829.538 ml Output Total 700 ml Balance 700 ml 129.538 ml Intake Oral 700 ml 340 ml IV Total 489.538 ml Output Urine Total 700 ml # Voids 4 5 Laboratory Tests 09/24/16 18:30: Activated Partial Thromboplast Time 42H 09/25/16 07:00: Activated Partial Thromboplast Time 91H, Prothrombin Time 19.3H, Prothromb Time International Ratio 1.9H Height (Feet): 5 Height (Inches): 11.00 Weight (Pounds): 171 General Appearance: no apparent distress EENT: TMs normal Neck: supple Cardiovascular: normal rate Respiratory/Chest: lungs clear Abdomen: soft Extremities: non-tender Edema: no edema noted Arm (L), no edema noted Arm (R), no edema noted Leg (L), no edema noted Leg (R), no edema noted Pedal (L), no edema noted Pedal (R), no edema noted Generalized Edema: mild edema Neurologic: alert Skin: warm/dry Lymphatic: normal anterior cervical (L), normal anterior cervical (R), normal axillary (L), normal axillary (R), normal inguinal (L), normal inguinal (R), normal other, normal posterior cervical (L), normal posterior cervical (R), normal submandibular (L), normal submandibular (R), normal supraclavicular (L), normal supraclavicular (R) TRUE ALFORD Sep 25, 2016 16:40
[2016-09-25] MEDS ORDERED: Warfarin Sodium 4mg PO SCH (17:00)
[2016-09-25] MEDS ORDERED: Warfarin Sodium 5mg ORAL SCH (17:00)
--- NOTE | 2016-09-25 18:33 | General Progress Note ---
Assessment/Plan Status: stable Assessment/Plan s/p thrombectomy of fem tib PTFE bypass Profunda common peroneal bypass with composite saphenous vein graft thrombectomy of common peroneal and posterior tibial artery veno-venostomy saphenous; 09/09/16 with vascular surgery left femoral popliteal by pass with greater saphenous vein popliteal and tibial thrombectomy s/p skin grafting 09/16/16 w/ infection due to MDR Acinetobacter Baumannii and coag negative staph , will continue colistin and vancomycin to cover for coag negative staph, will treat for two weeks total starting from 09/16/16 BP control--stable and controlled with resumed amlodipine increased pain control with Dil, 2 mg IV q4h breakthrough severe pain--now controlled ctm h and h; Hg improved heparin gtt cont heparin gtt until INR therapeutic Cont ASA 81mg qd cont on coumadin per heme; INR goal 2-3 bowel regimen PT/OT PICC line placed for IV abx Needs INR>2 prior to d/c per heme/onc Time spent: 35min D/w pt, RN, CM Subjective Date patient seen: Sep 25, 2016 Time patient seen: 18:33 ROS Limited/Unobtainable: No Allergies: Coded Allergies: PENICILLIN G (Unverified Allergy, Unknown, 09/08/16) CODEINE (Unverified Adverse Reaction, Unknown, 05/14/16) MORPHINE (Unverified Adverse Reaction, Unknown, 05/14/16) PENICILLINS (Unverified Adverse Reaction, Unknown, 05/14/16) SHELLFISH DERIVED (Unverified Adverse Reaction, Unknown, Shortness of Breath, 05/14/16) Subjective Pt doing well Denies f/c, n/v, d/c, chest pain, SOB Able to ambulate Does not want to go to SNF. States will go home w/ who will help him PICC line placed Seen by surgery and cleared for discharge D/w heme/onc--need INR>2 prior to discharge Objective Last 24 Hour Vital Signs Date Time Temp Pulse Resp B/P Pulse Ox O2 Delivery O2 Flow Rate FiO2 09/25/16 16:00 97.7 70 20 129/86 100 Room Air 09/25/16 11:23 97.9 76 20 123/76 99 Room Air 09/25/16 10:08 81 121/86 09/25/16 08:08 98.2 75 20 141/85 100 Room Air 09/25/16 04:10 98.1 58 20 121/74 94 Room Air 09/25/16 00:19 97.3 75 20 146/93 99 Room Air 09/24/16 23:02 98.1 09/24/16 19:00 98.1 75 20 112/66 100 Room Air Intake and Output 09/24/16 09/25/16 19:00 07:00 Intake Total 700 ml 829.538 ml Output Total 700 ml Balance 700 ml 129.538 ml Intake Oral 700 ml 340 ml IV Total 489.538 ml Output Urine Total 700 ml # Voids 4 5 Laboratory Tests 09/25/16 07:00: Prothrombin Time 19.3H, Prothromb Time International Ratio 1.9H, Activated Partial Thromboplast Time 91H Height (Feet): 5 Height (Inches): 11.00 Weight (Pounds): 171 Objective General Appearance: well appearing, alert, mild distress Head: normocephalic, atraumatic Eyes: bilateral eye EOMI, bilateral eye PERRL ENT: hearing grossly normal, normal pharynx Neck: full range of motion, supple, no meningismus Respiratory: chest non-tender, lungs clear, normal breath sounds Cardiovascular #1: regular rate, rhythm, no murmur Gastrointestinal: normal bowel sounds, non tender, no mass, no organomegaly, no bruit, non-distended Musculoskeletal: back normal, normal range of motion, other - Left leg: He has normal sensation of the thigh. He has decreased sensation of the lower extremity from the knee to the ankle. He has minimal sensation of the foot. pulses equal. Is able to move his knee, ankle, and toes. Neurologic: alert, oriented x3; 5/5 in RLE; 4+/5 in LLE Psychiatric: mood/affect normal Skin: warm/dry; incision intact Jose Alejandro Fisher M.D. Sep 25, 2016 18:33
[2016-09-25 20:13] VITALS: BP 123/78
[2016-09-26 00:12] VITALS: BP 127/75
[2016-09-26] MEDS: Vancomycin 1250mg/D5W 275ml IVPB SCH ×4 (01:01→13:06)
[2016-09-26] MEDS: Heparin 25,000u/D5W 500ml 500 ML IV SCH (01:02)
[2016-09-26 04:07] VITALS: BP 122/76
[2016-09-26 06:32] LABS: BASOPHILS % (AUTO) 0.9 % (0.0-2.0); EOSINOPHILS % (AUTO) 0.1 % (0.0-3.0); LYMPHOCYTES % (AUTO) 42.3 % (20.0-45.0); MEAN CORPUSCULAR HGB CONC 32.6 G/DL (32.0-36.0); MEAN CORPUSCULAR VOLUME 86 FL (80-99); MONOCYTES % (AUTO) 5.8 % (1.0-10.0); PLATELET COUNT 429 K/UL (150-450); RED BLOOD COUNT 3.37 M/UL (4.70-6.10); RED CELL DISTRIBUTION WIDTH 14.2 % (11.6-14.8); WHITE BLOOD COUNT 6.8 K/UL (4.8-10.8)
[2016-09-26 06:50] LABS: ANION GAP 13 (5-15); CALCIUM 9.2 mg/dL (8.6-10.2); CARBON DIOXIDE 28 mEQ/L (20-30); CHLORIDE 96 mEQ/L (98-107); CREATININE 1.3 mg/dL (0.7-1.2); GLOMERULAR FILTRATION RATE > 60 mL/min (>60); HEMOLYSIS 1; POTASSIUM 4.3 mEQ/L (3.4-4.9); SODIUM 137 mEQ/L (135-145)
[2016-09-26 07:04] LABS: INR 2.3 (0.9-1.1); PROTHROMBIN TIME 23.8 SEC (9.30-11.50)
[2016-09-26] MEDS ORDERED: Heparin 25,000u/D5W 500ml 500 ML IV SCH (07:43)
[2016-09-26 08:00] VITALS: BP 130/80
[2016-09-26] MEDS: Pericolace tab ORAL SCH ×2 (09:43→18:08)
[2016-09-26] MEDS: Aspirin Baby 81mg ORAL SCH (09:43)
[2016-09-26] MEDS: Pantoprazole Inj IVP SCH (09:43)
[2016-09-26] MEDS: Colistin 150mg vial IVP SCH ×2 (09:44→22:03)
--- NOTE | 2016-09-26 11:50 | General Progress Note ---
Assessment/Plan Problem List: (1) DANIEL (acute kidney injury) ICD Codes: N17.9 - Acute kidney failure, unspecified SNOMED: 58493067 (2) MDR Acinetobacter baumannii infection ICD Codes: A49.9 - Bacterial infection, unspecified; Z16.24 - Resistance to multiple antibiotics SNOMED: 821523180 (3) Skin graft infection ICD Codes: T86.822 - Skin graft (allograft) (autograft) infection SNOMED: 493978696 (4) Femoral-popliteal bypass graft occlusion, left ICD Codes: T82.392A - Other mechanical complication of femoral arterial graft ( bypass), initial encounter SNOMED: 236038562 (5) Acute blood loss anemia ICD Codes: D62 - Acute posthemorrhagic anemia SNOMED: 706023443 (6) Arterial occlusion, lower extremity ICD Codes: I74.3 - Embolism and thrombosis of arteries of the lower extremities SNOMED: 261432730 (7) PVD (peripheral vascular disease) ICD Codes: I73.9 - Peripheral vascular disease, unspecified SNOMED: 610214862 Status: stable Assessment/Plan s/p thrombectomy of fem tib PTFE bypass Profunda common peroneal bypass with composite saphenous vein graft thrombectomy of common peroneal and posterior tibial artery veno-venostomy saphenous; 09/09/16 with vascular surgery left femoral popliteal by pass with greater saphenous vein popliteal and tibial thrombectomy s/p skin grafting 09/16/16 w/ infection due to MDR Acinetobacter Baumannii and coag negative staph , will continue colistin and vancomycin to cover for coag negative staph, will treat for two weeks total starting from 09/16/16 BP control--stable and controlled with resumed amlodipine increased pain control with Dil, 2 mg IV q4h breakthrough severe pain--now controlled ctm h and h; Hg improved heparin gtt cont heparin gtt until INR therapeutic Cont ASA 81mg qd cont on coumadin per heme; INR goal 2-3 bowel regimen PT/OT PICC placed Given SCr incr to 1.3, wll repeat BMP in AM Check vacno level per pharmacy givenAKI Time spent: 35min D/w pt, RN, CM Subjective Date patient seen: Sep 26, 2016 Time patient seen: 11:49 ROS Limited/Unobtainable: No Constitutional: Reports: no symptoms HEENT: Reports: no symptoms Cardiovascular: Reports: no symptoms Respiratory: Reports: no symptoms Gastrointestinal/Abdominal: Reports: no symptoms Genitourinary: Reports: no symptoms Neurologic/Psychiatric: Reports: no symptoms Endocrine: Reports: no symptoms Hematologic/Lymphatic: Reports: no symptoms Allergies: Coded Allergies: PENICILLIN G (Unverified Allergy, Unknown, 09/08/16) CODEINE (Unverified Adverse Reaction, Unknown, 05/14/16) MORPHINE (Unverified Adverse Reaction, Unknown, 05/14/16) PENICILLINS (Unverified Adverse Reaction, Unknown, 05/14/16) SHELLFISH DERIVED (Unverified Adverse Reaction, Unknown, Shortness of Breath, 05/14/16) Subjective Pt doing well Denies f/c, n/v, d/c, chest pain, SOB Able to ambulate Does not want to go to SNF. States will go home w/ who will help him PICC lne placed INR 2.3 SCr increased to 1.3 Objective Last 24 Hour Vital Signs Date Time Temp Pulse Resp B/P Pulse Ox O2 Delivery O2 Flow Rate FiO2 09/26/16 09:48 65 129/70 09/26/16 08:00 97.7 59 18 130/80 100 Room Air 59 09/26/16 05:39 97.9 09/26/16 04:07 97.9 63 21 122/76 100 Room Air 09/26/16 00:12 98.2 69 20 127/75 98 Room Air 09/25/16 20:13 98.2 72 22 123/78 97 Room Air 09/25/16 16:00 97.7 70 20 129/86 100 Room Air Intake and Output 09/25/16 09/26/16 19:00 07:00 Intake Total 1275.076 ml 1610.076 ml Output Total 1200 ml 2500 ml Balance 75.076 ml -889.924 ml Intake Oral 960 ml 1000 ml IV Total 315.076 ml 610.076 ml Output Urine Total 1200 ml 2500 ml # Voids 3 # Bowel Movements 2 Laboratory Tests 09/26/16 05:00: White Blood Count 6.8, Red Blood Count 3.37L, Hemoglobin 9.4L, Hematocrit 28.9L , Mean Corpuscular Volume 86, Mean Corpuscular Hemoglobin 28.0, Mean Corpuscular Hemoglobin Concent 32.6, Red Cell Distribution Width 14.2, Platelet Count 429, Mean Platelet Volume 5.0L, Neutrophils (%) (Auto) 51.0, Lymphocytes ( %) (Auto) 42.3, Monocytes (%) (Auto) 5.8, Eosinophils (%) (Auto) 0.1, Basophils (%) (Auto) 0.9, Prothrombin Time 23.8H, Prothromb Time International Ratio 2.3H , Activated Partial Thromboplast Time 112H, Sodium Level 137, Potassium Level 4.3, Chloride Level 96L, Carbon Dioxide Level 28, Anion Gap 13, Blood Urea Nitrogen 14, Creatinine 1.3H, Estimat Glomerular Filtration Rate > 60, Glucose Level 113H, Calcium Level 9.2 Height (Feet): 5 Height (Inches): 11.00 Weight (Pounds): 171 Objective General Appearance: well appearing, alert, mild distress Head: normocephalic, atraumatic Eyes: bilateral eye EOMI, bilateral eye PERRL ENT: hearing grossly normal, normal pharynx Neck: full range of motion, supple, no meningismus Respiratory: chest non-tender, lungs clear, normal breath sounds Cardiovascular #1: regular rate, rhythm, no murmur Gastrointestinal: normal bowel sounds, non tender, no mass, no organomegaly, no bruit, non-distended Musculoskeletal: back normal, normal range of motion, other - Left leg: He has normal sensation of the thigh. He has decreased sensation of the lower extremity from the knee to the ankle. He has minimal sensation of the foot. pulses equal. Is able to move his knee, ankle, and toes. Neurologic: alert, oriented x3; 5/5 in RLE; 4+/5 in LLE Psychiatric: mood/affect normal Skin: warm/dry; incision intact Jose Alejandro Fisher M.D. Sep 26, 2016 11:49
[2016-09-26 12:00] VITALS: BP 121/75
--- NOTE | 2016-09-26 13:25 | General Progress Note ---
Assessment/Plan Assessment/Plan ASSESSMENT: 1. Status post thrombectomy and femorotibial and femoropopliteal bypass with composite saphenous vein graft. Continue coumadin 2. Hypercoagulable disorder with recurrence of arterial clots. On coumadin. 3. Anemia secondary to chronic disease. 4. Decreased hemoglobin and hematocrit, rule out gastrointestinal bleed. 5. Leukocytosis, potentially secondary to underlying infection. 6. Thrombocytopenia, potentially secondary to medications versus infection, now better 7. Weakness and pain status post surgery, better controlled. 8. Blood pressure elevation, now on amlodipine. RECOMMENDATIONS: 1. Will dicontinue heparin gtt, since therapeutic INR 2. Continue coumadin 3. Maintain INR between 2 - 3. 4. Continue ASA 81mg po daily 5. GI prophylaxis with PPI. 6. Pain control with Dilaudid. 7. Maintain hemoglobin > 7. 8. Maintain platelets > 10k 9. Potential placement 10. staff. Thank you, Omar Alford MD Subjective Constitutional: Reports: no symptoms HEENT: Reports: no symptoms Cardiovascular: Reports: no symptoms Respiratory: Reports: no symptoms Gastrointestinal/Abdominal: Reports: poor appetite Genitourinary: Reports: no symptoms Neurologic/Psychiatric: Reports: no symptoms Endocrine: Reports: no symptoms Hematologic/Lymphatic: Reports: anemia Allergies: Coded Allergies: PENICILLIN G (Unverified Allergy, Unknown, 09/08/16) CODEINE (Unverified Adverse Reaction, Unknown, 05/14/16) MORPHINE (Unverified Adverse Reaction, Unknown, 05/14/16) PENICILLINS (Unverified Adverse Reaction, Unknown, 05/14/16) SHELLFISH DERIVED (Unverified Adverse Reaction, Unknown, Shortness of Breath, 05/14/16) Subjective stable, no fevers or chills, no night sweats, on coumadin Objective Last 24 Hour Vital Signs Date Time Temp Pulse Resp B/P Pulse Ox O2 Delivery O2 Flow Rate FiO2 09/26/16 09:48 65 129/70 09/26/16 08:00 97.7 59 18 130/80 100 Room Air 59 09/26/16 05:39 97.9 09/26/16 04:07 97.9 63 21 122/76 100 Room Air 09/26/16 00:12 98.2 69 20 127/75 98 Room Air 09/25/16 20:13 98.2 72 22 123/78 97 Room Air 09/25/16 16:00 97.7 70 20 129/86 100 Room Air Intake and Output 09/25/16 09/26/16 19:00 07:00 Intake Total 1275.076 ml 1610.076 ml Output Total 1200 ml 2500 ml Balance 75.076 ml -889.924 ml Intake Oral 960 ml 1000 ml IV Total 315.076 ml 610.076 ml Output Urine Total 1200 ml 2500 ml # Voids 3 # Bowel Movements 2 Laboratory Tests 09/26/16 05:00: White Blood Count 6.8, Red Blood Count 3.37L, Hemoglobin 9.4L, Hematocrit 28.9L , Mean Corpuscular Volume 86, Mean Corpuscular Hemoglobin 28.0, Mean Corpuscular Hemoglobin Concent 32.6, Red Cell Distribution Width 14.2, Platelet Count 429, Mean Platelet Volume 5.0L, Neutrophils (%) (Auto) 51.0, Lymphocytes ( %) (Auto) 42.3, Monocytes (%) (Auto) 5.8, Eosinophils (%) (Auto) 0.1, Basophils (%) (Auto) 0.9, Prothrombin Time 23.8H, Prothromb Time International Ratio 2.3H , Activated Partial Thromboplast Time 112H, Sodium Level 137, Potassium Level 4.3, Chloride Level 96L, Carbon Dioxide Level 28, Anion Gap 13, Blood Urea Nitrogen 14, Creatinine 1.3H, Estimat Glomerular Filtration Rate > 60, Glucose Level 113H, Calcium Level 9.2 Height (Feet): 5 Height (Inches): 11.00 Weight (Pounds): 171 General Appearance: no apparent distress EENT: TMs normal Neck: normal alignment Cardiovascular: regular rhythm Respiratory/Chest: no respiratory distress Abdomen: no mass Extremities: non-tender Edema: 1+ Leg (L), 1+ Leg (R), 1+ Pedal (L), 1+ Pedal (R) Edema: mild edema Neurologic: oriented x 3 Skin: warm/dry Omar Alford Sep 26, 2016 13:25
[2016-09-26 16:00] VITALS: BP 131/79
[2016-09-26] MEDS ORDERED: Warfarin Sodium 4mg PO SCH (17:00)
[2016-09-26] MEDS ORDERED: Warfarin Sodium 3mg ORAL SCH (17:00)
[2016-09-26] MEDS ORDERED: VANCOMYCIN1 GM/2502 IVPB ×2 (17:54→19:10)
[2016-09-26] MEDS ORDERED: COLISTIMETHATE150 M1 IJ (19:11)
[2016-09-26 20:00] VITALS: BP 118/74
[2016-09-27] VITALS: BP 124/75
[2016-09-27] MEDS: Vancomycin 1250mg/D5W 275ml IVPB SCH ×4 (02:04→13:22)
[2016-09-27 04:00] VITALS: BP 118/71
[2016-09-27 08:41] LABS: ANION GAP 15 (5-15); CALCIUM 8.8 mg/dL (8.6-10.2); CARBON DIOXIDE 25 mEQ/L (20-30); CHLORIDE 98 mEQ/L (98-107); CREATININE 1.3 mg/dL (0.7-1.2); GLOMERULAR FILTRATION RATE > 60 mL/min (>60); HEMOLYSIS 2; MAGNESIUM 1.6 mg/dL (1.7-2.5); PHOSPHORUS 4.9 mg/dL (2.5-4.8); POTASSIUM 3.9 mEQ/L (3.4-4.9); SODIUM 138 mEQ/L (135-145)
[2016-09-27 08:48] VITALS: BP 130/75
[2016-09-27] MEDS: Aspirin Baby 81mg ORAL SCH (09:09)
[2016-09-27] MEDS: Pericolace tab ORAL SCH ×2 (09:09→17:59)
[2016-09-27] MEDS: Colistin 150mg vial IVP SCH (09:17)
[2016-09-27 10:34] LABS: INR 2.6 (0.9-1.1); PROTHROMBIN TIME 27.7 SEC (9.30-11.50)
--- NOTE | 2016-09-27 11:31 | General Progress Note ---
Assessment/Plan Assessment/Plan ASSESSMENT: 1. Status post thrombectomy and femorotibial and femoropopliteal bypass with composite saphenous vein graft. Continue coumadin 2. Hypercoagulable disorder with recurrence of arterial clots. On coumadin. 3. Anemia secondary to chronic disease. 4. Decreased hemoglobin and hematocrit, rule out gastrointestinal bleed. 5. Leukocytosis, potentially secondary to underlying infection. 6. Thrombocytopenia, potentially secondary to medications versus infection, now better 7. Weakness and pain status post surgery, better controlled. 8. Blood pressure elevation, now on amlodipine. RECOMMENDATIONS: 1. Off heparin gtt, stable for d/c for heme 2. Continue coumadin 3. Maintain INR between 2 - 3. 4. Continue ASA 81mg po daily 5. GI prophylaxis with PPI. 6. Pain control with Dilaudid. 7. Maintain hemoglobin > 7. 8. Maintain platelets > 10k 9. Potential placement 10. staff. Thank you, Omar Alford MD Subjective Constitutional: Reports: no symptoms HEENT: Reports: no symptoms Cardiovascular: Reports: no symptoms Respiratory: Reports: no symptoms Gastrointestinal/Abdominal: Reports: no symptoms Genitourinary: Reports: burning Neurologic/Psychiatric: Reports: no symptoms Endocrine: Reports: no symptoms Hematologic/Lymphatic: Reports: anemia Allergies: Coded Allergies: PENICILLIN G (Unverified Allergy, Unknown, 09/08/16) CODEINE (Unverified Adverse Reaction, Unknown, 05/14/16) MORPHINE (Unverified Adverse Reaction, Unknown, 05/14/16) PENICILLINS (Unverified Adverse Reaction, Unknown, 05/14/16) SHELLFISH DERIVED (Unverified Adverse Reaction, Unknown, Shortness of Breath, 05/14/16) Subjective stable, no fevers or chills, no night sweats, is on coumadin Objective Last 24 Hour Vital Signs Date Time Temp Pulse Resp B/P Pulse Ox O2 Delivery O2 Flow Rate FiO2 09/27/16 09:39 97.8 09/27/16 09:08 77 130/75 09/27/16 08:48 97.8 77 20 130/75 98 Room Air 09/27/16 04:00 98.2 18 118/71 100 Room Air 09/27/16 00:00 97.9 69 18 124/75 99 Room Air 09/26/16 20:00 98.9 98 22 118/74 99 Room Air 09/26/16 16:00 98.0 60 19 131/79 100 Room Air 09/26/16 12:00 96.7 65 20 121/75 99 Room Air Intake and Output 09/26/16 09/27/16 19:00 07:00 Intake Total 1614.614 ml 1860.000 ml Output Total 1100 ml 2550 ml Balance 514.614 ml -690.000 ml Intake Oral 1200 ml 1585 ml IV Total 414.614 ml 275.000 ml Output Urine Total 1100 ml 2550 ml # Voids 2 Laboratory Tests 09/26/16 14:45: Activated Partial Thromboplast Time 62H 09/27/16 00:00: Vancomycin Level Trough 19.4H 09/27/16 07:30: Sodium Level 138, Potassium Level 3.9, Chloride Level 98, Carbon Dioxide Level 25, Anion Gap 15, Blood Urea Nitrogen 11, Creatinine 1.3H, Estimat Glomerular Filtration Rate > 60, Glucose Level 113H, Calcium Level 8.8, Phosphorus Level 4.9H, Magnesium Level 1.6L 09/27/16 10:00: Prothrombin Time 27.7H, Prothromb Time International Ratio 2.6H Height (Feet): 5 Height (Inches): 11.00 Weight (Pounds): 171 General Appearance: no apparent distress EENT: TMs normal Neck: normal inspection Cardiovascular: normal rate Respiratory/Chest: normal breath sounds Abdomen: non tender Extremities: non-tender Edema: 1+ Leg (L), 1+ Leg (R) Edema: mild edema Neurologic: alert Skin: warm/dry Omar Alford Sep 27, 2016 11:31
[2016-09-27] MEDS ORDERED: COUMADIN5 MG ORAL (12:42)
[2016-09-27] MEDS ORDERED: PROTONIX40 MG ORAL (12:42)
[2016-09-27 12:58] VITALS: BP 115/70
--- NOTE | 2016-09-27 13:06 | Discharge Instructions ---
Discharge Instructions Discharge Instructions Follow up with: F/u with hematology Dr. Alford in 1-2 days--call Call MD/Return to Hospital if: increasing swelling, pain, redness of leg; fevers/chills, chest pain, SOB Services at Discharge: home health services Diet: cardiac 2 GM Na, low fat Resume Normal Activity?: Yes Activity: resume normal activities Follow Up Orders Follow up with surgery Dr. Kumar in 1 week For Surgical Patients Clean and Dry: surgical site Dressing Care: keep dry and clean Contact your physician for: bleeding, pain, tenderness, redness, swelling, yellowish discharge in the op. site For Congestive Heart Failure Reminder Report to your physician any weight gain of 5 pounds or more in one week. Jose Alejandro Fisher M.D. Sep 27, 2016 13:06
--- NOTE | 2016-09-27 13:09 | Discharge Summary ---
Discharge Summary Hospital Course Date of Admission Sep 09, 2016 at 00:51 Date of Discharge 09/27/16 Admitting Diagnosis ARTERIAL OCCLUSION HPI Kristian Eden Page Jr is a 50 year old male who was admitted on Sep 09, 2016 at 00:51 for Arterial Occlusion Discharge Condition Upon Discharge: stable Discharge Disposition Patient was discharged to Discharge Diagnoses: Discharge Instructions Discharge Instructions Follow up with: F/u with hematology Dr. Alford in 1-2 days--call Call MD/Return to Hospital if: increasing swelling, pain, redness of leg; fevers/chills, chest pain, SOB Services Upon Discharge: home health services Activity: resume normal activities For Surgical Patients Clean and Dry: surgical site Dressing Care: keep dry and clean Contact your physician for: bleeding, pain, tenderness, redness, swelling, yellowish discharge in the op. site Jose Alejandro Fisher M.D. Sep 27, 2016 13:09
[2016-09-27 16:11] VITALS: BP 106/72
[2016-09-27] MEDS ORDERED: Warfarin Sod 3 MG, Warfarin Sod 4 MG ORAL ONE ×2 (17:00)
--- NOTE | 2016-09-27 17:14 | Infectious Diseases Prog Note ---
Assessment/Plan Problems: (1) MDR Acinetobacter baumannii infection Assessment & Plan: of the left leg , surgical wound was cultured again and it grew the same organisms , wound looked ok as per Dr Kumar, will stop iv colistin , and switch to iv doxycycline since his creatinine is going up , will treat for two weeks , continue local wound care and dressing changes as per vascular. EOT 09/30/16 (2) Femoral-popliteal bypass graft occlusion, left Assessment & Plan: s/p thrombectomy of fem tib PTFE bypass , Profunda common peroneal bypass with composite saphenous vein graft , thrombectomy of common peroneal and posterior tibial artery veno-venostomy saphenous by vascular surgery (3) Skin graft infection Assessment & Plan: due to MDR Acinetobacter Baumannii and coag negative staph , improving on colistin and vancomycin , but his creatinine is going up , so will stop colistin and start doxycycline to finish his course of therapy , will treat for two weeks total starting from 09/16/16. continue to monitor trough for vancomycin as per pharmacy (4) DANIEL (acute kidney injury) Assessment & Plan: suspect dehydration plus antibiotics related, will stop colistin, and start ivf for hydration and monitor overnight Subjective Constitutional: Denies: anorexia, chills, drenching sweats, fatigue, fever, no symptoms, other HEENT: Denies: congestion, coryza, dysphagia, hearing change, no symptoms, other, visual change Respiratory: Denies: dry cough, no symptoms, other, productive cough, shortness of breath Breasts: Denies: discharge, no symptoms, other, swelling, tenderness Cardiovascular: Denies: chest pain, dyspnea on exertion, no symptoms, other, palpitations Gastrointestinal/Abdominal: Denies: bloating, blood in stool, constipation, diarrhea, nausea, no symptoms, other, vomiting Genitourinary: Denies: dysuria, frequency, hematuria, no symptoms, nocturia, other Neurologic: Denies: confusion, headache, no symptoms, numbness, other, weakness Psychiatric: Denies: anxiety, depression, no symptoms, other Skin: Denies: no symptoms, other, rash, ulcer Endocrine: Denies: feels cold, feels warm, no symptoms, other Musculoskeletal: Reports: pain, stiffness Allergies: Coded Allergies: PENICILLIN G (Unverified Allergy, Unknown, 09/08/16) CODEINE (Unverified Adverse Reaction, Unknown, 05/14/16) MORPHINE (Unverified Adverse Reaction, Unknown, 05/14/16) PENICILLINS (Unverified Adverse Reaction, Unknown, 05/14/16) SHELLFISH DERIVED (Unverified Adverse Reaction, Unknown, Shortness of Breath, 05/14/16) Objective Vital Signs Last 24 Hour Vital Signs Date Time Temp Pulse Resp B/P Pulse Ox O2 Delivery O2 Flow Rate FiO2 09/27/16 16:11 98.1 65 20 106/72 98 Room Air 09/27/16 14:03 97.9 09/27/16 12:58 97.9 72 20 115/70 100 Room Air 09/27/16 09:08 77 130/75 09/27/16 08:48 97.8 77 20 130/75 98 Room Air 09/27/16 04:00 98.2 18 118/71 100 Room Air 09/27/16 00:00 97.9 69 18 124/75 99 Room Air 09/26/16 20:00 98.9 98 22 118/74 99 Room Air Height (Feet): 5 Height (Inches): 11.00 Weight (Pounds): 171 General Appearance: WD/WN, no acute distress HEENT: normocephalic, atraumatic, anicteric, mucous membranes moist Respiratory/Chest: chest wall non-tender, lungs clear, normal breath sounds, no respiratory distress, no accessory muscle use Cardiovascular: normal peripheral pulses, normal rate, regular rhythm, no gallop/murmur, no JVD Abdomen: normal bowel sounds, soft, non tender, no organomegaly, non distended , no mass Extremities: no cyanosis, no clubbing, other - left leg surgical wound Skin: no rash, no lesions Laboratory Tests Test 09/27/16 00:00 09/27/16 07:30 09/27/16 10:00 Vancomycin Level Trough 19.4 ug/mL (5.0-12.0) H Sodium Level 138 mEQ/L (135-145) Potassium Level 3.9 mEQ/L (3.4-4.9) Chloride Level 98 mEQ/L (98-107) Carbon Dioxide Level 25 mEQ/L (20-30) Anion Gap 15 (5-15) Blood Urea Nitrogen 11 mg/dL (7-23) Creatinine 1.3 mg/dL (0.7-1.2) H Estimat Glomerular Filtration Rate > 60 mL/min (>60) Glucose Level 113 mg/dL (74-106) H Calcium Level 8.8 mg/dL (8.6-10.2) Phosphorus Level 4.9 mg/dL (2.5-4.8) H Magnesium Level 1.6 mg/dL (1.7-2.5) L Prothrombin Time 27.7 SEC (9.30-11.50) H Prothromb Time International Ratio 2.6 (0.9-1.1) H Current Medications Medications (Trade) Dose Ordered Sig/Leidy Route PRN Reason Start Time Stop Time Status Last Admin Dose Admin Al Hydroxide/Mg Hydroxide (Mylanta) 30 ml Q6H PRN ORAL for heartburn 09/12/16 14:15 10/12/16 14:14 Amlodipine Besylate (Norvasc) 10 mg DAILY ORAL 09/13/16 09:00 10/13/16 08:59 09/27/16 09:08 Aspirin 81 mg 81 mg DAILY ORAL 09/21/16 14:00 10/21/16 13:59 09/27/16 09:09 Bisacodyl (Dulcolax) 10 mg DAILYPRN PRN RECTAL Constipation 09/14/16 10:45 10/14/16 10:44 Doxycycline Hyclate 100 mg/ Dextrose 110 ml @ 110 mls/hr Q12HR IV 09/27/16 21:00 10/04/16 20:59 Hydromorphone HCl (Dilaudid Premix 1mg/50ml) 50 ml @ 200 mls/hr Q4H PRN IVPB Moderate Pain (Pain Scale 4-6) 09/12/16 13:45 10/12/16 13:44 Hydromorphone HCl (Dilaudid) 2 mg Q4H PRN IVP Severe Pain (Pain Scale 7-10) 09/26/16 18:00 10/03/16 17:59 09/27/16 13:33 Magnesium Hydroxide (Mom) 30 ml DAILYPRN PRN ORAL Constipation 09/14/16 10:45 10/14/16 10:44 Ondansetron HCl (Zofran) 4 mg Q6H PRN IVP Nausea & Vomiting 09/12/16 13:45 10/12/16 13:44 Pantoprazole 40 mg 40 mg DAILY ORAL 09/27/16 09:00 10/27/16 08:59 09/27/16 09:08 Senna/Docusate Sodium (Tosha-Colace) 1 ea TWICE A DAY ORAL 09/14/16 11:00 10/14/16 10:59 09/27/16 09:09 Sodium Chloride (0.45% NS 1000ml) 1,000 ml @ 75 mls/hr [id number] IV 09/27/16 16:00 10/27/16 15:59 Vancomycin HCl (Vanco rx to dose) 1 ea DAILY PRN MISC Per rx protocol 09/26/16 13:45 10/26/16 13:44 Vancomycin HCl/ Dextrose (Vancomycin/D5W) 275 ml @ 183.333 mls/hr Q12HR@0100,1300 IVPB 09/22/16 13:00 10/01/16 00:59 09/27/16 13:22 Warfarin Sodium (Coumadin per pharmacy) 1 ea DAILY PRN MISC Per rx protocol 09/16/16 20:45 10/16/16 20:44 Giles Dumas M.D. Sep 27, 2016 17:14
[2016-09-27 20:00] VITALS: BP 126/77
[2016-09-27] MEDS: Doxycycline Hyclate 100 MG in D5W 110 ML IV SCH (20:39)
--- NOTE | 2016-09-27 20:46 | General Progress Note ---
Assessment/Plan Problem List: (1) DANIEL (acute kidney injury) ICD Codes: N17.9 - Acute kidney failure, unspecified SNOMED: 01421114 (2) MDR Acinetobacter baumannii infection ICD Codes: A49.9 - Bacterial infection, unspecified; Z16.24 - Resistance to multiple antibiotics SNOMED: 893902376 (3) Skin graft infection ICD Codes: T86.822 - Skin graft (allograft) (autograft) infection SNOMED: 773810702 (4) Femoral-popliteal bypass graft occlusion, left ICD Codes: T82.392A - Other mechanical complication of femoral arterial graft ( bypass), initial encounter SNOMED: 859547149 (5) Acute blood loss anemia ICD Codes: D62 - Acute posthemorrhagic anemia SNOMED: 569516173 (6) Arterial occlusion, lower extremity ICD Codes: I74.3 - Embolism and thrombosis of arteries of the lower extremities SNOMED: 877066363 (7) PVD (peripheral vascular disease) ICD Codes: I73.9 - Peripheral vascular disease, unspecified SNOMED: 381146199 Status: stable Assessment/Plan s/p thrombectomy of fem tib PTFE bypass Profunda common peroneal bypass with composite saphenous vein graft thrombectomy of common peroneal and posterior tibial artery veno-venostomy saphenous; 09/09/16 with vascular surgery left femoral popliteal by pass with greater saphenous vein popliteal and tibial thrombectomy s/p skin grafting 09/16/16 w/ infection due to MDR Acinetobacter Baumannii and coag negative staph , will continue colistin and vancomycin to cover for coag negative staph, will treat for two weeks total starting from 09/16/16 BP control--stable and controlled with resumed amlodipine increased pain control with Dil, 2 mg IV q4h breakthrough severe pain--now controlled ctm h and h; Hg improved heparin gtt cont heparin gtt until INR therapeutic Cont ASA 81mg qd cont on coumadin per heme; INR goal 2-3 bowel regimen PT/OT PICC placed Given SCr incr to 1.3, wll repeat BMP in AM IVFs started Avoid nephrotoxic agents Time spent: 35min D/w pt, RN, CM Subjective Date patient seen: Sep 27, 2016 Time patient seen: 12:00 ROS Limited/Unobtainable: No Constitutional: Reports: no symptoms HEENT: Reports: no symptoms Cardiovascular: Reports: no symptoms Respiratory: Reports: no symptoms Gastrointestinal/Abdominal: Reports: no symptoms Genitourinary: Reports: no symptoms Neurologic/Psychiatric: Reports: no symptoms Endocrine: Reports: no symptoms Hematologic/Lymphatic: Reports: no symptoms Allergies: Coded Allergies: PENICILLIN G (Unverified Allergy, Unknown, 09/08/16) CODEINE (Unverified Adverse Reaction, Unknown, 05/14/16) MORPHINE (Unverified Adverse Reaction, Unknown, 05/14/16) PENICILLINS (Unverified Adverse Reaction, Unknown, 05/14/16) SHELLFISH DERIVED (Unverified Adverse Reaction, Unknown, Shortness of Breath, 05/14/16) All Systems: reviewed and negative except above Subjective Pt doing well Denies f/c, n/v, d/c, chest pain, SOB Able to ambulate Does not want to go to SNF. States will go home w/ who will help him PICC line placed INR 2.6 SCr increased to 1.3 D/c held per ID given concern for abx causing DANIEL Pt started on IVFs Objective Last 24 Hour Vital Signs Date Time Temp Pulse Resp B/P Pulse Ox O2 Delivery O2 Flow Rate FiO2 09/27/16 20:00 98.4 78 20 126/77 98 Room Air 09/27/16 18:30 98.4 09/27/16 16:11 98.1 65 20 106/72 98 Room Air 09/27/16 12:58 97.9 72 20 115/70 100 Room Air 09/27/16 09:08 77 130/75 09/27/16 08:48 97.8 77 20 130/75 98 Room Air 09/27/16 04:00 98.2 18 118/71 100 Room Air 09/27/16 00:00 97.9 69 18 124/75 99 Room Air Intake and Output 09/26/16 09/27/16 19:00 07:00 Intake Total 1614.614 ml 1860.000 ml Output Total 1100 ml 2550 ml Balance 514.614 ml -690.000 ml Intake Oral 1200 ml 1585 ml IV Total 414.614 ml 275.000 ml Output Urine Total 1100 ml 2550 ml # Voids 2 Laboratory Tests 09/27/16 00:00: Vancomycin Level Trough 19.4H 09/27/16 07:30: Sodium Level 138, Potassium Level 3.9, Chloride Level 98, Carbon Dioxide Level 25, Anion Gap 15, Blood Urea Nitrogen 11, Creatinine 1.3H, Estimat Glomerular Filtration Rate > 60, Glucose Level 113H, Calcium Level 8.8, Phosphorus Level 4.9H, Magnesium Level 1.6L 09/27/16 10:00: Prothrombin Time 27.7H, Prothromb Time International Ratio 2.6H Height (Feet): 5 Height (Inches): 11.00 Weight (Pounds): 171 Objective General Appearance: well appearing, alert, mild distress Head: normocephalic, atraumatic Eyes: bilateral eye EOMI, bilateral eye PERRL ENT: hearing grossly normal, normal pharynx Neck: full range of motion, supple, no meningismus Respiratory: chest non-tender, lungs clear, normal breath sounds Cardiovascular #1: regular rate, rhythm, no murmur Gastrointestinal: normal bowel sounds, non tender, no mass, no organomegaly, no bruit, non-distended Musculoskeletal: back normal, normal range of motion, other - Left leg: He has normal sensation of the thigh. He has decreased sensation of the lower extremity from the knee to the ankle. He has minimal sensation of the foot. pulses equal. Is able to move his knee, ankle, and toes. Neurologic: alert, oriented x3; 5/5 in RLE; 4+/5 in LLE Psychiatric: mood/affect normal Skin: warm/dry; incision intact Jose Alejandro Fisher M.D. Sep 27, 2016 20:46
[2016-09-28] VITALS: BP 124/73
[2016-09-28] MEDS: Vancomycin 1250mg/D5W 275ml IVPB SCH ×2 (00:24)
[2016-09-28 04:00] VITALS: BP 119/75
[2016-09-28 06:54] LABS: INR 2.9 (0.9-1.1); PROTHROMBIN TIME 30.5 SEC (9.30-11.50)
[2016-09-28 07:20] LABS: ANION GAP 15 (5-15); CARBON DIOXIDE 23 mEQ/L (20-30); CHLORIDE 96 mEQ/L (98-107); CREATININE 1.4 mg/dL (0.7-1.2); GLOMERULAR FILTRATION RATE > 60 mL/min (>60); HEMOLYSIS 24; POTASSIUM 4.6 mEQ/L (3.4-4.9); SODIUM 134 mEQ/L (135-145)
[2016-09-28 09:25] VITALS: BP 120/94
[2016-09-28] MEDS: Aspirin Baby 81mg ORAL SCH (09:36)
[2016-09-28] MEDS: Pericolace tab ORAL SCH ×2 (09:37→17:40)
[2016-09-28] MEDS: Doxycycline Hyclate 100 MG in D5W 110 ML IV SCH ×2 (10:07→21:25)
[2016-09-28 12:00] VITALS: BP 126/72
[2016-09-28] MEDS: Vancomycin 1gm/D5W 275ml IVPB SCH ×2 (15:14)
--- NOTE | 2016-09-28 15:49 | General Progress Note ---
Assessment/Plan Assessment/Plan ASSESSMENT: 1. Status post thrombectomy and femorotibial and femoropopliteal bypass with composite saphenous vein graft. Continue coumadin 2. Hypercoagulable disorder with recurrence of arterial clots. On coumadin. 3. Anemia secondary to chronic disease. 4. Decreased hemoglobin and hematocrit, rule out gastrointestinal bleed. 5. Leukocytosis, potentially secondary to underlying infection. 6. Thrombocytopenia, potentially secondary to medications versus infection, now better 7. Weakness and pain status post surgery, better controlled. 8. Blood pressure elevation, now on amlodipine. RECOMMENDATIONS: 1. Recheck cbc today 2. Continue coumadin 3. Maintain INR between 2 - 3. 4. Continue ASA 81mg po daily 5. GI prophylaxis with PPI. 6. Pain control with Dilaudid. 7. Maintain hemoglobin > 7. 8. Maintain platelets > 10k 9. Potential placement 10. staff. Thank you, Omar Alford MD Subjective Constitutional: Reports: no symptoms HEENT: Reports: no symptoms Cardiovascular: Reports: no symptoms Respiratory: Reports: no symptoms Gastrointestinal/Abdominal: Reports: poor appetite Genitourinary: Reports: no symptoms Neurologic/Psychiatric: Reports: no symptoms Endocrine: Reports: no symptoms Hematologic/Lymphatic: Reports: anemia Allergies: Coded Allergies: PENICILLIN G (Unverified Allergy, Unknown, 09/08/16) CODEINE (Unverified Adverse Reaction, Unknown, 05/14/16) MORPHINE (Unverified Adverse Reaction, Unknown, 05/14/16) PENICILLINS (Unverified Adverse Reaction, Unknown, 05/14/16) SHELLFISH DERIVED (Unverified Adverse Reaction, Unknown, Shortness of Breath, 05/14/16) Subjective stable, no fevers or chills, no night sweats, remains on coumadin Objective Last 24 Hour Vital Signs Date Time Temp Pulse Resp B/P Pulse Ox O2 Delivery O2 Flow Rate FiO2 09/28/16 12:00 97.8 73 20 126/72 100 Room Air 09/28/16 09:37 68 120/94 09/28/16 09:25 97.5 18 120/94 99 Room Air 09/28/16 04:00 97.4 68 18 119/75 100 Room Air 09/28/16 00:00 97.2 69 18 124/73 100 Room Air 09/27/16 23:19 98.4 09/27/16 20:00 98.4 78 20 126/77 98 Room Air 09/27/16 16:11 98.1 65 20 106/72 98 Room Air Intake and Output 09/27/16 09/28/16 19:00 07:00 Intake Total 710.00 ml 2170 ml Output Total 600 ml 2600 ml Balance 110.00 ml -430 ml Intake Oral 360 ml 1035 ml IV Total 350.00 ml 1135 ml Output Urine Total 600 ml 2600 ml # Voids 2 Laboratory Tests 09/28/16 05:20: Prothrombin Time 30.5H, Prothromb Time International Ratio 2.9H, Sodium Level 134L, Potassium Level 4.6, Chloride Level 96L, Carbon Dioxide Level 23, Anion Gap 15, Blood Urea Nitrogen 13, Creatinine 1.4H, Estimat Glomerular Filtration Rate > 60, Glucose Level 92, Calcium Level 9.0 Height (Feet): 5 Height (Inches): 11.00 Weight (Pounds): 171 General Appearance: no apparent distress EENT: TMs normal Neck: supple Cardiovascular: regular rhythm Respiratory/Chest: chest wall non-tender Abdomen: non tender Extremities: non-tender Edema: no edema noted Leg (L), no edema noted Leg (R) Edema: mild edema Neurologic: alert Skin: warm/dry Omar Alford Sep 28, 2016 15:49
[2016-09-28 16:00] VITALS: BP 113/66
[2016-09-28 16:04] LABS: BASOPHILS % (AUTO) 2.1 % (0.0-2.0); LYMPHOCYTES % (AUTO) 30.6 % (20.0-45.0); MEAN CORPUSCULAR HGB CONC 31.3 G/DL (32.0-36.0); MEAN CORPUSCULAR VOLUME 90 FL (80-99); MEAN PLATELET VOLUME 4.1 FL (6.5-10.1); MONOCYTES % (AUTO) 11.9 % (1.0-10.0); NEUTROPHILS % (AUTO) 55.4 % (45.0-75.0); PLATELET COUNT 365 K/UL (150-450); RED BLOOD COUNT 3.36 M/UL (4.70-6.10); RED CELL DISTRIBUTION WIDTH 14.6 % (11.6-14.8)
[2016-09-28] MEDS ORDERED: Warfarin Sodium 5mg ORAL ONE (17:00)
[2016-09-28] MEDS ORDERED: 1/2 NS 1000ml IV ONE (17:54)
[2016-09-28] MEDS ORDERED: Tubing IV Secondary IV ONE (17:54)
--- NOTE | 2016-09-28 18:20 | General Progress Note ---
Assessment/Plan Problem List: (1) DANIEL (acute kidney injury) Assessment & Plan: likely 2/2 antibiotics (vanco, colistin) vs pre-renal ICD Codes: N17.9 - Acute kidney failure, unspecified SNOMED: 35956698 (2) MDR Acinetobacter baumannii infection ICD Codes: A49.9 - Bacterial infection, unspecified; Z16.24 - Resistance to multiple antibiotics SNOMED: 217866055 (3) Skin graft infection ICD Codes: T86.822 - Skin graft (allograft) (autograft) infection SNOMED: 434865077 (4) Femoral-popliteal bypass graft occlusion, left ICD Codes: T82.392A - Other mechanical complication of femoral arterial graft ( bypass), initial encounter SNOMED: 661595776 (5) Acute blood loss anemia ICD Codes: D62 - Acute posthemorrhagic anemia SNOMED: 678089958 (6) Arterial occlusion, lower extremity ICD Codes: I74.3 - Embolism and thrombosis of arteries of the lower extremities SNOMED: 576153069 (7) PVD (peripheral vascular disease) ICD Codes: I73.9 - Peripheral vascular disease, unspecified SNOMED: 369031604 Status: stable Assessment/Plan s/p thrombectomy of fem tib PTFE bypass Profunda common peroneal bypass with composite saphenous vein graft thrombectomy of common peroneal and posterior tibial artery veno-venostomy saphenous; 09/09/16 with vascular surgery left femoral popliteal by pass with greater saphenous vein popliteal and tibial thrombectomy s/p skin grafting 09/16/16 w/ infection due to MDR Acinetobacter Baumannii and coag negative staph , will continue colistin and vancomycin to cover for coag negative staph, will treat for two weeks total starting from 09/16/16 BP control--stable and controlled with resumed amlodipine increased pain control with Dil, 2 mg IV q4h breakthrough severe pain--now controlled ctm h and h; Hg improved heparin gtt cont heparin gtt until INR therapeutic Cont ASA 81mg qd cont on coumadin per heme; INR goal 2-3 bowel regimen PT/OT PICC placed Given SCr incr to 1.3, will repeat BMP in AM IVFs started Avoid nephrotoxic agents Time spent: 35min D/w pt, RN, CM Subjective Date patient seen: Sep 28, 2016 Time patient seen: 18:18 ROS Limited/Unobtainable: No Constitutional: Reports: no symptoms HEENT: Reports: no symptoms Cardiovascular: Reports: no symptoms Respiratory: Reports: no symptoms Gastrointestinal/Abdominal: Reports: no symptoms Genitourinary: Reports: no symptoms Neurologic/Psychiatric: Reports: no symptoms Endocrine: Reports: no symptoms Hematologic/Lymphatic: Reports: no symptoms Allergies: Coded Allergies: PENICILLIN G (Unverified Allergy, Unknown, 09/08/16) CODEINE (Unverified Adverse Reaction, Unknown, 05/14/16) MORPHINE (Unverified Adverse Reaction, Unknown, 05/14/16) PENICILLINS (Unverified Adverse Reaction, Unknown, 05/14/16) SHELLFISH DERIVED (Unverified Adverse Reaction, Unknown, Shortness of Breath, 05/14/16) All Systems: reviewed and negative except above Subjective Discharged held given Cr elevated Pt doing well Denies f/c, n/v, d/c, chest pain, SOB Able to ambulate Does not want to go to SNF. States will go home w/ who will help him PICC line INR 2.6 Objective Last 24 Hour Vital Signs Date Time Temp Pulse Resp B/P Pulse Ox O2 Delivery O2 Flow Rate FiO2 09/28/16 16:00 98.2 68 20 113/66 98 Room Air 09/28/16 15:45 97.8 09/28/16 12:00 97.8 73 20 126/72 100 Room Air 09/28/16 09:37 68 120/94 09/28/16 09:25 97.5 18 120/94 99 Room Air 09/28/16 04:00 97.4 68 18 119/75 100 Room Air 09/28/16 00:00 97.2 69 18 124/73 100 Room Air 09/27/16 20:00 98.4 78 20 126/77 98 Room Air Intake and Output 09/27/16 09/28/16 19:00 07:00 Intake Total 710.00 ml 2170 ml Output Total 600 ml 2600 ml Balance 110.00 ml -430 ml Intake Oral 360 ml 1035 ml IV Total 350.00 ml 1135 ml Output Urine Total 600 ml 2600 ml # Voids 2 Laboratory Tests 09/28/16 05:20: Prothrombin Time 30.5H, Prothromb Time International Ratio 2.9H, Sodium Level 134L, Potassium Level 4.6, Chloride Level 96L, Carbon Dioxide Level 23, Anion Gap 15, Blood Urea Nitrogen 13, Creatinine 1.4H, Estimat Glomerular Filtration Rate > 60, Glucose Level 92, Calcium Level 9.0 09/28/16 08:30: White Blood Count 7.0, Red Blood Count 3.36L, Hemoglobin 9.4L, Hematocrit 30.1L , Mean Corpuscular Volume 90, Mean Corpuscular Hemoglobin 28.0, Mean Corpuscular Hemoglobin Concent 31.3L, Red Cell Distribution Width 14.6, Platelet Count 365, Mean Platelet Volume 4.1L, Neutrophils (%) (Auto) 55.4, Lymphocytes (%) (Auto) 30.6, Monocytes (%) (Auto) 11.9H, Eosinophils (%) (Auto) 0.0, Basophils (%) (Auto) 2.1H Height (Feet): 5 Height (Inches): 11.00 Weight (Pounds): 171 Objective General Appearance: well appearing, alert, mild distress Head: normocephalic, atraumatic Eyes: bilateral eye EOMI, bilateral eye PERRL ENT: hearing grossly normal, normal pharynx Neck: full range of motion, supple, no meningismus Respiratory: chest non-tender, lungs clear, normal breath sounds Cardiovascular #1: regular rate, rhythm, no murmur Gastrointestinal: normal bowel sounds, non tender, no mass, no organomegaly, no bruit, non-distended Musculoskeletal: back normal, normal range of motion, other - Left leg: He has normal sensation of the thigh. He has decreased sensation of the lower extremity from the knee to the ankle. He has minimal sensation of the foot. pulses equal. Is able to move his knee, ankle, and toes. Neurologic: alert, oriented x3; 5/5 in RLE; 4+/5 in LLE Psychiatric: mood/affect normal Skin: warm/dry; incision intact Jose Alejandro Fisher M.D. Sep 28, 2016 18:20
--- NOTE | 2016-09-28 19:39 | Operative Note - Dictated ---
DATE OF OPERATION: 09/16/2016 PREOPERATIVE DIAGNOSIS: Status post bypass surgery and fasciotomies. POSTOPERATIVE DIAGNOSIS: Status post bypass surgery and fasciotomies. PROCEDURE: Split-thickness skin graft, left thigh to left leg fasciotomy sites. SURGEON: Rip Kumar M.D. Description Of Procedure: In the supine position under general anesthesia, the patient was prepped and draped in the usual fashion. 250 cm square area grafted in this case: 150 square cm for the anterior compartment fasciotomy and 100 cm for the posterior compartment fasciotomy. The two appropriate skin grafts were taken from the left anterolateral thigh. They were 9/1000th of an inch in thickness and appeared to be satisfactory for use in this procedure. They were meshed with ratio of 1:1.5. The sites were debrided sharply with curettes and a scalpel. They were irrigated with antibiotic solution. The grafts were applied and secured in place with skin connie. The wound was then dressed with Xeroform, 4x8's, and Coban application. The donor sites were dressed with Xeroform. The patient left the operating room in satisfactory condition. Rip Kumar M.D. DR: Gary JOB#: [id number] CC: GURJIT
[2016-09-28 20:00] VITALS: BP 127/75
--- NOTE | 2016-09-28 21:26 | Infectious Diseases Prog Note ---
Assessment/Plan Problems: (1) MDR Acinetobacter baumannii infection Assessment & Plan: of the left leg , surgical wound was cultured again and it grew MDR Acinetobacter baumannii , wound looked ok as per Dr Kumar, on iv doxycycline since his creatinine went up with colistin , will treat for two weeks , continue local wound care and dressing changes as per vascular. EOT 09/30 (2) Femoral-popliteal bypass graft occlusion, left Assessment & Plan: s/p thrombectomy of fem tib PTFE bypass , Profunda common peroneal bypass with composite saphenous vein graft , thrombectomy of common peroneal and posterior tibial artery veno-venostomy saphenous by vascular surgery (3) Skin graft infection Assessment & Plan: due to MDR Acinetobacter Baumannii and coag negative staph , improving on colistin and vancomycin , but his creatinine increased , off colistin , and on iv doxycycline, and vancomycin to finish his course of therapy , will treat for two weeks total starting from 09/16/16. continue to monitor trough for vancomycin as per pharmacy (4) DANIEL (acute kidney injury) Assessment & Plan: suspect dehydration plus antibiotics related, off colistin, continue IVF for hydration and monitor renal function Subjective HEENT: Denies: congestion, coryza, dysphagia, hearing change, no symptoms, other, visual change Respiratory: Denies: dry cough, no symptoms, other, productive cough, shortness of breath Breasts: Denies: discharge, no symptoms, other, swelling, tenderness Cardiovascular: Denies: chest pain, dyspnea on exertion, no symptoms, other, palpitations Gastrointestinal/Abdominal: Denies: bloating, blood in stool, constipation, diarrhea, nausea, no symptoms, other, vomiting Genitourinary: Denies: dysuria, frequency, hematuria, no symptoms, nocturia, other Neurologic: Denies: confusion, headache, no symptoms, numbness, other, weakness Psychiatric: Denies: anxiety, depression, no symptoms, other Skin: Denies: no symptoms, other, rash, ulcer Endocrine: Denies: feels cold, feels warm, no symptoms, other Hematologic: Denies: bleeding, no symptoms, other, swollen lymph nodes Allergies: Coded Allergies: PENICILLIN G (Unverified Allergy, Unknown, 09/08/16) CODEINE (Unverified Adverse Reaction, Unknown, 05/14/16) MORPHINE (Unverified Adverse Reaction, Unknown, 05/14/16) PENICILLINS (Unverified Adverse Reaction, Unknown, 05/14/16) SHELLFISH DERIVED (Unverified Adverse Reaction, Unknown, Shortness of Breath, 05/14/16) Objective Vital Signs Last 24 Hour Vital Signs Date Time Temp Pulse Resp B/P Pulse Ox O2 Delivery O2 Flow Rate FiO2 09/28/16 20:00 98.2 09/28/16 20:00 98.1 74 20 127/75 99 Room Air 09/28/16 16:00 98.2 68 20 113/66 98 Room Air 09/28/16 12:00 97.8 73 20 126/72 100 Room Air 09/28/16 09:37 68 120/94 09/28/16 09:25 97.5 18 120/94 99 Room Air 09/28/16 04:00 97.4 68 18 119/75 100 Room Air 09/28/16 00:00 97.2 69 18 124/73 100 Room Air Height (Feet): 5 Height (Inches): 11.00 Weight (Pounds): 171 General Appearance: WD/WN, no acute distress HEENT: normocephalic, atraumatic, anicteric, mucous membranes moist, PERRL, supple Respiratory/Chest: chest wall non-tender, lungs clear, normal breath sounds, no respiratory distress Cardiovascular: normal peripheral pulses, normal rate, regular rhythm, no gallop/murmur, no JVD Abdomen: normal bowel sounds, soft, non tender, no organomegaly, non distended , no mass, no scars Extremities: no cyanosis, no clubbing, other - left leg surgical wound covered with dressing, no bleeding Skin: no rash Laboratory Tests Test 09/28/16 05:20 09/28/16 08:30 Prothrombin Time 30.5 SEC (9.30-11.50) H Prothromb Time International Ratio 2.9 (0.9-1.1) H Sodium Level 134 mEQ/L (135-145) L Potassium Level 4.6 mEQ/L (3.4-4.9) Chloride Level 96 mEQ/L (98-107) L Carbon Dioxide Level 23 mEQ/L (20-30) Anion Gap 15 (5-15) Blood Urea Nitrogen 13 mg/dL (7-23) Creatinine 1.4 mg/dL (0.7-1.2) H Estimat Glomerular Filtration Rate > 60 mL/min (>60) Glucose Level 92 mg/dL (74-106) Calcium Level 9.0 mg/dL (8.6-10.2) White Blood Count 7.0 K/UL (4.8-10.8) Red Blood Count 3.36 M/UL (4.70-6.10) L Hemoglobin 9.4 G/DL (14.2-18.0) L Hematocrit 30.1 % (42.0-52.0) L Mean Corpuscular Volume 90 FL (80-99) Mean Corpuscular Hemoglobin 28.0 PG (27.0-31.0) Mean Corpuscular Hemoglobin Concent 31.3 G/DL (32.0-36.0) L Red Cell Distribution Width 14.6 % (11.6-14.8) Platelet Count 365 K/UL (150-450) Mean Platelet Volume 4.1 FL (6.5-10.1) L Neutrophils (%) (Auto) 55.4 % (45.0-75.0) Lymphocytes (%) (Auto) 30.6 % (20.0-45.0) Monocytes (%) (Auto) 11.9 % (1.0-10.0) H Eosinophils (%) (Auto) 0.0 % (0.0-3.0) Basophils (%) (Auto) 2.1 % (0.0-2.0) H Current Medications Medications (Trade) Dose Ordered Sig/Leidy Route PRN Reason Start Time Stop Time Status Last Admin Dose Admin Al Hydroxide/Mg Hydroxide (Mylanta) 30 ml Q6H PRN ORAL for heartburn 09/12/16 14:15 10/12/16 14:14 Amlodipine Besylate (Norvasc) 10 mg DAILY ORAL 09/13/16 09:00 10/13/16 08:59 09/28/16 09:37 Aspirin (ASA) 81 mg DAILY ORAL 09/21/16 14:00 10/21/16 13:59 09/28/16 09:36 Bisacodyl (Dulcolax) 10 mg DAILYPRN PRN RECTAL Constipation 09/14/16 10:45 10/14/16 10:44 Doxycycline Hyclate 100 mg/ Dextrose 110 ml @ 110 mls/hr Q12HR IV 09/27/16 21:00 10/04/16 20:59 09/28/16 10:07 Hydromorphone HCl (Dilaudid Premix 1mg/50ml) 50 ml @ 200 mls/hr Q4H PRN IVPB Moderate Pain (Pain Scale 4-6) 09/12/16 13:45 10/12/16 13:44 Hydromorphone HCl (Dilaudid) 2 mg Q4H PRN IVP Severe Pain (Pain Scale 7-10) 09/26/16 18:00 10/03/16 17:59 09/28/16 19:30 Magnesium Hydroxide (Mom) 30 ml DAILYPRN PRN ORAL Constipation 09/14/16 10:45 10/14/16 10:44 Ondansetron HCl (Zofran) 4 mg Q6H PRN IVP Nausea & Vomiting 09/12/16 13:45 10/12/16 13:44 Pantoprazole 40 mg 40 mg DAILY ORAL 09/27/16 09:00 10/27/16 08:59 09/28/16 09:37 Senna/Docusate Sodium (Tosha-Colace) 1 ea TWICE A DAY ORAL 09/14/16 11:00 10/14/16 10:59 09/28/16 17:40 Sodium Chloride 1,000 ml @ 75 mls/hr [id number] IV 09/28/16 10:00 10/28/16 09:59 09/28/16 10:06 Vancomycin HCl (Vanco rx to dose) 1 ea DAILY PRN MISC Per rx protocol 09/26/16 13:45 10/26/16 13:44 Vancomycin HCl/ Dextrose (Vancomycin/D5W) 275 ml @ 183.708 mls/hr Q12HR@0200,1400 IVPB 09/28/16 14:00 10/03/16 13:59 09/28/16 15:14 Warfarin Sodium (Coumadin per pharmacy) 1 ea DAILY PRN MISC Per rx protocol 09/16/16 20:45 10/16/16 20:44 Giles Dumas M.D. Sep 28, 2016 21:26
[2016-09-29] MEDS: Vancomycin 1gm/D5W 275ml IVPB SCH ×2 (02:18)
[2016-09-29 04:00] VITALS: BP 125/74
[2016-09-29 07:39] LABS: INR 2.9 (0.9-1.1)
[2016-09-29 07:53] LABS: CALCIUM 10.1 mg/dL (8.6-10.2); CREATININE 1.7 mg/dL (0.7-1.2); POTASSIUM 4.3 mEQ/L (3.4-4.9)
[2016-09-29 08:15] VITALS: BP 125/82
[2016-09-29] MEDS: Aspirin Baby 81mg ORAL SCH (09:17)
[2016-09-29] MEDS: Doxycycline Hyclate 100 MG in D5W 110 ML IV SCH ×2 (09:17→20:51)
[2016-09-29] MEDS: Pericolace tab ORAL SCH ×2 (09:18→17:43)
[2016-09-29 11:38] VITALS: BP 125/75
--- NOTE | 2016-09-29 15:16 | General Progress Note ---
Assessment/Plan Problem List: (1) DANIEL (acute kidney injury) Assessment & Plan: likely 2/2 antibiotics (vanco, colistin) vs pre-renal ICD Codes: N17.9 - Acute kidney failure, unspecified SNOMED: 75440551 (2) MDR Acinetobacter baumannii infection ICD Codes: A49.9 - Bacterial infection, unspecified; Z16.24 - Resistance to multiple antibiotics SNOMED: 045594518 (3) Skin graft infection ICD Codes: T86.822 - Skin graft (allograft) (autograft) infection SNOMED: 654684149 (4) Femoral-popliteal bypass graft occlusion, left ICD Codes: T82.392A - Other mechanical complication of femoral arterial graft ( bypass), initial encounter SNOMED: 282943806 (5) Acute blood loss anemia ICD Codes: D62 - Acute posthemorrhagic anemia SNOMED: 263552912 (6) Arterial occlusion, lower extremity ICD Codes: I74.3 - Embolism and thrombosis of arteries of the lower extremities SNOMED: 031689188 (7) PVD (peripheral vascular disease) ICD Codes: I73.9 - Peripheral vascular disease, unspecified SNOMED: 097436921 Status: stable Assessment/Plan s/p thrombectomy of fem tib PTFE bypass Profunda common peroneal bypass with composite saphenous vein graft thrombectomy of common peroneal and posterior tibial artery veno-venostomy saphenous; 09/09/16 with vascular surgery left femoral popliteal by pass with greater saphenous vein popliteal and tibial thrombectomy s/p skin grafting 09/16/16 w/ infection due to MDR Acinetobacter Baumannii and coag negative stap-- continue vancomycin, will treat for two weeks total starting from 09/16/16; colistin switched to doxy per ID given DANIEL BP control--stable and controlled with resumed amlodipine increased pain control with Dil, 2 mg IV q4h breakthrough severe pain--now controlled ctm h and h; Hg improved heparin gtt cont heparin gtt until INR therapeutic Cont ASA 81mg qd cont on coumadin per heme; INR goal 2-3 bowel regimen PT/OT PICC placed Will consult renal given Cr cont to increase Cont IVFs Avoid nephrotoxic agents Time spent: 35min D/w pt, RN, CM Subjective Date patient seen: Sep 29, 2016 Time patient seen: 15:15 ROS Limited/Unobtainable: No Constitutional: Reports: no symptoms HEENT: Reports: no symptoms Cardiovascular: Reports: no symptoms Respiratory: Reports: no symptoms Gastrointestinal/Abdominal: Reports: no symptoms Genitourinary: Reports: no symptoms Neurologic/Psychiatric: Reports: no symptoms Endocrine: Reports: no symptoms Hematologic/Lymphatic: Reports: no symptoms Allergies: Coded Allergies: PENICILLIN G (Unverified Allergy, Unknown, 09/08/16) CODEINE (Unverified Adverse Reaction, Unknown, 05/14/16) MORPHINE (Unverified Adverse Reaction, Unknown, 05/14/16) PENICILLINS (Unverified Adverse Reaction, Unknown, 05/14/16) SHELLFISH DERIVED (Unverified Adverse Reaction, Unknown, Shortness of Breath, 05/14/16) All Systems: reviewed and negative except above Subjective Pt doing well Denies f/c, n/v, d/c, chest pain, SOB Able to ambulate Does not want to go to SNF. States will go home w/ who will help him PICC line placed INR 2.9 SCr increased to 1.7 Cont in IVFs Objective Last 24 Hour Vital Signs Date Time Temp Pulse Resp B/P Pulse Ox O2 Delivery O2 Flow Rate FiO2 09/29/16 13:49 97.2 09/29/16 11:38 97.2 77 20 125/75 100 Room Air 09/29/16 09:17 66 125/82 09/29/16 08:15 98.4 66 20 125/82 100 Room Air 09/29/16 04:00 98.0 76 18 125/74 99 Room Air 09/28/16 20:00 98.1 74 20 127/75 99 Room Air 09/28/16 16:00 98.2 68 20 113/66 98 Room Air Intake and Output 09/28/16 09/29/16 19:00 07:00 Intake Total 1892.500 ml 1070 ml Output Total 1500 ml Balance 1892.500 ml -430 ml Intake Oral 720 ml 360 ml IV Total 1172.500 ml 710 ml Output Urine Total 1500 ml # Voids 2 Laboratory Tests 09/29/16 05:50: Prothrombin Time 30.0H, Prothromb Time International Ratio 2.9H, Sodium Level 136, Potassium Level 4.3, Chloride Level 95L, Carbon Dioxide Level 25, Anion Gap 16H, Blood Urea Nitrogen 18, Creatinine 1.7H, Estimat Glomerular Filtration Rate 52.0, Glucose Level 113H, Calcium Level 10.1 Height (Feet): 5 Height (Inches): 11.00 Weight (Pounds): 171 Objective General Appearance: well appearing, alert, mild distress Head: normocephalic, atraumatic Eyes: bilateral eye EOMI, bilateral eye PERRL ENT: hearing grossly normal, normal pharynx Neck: full range of motion, supple, no meningismus Respiratory: chest non-tender, lungs clear, normal breath sounds Cardiovascular #1: regular rate, rhythm, no murmur Gastrointestinal: normal bowel sounds, non tender, no mass, no organomegaly, no bruit, non-distended Musculoskeletal: back normal, normal range of motion, other - Left leg: He has normal sensation of the thigh. He has decreased sensation of the lower extremity from the knee to the ankle. He has minimal sensation of the foot. pulses equal. Is able to move his knee, ankle, and toes. Neurologic: alert, oriented x3; 5/5 in RLE; 4+/5 in LLE Psychiatric: mood/affect normal Skin: warm/dry; incision intact Jose Alejandro Fisher M.D. Sep 29, 2016 15:16
[2016-09-29 16:00] VITALS: BP 127/74
--- NOTE | 2016-09-29 16:50 | Infectious Diseases Prog Note ---
Assessment/Plan Problems: (1) MDR Acinetobacter baumannii infection Assessment & Plan: of the left leg , surgical wound was cultured again and it grew MDR Acinetobacter baumannii , wound looked ok as per Dr Kumar, on iv doxycycline since his creatinine went up with colistin , will treat for two weeks , continue local wound care and dressing changes as per vascular. EOT 09/30 (2) Femoral-popliteal bypass graft occlusion, left Assessment & Plan: s/p thrombectomy of fem tib PTFE bypass , Profunda common peroneal bypass with composite saphenous vein graft , thrombectomy of common peroneal and posterior tibial artery veno-venostomy saphenous by vascular surgery (3) Skin graft infection Assessment & Plan: due to MDR Acinetobacter Baumannii and coag negative staph , improving on colistin and vancomycin , but his creatinine increased , off colistin , on iv doxycycline, will D/C vancomycin , and switch to ceftaroline renally dosed, to finish his course of therapy , will treat for two weeks total starting from 09/16/16. continue to monitor renal function tests (4) DANIEL (acute kidney injury) Assessment & Plan: suspect dehydration plus antibiotics related, off colistin, will D/C vancomycin , continue IVF for hydration and monitor renal function Subjective Constitutional: Denies: anorexia, chills, drenching sweats, fatigue, fever, no symptoms, other HEENT: Denies: congestion, coryza, dysphagia, hearing change, no symptoms, other, visual change Respiratory: Denies: dry cough, no symptoms, other, productive cough, shortness of breath Breasts: Denies: discharge, no symptoms, other, swelling, tenderness Cardiovascular: Denies: chest pain, dyspnea on exertion, no symptoms, other, palpitations Gastrointestinal/Abdominal: Denies: bloating, blood in stool, constipation, diarrhea, nausea, no symptoms, other, vomiting Genitourinary: Denies: dysuria, frequency, hematuria, no symptoms, nocturia, other Neurologic: Denies: confusion, headache, no symptoms, numbness, other, weakness Psychiatric: Denies: anxiety, depression, no symptoms, other Skin: Denies: no symptoms, other, rash, ulcer Allergies: Coded Allergies: PENICILLIN G (Unverified Allergy, Unknown, 09/08/16) CODEINE (Unverified Adverse Reaction, Unknown, 05/14/16) MORPHINE (Unverified Adverse Reaction, Unknown, 05/14/16) PENICILLINS (Unverified Adverse Reaction, Unknown, 05/14/16) SHELLFISH DERIVED (Unverified Adverse Reaction, Unknown, Shortness of Breath, 05/14/16) Objective Vital Signs Last 24 Hour Vital Signs Date Time Temp Pulse Resp B/P Pulse Ox O2 Delivery O2 Flow Rate FiO2 09/29/16 16:00 97.7 63 18 127/74 100 Room Air 09/29/16 13:49 97.2 09/29/16 11:38 97.2 77 20 125/75 100 Room Air 09/29/16 09:17 66 125/82 09/29/16 08:15 98.4 66 20 125/82 100 Room Air 09/29/16 04:00 98.0 76 18 125/74 99 Room Air 09/28/16 20:00 98.1 74 20 127/75 99 Room Air Height (Feet): 5 Height (Inches): 11.00 Weight (Pounds): 171 General Appearance: WD/WN HEENT: atraumatic, anicteric, mucous membranes moist Respiratory/Chest: chest wall non-tender, lungs clear, normal breath sounds, no respiratory distress, no accessory muscle use Cardiovascular: normal peripheral pulses, normal rate, regular rhythm Abdomen: normal bowel sounds, soft, non tender, no organomegaly, non distended Extremities: no cyanosis, no clubbing Skin: no rash, no lesions Laboratory Tests Test 09/29/16 05:50 Prothrombin Time 30.0 SEC (9.30-11.50) H Prothromb Time International Ratio 2.9 (0.9-1.1) H Sodium Level 136 mEQ/L (135-145) Potassium Level 4.3 mEQ/L (3.4-4.9) Chloride Level 95 mEQ/L (98-107) L Carbon Dioxide Level 25 mEQ/L (20-30) Anion Gap 16 (5-15) H Blood Urea Nitrogen 18 mg/dL (7-23) Creatinine 1.7 mg/dL (0.7-1.2) H Estimat Glomerular Filtration Rate 52.0 mL/min (>60) Glucose Level 113 mg/dL (74-106) H Calcium Level 10.1 mg/dL (8.6-10.2) Current Medications Medications (Trade) Dose Ordered Sig/Leidy Route PRN Reason Start Time Stop Time Status Last Admin Dose Admin Al Hydroxide/Mg Hydroxide (Mylanta) 30 ml Q6H PRN ORAL for heartburn 09/12/16 14:15 10/12/16 14:14 Amlodipine Besylate (Norvasc) 10 mg DAILY ORAL 09/13/16 09:00 10/13/16 08:59 09/29/16 09:17 Aspirin (ASA) 81 mg DAILY ORAL 09/21/16 14:00 10/21/16 13:59 09/29/16 09:17 Bisacodyl (Dulcolax) 10 mg DAILYPRN PRN RECTAL Constipation 09/14/16 10:45 10/14/16 10:44 Doxycycline Hyclate 100 mg/ Dextrose 110 ml @ 110 mls/hr Q12HR IV 09/27/16 21:00 10/04/16 20:59 09/29/16 09:17 Hydromorphone HCl (Dilaudid Premix 1mg/50ml) 50 ml @ 200 mls/hr Q4H PRN IVPB Moderate Pain (Pain Scale 4-6) 09/12/16 13:45 10/12/16 13:44 Hydromorphone HCl (Dilaudid) 2 mg Q4H PRN IVP Severe Pain (Pain Scale 7-10) 09/26/16 18:00 10/03/16 17:59 09/29/16 13:19 Magnesium Hydroxide (Mom) 30 ml DAILYPRN PRN ORAL Constipation 09/14/16 10:45 10/14/16 10:44 Ondansetron HCl (Zofran) 4 mg Q6H PRN IVP Nausea & Vomiting 09/12/16 13:45 10/12/16 13:44 Pantoprazole 40 mg 40 mg DAILY ORAL 09/27/16 09:00 10/27/16 08:59 09/29/16 09:17 Senna/Docusate Sodium (Tosha-Colace) 1 ea TWICE A DAY ORAL 09/14/16 11:00 10/14/16 10:59 09/29/16 09:18 Sodium Chloride (Sodium Chloride 1000ml bag) 1,000 ml @ 75 mls/hr [id number] IV 09/28/16 10:00 10/28/16 09:59 09/29/16 05:01 Vancomycin HCl (Vanco rx to dose) 1 ea DAILY PRN MISC Per rx protocol 09/26/16 13:45 10/26/16 13:44 Warfarin Sodium (Coumadin per pharmacy) 1 ea DAILY PRN MISC Per rx protocol 09/16/16 20:45 10/16/16 20:44 Warfarin Sodium (Coumadin) 5 mg COUMADIN ONCE ORAL 09/29/16 17:00 09/29/16 17:01 Giles Dumas M.D. Sep 29, 2016 16:50
[2016-09-29] MEDS ORDERED: Warfarin Sodium 5mg ORAL ONE (17:00)
--- NOTE | 2016-09-29 18:09 | General Progress Note ---
Assessment/Plan Assessment/Plan ASSESSMENT: 1. Status post thrombectomy and femorotibial and femoropopliteal bypass with composite saphenous vein graft. Continue coumadin 2. Hypercoagulable disorder with recurrence of arterial clots. On coumadin. 3. Anemia secondary to chronic disease. 4. Decreased hemoglobin and hematocrit, rule out gastrointestinal bleed. 5. Leukocytosis, potentially secondary to underlying infection. 6. Thrombocytopenia, potentially secondary to medications versus infection, now better 7. Weakness and pain status post surgery, better controlled 8. Blood pressure elevation, now on amlodipine RECOMMENDATIONS: 1. Monitor counts 2. Continue coumadin 3. Maintain INR between 2 - 3. 4. Continue ASA 81mg po daily 5. GI prophylaxis with PPI. 6. Pain control with Dilaudid. 7. Maintain hemoglobin > 7. 8. Maintain platelets > 10k 9. Potential placement 10. staff. Thank you, Omar Alford MD Subjective Constitutional: Reports: no symptoms HEENT: Reports: no symptoms Cardiovascular: Reports: no symptoms Respiratory: Reports: no symptoms Gastrointestinal/Abdominal: Reports: no symptoms Genitourinary: Reports: no symptoms Neurologic/Psychiatric: Reports: anxiety Endocrine: Reports: no symptoms Hematologic/Lymphatic: Reports: anemia Allergies: Coded Allergies: PENICILLIN G (Unverified Allergy, Unknown, 09/08/16) CODEINE (Unverified Adverse Reaction, Unknown, 05/14/16) MORPHINE (Unverified Adverse Reaction, Unknown, 05/14/16) PENICILLINS (Unverified Adverse Reaction, Unknown, 05/14/16) SHELLFISH DERIVED (Unverified Adverse Reaction, Unknown, Shortness of Breath, 05/14/16) Subjective stable, no fevers or chills, no night sweats, remains on coumadin Objective Last 24 Hour Vital Signs Date Time Temp Pulse Resp B/P Pulse Ox O2 Delivery O2 Flow Rate FiO2 09/29/16 16:00 97.7 63 18 127/74 100 Room Air 09/29/16 13:49 97.2 09/29/16 11:38 97.2 77 20 125/75 100 Room Air 09/29/16 09:17 66 125/82 09/29/16 08:15 98.4 66 20 125/82 100 Room Air 09/29/16 04:00 98.0 76 18 125/74 99 Room Air 2/14/17 20:00 98.1 74 20 127/75 99 Room Air Intake and Output 09/28/16 09/29/16 19:00 07:00 Intake Total 1892.500 ml 1070 ml Output Total 1500 ml Balance 1892.500 ml -430 ml Intake Oral 720 ml 360 ml IV Total 1172.500 ml 710 ml Output Urine Total 1500 ml # Voids 2 Laboratory Tests 09/29/16 05:50: Prothrombin Time 30.0H, Prothromb Time International Ratio 2.9H, Sodium Level 136, Potassium Level 4.3, Chloride Level 95L, Carbon Dioxide Level 25, Anion Gap 16H, Blood Urea Nitrogen 18, Creatinine 1.7H, Estimat Glomerular Filtration Rate 52.0, Glucose Level 113H, Calcium Level 10.1 Height (Feet): 5 Height (Inches): 11.00 Weight (Pounds): 171 General Appearance: no apparent distress EENT: TMs normal Neck: supple Cardiovascular: regular rhythm Respiratory/Chest: normal breath sounds Abdomen: non tender Extremities: non-tender Edema: 1+ Leg (L), 1+ Leg (R) Edema: mild edema Neurologic: alert Skin: warm/dry Omar Alford Sep 29, 2016 18:09
[2016-09-29] MEDS: Ceftaroline 400 MG in NS 55 ML IVPB SCH (19:24)
[2016-09-29 20:00] VITALS: BP 119/75
[2016-09-29 22:55] LABS: APPEARANCE,URINE CLEAR; KETONES,URINE NEGATIVE (NEGATIVE); LEUKOCYTE ESTERASE ,URINE NEGATIVE (NEGATIVE); NITRITE,URINE NEGATIVE (NEGATIVE); PH,URINE 5 (4.5-8.0); PROTEIN,URINE 2+ (NEGATIVE); UROBILINOGEN,URINE NORMAL MG/DL (0.0-1.0)
[2016-09-30] VITALS: BP 124/74
[2016-09-30 00:19] LABS: RBC,URINE 0-2 /HPF (0 - 0); SQUAMOUS EPITHELIAL CELL,UR FEW /LPF (NONE/OCC); WBC,URINE 0 /HPF (0 - 0)
[2016-09-30 04:00] VITALS: BP_SYST 112; BP_SYST 126; BP_DIAS 61; BP_DIAS 75
[2016-09-30 06:36] LABS: BASOPHILS % (AUTO) 0.8 % (0.0-2.0); EOSINOPHILS % (AUTO) 0.1 % (0.0-3.0); LYMPHOCYTES % (AUTO) 31.8 % (20.0-45.0); MEAN CORPUSCULAR HEMOGLOBIN 29.2 PG (27.0-31.0); MEAN CORPUSCULAR HGB CONC 33.1 G/DL (32.0-36.0); MEAN CORPUSCULAR VOLUME 88 FL (80-99); MEAN PLATELET VOLUME 5.9 FL (6.5-10.1); MONOCYTES % (AUTO) 9.1 % (1.0-10.0); NEUTROPHILS % (AUTO) 58.2 % (45.0-75.0); PLATELET COUNT 335 K/UL (150-450); RED BLOOD COUNT 3.44 M/UL (4.70-6.10); RED CELL DISTRIBUTION WIDTH 13.5 % (11.6-14.8); WHITE BLOOD COUNT 6.2 K/UL (4.8-10.8)
[2016-09-30 07:06] LABS: PROTHROMBIN TIME 32.1 SEC (9.30-11.50)
[2016-09-30 07:22] LABS: CALCIUM 9.2 mg/dL (8.6-10.2); CREATININE 1.6 mg/dL (0.7-1.2); GLOMERULAR FILTRATION RATE 55.8 mL/min (>60); MAGNESIUM 1.7 mg/dL (1.7-2.5); PHOSPHORUS 4.9 mg/dL (2.5-4.8)
[2016-09-30] MEDS: Ceftaroline 400 MG in NS 55 ML IVPB SCH (08:05)
[2016-09-30 08:10] VITALS: BP 138/87
[2016-09-30] MEDS: Aspirin Baby 81mg ORAL SCH (08:55)
[2016-09-30] MEDS: Pericolace tab ORAL SCH ×2 (08:55→16:30)
[2016-09-30] MEDS: Doxycycline Hyclate 100 MG in D5W 110 ML IV SCH ×2 (08:56→17:55)
--- NOTE | 2016-09-30 11:46 | Consultation ---
Consult Note Consult Note asked to eval for rising Cr Interviewed- Data reviewed . Assessment/Plan Renal: - DANIEL (acute kidney injury), likely Vanco related other: (1) MDR Acinetobacter baumannii infection (2) Femoral-popliteal bypass graft occlusion, left (3) Skin graft infection Sugg: OK to DC from renal stand , as Cr is down trending- FU in office for Renal check as out patient- Urine studies ordered OBI MARIO Sep 30, 2016 11:46
[2016-09-30 11:47] VITALS: BP 114/68
[2016-09-30 12:09] LABS: BILIRUBIN,DIRECT 0.1 mg/dL (0.1-0.3); TOTAL PROTEIN 6.9 g/dL (6.6-8.7)
[2016-09-30 16:02] VITALS: BP 124/80
--- NOTE | 2016-09-30 16:08 | General Progress Note ---
Assessment/Plan Assessment/Plan ASSESSMENT: 1. Status post thrombectomy and femorotibial and femoropopliteal bypass with composite saphenous vein graft. Continue coumadin, Therapeutic 2. Hypercoagulable disorder with recurrence of arterial clots. On coumadin. 3. Anemia secondary to chronic disease. 4. Decreased hemoglobin and hematocrit, rule out gastrointestinal bleed. 5. Leukocytosis, potentially secondary to underlying infection. 6. Thrombocytopenia, potentially secondary to medications versus infection, now better 7. Weakness and pain status post surgery, better controlled 8. Blood pressure elevation, now on amlodipine RECOMMENDATIONS: 1. Monitor counts 2. Continue coumadin 3. Maintain INR between 2 - 3. 4. Continue ASA 81mg po daily 5. GI prophylaxis with PPI. 6. Pain control with Dilaudid. 7. Maintain hemoglobin > 7. 8. Maintain platelets > 10k 9. Potential placement 10. staff. Thank you, Omar Alford MD Subjective Constitutional: Reports: no symptoms HEENT: Reports: no symptoms Cardiovascular: Reports: no symptoms Respiratory: Reports: no symptoms Gastrointestinal/Abdominal: Reports: poor appetite Genitourinary: Reports: no symptoms Neurologic/Psychiatric: Reports: no symptoms Endocrine: Reports: no symptoms Hematologic/Lymphatic: Reports: anemia Allergies: Coded Allergies: PENICILLIN G (Unverified Allergy, Unknown, 09/08/16) CODEINE (Unverified Adverse Reaction, Unknown, 05/14/16) MORPHINE (Unverified Adverse Reaction, Unknown, 05/14/16) PENICILLINS (Unverified Adverse Reaction, Unknown, 05/14/16) SHELLFISH DERIVED (Unverified Adverse Reaction, Unknown, Shortness of Breath, 05/14/16) Subjective stable, no fevers or chills, no night sweats, continues to be on coumadin Objective Last 24 Hour Vital Signs Date Time Temp Pulse Resp B/P Pulse Ox O2 Delivery O2 Flow Rate FiO2 09/30/16 16:02 97.3 68 22 124/80 100 Room Air 09/30/16 11:47 98.1 60 20 114/68 98 Room Air 09/30/16 08:55 72 138/87 09/30/16 08:10 97.9 72 20 138/87 99 Room Air 09/30/16 04:00 98.1 69 18 126/75 100 Room Air 09/30/16 00:00 97.9 68 18 124/74 99 Room Air 09/29/16 22:23 97.9 09/29/16 20:00 97.9 73 20 119/75 100 Room Air Intake and Output 09/29/16 09/30/16 19:00 07:00 Intake Total 1680 ml 1105 ml Output Total 1200 ml 1950 ml Balance 480 ml -845 ml Intake Oral 720 ml 790 ml IV Total 960 ml 315 ml Output Urine Total 1200 ml 1950 ml # Bowel Movements 1 Laboratory Tests 09/29/16 22:30: Urine Color Yellow, Urine Appearance Clear, Urine pH 5, Urine Specific [place] 1.025, Urine Protein 2+H, Urine Glucose (UA) Negative, Urine Ketones Negative, Urine Occult Blood 1+H, Urine Nitrite Negative, Urine Bilirubin Negative, Urine Urobilinogen Normal, Urine Leukocyte Esterase Negative, Urine RBC 0-2H, Urine WBC 0, Urine Squamous Epithelial Cells Few, Urine Bacteria None 09/30/16 04:40: White Blood Count 6.2, Red Blood Count 3.44L, Hemoglobin 10.0L, Hematocrit 30.3L , Mean Corpuscular Volume 88, Mean Corpuscular Hemoglobin 29.2, Mean Corpuscular Hemoglobin Concent 33.1, Red Cell Distribution Width 13.5, Platelet Count 335, Mean Platelet Volume 5.9L, Neutrophils (%) (Auto) 58.2, Lymphocytes ( %) (Auto) 31.8, Monocytes (%) (Auto) 9.1, Eosinophils (%) (Auto) 0.1, Basophils (%) (Auto) 0.8, Prothrombin Time 32.1H, Prothromb Time International Ratio 3.0H , Sodium Level 133L, Potassium Level 4.0, Chloride Level 94L, Carbon Dioxide Level 21, Anion Gap 18H, Blood Urea Nitrogen 18, Creatinine 1.6H, Estimat Glomerular Filtration Rate 55.8, Glucose Level 102, Uric Acid 4.2, Calcium Level 9.2, Phosphorus Level 4.9H, Magnesium Level 1.7, Total Bilirubin 0.3, Direct Bilirubin 0.1, Aspartate Amino Transf (AST/SGOT) 20, Alanine Aminotransferase (ALT/SGPT) 17, Alkaline Phosphatase 45, Total Protein 6.9, Albumin 3.3L, Random Vancomycin Level 14.4 09/30/16 14:00: Urine Random Sodium 81 Height (Feet): 5 Height (Inches): 11.00 Weight (Pounds): 171 General Appearance: no apparent distress EENT: TMs normal Neck: normal alignment Cardiovascular: regular rhythm Respiratory/Chest: normal breath sounds Abdomen: no organomegaly Extremities: non-tender Edema: 1+ Leg (L), 1+ Leg (R) Edema: mild edema Neurologic: alert Skin: warm/dry Omar Alford Sep 30, 2016 16:08
[2016-09-30] MEDS ORDERED: Warfarin Sodium 4mg PO ONE (17:00)
[2016-09-30] MEDS ORDERED: Ceftaroline 400 MG in NS 55 ML IVPB ONE (18:00)
--- NOTE | 2016-09-30 18:02 | Infectious Diseases Prog Note ---
Assessment/Plan Problems: (1) MDR Acinetobacter baumannii infection Assessment & Plan: of the left leg , surgical wound was cultured again and it grew MDR Acinetobacter baumannii , wound looked ok as per Dr Kumar, on iv doxycycline since didn't tolerate colistin , will treat for three weeks total, since his repeated culture came back positive again, continue local wound care and dressing changes as needed, follow up with vascular. EOT 10/07/16. (2) Femoral-popliteal bypass graft occlusion, left Assessment & Plan: s/p thrombectomy of fem tib PTFE bypass , Profunda common peroneal bypass with composite saphenous vein graft , thrombectomy of common peroneal and posterior tibial artery veno-venostomy saphenous by vascular surgery (3) Skin graft infection Assessment & Plan: due to MDR Acinetobacter Baumannii and coag negative staph , received initially colistin and vancomycin , but his creatinine increased , both were D/C , now on iv doxycycline, and ceftaroline to finish his course of therapy , will treat for additional week . continue to monitor renal function tests as an outpatient and follow up with vascular . patient is aware of the high failure rate with this kind of bacterial infection due to MDR Acinetobacter baumannii , and he agreed to proceed. (4) DANIEL (acute kidney injury) Assessment & Plan: suspect dehydration plus antibiotics related, off colistin, and vancomycin , encourage hydration and monitor renal function as an outpatient Subjective Constitutional: Denies: anorexia, chills, drenching sweats, fatigue, fever, no symptoms, other HEENT: Denies: congestion, coryza, dysphagia, hearing change, no symptoms, other, visual change Respiratory: Denies: dry cough, no symptoms, other, productive cough, shortness of breath Breasts: Denies: discharge, no symptoms, other, swelling, tenderness Cardiovascular: Denies: chest pain, dyspnea on exertion, no symptoms, other, palpitations Gastrointestinal/Abdominal: Denies: bloating, blood in stool, constipation, diarrhea, nausea, no symptoms, other, vomiting Genitourinary: Denies: dysuria, frequency, hematuria, no symptoms, nocturia, other Neurologic: Denies: confusion, headache, no symptoms, numbness, other, weakness Psychiatric: Denies: anxiety, depression, no symptoms, other Skin: Denies: no symptoms, other, rash, ulcer Endocrine: Denies: feels cold, feels warm, no symptoms, other Hematologic: Denies: bleeding, no symptoms, other, swollen lymph nodes Allergies: Coded Allergies: PENICILLIN G (Unverified Allergy, Unknown, 09/08/16) CODEINE (Unverified Adverse Reaction, Unknown, 05/14/16) MORPHINE (Unverified Adverse Reaction, Unknown, 05/14/16) PENICILLINS (Unverified Adverse Reaction, Unknown, 05/14/16) SHELLFISH DERIVED (Unverified Adverse Reaction, Unknown, Shortness of Breath, 05/14/16) Objective Vital Signs Last 24 Hour Vital Signs Date Time Temp Pulse Resp B/P Pulse Ox O2 Delivery O2 Flow Rate FiO2 09/30/16 17:00 97.3 09/30/16 16:02 97.3 68 22 124/80 100 Room Air 09/30/16 11:47 98.1 60 20 114/68 98 Room Air 09/30/16 08:55 72 138/87 09/30/16 08:10 97.9 72 20 138/87 99 Room Air 09/30/16 04:00 98.1 69 18 126/75 100 Room Air 09/30/16 00:00 97.9 68 18 124/74 99 Room Air 09/29/16 20:00 97.9 73 20 119/75 100 Room Air Height (Feet): 5 Height (Inches): 11.00 Weight (Pounds): 171 General Appearance: WD/WN, no acute distress HEENT: normocephalic, atraumatic, anicteric, mucous membranes moist Respiratory/Chest: chest wall non-tender, lungs clear, normal breath sounds, no respiratory distress Cardiovascular: normal peripheral pulses, normal rate, regular rhythm, no gallop/murmur Abdomen: normal bowel sounds, soft, non tender, no organomegaly, non distended Extremities: no cyanosis, no clubbing, other - left leg surgical wound with clips, covered with dressing Skin: no rash, no lesions Laboratory Tests Test 09/29/16 22:30 09/30/16 04:40 09/30/16 14:00 Urine Color Yellow Urine Appearance Clear Urine pH 5 (4.5-8.0) Urine Specific [place] 1.025 (1.005-1.035) Urine Protein 2+ (NEGATIVE) H Urine Glucose (UA) Negative (NEGATIVE) Urine Ketones Negative (NEGATIVE) Urine Occult Blood 1+ (NEGATIVE) H Urine Nitrite Negative (NEGATIVE) Urine Bilirubin Negative (NEGATIVE) Urine Urobilinogen Normal MG/DL (0.0-1.0) Urine Leukocyte Esterase Negative (NEGATIVE) Urine RBC 0-2 /HPF (0 - 0) H Urine WBC 0 /HPF (0 - 0) Urine Squamous Epithelial Cells Few /LPF (NONE/OCC) Urine Bacteria None /HPF (NONE) White Blood Count 6.2 K/UL (4.8-10.8) Red Blood Count 3.44 M/UL (4.70-6.10) L Hemoglobin 10.0 G/DL (14.2-18.0) L Hematocrit 30.3 % (42.0-52.0) L Mean Corpuscular Volume 88 FL (80-99) Mean Corpuscular Hemoglobin 29.2 PG (27.0-31.0) Mean Corpuscular Hemoglobin Concent 33.1 G/DL (32.0-36.0) Red Cell Distribution Width 13.5 % (11.6-14.8) Platelet Count 335 K/UL (150-450) Mean Platelet Volume 5.9 FL (6.5-10.1) L Neutrophils (%) (Auto) 58.2 % (45.0-75.0) Lymphocytes (%) (Auto) 31.8 % (20.0-45.0) Monocytes (%) (Auto) 9.1 % (1.0-10.0) Eosinophils (%) (Auto) 0.1 % (0.0-3.0) Basophils (%) (Auto) 0.8 % (0.0-2.0) Prothrombin Time 32.1 SEC (9.30-11.50) H Prothromb Time International Ratio 3.0 (0.9-1.1) H Sodium Level 133 mEQ/L (135-145) L Potassium Level 4.0 mEQ/L (3.4-4.9) Chloride Level 94 mEQ/L (98-107) L Carbon Dioxide Level 21 mEQ/L (20-30) Anion Gap 18 (5-15) H Blood Urea Nitrogen 18 mg/dL (7-23) Creatinine 1.6 mg/dL (0.7-1.2) H Estimat Glomerular Filtration Rate 55.8 mL/min (>60) Glucose Level 102 mg/dL (74-106) Uric Acid 4.2 mg/dL (3.0-7.5) Calcium Level 9.2 mg/dL (8.6-10.2) Phosphorus Level 4.9 mg/dL (2.5-4.8) H Magnesium Level 1.7 mg/dL (1.7-2.5) Total Bilirubin 0.3 mg/dL (0.0-1.2) Direct Bilirubin 0.1 mg/dL (0.1-0.3) Aspartate Amino Transf (AST/SGOT) 20 U/L (5-40) Alanine Aminotransferase (ALT/SGPT) 17 U/L (3-41) Alkaline Phosphatase 45 U/L (40-129) Total Protein 6.9 g/dL (6.6-8.7) Albumin 3.3 g/dL (3.5-5.2) L Random Vancomycin Level 14.4 ug/mL Urine Random Sodium 81 mmol/L Current Medications Medications (Trade) Dose Ordered Sig/Leidy Route PRN Reason Start Time Stop Time Status Last Admin Dose Admin Al Hydroxide/Mg Hydroxide (Mylanta) 30 ml Q6H PRN ORAL for heartburn 09/12/16 14:15 10/12/16 14:14 Amlodipine Besylate (Norvasc) 10 mg DAILY ORAL 09/13/16 09:00 10/13/16 08:59 09/30/16 08:55 Aspirin (ASA) 81 mg DAILY ORAL 09/21/16 14:00 10/21/16 13:59 09/30/16 08:55 Bisacodyl (Dulcolax) 10 mg DAILYPRN PRN RECTAL Constipation 09/14/16 10:45 10/14/16 10:44 Ceftaroline Fosamil/Sodium Chloride (Teflaro/Sodium Chloride) 55 ml @ 55 mls/hr ONCE@1800 ONCE IVPB 09/30/16 18:00 09/30/16 18:59 09/30/16 16:30 Doxycycline Hyclate 100 mg/ Dextrose 110 ml @ 110 mls/hr Q12HR IV 09/27/16 21:00 10/04/16 20:59 09/30/16 17:55 Hydromorphone HCl (Dilaudid Premix 1mg/50ml) 50 ml @ 200 mls/hr Q4H PRN IVPB Moderate Pain (Pain Scale 4-6) 09/12/16 13:45 10/12/16 13:44 Hydromorphone HCl (Dilaudid) 2 mg Q4H PRN IVP Severe Pain (Pain Scale 7-10) 09/26/16 18:00 10/03/16 17:59 09/30/16 16:30 Magnesium Hydroxide (Mom) 30 ml DAILYPRN PRN ORAL Constipation 09/14/16 10:45 10/14/16 10:44 Ondansetron HCl (Zofran) 4 mg Q6H PRN IVP Nausea & Vomiting 09/12/16 13:45 10/12/16 13:44 Pantoprazole 40 mg 40 mg DAILY ORAL 09/27/16 09:00 10/27/16 08:59 09/30/16 08:55 Senna/Docusate Sodium (Tosha-Colace) 1 ea TWICE A DAY ORAL 09/14/16 11:00 10/14/16 10:59 09/30/16 16:30 Sodium Chloride 1,000 ml @ 75 mls/hr [id number] IV 09/28/16 10:00 10/28/16 09:59 09/30/16 14:22 Warfarin Sodium (Coumadin per pharmacy) 1 ea DAILY PRN MISC Per rx protocol 09/16/16 20:45 10/16/16 20:44 Giles Dumas M.D. Sep 30, 2016 18:02
--- NOTE | 2016-09-30 21:43 | Discharge Summary ---
Discharge Summary Hospital Course Date of Admission Sep 09, 2016 at 00:51 Date of Discharge Sep 30, 2016 at 19:00 Admitting Diagnosis ARTERIAL OCCLUSION HPI 50-year-old male with a history of bilateral femoral popliteal bypass surgery done in January and February of last year by Dr. Lincoln at [facility]. He presents with acute onset of left leg pain. This occurred about 30 minutes prior to arrival. He was complaining of severe pain 10 out of 10. He felt his leg from the knee down going numb. Denies any trauma. Denies any fever or chills. Still able to walk. No other complaint. Pain is tracking up his thigh. Consultations Vascular surgery Infectious disease Hematology Nephrology Procedures LLE angiogram on 09/09/16 which showed occluded L FPBPG w/ minimal distal reconstitution On 09/10/16: 1. Left femoral-popliteal bypass using reverse saphenous vein. 2. Thrombectomy of saphenous vein bypass. This is a redo surgery, which was quite difficult. 3. Thrombectomy of posterior tibial and peroneal vessels and popliteal artery. 4. Infusion of tPA 6 mg. 5. Anterior and posterior compartment fasciotomies. Split-thickness skin graft, left thigh to left leg fasciotomy sites on 09/16/16 Hospital Course Pt was admitted and underwent urgent LLE angiogram by IR on 09/09/16 which showed occluded L FPBPG w/ minimal distal reconstitution. Pt was then seen by vascular surgery. He underwent thrombectomy of fem tib PTFE bypass and profunda common peroneal bypass with composite saphenous vein graft; thrombectomy of common peroneal and posterior tibial artery veno-venostomy saphenous on . Pt then underwent skin grafting 09/16/16. He was found to have skin graft infection due to MDR Acinetobacter Baumannii and coag negative stap. He was treated with vancomycin as well as colistin per ID. Pt with DANIEL, and so colistin was switched to doxycycline. Vancomycin was also discontinued given DANIEL. Pt was started on ceftaroline. Pt was also placed on heparin gtt and then started on Coumadin once all procedures completed. Pt remained inhouse until INR therapeutic. Prior to d/c, pt was HD stable, tolerating PO, and ambulating w/o assistance. Discharge Medications New Medications: Warfarin Sod* (Coumadin*) 5 Mg Tablet 5 MG ORAL DAILY for 30 Days, TAB Pantoprazole* (Protonix*) 40 Mg Tablet.dr 40 MG ORAL DAILY for 30 Days, TAB Continued Medications: Amlodipine Besylate (Norvasc) 10 Mg Tablet 10 MG ORAL DAILY, TAB Aspirin* (Aspir 81*) 81 Mg Tablet.dr 81 MG ORAL DAILY, TAB Aspirin* (Aspir 81*) 81 Mg Tablet.dr 81 MG ORAL DAILY, TAB Colistin (Colistimethate Na) (Colistimethate) 150 Mg Vial 150 MG IJ EVERY 12 HOURS, VIAL Docusate Sodium (Docusate Sodium) 100 Mg Tablet 100 MG ORAL TWICE A DAY, #60 TAB 0 Refills Hydrocodone Bit/Acetaminophen 5-325* (Sekiu 5-325*) 1 Each Tablet 1 TAB ORAL Q6H PRN for For Pain, #10 TAB 0 Refills Vancomycin Hcl/D5w (Vancomycin-D5w 1 G/250 Ml) 1 Gm/250 Ml Plast..bag 1.25 GM IVPB Q12HR, BAG Continue until 09/30/16 Discontinued Medications: Amlodipine Besylate* (Amlodipine Besylate*) 2.5 Mg Tablet 2.5 MG ORAL DAILY, TAB Docusate Sodium* (Docusate Sodium*) 100 Mg Capsule 200 MG ORAL DAILY, CAP Ibuprofen* (Motrin*) 600 Mg Tablet 600 MG ORAL Q8H PRN for For Pain, #30 TAB 0 Refills Pantoprazole (Pantoprazole) 20 Mg Tablet.dr 20 MG ORAL DAILY, #10 TAB 0 Refills Discharge Condition Upon Discharge: stable Discharge Disposition Patient was discharged to Home with Home Health(06) Discharge Diagnoses: (1) Femoral-popliteal bypass graft occlusion, left (2) MDR Acinetobacter baumannii infection (3) DANIEL (acute kidney injury) (4) PVD (peripheral vascular disease) (5) Arterial occlusion, lower extremity (6) Acute blood loss anemia (7) Skin graft infection Discharge Instructions Discharge Instructions Follow up with: F/u with hematology Dr. Alford in 1-2 days--call [phone] Call MD/Return to Hospital if: increasing swelling, pain, redness of leg; fevers/chills, chest pain, SOB Services Upon Discharge: home health services Activity: resume normal activities For Surgical Patients Clean and Dry: surgical site Dressing Care: keep dry and clean Contact your physician for: bleeding, pain, tenderness, redness, swelling, yellowish discharge in the op. site Jose Alejandro Fisher M.D. Sep 30, 2016 21:43
--- NOTE | 2016-10-05 14:10 | Diagnostic Imaging Report ---
Indications: Infection requiring long-term IV antibiotics Technique: The procedure indications, risks, and alternatives were explained to the patient who understands and gives consent to proceed. Strict aseptic technique was utilized, including hand washing, use of hat and mask, use of sterile gown and gloves, sterile ultrasound gel and probe cover, prepping of right arm skin with 2% chlorhexidine solution, and application of full body sterile barrier over this area. Skin and subcutaneous soft tissues were infiltrated with 1% lidocaine and sodium bicarbonate. A small dermatotomy was made, through which the patent adequate size right basilic vein was punctured percutaneously under direct sonographic guidance with a 21-gauge needle. Exchange was made over a 0.018 inch guidewire for a 5 Khmer peel-away sheath. A [employer]-PICC 5 Khmer dual lumen central venous catheter was cut to appropriate length, then advanced through the sheath over the guidewire under direct fluoroscopic guidance into the superior vena cava. Guidewire and sheath were removed. Both catheter ports were aspirated, then flushed with heparinized saline. Final image was obtained. Catheter was secured the skin with adhesive dressing. Patient tolerated procedure well without immediate complications. Total fluoroscopy time: 0.2 minutes. Dose-area product: 3.1 dGy-cm2 Findings: Final image demonstrates tip of the central venous catheter at the level of superior vena cava-right atrial junction, 44 cm in from the skin. Both ports aspirate and flush freely. IMPRESSION: Placement of peripherally inserted central venous catheter via right basilic vein, working well.
--- NOTE | 2016-11-17 09:16 | Diagnostic Imaging Report ---
Indication: Acute left lower extremity ischemia, patient status post bilateral artery bypass graft Technique: Informed consent obtained prior to commencement of the procedure. Procedure, risks, benefits and alternatives discussed with patient and , all questions answered. They indicated their willingness to proceed. Procedural timeout performed. Total sterile technique, including sterile gloves and hand hygiene, hat, mask, sterile gown, large sterile drape, and preparation with 2% chlorhexidine utilized. Local anesthesia with 1% lidocaine. Under real-time ultrasound guidance, puncture right common femoral artery using 21-gauge micropuncture needle. Care was taken to puncture above the origin of the right femoral popliteal bypass graft. As a schwannoma a guidewire, insertion 4 [place] micropuncture introducer, passage 0.035 guidewire, insertion 5 Australian sheath. This was hooked to heparinized saline pressure flush. Over a 0.035 guidewire, a 5 [place] flush catheter was inserted. This was used to perform flush abdominal aortography, and pelvic arteriography in both obliquities. The catheter was then directed into the left common iliac artery, and multistation arteriography of the left lower extremity circulation was performed. Large doses of contrast were needed to visualize the [id number] vessels. The catheter was subsequently withdrawn into the right iliac system, and limited angiography of the right thigh was performed. After review of images with Dr. Kumar, catheter and sheath were removed, pressure held until hemostasis was achieved. The patient tolerated the procedure well, without immediate complication. Dr. Kumar then took the patient to surgery Total fluoroscopy time 6.9 minutes Dose area product 1858 dgycm2 Comparison: None Findings: Abdominal aortogram demonstrates mildly ectatic but nonaneurysmal abdominal aorta. Single widely patent bilateral renal arteries. Pelvic arteriogram demonstrates patent bilateral common and external iliac arteries. There is nonsignificant disease of the main trunks of the bilateral internal iliac arteries. There is somewhat unusual appearance of the profunda femoris artery, with 2 large main trunks present. The nubbin of the occluded femoral popliteal bypass graft is noted. There is flush origin occlusion of the superficial femoral artery. There is distal reconstitution of a short segment of the popliteal artery, which reoccludes above the knee joint. There is reconstitution of the posterior tibial artery below its origin. The proximal reconstituted segment demonstrates a linear filling defect within it consistent with thrombus. This appears to occlude in the mid leg, and main vessels are not demonstrated below the mid calf level. Limited angiography of the right groin and thigh demonstrates nonvisualization of the right femoral-popliteal bypass graft. Unusual appearance of the profunda femoris artery is similar to the contralateral side. The nubbin of the bypass graft is nonvisualized. There is apparent flush occlusion of the origin of the superficial femoral artery. Impression: Occluded left femoral popliteal bypass graft and superficial femoral artery. Poor distal runoff, with only a short segment of the popliteal artery reconstituting, as well as a short segment of the posterior tibial artery origin, the latter containing some thrombus. No other named vessels are seen below the knee and no angiographically visible blood flow is seen beyond the mid calf Apparent origin occlusion of right femoral-popliteal bypass graft and right superficial femoral artery, despite absence of ischemic symptoms in the right leg No evidence of significant supra-inguinal stenosis
--- NOTE | 2016-11-17 09:19 | Diagnostic Imaging Report ---
Indication: Acute left lower extremity ischemia, patient status post bilateral artery bypass graft Technique: Informed consent obtained prior to commencement of the procedure. Procedure, risks, benefits and alternatives discussed with patient and , all questions answered. They indicated their willingness to proceed. Procedural timeout performed. Total sterile technique, including sterile gloves and hand hygiene, hat, mask, sterile gown, large sterile drape, and preparation with 2% chlorhexidine utilized. Local anesthesia with 1% lidocaine. Under real-time ultrasound guidance, puncture right common femoral artery using 21-gauge micropuncture needle. Care was taken to puncture above the origin of the right femoral popliteal bypass graft. As a schwannoma a guidewire, insertion 4 [place] micropuncture introducer, passage 0.035 guidewire, insertion 5 [place] sheath. This was hooked to heparinized saline pressure flush. Over a 0.035 guidewire, a 5 [place] Island[place] flush catheter was inserted. This was used to perform flush abdominal aortography, and pelvic arteriography in both obliquities. The catheter was then directed into the left common iliac artery, and multistation arteriography of the left lower extremity circulation was performed. Large doses of contrast were needed to visualize the [id number] vessels. The catheter was subsequently withdrawn into the right iliac system, and limited angiography of the right thigh was performed. After review of images with Dr. Kumar, catheter and sheath were removed, pressure held until hemostasis was achieved. The patient tolerated the procedure well, without immediate complication. Dr. Kumar then took the patient to surgery Total fluoroscopy time 6.9 minutes Dose area product 1858 dgycm2 Comparison: None Findings: Abdominal aortogram demonstrates mildly ectatic but nonaneurysmal abdominal aorta. Single widely patent bilateral renal arteries. Pelvic arteriogram demonstrates patent bilateral common and external iliac arteries. There is nonsignificant disease of the main trunks of the bilateral internal iliac arteries. There is somewhat unusual appearance of the profunda femoris artery, with 2 large main trunks present. The nubbin of the occluded femoral popliteal bypass graft is noted. There is flush origin occlusion of the superficial femoral artery. There is distal reconstitution of a short segment of the popliteal artery, which reoccludes above the knee joint. There is reconstitution of the posterior tibial artery below its origin. The proximal reconstituted segment demonstrates a linear filling defect within it consistent with thrombus. This appears to occlude in the mid leg, and main vessels are not demonstrated below the mid calf level. Limited angiography of the right groin and thigh demonstrates nonvisualization of the right femoral-popliteal bypass graft. Unusual appearance of the profunda femoris artery is similar to the contralateral side. The nubbin of the bypass graft is nonvisualized. There is apparent flush occlusion of the origin of the superficial femoral artery. Impression: Occluded left femoral popliteal bypass graft and superficial femoral artery. Poor distal runoff, with only a short segment of the popliteal artery reconstituting, as well as a short segment of the posterior tibial artery origin, the latter containing some thrombus. No other named vessels are seen below the knee and no angiographically visible blood flow is seen beyond the mid calf Apparent origin occlusion of right femoral-popliteal bypass graft and right superficial femoral artery, despite absence of ischemic symptoms in the right leg No evidence of significant supra-inguinal stenosis
== END 2016-09-30 19:00 | disposition home health service (06) | DRG 173 ==
LOC: EDBD 22:04 → EMR 22:14 → 2E 09-09 00:51 → EDBEDREQ 09-09 02:15 → 2E 09-09 02:44 → ICU 09-10 00:49 → 3E 09-12 13:46 → 4W 09-18 14:20
PROC: 04CS0ZZ Extirpation of Matter from Left Posterior Tibial Artery, Open Approach (ICD-10-PCS; 2016-09-09)
PROC: 041L09M Bypass Left Femoral Artery to Peroneal Artery with Autologous Venous Tissue, Open Approach (ICD-10-PCS; 2016-09-09)
PROC: 06BQ0ZZ Excision of Left Saphenous Vein, Open Approach (ICD-10-PCS; 2016-09-09)
PROC: 041L09L Bypass Left Femoral Artery to Popliteal Artery with Autologous Venous Tissue, Open Approach (ICD-10-PCS; 2016-09-10)
PROC: 04CL0ZZ Extirpation of Matter from Left Femoral Artery, Open Approach (ICD-10-PCS; 2016-09-10)
PROC: 3E05017 Introduction of Other Thrombolytic into Peripheral Artery, Open Approach (ICD-10-PCS; 2016-09-10)
PROC: 0J8P0ZZ Division of Left Lower Leg Subcutaneous Tissue and Fascia, Open Approach (ICD-10-PCS; 2016-09-10)
PROC: 04CU0ZZ Extirpation of Matter from Left Peroneal Artery, Open Approach (ICD-10-PCS; 2016-09-10)
PROC: 04CN0ZZ Extirpation of Matter from Left Popliteal Artery, Open Approach (ICD-10-PCS; 2016-09-10)
PROC: 04CS0ZZ Extirpation of Matter from Left Posterior Tibial Artery, Open Approach (ICD-10-PCS; 2016-09-10)
PROC: 0HBJXZZ Excision of Left Upper Leg Skin, External Approach (ICD-10-PCS; 2016-09-16)
PROC: 0HRLX74 Replacement of Left Lower Leg Skin with Autologous Tissue Substitute, Partial Thickness, External Approach (ICD-10-PCS; 2016-09-16)
PROC: 02HV33Z Insertion of Infusion Device into Superior Vena Cava, Percutaneous Approach (ICD-10-PCS; principal; 2016-09-22)
PROC: B518ZZA Fluoroscopy of Superior Vena Cava, Guidance (ICD-10-PCS; 2016-09-22)
DX: T82.868A Thrombosis due to vascular prosthetic devices, implants and grafts, initial encounter (principal); N17.9 Acute kidney failure, unspecified; D68.59 Other primary thrombophilia; D62 Acute posthemorrhagic anemia; T81.4XXA Infection following a procedure, initial encounter; B96.89 Other specified bacterial agents as the cause of diseases classified elsewhere; Z16.24 Resistance to multiple antibiotics; I70.293 Other atherosclerosis of native arteries of extremities, bilateral legs; D69.6 Thrombocytopenia, unspecified
CPT/HCPCS: 36415; 36569; 75630; 75710; 76937; 80048; 80053; 80076; 80202; 81003; 82248; 83735; 84100; 84300; 84550; 85007; 85025; 85610; 85730; 86850; 86900; 86901; 86920; 87040; 87070; 87075; 87181; 87205; 93005; 93926; 94003; 94150; 94760; C9399; J0712; J2250; J2405; J2765; J3490; S0077

== ENCOUNTER 2018-08-25 15:00 | Emergency (ER) | payer MEDICAID ==
[~2018-08-25] VITALS: Ht 182.9 cm; Wt 79.4 kg
[~2018-08-25 15:00] MED LIST changes: +COLISTIMETHATE150 M1 IJ; +COUMADIN5 MG ORAL; +PROTONIX40 MG ORAL; +VANCOMYCIN1 GM/2502 IVPB
[2018-08-25] MEDS ORDERED: CILOSTAZOL100 MG PO (15:13)
[2018-08-25] MEDS ORDERED: ATORVASTATIN CA40 MG ORAL (15:13)
[2018-08-25] MEDS ORDERED: CARVEDILOL6.25 MG ORAL (15:13)
[2018-08-25] MEDS ORDERED: LISINOPRIL20 MG ORAL (15:13)
[2018-08-25] MEDS ORDERED: CLOPIDOGREL75 MG ORAL (15:13)
[2018-08-25 15:48] VITALS: BP 130/93
[2018-08-25 16:02] LABS: BASOPHILS % (AUTO) 1.6 % (0.0-2.0); HEMATOCRIT 40.8 % (42.0-52.0); HEMOGLOBIN 13.4 G/DL (14.2-18.0); LYMPHOCYTES % (AUTO) 34.7 % (20.0-45.0); MEAN CORPUSCULAR VOLUME 84 FL (80-99); MONOCYTES % (AUTO) 10.1 % (1.0-10.0); NEUTROPHILS % (AUTO) 51.6 % (45.0-75.0); PLATELET COUNT 271 K/UL (150-450); RED BLOOD COUNT 4.87 M/UL (4.70-6.10); RED CELL DISTRIBUTION WIDTH 12.6 % (11.6-14.8)
[2018-08-25 16:07] LABS: INR 1.1 (0.9-1.1)
[2018-08-25 16:08] LABS: ANION GAP 9 mmol/L (5-15); BLOOD UREA NITROGEN 16 mg/dL (7-18); CARBON DIOXIDE 27 MMOL/L (21-32); CHLORIDE 103 MMOL/L (98-107); CREATININE 1.4 MG/DL (0.55-1.30); POTASSIUM 3.8 MMOL/L (3.5-5.1); SODIUM 139 MMOL/L (136-145)
[2018-08-25 16:15] LABS: ALANINE AMINOTRANSFERASE 22 U/L (12-78); ALBUMIN 3.4 G/DL (3.4-5.0); ALBUMIN/GLOBULIN RATIO 0.8 (1.0-2.7); ALKALINE PHOSPHATASE 63 U/L (46-116); ASPARTATE AMINO TRANSFERASE 13 U/L (15-37); BILIRUBIN,TOTAL 0.7 MG/DL (0.2-1.0); CHOLESTEROL 113 MG/DL (< 200); HDL CHOLESTEROL 34 MG/DL (40-60); TRIGLYCERIDES 34 MG/DL (30-150)
--- NOTE | 2018-08-25 16:24 | Diagnostic Imaging Report ---
Indication: Headache Technique: Contiguous 5 mm thick transaxial imaging of the head obtained in a Siemens Sensation [address] scanner. Soft tissue and bone windows generated. Automatic Exposure Control was utilized. Total Dose length Product (DLP): 1379.[address] Dose Index Volume (CTDIvol): 70.38 mGy Comparison: none Findings: The size and configuration of the cortical sulci, basal cisterns, and ventricles are within normal limits for age. There is no mass effect, midline shift, or edema identified. There is no evidence of acute hemorrhage or abnormal intra-axial or extra-axial fluid collections. The bones and soft tissues are unremarkable. Impression: No mass effect, edema or acute bleed. The CT scanner at [facility] is accredited by the [employer] and the scans are performed using dose optimization techniques as appropriate to a performed exam including Automatic Exposure control.
[2018-08-25] MEDS ORDERED: Isovue-300 100ml vial INJ PRN (17:00)
[2018-08-25 17:16] VITALS: BP 136/94
[2018-08-25] MEDS ORDERED: CLINDAMYCIN HC300 MG ORAL (17:17)
[2018-08-25 17:21] VITALS: BP 136/94
--- NOTE | 2018-08-25 18:49 | Emergency Room Report ---
History of Present Illness General Chief Complaint: General Complaint Source: Patient, Medical Record Present Illness HPI 52-year-old male presents ED for evaluation. Patient referred his clinic for facial swelling/facial droop. States that he noticed his upper lip and face swollen starting this morning. Patient states there is a "facial droop". Denies any slurred speech. Denies any arm or leg weakness. Was seen by his clinic today and was referred here to rule out stroke. Denies chest pain or shortness of breath. States he has a history of hypertension and peripheral vascular disease and bypass to the leg. No other aggravating relieving factors. Denies any other associated symptoms Allergies: Coded Allergies: CODEINE (Unverified Adverse Reaction, Unknown, 05/14/16) MORPHINE (Unverified Adverse Reaction, Unknown, 05/14/16) PENICILLINS (Unverified Adverse Reaction, Unknown, 05/14/16) SHELLFISH DERIVED (Unverified Adverse Reaction, Unknown, Shortness of Breath, 05/14/16) Patient History Past Medical History: HTN, COPD Past Surgical History: none, other - bypass L leg Pertinent Family History: none Social History: Denies: smoking, alcohol use, drug use Immunizations: UTD Reviewed Nursing Documentation: PMH: Agreed; PSxH: Agreed Nursing Documentation-PMH Past Medical History: No History, Except For Hx Cardiac Problems: Yes - Bipass in the leg, high cholesterol Hx Hypertension: Yes Hx COPD: Yes Hx Cancer: No Hx Gastrointestinal Problems: Yes Hx Neurological Problems: No Review of Systems All Other Systems: negative except mentioned in HPI Physical Exam Vital Signs Date Time Temp Pulse Resp B/P (MAP) Pulse Ox O2 Delivery O2 Flow Rate FiO2 08/25/18 15:02 98.1 77 18 144/104 96 Room Air Sp02 EP Interpretation: reviewed, normal General Appearance: no apparent distress, alert, GCS 15, non-toxic Head: normocephalic, other - swelling R upper lip, and R maxilla area Eyes: bilateral eye normal inspection, bilateral eye PERRL ENT: hearing grossly normal, normal pharynx, no angioedema, normal voice, other - poor dentition. multiple dental caries Neck: full range of motion, supple/symm/no masses Respiratory: chest non-tender, lungs clear, normal breath sounds, speaking full sentences Cardiovascular #1: regular rate, rhythm, no edema Cardiovascular #2: 2+ carotid (R), 2+ carotid (L), 2+ radial (R), 2+ radial (L) , 2+ dorsalis pedis (R), 2+ dorsalis pedis (L) Gastrointestinal: normal bowel sounds, non tender, soft, non-distended, no guarding, no rebound Rectal: deferred Genitourinary: normal inspection, no CVA tenderness Musculoskeletal: back normal, gait/station normal, normal range of motion, non- tender Neurologic: alert, oriented x3, responsive, nremt III-XII nml as tested, motor strength/tone normal, sensory intact, cerebellar normal, normal gait, speech normal Psychiatric: judgement/insight normal, memory normal, mood/affect normal, no suicidal/homicidal ideation Reflexes: 3+ bicep (R), 3+ bicep (L), 3+ tricep (R), 3+ tricep (L), 3+ knee (R) , 3+ knee (L) Skin: normal color, no rash, warm/dry, well hydrated Lymphatic: no adenopathy Medical Decision Making Diagnostic Impression: Primary Impression: Facial swelling ER Course Hospital Course 52 yo M presents to ED c/o R facial swelling. lip swelling. referred by PMD for 'stroke' Differential diagnoses include: CVA/TIA, cellulitis, abscess Clinical course Patient placed on stretcher. 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 After initial history and physical I ordered labs, EKG, and CT head labs reviewed- electrolytes ok, troponins negative, no leukocytosis, Hb/Hct stable EKG - NSR, no acute ischemic changes interpreted by me CT brain - no acute process noted Patient has cranial nerves II through XII intact. No focal neurological deficits. I do not identify facial droop. I do appreciate some swelling to the right upper lip extending into the right maxilla area. no fluctuance. There is significantly poor dentition with multiple dental caries Based on my assessment I do not believe patient is having a stroke. Discussed with BRISEYDA Aguirre at his clinic; she agrees with assessment but states that she was only sending patient to the ER based on his history. I discussed with patient. Reassurance given. I offered option for CT facial bones with contrast to further evaluate the swelling. He declined stating that he will take antibiotics as it was discussed with his PA Safe for discharge or close outpatient follow-up. Patient will be prescribed clindamycin. Instructed return to ED if he develops slurred speech, facial droop, arm or leg weakness. I. I feel this is a highly complex case requiring extensive working including EKG/Rhythm strip, Xray/CT/US, Blood/urine lab work, repeat exams while in ED, and administration of strong opiates/narcotics for pain control, admission to hospital or close patient follow up. Diagnosis - facial swelling. stable and discharged to home with clindamycin. Warm compresses. Follow-up with PMD. Return to ED if symptoms recur or worsen Labs Test 08/25/18 15:40 White Blood Count 6.0 K/UL (4.8-10.8) Red Blood Count 4.87 M/UL (4.70-6.10) Hemoglobin 13.4 G/DL (14.2-18.0) Hematocrit 40.8 % (42.0-52.0) Mean Corpuscular Volume 84 FL (80-99) Mean Corpuscular Hemoglobin 27.4 PG (27.0-31.0) Mean Corpuscular Hemoglobin Concent 32.8 G/DL (32.0-36.0) Red Cell Distribution Width 12.6 % (11.6-14.8) Platelet Count 271 K/UL (150-450) Mean Platelet Volume 6.8 FL (6.5-10.1) Neutrophils (%) (Auto) 51.6 % (45.0-75.0) Lymphocytes (%) (Auto) 34.7 % (20.0-45.0) Monocytes (%) (Auto) 10.1 % (1.0-10.0) Eosinophils (%) (Auto) 2.0 % (0.0-3.0) Basophils (%) (Auto) 1.6 % (0.0-2.0) Prothrombin Time 11.5 SEC (9.30-11.50) Prothromb Time International Ratio 1.1 (0.9-1.1) Activated Partial Thromboplast Time 31 SEC (23-33) Sodium Level 139 MMOL/L (136-145) Potassium Level 3.8 MMOL/L (3.5-5.1) Chloride Level 103 MMOL/L (98-107) Carbon Dioxide Level 27 MMOL/L (21-32) Anion Gap 9 mmol/L (5-15) Blood Urea Nitrogen 16 mg/dL (7-18) Creatinine 1.4 MG/DL (0.55-1.30) Estimat Glomerular Filtration Rate > 60 mL/min (>60) Glucose Level 112 MG/DL (74-106) Calcium Level 9.0 MG/DL (8.5-10.1) Total Bilirubin 0.7 MG/DL (0.2-1.0) Aspartate Amino Transf (AST/SGOT) 13 U/L (15-37) Alanine Aminotransferase (ALT/SGPT) 22 U/L (12-78) Alkaline Phosphatase 63 U/L (46-116) Troponin I 0.005 ng/mL (0.000-0.056) Total Protein 7.6 G/DL (6.4-8.2) Albumin 3.4 G/DL (3.4-5.0) Globulin 4.2 g/dL Albumin/Globulin Ratio 0.8 (1.0-2.7) Triglycerides Level 34 MG/DL (30-150) Cholesterol Level 113 MG/DL (< 200) LDL Cholesterol 63 mg/dL (<100) HDL Cholesterol 34 MG/DL (40-60) Cholesterol/HDL Ratio 3.3 (3.3-4.4) EKG Diagnostic Results Rate: normal Rhythm: NSR ST Segments: no acute changes ASA given to the pt in ED: No Rhythm Strip Diag. Results EP Interpretation: yes Rhythm: NSR, no PVC's, no ectopy CT/MRI/US Diagnostic Results CT/MRI/US Diagnostic Results : Imaging Test Ordered: CT Head Impression no acute process Last Vital Signs Date Time Temp Pulse Resp B/P (MAP) Pulse Ox O2 Delivery O2 Flow Rate FiO2 08/25/18 17:21 98.1 68 15 136/94 96 Room Air Status: improved Disposition: HOME, SELF-CARE Condition: Stable Scripts Clindamycin Hcl (CLINDAMYCIN HCL) 300 Mg Capsule 300 MG ORAL THREE TIMES A DAY, #21 CAP Prov: Dani Schmitt MD 08/25/18 Patient Instructions: Cellulitis, [id number] Additional Instructions: return to ED if swelling worsens, you develop shortness of breath, slurred speech, or arm or leg weakness. Dani Schmitt MD Aug 25, 2018 18:49
--- NOTE | 2018-08-27 15:30 | Cardiology Report ---
APPROVED REPORT EKG Measurement Heart [id number] Normal sinus rhythm Normal ECG
== END 2018-08-25 17:23 | disposition home or self-care (01) ==
LOC: EMR 16:08
DX: R60.0 Localized edema (principal); I10 Essential (primary) hypertension; J44.9 Chronic obstructive pulmonary disease, unspecified; Z88.0 Allergy status to penicillin; Z91.013 Allergy to seafood; Z88.5 Allergy status to narcotic agent
CPT/HCPCS: 36415; 70450; 80053; 80061; 84484; 85025; 85610; 85730; 93005; 99284

== ENCOUNTER 2019-07-16 07:53 | Emergency (ER) | payer MEDICAID ==
[~2019-07-16] VITALS: Ht 182.9 cm; Wt 73.9 kg
[~2019-07-16 07:53] MED LIST changes: +ATORVASTATIN CA40 MG ORAL; +CARVEDILOL6.25 MG ORAL; +CILOSTAZOL100 MG PO; +CLINDAMYCIN HC300 MG ORAL; +CLOPIDOGREL75 MG ORAL; +LISINOPRIL20 MG ORAL
[2019-07-16 08:07] VITALS: BP 136/87
--- NOTE | 2019-07-16 08:10 | NUR ---
ED Nurse Note: Patient arrived to ED from home complaining of right index finger pain since last . Patient hit his finger last Tuesday and noticed swelling over the weekend. No open wound or drainage. AxO x 4, ambulatory, gait steady. No s/s of acute distress.
--- NOTE | 2019-07-16 08:10 | NUR ---
Note undone in EDM - 07/16/19 at 0855 by STEFF ED Nurse Note: Patient arrived to ED from home complaining of left index finger pain since last . Patient hit his finger last Tuesday and noticed swelling over the weekend. No open wound or drainage. AxO x 4, ambulatory, gait steady. No s/s of acute distress.
[2019-07-16] MEDS ORDERED: Vancomycin 1 GM in NS 275 ML IVPB ONE (08:30)
[2019-07-16] MEDS ORDERED: Lidocaine 1% MPF 10mg/ml 5ml INJ ONE (08:30)
--- NOTE | 2019-07-16 10:37 | Emergency Room Report ---
History of Present Illness General Chief Complaint: Skin Rash/Abscess Source: Patient Present Illness HPI This patient states that he noted some swelling in his right index finger. He states that it first started around his nail and then the finger has become swollen in the pad of the index finger. He states that it is very tender to touch. He denies injury to the finger. He denies fever or chills. He denies nausea or vomiting. He has no other complaints. Allergies: Coded Allergies: CODEINE (Unverified Adverse Reaction, Unknown, 05/14/16) MORPHINE (Unverified Adverse Reaction, Unknown, 05/14/16) PENICILLINS (Unverified Adverse Reaction, Unknown, 05/14/16) SHELLFISH DERIVED (Unverified Adverse Reaction, Unknown, Shortness of Breath, 05/14/16) Patient History Past Medical History: see triage record, HTN, COPD, GERD Social History: Reports: smoking; Denies: alcohol use, drug use Reviewed Nursing Documentation: PMH: Agreed; PSxH: Agreed Nursing Documentation-PMH Past Medical History: No History, Except For Hx Cardiac Problems: Yes - Bipass in the leg, high cholesterol Hx Hypertension: Yes Hx COPD: Yes Hx Cancer: No Hx Gastrointestinal Problems: Yes Hx Neurological Problems: No Review of Systems All Other Systems: negative except mentioned in HPI Physical Exam Vital Signs Date Time Temp Pulse Resp B/P (MAP) Pulse Ox O2 Delivery O2 Flow Rate FiO2 07/16/19 07:59 98.1 72 18 136/87 (103) 98 Room Air Sp02 EP Interpretation: reviewed, normal General Appearance: no apparent distress, alert, GCS 15, non-toxic Head: normocephalic, atraumatic Eyes: bilateral eye normal inspection ENT: hearing grossly normal, no angioedema, normal voice Neck: normal inspection, full range of motion Respiratory: no respiratory distress, no retraction, no accessory muscle use, speaking full sentences Rectal: deferred Musculoskeletal: back normal, normal range of motion, gait/station normal, tender, swelling - R. index finger with erythema, swelling and fluctuance in the paronychia region with swelling of the distal pad. Normal ROM, no pain with flex/extension, no swelling proximal to DIP. Neurologic: alert, motor strength/tone normal, oriented x3, sensory intact, responsive, speech normal Psychiatric: judgement/insight normal, memory normal, mood/affect normal, no suicidal/homicidal ideation Skin: other - See above in MSK Procedures Incision and Drainage Incision and Drainage : Consent: Verbal Site: R. index finger Blade Size: 11 I & D Procedure: betadine prep, sterile drapes applied Wound Location: upper extremity Wound's Depth, Shape: superficial Wound Length (cm): 1 Anesthesia: 1% Lidocaine Volume Anesthetic (ccs): 3 Patient Tolerated: Well Complications: None Medical Decision Making Diagnostic Impression: Primary Impression: Paronychia Additional Impression: Felon ER Course This patient has findings on exam consistent with a paronychia early felon. The wound was incised and drained at the paronychial fold and a large amount of purulent discharge was obtained. The wound was irrigated. As a precaution, I did give the patient a dose of IV vancomycin. I will place the patient on oral antibiotics and give the patient close return precautions and follow-up instructions. Last Vital Signs Date Time Temp Pulse Resp B/P (MAP) Pulse Ox O2 Delivery O2 Flow Rate FiO2 07/16/19 08:07 98.1 89 18 136/87 98 Room Air Status: improved Disposition: HOME, SELF-CARE Condition: Improved Referrals: NON PHYSICIAN (PCP) Mary Dunn DO Jul 16, 2019 10:37
[2019-07-16] MEDS ORDERED: DOXYCYCLINE MO100 MG ORAL (10:56)
[2019-07-16 11:17] VITALS: BP 132/76
--- NOTE | 2019-07-16 11:17 | NUR ---
ER DISCHARGE NOTE: Patient is cleared to be discharged per ERMD, pt is aox4, on room air, with stable vital signs. pt was given dc and prescription instructions, pt was able to verbalize understanding, pt id band and iv site removed without complications. pt is able to ambulate with steady gait. pt took all belongings.
== END 2019-07-16 11:17 | disposition home or self-care (01) ==
LOC: EMR 08:15
DX: L03.011 Cellulitis of right finger (principal); E78.00 Pure hypercholesterolemia, unspecified; I10 Essential (primary) hypertension; J44.9 Chronic obstructive pulmonary disease, unspecified; K21.9 Gastro-esophageal reflux disease without esophagitis; F17.200 Nicotine dependence, unspecified, uncomplicated; Z88.6 Allergy status to analgesic agent; Z88.0 Allergy status to penicillin; Z91.013 Allergy to seafood
CPT/HCPCS: 10060; 96365; J3370; J7050; Z7502; 99283